=== PATIENT | female | born 1940 | race Caucasian/White ===

== ENCOUNTER 2019-04-23 10:52 | Outpatient (CLI) | payer MEDICARE, SELFPAY ==
--- NOTE | ~2019-04-23 | MM_ITS ---
EXAMINATION: MM screening hossein LT w yoshi HISTORY: Screening mammogram TECHNIQUE: Craniocaudal and mediolateral oblique 3-D tomosynthesis images were obtained and synthetic 2-D images were generated. CAD analysis was submitted and interpreted. COMPARISON: Comparison to multiple prior studies sequentially, with oldest reviewed study dated 11/28. BREAST PARENCHYMAL COMPOSITION: Breast composed of scattered areas of fibroglandular density FINDINGS: There is no evidence of suspicious mass, calcification, or architectural distortion to sugg est malignancy in the left breast. There has been no suspicious interval change. IMPRESSION: 1. No mammographic evidence of malignancy. 2. Recommend routine screening mammography in one year. BI-RADS Category 1: Negative Reviewed, dictated and finalized at location A. OMER COMPLAINT CLERK
== END 2019-04-23 10:53 | disposition home or self-care (01) ==
LOC: ANHIMG 10:56
PROVIDERS: PCP Nurse Practitioner Adult Health; Visit Provider Nurse Practitioner Adult Health
DX: Z12.31 Encounter for screening mammogram for malignant neoplasm of breast (principal)
CPT/HCPCS: 77063; 77067

== ENCOUNTER 2019-11-20 12:41 | Outpatient (CLI) | payer MEDICARE, SELFPAY ==
--- NOTE | ~2019-11-20 | MR_ITS ---
. EXAMINATION: MR shoulder RT wo con DATE: 11/20/2019 14:11 INDICATION: Right shoulder osteoarthritis. Right shoulder pain. TECHNIQUE: Magnetic resonance imaging (MRI) of the right shoulder was performed without intravenous c ontrast. Sequences included axial PD-weighted FS FSE, coronal oblique PD-weighted FS FSE and T2-weigh alicia FS FSE, and sagittal oblique T2-weighted FS FSE and T1-weighted FSE. COMPARISON: None. FINDINGS: Coracoacromial arch: The acromion undersurface is curved in morphology (type II). There is severe acromioclavicular joint osteoarthritis including inferior directed osteophytes. There is moderate subacromial/subdeltoid burs itis. Rotator cuff: There is a full-thickness tear of supraspinatus and infraspinatus tendons measuring 17 mm anterior to posterior. The tear measures 9 mm proximal to distal at the bursal surface and 2.4 cm proximal to di stal at the articular surface. Teres minor tendon is normal. There is mild subscapularis tendinopathy . There is mild fatty atrophy of infraspinatus muscle belly. Biceps tendon and glenoid labrum: Biceps tendon is in bicipital groove. There is mild intra-articular biceps tendinopathy. There is deg eneration of the superior glenoid labrum without well-defined tear. Fluid: There is a small glenohumeral joint effusion. Bones/cartilage: There is extensive partial thickness cartilage loss of the glenoid, deep at the central articular loco face. There is shallow partial-thickness cartilage loss of humeral head. IMPRESSION: 1. Moderate glenohumeral joint chondrosis. 2. Full-thickness rotator cuff tear. 3. Severe acromioclavicular joint osteoarthritis. 4. Mild intra-articular biceps tendinopathy. 5. Small glenohumeral joint effusion and moderate subacromial/subdeltoid bursitis. Reviewed, dictated and finalized at location A. IMPRESSION: 1. Moderate glenohumeral joint chondrosis. 2. Full-thickness rotator cuff tear. 3. Severe acromioclavicular joint osteoarthritis. 4. Mild intra-articular biceps tendinopathy. 5. Small glenohumeral joint effusion and moderate subacromial/subdeltoid bursit is.
== END 2019-11-20 12:42 | disposition home or self-care (01) ==
PROVIDERS: PCP Nurse Practitioner Adult Health; Visit Provider Nurse Practitioner Adult Health
DX: M19.011 Primary osteoarthritis, right shoulder (principal); M75.101 Unspecified rotator cuff tear or rupture of right shoulder, not specified as traumatic
CPT/HCPCS: 73221

== ENCOUNTER 2019-12-05 02:27 | Outpatient (CLI) | payer MEDICARE, SELFPAY ==
[2019-12-05 23:12] LABS: SARS-CoV-2 RNA PCR Negative
== END 2019-12-05 02:28 | disposition home or self-care (01) ==
LOC: ANHCOVIDDT 02:27
PROVIDERS: PCP Nurse Practitioner Adult Health; Visit Provider Internal Medicine Gastroenterology
DX: Z01.812 Encounter for preprocedural laboratory examination (principal); Z20.828 Contact with and (suspected) exposure to other viral communicable diseases
CPT/HCPCS: 87635; C9803; U0003

== ENCOUNTER 2019-12-08 00:51 | Day surgery (SDC) | payer MEDICARE, SELFPAY ==
[2019-12-02 12:49] VITALS: BMI 20.8
[2019-12-08 06:59] VITALS: BP 163/107; PULSE 75; RESP 14; TEMP 36.8; O2SAT 99; BMI 20.4
[2019-12-08] MEDS: LACTATED RINGERS 1,000 ML 150 ML IV CONT (07:23)
--- NOTE | 2019-12-08 07:23 | PM.HPGS ---
History of Present Illness History of Present Illness Consent: Risks, benefits, and alternatives have been discussed and questions answered. Patient agrees to proceed with procedure. Chief complaint: Neoplasm Screening Narrative: Abril Ramírez is a 79 year old W female referred for colonoscopy secondary to change in bowel pattern with increasing constipation abdominal pain and positive colo guard test. Patient's last colonoscopy was over 11 years ago P no family history of colon cancer. [facility] Past Medical History Medical History (Updated 12/08/19 @ 07:26 by Mayank Sarah MD) Dyslipidemia GERD (gastroesophageal reflux disease) Irritable bowel syndrome Migraines Surgical History Surgical History (Updated 12/08/19 @ 07:25 by Mayank Sarah MD) H/O hysterectomy for benign disease Status post right mastectomy Social History Social History Smoking status: Never smoker Alcohol intake: current Drinks per week: 7 Alcohol use details: 2 0Z PER EVENING Substance use: never Substance use type: does not use Living arrangements: alone Spiritual care concerns: No Meds Home Medications and Allergies Home Medications Medication Instructions Recorded Confirmed Type aspirin [Aspirin Low Dose] 81 mg PO DAILY 12/02/19 12/02/19 History esomeprazole magnesium 40 mg PO DAILY 12/02/19 12/02/19 History propranolol 20 mg PO DAILY 12/02/19 12/02/19 History rosuvastatin 10 mg PO DAILY 12/02/19 12/02/19 History sertraline 50 mg PO DAILY 12/02/19 12/02/19 History temazepam 15 mg PO HS 12/02/19 12/02/19 History Allergies Allergy/AdvReac Type Severity Reaction Status Date / Time nitroglycerin AdvReac Severe VOMITING,DI Verified 12/08/19 06:58 ZZY,LIGHTHE ADED,CRAMPI NG aspirin AdvReac Intermediate GI UPSET Verified 12/08/19 06:58 Vital Signs Vital Signs - 24 hr 12/08/19 06:59 Temperature 36.8 C Pulse Rate 75 Respiratory Rate 14 Blood Pressure 163/107 H Pulse Oximetry 99 Exam Const: Orientation/consciousness: patient oriented x3 Resp: Auscultation: clear to auscultation bilaterally Cardio: Rate: regular rate Rhythm: regular rhythm Heart sounds: no murmurs GI: GI Palp: Yes Soft to palpation, No Tenderness to palpation present (GI), Yes No hepatosplenomegaly present and No Palpable mass present Auscultation: normal bowel sounds Neuro: General: patient oriented x3 and no focal motor deficits Extrem: General: no pedal edema Assessment and Plan Additional Plan colonoscopy for evaluation of change in bowel pattern positive colo guard test
--- NOTE | 2019-12-08 07:33 | WPDANESEPPF ---
Anes - Initial Pre Proc Eval Procedure: Operation Date: 12/08/19 08:00 Proposed Procedures p Screening Colonoscopy - Mayank Sarah MD Date/Time: 12/08/19 07:33 Surgeon: Mayank Sarah MD Pre Op Diagnosis: Neoplasm Screening Patient Data Age: 79 Gender: F Height: 5 ft 1 in Weight: 49 kg Last Vital Signs Temp 36.8 C 12/08/19 06:59 Pulse 75 12/08/19 06:59 Resp 14 12/08/19 06:59 BP 163/107 H 12/08/19 06:59 Pulse Ox 99 12/08/19 06:59 Allergies Allergy/AdvReac Type Severity Reaction Status Date / Time nitroglycerin AdvReac Severe VOMITING,DI Verified 12/08/19 06:58 ZZY,LIGHTHE ADED,CRAMPI NG aspirin AdvReac Intermediate GI UPSET Verified 12/08/19 06:58 Home Medications Medication Instructions Recorded Confirmed Type aspirin [Aspirin Low Dose] 81 mg PO DAILY 12/02/19 12/02/19 History esomeprazole magnesium 40 mg PO DAILY 12/02/19 12/02/19 History propranolol 20 mg PO DAILY 12/02/19 12/02/19 History rosuvastatin 10 mg PO DAILY 12/02/19 12/02/19 History sertraline 50 mg PO DAILY 12/02/19 12/02/19 History temazepam 15 mg PO HS 12/02/19 12/02/19 History Patient hx anesthesia problems: none Family hx anesthesia problems: none PMFSH Past Medical History Medical History Dyslipidemia GERD (gastroesophageal reflux disease) Irritable bowel syndrome Migraines Surgical History Surgical History H/O hysterectomy for benign disease Status post right mastectomy Social History Social History Smoking status: Never smoker Alcohol intake: current Drinks per week: 7 Alcohol use details: 2 0Z PER EVENING Substance use: never Substance use type: does not use Living arrangements: alone Spiritual care concerns: No Anes - Eval Final PreProcedure Day of Procedure 12/08/19 07:33 Patient weight: normal Heart: regular rate and rhythm Lungs: clear to auscultation Airway: Mallampati scale class II Neurological: alert and oriented Last oral intake: >/= 8 hours ASA classification: II Emergent: no Anesthetic plan: proceed Anesthesia type and monitoring: general GIVS and standard monitoring Informed Consent: The patient's anesthetic plan and its attendant risks and benefits were discussed with the patient/family/POA. Questions were solicited and answers provided to the satisfaction of the patient/family/POA.
[2019-12-08 08:47] VITALS: BP 132/69; PULSE 63; RESP 19; O2SAT 99
[2019-12-08 08:57] VITALS: BP 128/72; PULSE 60; RESP 17; O2SAT 98
[2019-12-08 09:07] VITALS: BP 135/78; PULSE 58; RESP 15; O2SAT 100
== END 2019-12-08 09:25 | disposition home or self-care (01) ==
PROVIDERS: PCP Nurse Practitioner Adult Health; Visit Provider Internal Medicine Gastroenterology
PROC: 0DJD8ZZ Inspection of Lower Intestinal Tract, Via Natural or Artificial Opening Endoscopic (ICD-10-PCS; CPT 45378; principal; 2019-12-08 08:00)
DX: Z12.11 Encounter for screening for malignant neoplasm of colon (principal); D12.0 Benign neoplasm of cecum; D12.8 Benign neoplasm of rectum; K57.30 Diverticulosis of large intestine without perforation or abscess without bleeding; R19.5 Other fecal abnormalities; K59.00 Constipation, unspecified; K21.9 Gastro-esophageal reflux disease without esophagitis; K58.9 Irritable bowel syndrome, unspecified; E78.5 Hyperlipidemia, unspecified; Z79.82 Long term (current) use of aspirin
CPT/HCPCS: 45380; 88305; J2704; J7120

== ENCOUNTER 2020-08-17 15:27 | Outpatient (CLI) | payer MEDICARE, SELFPAY ==
--- NOTE | ~2020-08-17 | MM_ITS ---
EXAMINATION: MM screening hossein LT w yoshi HISTORY: Screening mammogram. Status post right mastectomy in 2006. TECHNIQUE: Craniocaudal and mediolateral oblique 3-D tomosynthesis images were obtained and synthetic 2-D images were generated. CAD analysis was submitted and interpreted. COMPARISON: 04/23/2019 left digital screening mammogram examinations 01/11/2018 left digital screening mammogram examination 06/13/2016 diagnostic left digital mammogram 06/06/2016 left digital screening mammogram BREAST PARENCHYMAL COMPOSITION: There are scattered areas of fibroglandular density. FINDINGS: There is no evidence of suspicious mass, calcification, or architectural distortion to sugg est malignancy in either breast. There has been no suspicious interval change. IMPRESSION: 1. No mammographic evidence of malignancy. 2. Recommend routine screening mammography in one year. BI-RADS Category 1: Negative Reviewed, dictated and finalized at location A.
== END 2020-08-17 15:28 | disposition home or self-care (01) ==
PROVIDERS: PCP Nurse Practitioner Adult Health; Visit Provider Nurse Practitioner Adult Health
DX: Z12.31 Encounter for screening mammogram for malignant neoplasm of breast (principal)
CPT/HCPCS: 77063; 77067

== ENCOUNTER 2020-08-28 12:10 | Outpatient (CLI) | payer MEDICARE, SELFPAY ==
--- NOTE | ~2020-08-28 | MR_ITS ---
EXAMINATION: MR cervical spine wo con EXAM DATE: 08/28/2020 13:02 INDICATION: Cervicalgia. TECHNIQUE: Multi-sequential, multiplanar MR images of the cervical spine were obtained without contra st. Axial T2, axial T2 MERGE sequence. Sagittal T1, T2, T2 fat saturation images also obtained. Th ere is no prior study for comparison. FINDINGS: Left thyroid fluid signal intensity nodule, probably cystic measuring about 1.6 cm. There is 2 mm anterolisthesis C4 on C5. Moderate disc disease C5-6 and 6-7, mild to moderate at C4-5. The s hadley cord signal intensity and intrinsic morphology is normal. Cervicomedullary junction is normal i n appearance. There are no suspicious marrow signal abnormalities. Paraspinal soft tissue is unremark able. Level by level evaluation: C2-C3: Disc does not extend beyond the endplate margin. Uncovertebral joint arthropathy: Mild bilateral. Facet joint arthropathy: Mild to moderate bilateral. Neural foraminal stenosis: No stenosis. Central canal stenosis: No stenosis. C3-C4: Disc does not extend beyond the endplate margin. Uncovertebral joint arthropathy: Mild to moderate right, mild left. Facet joint arthropathy: Moderate to severe right, mild to moderate left. Neural foraminal stenosis: Mild right. Central canal stenosis: No stenosis. C4-C5: There is a mild diffuse disc bulge. Uncovertebral joint arthropathy: Moderate left, mild to moderate right. Facet joint arthropathy: Moderate left, mild right. Neural foraminal stenosis: No stenosis. Central canal stenosis: No stenosis. C5-C6: There is a mild diffuse disc bulge. Uncovertebral joint arthropathy: Severe right, moderate left. Facet joint arthropathy: Mild to moderate bilateral. Neural foraminal stenosis: Moderate to severe left, moderate right. Central canal stenosis: Mild. C6-C7: There is a mild diffuse disc bulge. Uncovertebral joint arthropathy: Severe right, moderate left. Facet joint arthropathy: Mild to moderate bilateral. Neural foraminal stenosis: Mild bilateral. Central canal stenosis: No stenosis. C7-T1: Disc does not extend beyond the endplate margin. Uncovertebral joint arthropathy: None. Facet joint arthropathy: Moderate bilateral. Neural foraminal stenosis: No stenosis. Central canal stenosis: No stenosis. IMPRESSION: 1. Moderate to severe cervical spondylosis. 2. Left thyroid lobe cystic nodule. Reviewed, dictated and finalized at location A.
== END 2020-08-28 12:11 | disposition home or self-care (01) ==
PROVIDERS: PCP Nurse Practitioner Adult Health; Visit Provider Nurse Practitioner Family
DX: M54.2 Cervicalgia (principal); M47.812 Spondylosis without myelopathy or radiculopathy, cervical region; E04.1 Nontoxic single thyroid nodule
CPT/HCPCS: 72141

== ENCOUNTER 2021-03-21 11:27 | Emergency (ER) | payer MEDICARE, SELFPAY ==
--- NOTE | ~2021-03-21 | XR_ITS ---
EXAMINATION: XR chest 2V EXAM DATE: 03/21/2021 12:01 INDICATION: Chest pain. TECHNIQUE: Frontal and lateral projections of the chest obtained and reviewed. Comparison is made to prior examination from 12/23/2013. FINDINGS: The lungs are hyperinflated which can be seen with chronic obstructive pulmonary disease ( a clinical diagnosis of functional impairment), but is not diagnostic of it. There is mild cardiomega ly. No confluent consolidation, pneumothorax or pleural effusion suspected. There is a mild to modera te chronic appearing mid thoracic compression fracture and mild compression fracture at the level jus t below. IMPRESSION: Hyperinflation. Cardiomegaly. Reviewed, dictated and finalized at location A. ULUS TEACHER
--- NOTE | 2021-03-21 11:29 | ECG_ITS ---
Measurements Intervals [place] Rate: 68 P: 78 AL: 166 QRS: -52 QRSD: 90 T: 8 QT: 397 QTc: 423 Interpretive Statements SINUS RHYTHM FREQUENT ATRIAL PREMATURE COMPLEXES INCOMPLETE RIGHT BUNDLE BRANCH BLOCK POOR R WAVE PROGRESSION, ANTERIOR LEADS BORDERLINE T WAVE ABNORMALITY- INFERIOR LEADS ABNORMAL ECG Electronically Signed On 03-21-2021 12:44:59 SECOND CRUSHER by Juan Diego Mccormack D.O.
[2021-03-21 11:31] VITALS: BP 135/78; PULSE 69; RESP 16; TEMP 36.2; O2SAT 100
[2021-03-21 12:06] LABS: Basophils Percent Auto 0.4 % (0.2-1.2); Eosinophils Absolute Auto 0.1 K/mm3 (0-0.3); Eosinophils Percent Auto 2.1 % (0-4.4); Hematocrit 42.2 % (37.0-47.0); Hemoglobin 13.9 g/dL (12.0-15.0); Immature Granulocyte Absolute 0.01 K/mm3 (0.00-0.031); Immature Granulocyte Percent A 0.2 % (0-0.5); Lymphocytes Absolute Auto 1.43 K/mm3 (0.9-3.2); Lymphocytes Percent Auto 29.4 % (18.3-44.2); Mean Corpuscular HGB Conc 32.9 g/dl (32-36); Mean Platelet Volume 11.8 fl (7.4-10.4); Monocytes Absolute Auto 0.4 K/mm3 (0.1-0.6); Monocytes Percent Auto 9.1 % (2.6-8.5); Neutrophils Absolute Auto 2.9 K/mm3 (1.3-6.7); Neutrophils Percent Auto 58.8 % (45.5-73.1); Platelet Count Result 202 k/mm3 (150-375); Red Blood Count 4.49 M/mm3 (4.2-5.4); Red Cell Distribution Width 13.1 % (11.5-14.5); White Blood Count 4.9 K/mm3 (4.5-10.0)
[2021-03-21 12:09] LABS: Alanine Aminotransferase 21 U/L (4-35); Albumin Level 4.1 g/dL (3.5-5.1); Alkaline Phosphatase 65 U/L (38-126); Anion Gap 7 mmol/L (8-16); Aspartate Amino Transferase 31 U/L (14-36); Bilirubin,Total 0.6 mg/dL (0.2-1.3); Blood Urea Nitrogen 17 mg/dL (7-17); Calcium 9.5 mg/dL (8.4-10.2); Carbon Dioxide 28 mmol/L (22-30); Chloride 102 mmol/L (98-107); Estimated CRCL calculation 29 ml/min; Estimated Glomerular Filt Rate 53; Glucose 175 mg/dL (65-110); Lipase 44 U/L (23-300); Potassium 4.5 mmol/L (3.4-5.0); Sodium 137 mmol/L (137-145)
[2021-03-21 12:14] LABS: INR 1.1; Prothrombin Time 13.7 Seconds (11.1-14.7)
[2021-03-21 12:15] LABS: Partial Thromboplastin Time 27.2 SECONDS (22.3-36.8)
[2021-03-21 12:17] LABS: Troponin I 0.014 ng/mL (0.000-0.034)
[2021-03-21 13:28] VITALS: BP 137/72; PULSE 66; O2SAT 98
--- NOTE | 2021-03-21 14:58 | ED.CHESTPAIN ---
HPI - Chest Pain General Chief Complaint: Chest Pain Stated Complaint: chest pain Time Seen by Provider: 03/21/21 14:33 Source: patient, EMS and RN notes reviewed Mode of arrival: EMS Limitations: no limitations History of Present Illness HPI narrative: 81-year-old female with history of coronary artery disease presents to the emergency department for evaluation of heart racing, near syncope and chest pain. Patient states that this morning she had an episode of rapid heart rate with associated chest pain and near syncope. Patient states while this episode was ongoing she did called 911 and was able to make it to the door to unlock the door. Upon arrival to the scene by EMS they report that she was in A. fib with RVR and had a very low blood pressure. Upon arrival to the emerge department patient was in normal sinus rhythm and blood pressure had normalized. Patient did still complain of some epigastric pain. Patient does report her years ago that she did have a cardiac cath that showed some narrowing but has no stents. Patient had previously been taking statins and aspirin but states that she stopped taking these medications on her own without her doctor's guidance. Related Data Home Medications Medication Instructions Recorded Confirmed aspirin [Aspirin Low Dose] 81 mg PO DAILY 12/02/19 12/02/19 esomeprazole magnesium 40 mg PO DAILY 12/02/19 12/02/19 propranolol 20 mg PO DAILY 12/02/19 12/02/19 rosuvastatin 10 mg PO DAILY 12/02/19 12/02/19 sertraline 50 mg PO DAILY 12/02/19 12/02/19 temazepam 15 mg PO HS 12/02/19 12/02/19 Allergies Allergy/AdvReac Type Severity Reaction Status Date / Time nitroglycerin AdvReac Severe VOMITING,DI Verified 12/08/19 06:58 JASON STEVENS CRAMPI NG aspirin AdvReac Intermediate GI UPSET Verified 12/08/19 06:58 Review of Systems Review of Systems: CONSTITUTIONAL: Denies fever, chills, or sweats. EYES: Denies visual changes, redness, or discharge. ENT: Denies rhinorrhea, congestion, sore throat, or otalgia. CARDIOVASCULAR: Episode of heart palpitations near syncope and chest pain with possible A. fib with RVR at home RESPIRATORY: Denies cough or dyspnea. GASTROINTESTINAL: Denies abdominal pain, nausea, vomiting, or diarrhea. GENITOURINARY: Denies dysuria or hematuria. SKIN: Denies rash or itching. MUSCULOSKELETAL: Denies back pain, joint pain, or myalgia. NEUROLOGIC: Denies headache, numbness, or weakness. PSYCHIATRIC: Denies anxiety or depression. PMFSH Past Medical History Medical History Dyslipidemia GERD (gastroesophageal reflux disease) Irritable bowel syndrome Migraines Surgical History Surgical History H/O hysterectomy for benign disease Status post right mastectomy Social History Social History Smoking status: Never smoker Alcohol intake: current Drinks per week: 7 Alcohol use details: 2 0Z PER EVENING Substance use: never Substance use type: does not use Spiritual care concerns: No Exam Narrative: APPEARANCE: Well appearing, no pain, no distress, well-nourished. HEAD: normocephalic, atraumatic. EYES: PERRLA/EOMI, conjunctivae clear. NOSE: Normal no drainage RESPIRATORY: Airway patent, respirations nonlabored. Clear to auscultation bilaterally, no rales, rhonchi, wheezing. CARDIOVASCULAR: Regular rate and rhythm without murmurs rubs or gallops. ABDOMINAL: Soft, nontender, nondistended, normal bowel sounds MUSCULOSKELETAL: Moves all extremities. Strength/ROM intact, No edema, No calf tenderness. NEURO: Alert. Cranial nerves II through XII intact. SKIN: Warm, dry. Normal Color PSYCHIATRIC: Normal affect/mood. Course Course Emergency Course: I discussed the case with the hospitalist and patient was accepted for further cardiac work-up. Prior to admission I re discussed the admiss
[2021-03-21 15:03] LABS: Troponin I 0.018 ng/mL (0.000-0.034)
[2021-03-21 16:13] LABS: SARS-CoV-2 RNA PCR Negative
[2021-03-21 17:50] VITALS: BP 122/64; PULSE 80; RESP 16; O2SAT 98
== END 2021-03-21 17:50 | disposition left against medical advice (07) ==
PROVIDERS: Emergency Medicine; Emergency Provider Emergency Medicine; PCP Nurse Practitioner Adult Health
DX: R00.2 Palpitations (principal); R55 Syncope and collapse; R07.9 Chest pain, unspecified; Z20.822 Contact with and (suspected) exposure to COVID-19; I25.10 Atherosclerotic heart disease of native coronary artery without angina pectoris; E78.5 Hyperlipidemia, unspecified; K21.9 Gastro-esophageal reflux disease without esophagitis; K58.9 Irritable bowel syndrome, unspecified; Z90.11 Acquired absence of right breast and nipple; I49.1 Atrial premature depolarization; I45.10 Unspecified right bundle-branch block; R94.31 Abnormal electrocardiogram [ECG] [EKG]; I51.7 Cardiomegaly
CPT/HCPCS: 36415; 71046; 80053; 83690; 84484; 85025; 85610; 85730; 93005; 99284; C9803; U0003; U0005

== ENCOUNTER 2023-04-13 16:43 | Observation (INO) | payer MEDICARE, SELFPAY ==
[2023-04-13] VITALS (19 sets, daily range): BP systolic 133–164; BP diastolic 76–102; PULSE 52–73; RESP 12–22; TEMP 36.7; O2SAT 97–100
--- NOTE | ~2023-04-13 | XR_ITS ---
EXAM: XR shoulder RT min 2V DATE: 04/13/2023 21:09 HISTORY: Fall . COMPARISON: MRI right shoulder 11/20/2019. FINDINGS: Decreased mineralization. Right axillary clips. No fracture or dislocation. No lytic or bl astic lesion. Moderate AC joint and mild glenohumeral joint degenerative change. No erosion or perios teal change. Soft tissues within normal limits. IMPRESSION: No acute osseous finding in the right shoulder. Reviewed, dictated and finalized at location K. ER HOLE REAMER
--- NOTE | ~2023-04-13 | CT_ITS ---
EXAMINATION: CT cervical spine wo con DATE: 04/13/2023 21:07 INDICATION: fall, pain TECHNIQUE: Computed tomography (CT) of the cervical spine was performed without intravenous contrast. Automated exposure control and iterative reconstruction technique were employed. The dose-length pro duct was 93.80 mGy-cm. COMPARISON: MR C-spine 08/28/2020. FINDINGS: Vertebral Body Alignment: Intact. Multilevel degenerative listheses, unchanged Craniocervical and atlantoaxial alignment: Moderate degenerative change. Alignment intact. Osseous structures/fracture: No evidence of a lytic or blastic process in the visualized spine. No e vidence of acute fracture. Cervical soft tissues: The paraspinal soft tissues planes are maintained. 2.1 cm left thyroid nodule. Degenerative changes: Degenerative changes are present, without severe neural foraminal or central ca nal narrowing. IMPRESSION: No acute fracture or traumatic malalignment in the cervical spine. Reviewed, dictated and finalized at location K. LLITE DISH REPAIRER
--- NOTE | ~2023-04-13 | CT_ITS ---
EXAMINATION: CT brain wo con DATE: 04/13/2023 21:07 INDICATION: fall . TECHNIQUE: Computed tomography (CT) of the head was performed without intravenous contrast. The mA wa s adjusted according to patient size. Iterative reconstruction technique was employed. The dose-lengt h product was 605.33 mGy-cm. COMPARISON: None. FINDINGS: No acute intracranial hemorrhage or extra-axial fluid collection. No hydrocephalus, mass, or herniation. No acute ischemic infarct. Unremarkable dural venous sinus attenuation. No acute osseous abnormality. Right maxillary retention cyst/polyp. Mucosal thickening, with possible retention cyst or polyp in th e sphenoid sinus. The remaining aerated spaces are clear. Mild atrophy and chronic white matter change. Atherosclerotic intracranial calcification. Bilateral l ens replacements. Left basal ganglia calcification. IMPRESSION: No acute intracranial process. Reviewed, dictated and finalized at location K. AL WORK THERAPIST
--- NOTE | ~2023-04-13 | XR_ITS ---
EXAMINATION: XR chest 2V Exam Date/Time: 04/13/2023 17:33 LEASING DIRECTOR HISTORY: chest pain Comparison: 03/21/2021. RESULT: Lines, tubes, and devices: Right axillary and anterior chest surgical clips. Lungs and pleura: Severe emphysematous/senescent change. Cardiomediastinal silhouette: Stable. Other: No acute osseous or upper abdominal finding. Stable mild wedge compression deformity of multi ple mid thoracic vertebral bodies. IMPRESSION: No acute cardiopulmonary process. Reviewed, dictated and finalized at location K. ING DIRECTOR
--- NOTE | ~2023-04-13 | XR_ITS ---
EXAM: XR hip RT 2V w AP pelvis DATE: 04/13/2023 21:09 HISTORY: fall, pain . COMPARISON: None available. FINDINGS: Decreased mineralization. No fracture or dislocation. No lytic or blastic lesion. Lumbar d egenerative disc disease. 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 No erosion or periost eal change. Soft tissues within normal limits. IMPRESSION: No acute osseous finding in the pelvis or right hip. Reviewed, dictated and finalized at location K. HMALLOW MACHINE OPERATOR
--- NOTE | 2023-04-13 16:44 | ECG_ITS ---
Measurements Intervals [place] Rate: 62 P: 74 WV: 177 QRS: -51 QRSD: 96 T: -1 QT: 399 QTc: 407 Interpretive Statements SINUS RHYTHM WITH FREQUENT ECTOPIC PREMATURE COMPLEXES IN A BIGEMINAL PATTERN INCOMPLETE RIGHT BUNDLE BRANCH BLOCK [90+ ms QRS DURATION, TERMINAL R IN V1/V2, 40+ ms S IN I/aVL/V4/V5/V6] LEFT ANTERIOR FASCICULAR BLOCK [QRS AXIS <= -45, QR IN I, RS IN II] ABNORMAL ECG COMPARED TO ECG 03/21/2021 11:39:51 PVCS ARE NOW SEEN Electronically Signed On 04-14-2023 8:14:49 ENTERPRISE ACCOUNT EXECUTIVE by Sascha Lechuga M.D.
[2023-04-13 17:11] LABS: Basophils Percent Auto 0.5 % (0.2-1.2); Eosinophils Absolute Auto 0.2 K/mm3 (0-0.3); Eosinophils Percent Auto 3.5 % (0-4.4); Hematocrit 39.8 % (37.0-47.0); Immature Granulocyte Absolute 0.02 K/mm3 (0.00-0.031); Immature Granulocyte Percent A 0.4 % (0-0.5); Lymphocytes Absolute Auto 1.35 K/mm3 (0.9-3.2); Lymphocytes Percent Auto 24.5 % (18.3-44.2); Mean Corpuscular HGB Conc 32.7 g/dl (32-36); Mean Corpuscular Hemoglobin 30.5 pg (26-34); Mean Corpuscular Volume 93.4 fl (80-100); Mean Platelet Volume 11.1 fl (7.4-10.4); Monocytes Absolute Auto 0.5 K/mm3 (0.1-0.6); Monocytes Percent Auto 8.7 % (2.6-8.5); Neutrophils Absolute Auto 3.4 K/mm3 (1.3-6.7); Neutrophils Percent Auto 62.4 % (45.5-73.1); Platelet Count Result 193 k/mm3 (150-375); Red Blood Count 4.26 M/mm3 (4.2-5.4); Red Cell Distribution Width 13.2 % (11.5-14.5); White Blood Count 5.5 K/mm3 (4.5-10.0)
[2023-04-13 17:21] LABS: INR 0.9
[2023-04-13 17:22] LABS: Partial Thromboplastin Time 30.9 SECONDS (22.3-36.8)
[2023-04-13 17:24] LABS: Alanine Aminotransferase 15 U/L (6-35); Albumin Level 4.2 g/dL (3.5-5.1); Alkaline Phosphatase 69 U/L (38-126); Anion Gap 5 mmol/L (8-16); Aspartate Amino Transferase 24 U/L (14-36); Bilirubin,Total 0.5 mg/dL (0.2-1.3); Blood Urea Nitrogen 18 mg/dL (7-17); Calcium 9.3 mg/dL (8.4-10.2); Carbon Dioxide 30 mmol/L (22-30); Chloride 102 mmol/L (98-107); Estimated CRCL calculation 27 ml/min; Estimated Glomerular Filt Rate 53; Glucose 108 mg/dL (65-110); Lipase 65 U/L (23-300); Potassium 4.1 mmol/L (3.4-5.0); Sodium 137 mmol/L (137-145)
[2023-04-13 17:35] LABS: Troponin I < 0.012 ng/mL (0.000-0.034)
--- NOTE | 2023-04-13 20:14 | ED.CHESTPAIN ---
HPI - Chest Pain General Chief Complaint: Chest Pain <Sola Liz PA-C - Last Filed: 04/13/23 23:33> Stated Complaint: strong chest pain/SOB/GERD <Sola Liz PA-C - Last Filed: 04/13/23 23:33> Time Seen by Provider: 04/13/23 22:27 <Sola Liz PA-C - Last Filed: 04/13/23 23:33> Focused HPI: 83 y/o F with known CAD, A fib, GERD, esophageal ulcers reports for evaluation for chest pain today. States CP started this afternoon, she cannot remember what she was doing at onset of chest pain. Stats burping makes her chest pain better. Reports associated tingling to bilateral arms with chest pain. She reports dyspnea on exertion and fatigue x1-2 months and lightheadedness x1 week. teradata solution architect is Dr. Mcmullen in [place] with [facility] vascular [facility]. Cardiac cathed a few years back which showed partial blockage . She is not anticoagulated. States she took her BP today and her monitor said HR was irregular. Reports an episode of syncope 1 month ago when got out of shower, hit head and laceration to neck and R shoulder. Reports residual neck pain. Pt lives at home alone. Denies BLE, abdominal pain, n/v, diaphoresis, cough, fever, hemoptysis. She has an appointment with her teradata solution architect in 3 days. GENERAL: Well-appearing, well-nourished, and in no acute distress. HEAD: Normocephalic, atraumatic. CHEST: Clear to auscultation. ?No respiratory distress. HEART: Regular rate and rhythm.? NEURO: ?Alert and oriented x3. Patient screened in triage and initial orders placed.? ?Additional care and disposition to be based upon?diagnostic testing and treatment. <Sola Liz PA-C - Last Filed: 04/13/23 23:33> History of Present Illness HPI narrative: 83 y/o F with known CAD, A fib, GERD, esophageal ulcers reports for evaluation for chest pain today. States CP started this afternoon, she cannot remember what she was doing at onset of chest pain. Stats burping makes her chest pain better. Reports associated tingling to bilateral arms with chest pain. She reports dyspnea on exertion and fatigue x1-2 months and lightheadedness x1 week. teradata solution architect is Dr. Mcmullen in [place] with [facility] heart [facility] vascular [facility]. Cardiac cathed a few years back which showed partial blockage . She is not anticoagulated. States she took her BP today and her monitor said HR was irregular. Reports an episode of syncope 1 month ago when got out of shower, hit head and laceration to neck and R shoulder. Reports residual neck pain. Pt lives at home alone. Denies BLE, abdominal pain, n/v, diaphoresis, cough, fever, hemoptysis. She has an appointment with her teradata solution architect in 3 days. <Sola Liz PA-C - Last Filed: 04/13/23 23:33> Related Data Home Medications: Home Medications Medication Instructions Recorded Confirmed aspirin 81 mg tablet,delayed 81 mg PO DAILY 12/02/19 12/02/19 release (Brit Low Dose Aspirin) esomeprazole magnesium 40 mg 40 mg PO DAILY 12/02/19 12/02/19 capsule,delayed release propranolol 20 mg tablet 20 mg PO DAILY 12/02/19 12/02/19 rosuvastatin 10 mg tablet 10 mg PO DAILY 12/02/19 12/02/19 sertraline 50 mg tablet 50 mg PO DAILY 12/02/19 12/02/19 temazepam 15 mg capsule 15 mg PO HS 12/02/19 12/02/19 <Sola Liz PA-C - Last Filed: 04/13/23 23:33> Allergies/Adverse Reactions: Allergies Allergy/AdvReac Type Severity Reaction Status Date / Time nitroglycerin AdvReac Severe VOMITING,DI Verified 04/13/23 21:39 ZZY,LIGHTHE ADED,CRAMPI NG aspirin AdvReac Intermediate GI UPSET Verified 04/13/23 21:39 <Sola Liz PA-C - Last Filed: 04/13/23 23:33> Review of Systems Review of Systems: CONSTITUTIONAL: Denies fever, chills, or sweats. EYES: Denies visual changes, redness, or discharge. ENT: Denies rhinorrhea, congestion, sore throat, or otalgia. CARDIOVASCULAR: See HPI RESPIRATORY: See HPI GASTROINTESTINAL: Denies abdominal pain, nausea, vomiting, or diarrhe
[2023-04-13 21:09] LABS: NT Pro B Type Natriuretic Pept 665 pg/mL (19.9-100)
--- NOTE | 2023-04-13 21:24 | ECG_ITS ---
Measurements Intervals [place] Rate: 62 P: 71 ME: 160 QRS: -34 QRSD: 101 T: 32 QT: 427 QTc: 436 Interpretive Statements SINUS RHYTHM WITH FREQUENT ECTOPIC PREMATURE COMPLEXES LEFT ANTERIOR SUPERIOR HEMIBLOCK INCOMPLETE RIGHT BUNDLE BRANCH BLOCK [90+ ms QRS DURATION, TERMINAL R IN V1/V2, 40+ ms S IN I/aVL/V4/V5/V6] ABNORMAL ECG COMPARED TO ECG 04/13/2023 16:49:49 NO DIFFERENCE Electronically Signed On 04-14-2023 8:23:43 CARD GRINDER HELPER by Sascha Lechuga M.D.
[2023-04-13 22:03] LABS: Troponin I < 0.012 ng/mL (0.000-0.034)
[2023-04-13] MEDS: BELLADONNA ALK/PHENOB ELIX 10 ML, MAG HYDROX/ALUMINUM HYD/SIMETH 30 ML, LIDOCAINE HCL 2... PO (22:57)
[2023-04-13] MEDS: FAMOTIDINE 20 MG/2 ML VIAL IV PUSH (22:58)
[2023-04-13 22:59] LABS: Appearance Urine Clear (Clear); Bacteria Urine None Seen /hpf; Bilirubin Urine Negative (Negative); Blood Urine Trace (Negative); Color Urine Yellow (Yellow); Glucose Urine UA Negative (Negative); Ketones Urine Negative (Negative); Leukocyte Esterase Ur Trace LEU/UL (Negative); Nitrate Urine Negative (Negative); Non Pathogenic Casts 0-2; Protein Urine Negative (Negative); Specific Grav Ur 1.006 (1.001-1.035); Squamous Epithelial Cell Urine None seen /hpf (Few); Urobilinogen Urine 0.2 mg/dL (<2.0); WBC Urine 0-5 /hpf
[2023-04-13 23:06] LABS: Add Urine Microscopic? YES
--- NOTE | 2023-04-13 23:31 | PM.IMHP ---
H&P: HPI History of Present Illness Date/Time: 04/13/23 23:31 Chief Complaint: Chest Pain Narrative: 83-year-old female with history of CAD, atrial fibrillation, esophageal and gastric also presents to the ED for evaluation of chest pain that started yesterday afternoon, described pain as sharp, relieved by bowel pain, associated lightheadedness and dizziness and radiation to upper extremities are Percocet dyspnea on exertion and fatigue of about 1-2 months after she had COVID. She had cardiac catheterization few years ago which showed partial blockage at [place], denied nausea, vomiting, diaphoresis. She was evaluated in the ER, her EKG is not suggestive of a acute cardiac ischemia, troponin x2 negative. She continues to complain of weakness especially if she stands. Based on her risk factors which places her at high risk of ACS, I was called to admit this patient for observation for chest pain rule out Review of Systems Review of Systems: All systems reviewed & are unremarkable except as noted in HPI and below PMFSH Past Medical History Medical History Dyslipidemia GERD (gastroesophageal reflux disease) Irritable bowel syndrome Migraines Surgical History Surgical History H/O hysterectomy for benign disease Status post right mastectomy Family History Family History (Updated 04/14/23 @ 01:22 by Richard Lawrence RN) Father Cerebrovascular accident Skin cancer Mother Cerebrovascular accident Sibling Malignant neoplasm of prostate Social History Social History Smoking status: Never smoker Alcohol intake: current Drinks per week: 7 Alcohol use details: 2 0Z PER EVENING Substance use: never Substance use type: does not use Do You Feel Safe in your Home?: Yes Lack of Transportation: No Lack of Food: Never True Current Housing: I Have Housing Concerned About Future Housing: No Difficulty Paying Gas/Electric Bills: No Difficulty Paying for Meds: No Currently Unemployed: No Education: Bachelor's Degree Difficulty w/ Childcare or Family Care: No Living arrangements: alone Spiritual care concerns: No Meds Home Medications and Allergies Home Medications Medication Instructions Recorded Confirmed Type propranolol 20 mg tablet 20 mg PO DAILY 12/02/19 04/14/23 History rosuvastatin 10 mg tablet 10 mg PO DAILY 12/02/19 04/14/23 History sertraline 50 mg tablet 50 mg PO DAILY 12/02/19 04/14/23 History temazepam 15 mg capsule 15 mg PO HS 12/02/19 04/14/23 History amlodipine 5 mg tablet 5 mg PO DAILY 04/14/23 04/14/23 History aspirin 81 mg capsule ([place]) 81 mg PO DAILY 04/14/23 04/14/23 History famotidine 40 mg tablet 40 mg PO DAILY 04/14/23 04/14/23 History Allergies Allergy/AdvReac Type Severity Reaction Status Date / Time nitroglycerin AdvReac Severe VOMITING,DI Verified 04/13/23 21:39 ZZY,LIGHTHE ADED,CRAMPI NG aspirin AdvReac Intermediate GI UPSET Verified 04/13/23 21:39 Vital Signs Vital Signs - 24 hr 04/13/23 17:00 04/13/23 21:37 04/13/23 21:47 Temperature 98.1 F Pulse Rate 58 L 52 L Respiratory Rate 16 12 Blood Pressure 133/102 H 134/87 Pulse Oximetry 100 100 100 Oxygen Delivery Room Air Room Air Room Air 04/13/23 21:37 04/13/23 21:45 04/13/23 21:46 Temperature Pulse Rate 54 L 53 L 58 L Respiratory Rate Blood Pressure 134/87 159/83 H Pulse Oximetry 100 99 99 Oxygen Delivery 04/13/23 22:15 04/13/23 22:30 04/13/23 22:31 Temperature Pulse Rate 53 L 66 70 Respiratory Rate 12 14 Blood Pressure 141/84 H Pulse Oximetry 98 98 99 Oxygen Delivery 04/13/23 22:35 04/13/23 22:38 04/13/23 22:40 Temperature Pulse Rate 57 L 59 L Respiratory Rate 15 14 Blood Pressure 144/101 H 143/85 H 155/76 H Pulse Oximetry 100 100 Oxy
[2023-04-14] VITALS (17 sets, daily range): BP systolic 109–156; BP diastolic 66–71; PULSE 50–65; RESP 14–19; TEMP 36.2–36.7; O2SAT 97–99; BMI 19.7
--- NOTE | 2023-04-14 | ADMGEN ---
This patient, Abril Ramírez, was admitted to IMU Room 206-01. Patient/family oriented to hospital policies and general routines including ID bracelet, bed and alarms, visiting hours, pain management, procedures, bathroom and other care routines, personal items, smoking policy, room service/diet, and visiting hours. Information on how to activate the Rapid Response Team has been discussed. Patient/Family are encouraged to report perceived risks to care and to ask questions if they do not understand what they are told or what they should do.
--- NOTE | 2023-04-14 00:53 | ADMGEN ---
This patient, Abril Ramírez, was admitted to IMU Room 206-01at 0047. Patient/family oriented to hospital policies and general routines including ID bracelet, bed and alarms, visiting hours, pain management, procedures, bathroom and other care routines, personal items, smoking policy, room service/diet, and visiting hours. Information on how to activate the Rapid Response Team has been discussed. Patient/Family are encouraged to report perceived risks to care and to ask questions if they do not understand what they are told or what they should do.
[2023-04-14 05:00] LABS: Basophils Percent Auto 0.9 % (0.2-1.2); Eosinophils Absolute Auto 0.2 K/mm3 (0-0.3); Eosinophils Percent Auto 3.2 % (0-4.4); Hematocrit 37.4 % (37.0-47.0); Hemoglobin 12.4 g/dL (12.0-15.0); Immature Granulocyte Absolute 0.01 K/mm3 (0.00-0.031); Immature Granulocyte Percent A 0.2 % (0-0.5); Lymphocytes Absolute Auto 1.91 K/mm3 (0.9-3.2); Lymphocytes Percent Auto 41.2 % (18.3-44.2); Mean Corpuscular HGB Conc 33.2 g/dl (32-36); Mean Corpuscular Hemoglobin 30.8 pg (26-34); Mean Platelet Volume 11.3 fl (7.4-10.4); Monocytes Absolute Auto 0.5 K/mm3 (0.1-0.6); Monocytes Percent Auto 11.2 % (2.6-8.5); Neutrophils Percent Auto 43.3 % (45.5-73.1); Platelet Count Result 172 k/mm3 (150-375); Red Blood Count 4.02 M/mm3 (4.2-5.4); Red Cell Distribution Width 13.2 % (11.5-14.5); White Blood Count 4.6 K/mm3 (4.5-10.0)
[2023-04-14 05:13] LABS: Anion Gap 4 mmol/L (8-16); Blood Urea Nitrogen 14 mg/dL (7-17); Calcium 9.1 mg/dL (8.4-10.2); Carbon Dioxide 30 mmol/L (22-30); Chloride 104 mmol/L (98-107); Estimated CRCL calculation 30 ml/min; Estimated Glomerular Filt Rate 60; Glucose 91 mg/dL (65-110); Potassium 3.9 mmol/L (3.4-5.0); Sodium 138 mmol/L (137-145)
[2023-04-14 05:24] LABS: Troponin I < 0.012 ng/mL (0.000-0.034)
[2023-04-14] MEDS: PANTOPRAZOLE 40 MG TABLET PO (09:20)
[2023-04-14] MEDS: ROSUVASTATIN 10 MG TABLET PO (10:33)
[2023-04-14] MEDS: PROPRANOLOL HCL 20 MG TABLET PO (10:33)
[2023-04-14] MEDS: SERTRALINE HCL 50 MG TABLET PO (10:34)
--- NOTE | 2023-04-14 15:06 | PM.DS ---
DS: Admitting Diagnosis Discharge Date 04/14/23 Admitting Diagnosis Chest pain DS: Discharge Diagnosis Discharge Diagnosis (1) Chest pain: Qualifiers: Chest pain type: unspecified Qualified Code(s): R07.9 - Chest pain, unspecified Code(s): R07.9 - Chest pain, unspecified Status: Acute (2) CAD (coronary artery disease): Code(s): I25.10 - Atherosclerotic heart disease of [place] coronary artery without angina pectoris Status: Acute (3) Atrial fibrillation: Code(s): I48.91 - Unspecified atrial fibrillation Status: Acute (4) GERD (gastroesophageal reflux disease): Code(s): K21.9 - Gastro-esophageal reflux disease without esophagitis Status: Acute (5) Dyslipidemia: Code(s): E78.5 - Hyperlipidemia, unspecified Status: Acute DS: Summary Hospital Course Reason for hospitalization: 83yo female with CAD, pFib and GERD here for chest pain. Please see H&P for details. Hospital Course: Patient presents with lower substernal chest pain associated with tingling in the arms. She was lightheaded. Has AFib but not on anticoagulation; has had outpatient cardiac monitoring that has been normal. Has long hx of GERD and can only take ASA 3 days/week for this reason. Pain better with belching. Cardiac cath a few years ago showing partial blockage but no recent stress test. In the ED, vital signs were stable. BP 133/102 but improved. CBC, PT, PTT, Lipase and CMP normal except BUN 18. BNP 665. Troponin negative x3. UA showing 3-5RBC and trace LE. CXR is clear. She had COVID in December and a fall in January. She has persistent chronic symptoms since then prompting ED doctor to perform imaging studies: She had cervical CT showing no acute findings. Head CT showed no acute intracranial process. Right shoulder x-ray acute osseous abnormalities. Right hip and pelvic x-ray showed acute osseous abnormalities. EKG showed normal sinus rhythm with frequent ectopic premature complexes bigeminal pattern, incomplete right bundle-branch block and left anterior fascicular block. No change from EKG from 2021 except that the PVCs are now seen. Repeat EKG showed no change. Patient was treated with Pepcid and GI cocktail. She stated the GI cocktail helped her pain considerably. She was continued on her home medications. Chest pain resolved. Long discussion with patient and later with daughter at bedside. Explained that this is more likely related to GI symptoms although cannot exclude underlying ischemia given her history and risk factors. Offered for the patient to stay until Sunday for ischemic evaluation. She declines to stay in the hospital. 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 Encouraged her to call EMS if she has recurrent chest pain and come back to the emergency room. She voiced understanding of this. Family is trying to get someone to stay with her. Also recommended that she follow-up with her primary care doctor discussed possibly long COVID to explain some of her other symptoms that she has had since December. I mention that some of her presenting symptoms may have been related to anxiety with the hyperventilation and the tingling in her extremities. Patient overall did well and was able be discharged home 04/14/2023. Status at Discharge Cognitive/behavioral status at discharge: stable Time Spent with Patient Time attestation: Total time spent providing and/or coordinating discharge services: 35 minutes Time spent: Greater than 30 minutes Exam Narrative: AF 97.6 112/66 55 19 99% ra Gen - NARD Chest - CTA bilaterally, nml RR CV - regular with frequent extra beat. Tele showing frequent PVCs (no AFib) Abd - Soft, NT/ND, Positive BS Ext - No pedal edema Neuro - Alert and appropriate Psych - Nml mood and affect Skin - Warm and dry DS: Data Data Completed and Pending Labs on day of discharge: Labs from last 24 hours 03/29
== END 2023-04-14 16:15 | disposition home or self-care (01) ==
LOC: ANHED 23:24 → ANHIMU 04-14 00:54
PROVIDERS: Emergency Medicine; Admitting Provider Student in an Organized Health Care Education/Training Program; Emergency Provider Physician Assistant; PCP Family Medicine; Visit Provider Internal Medicine
DX: R07.9 Chest pain, unspecified (principal); I25.10 Atherosclerotic heart disease of native coronary artery without angina pectoris; I48.91 Unspecified atrial fibrillation; G43.909 Migraine, unspecified, not intractable, without status migrainosus; E78.5 Hyperlipidemia, unspecified; R94.31 Abnormal electrocardiogram [ECG] [EKG]; K58.9 Irritable bowel syndrome, unspecified; K21.9 Gastro-esophageal reflux disease without esophagitis; K22.10 Ulcer of esophagus without bleeding; M54.2 Cervicalgia; F10.90 Alcohol use, unspecified, uncomplicated; Z79.82 Long term (current) use of aspirin
CPT/HCPCS: 36415; 70450; 71046; 72125; 73030; 73502; 80048; 80053; 81001; 83690; 83880; 84484; 85025; 85610; 85730; 93005; 96374; 99285; A9270; G0378

== ENCOUNTER 2023-06-14 10:01 | Outpatient (CLI) | payer MEDICARE, SELFPAY ==
--- NOTE | ~2023-06-14 | MM_ITS ---
EXAMINATION: MM screening hossein LT w yoshi HISTORY: Screening TECHNIQUE: Craniocaudal and mediolateral oblique 3-D tomosynthesis images were obtained and synthetic 2-D images were generated. CAD analysis was submitted and interpreted. COMPARISON: Comparison to multiple prior studies sequentially, with oldest reviewed study dated 04/23. BREAST PARENCHYMAL COMPOSITION: Not dense: There are scattered areas of fibroglandular density. FINDINGS: There is no evidence of suspicious mass, calcification, or architectural distortion to sugg est malignancy in either breast. There has been no suspicious interval change. IMPRESSION: 1. No mammographic evidence of malignancy. 2. Recommend routine screening mammography in one year. BI-RADS Category 1: Negative Reviewed, dictated and finalized at location B.
== END 2023-06-14 10:02 | disposition home or self-care (01) ==
PROVIDERS: PCP Nurse Practitioner Family; Visit Provider Family Medicine
DX: Z12.31 Encounter for screening mammogram for malignant neoplasm of breast (principal)
CPT/HCPCS: 77063; 77067

== ENCOUNTER 2024-01-07 11:05 | Outpatient (CLI) | payer MEDICARE, SELFPAY ==
--- NOTE | ~2024-01-07 | US_ITS ---
EXAMINATION: US thyroid DATE: 01/07/2024 12:31 INDICATION: Thyroid mass. TECHNIQUE: Multiple ultrasound images of the thyroid were obtained. COMPARISON: None. FINDINGS: The right thyroid lobe measures 4.2 x 2.0 x 1.9 cm. The left thyroid lobe measures 5.1 x 2.1 x 2.5 c m. In the right thyroid lobe, there is a 7 mm solid, hypoechoic, wider than tall nodule with irregul ar margin and punctate echogenic foci (TI-RADS TR5). In the right thyroid lobe, there is a 5 mm solid , hypoechoic, wider than tall nodule with irregular margin without echogenic foci (TR4). In the left thyroid lobe, there is a 2.5 cm solid, hypoechoic, wider than tall nodule with smooth margin without echogenic foci (TR4). IMPRESSION: 1. Thyroid nodules. Consider ultrasound-guided fine needle aspiration of the 2.5 cm left thyroid nodu le. Reviewed, dictated and finalized at location A. OR IMPRESSION: 1. Thyroid nodules. Consider ultrasound-guided fine needle aspiration of the 2. 5 cm left thyroid nodule.
== END 2024-01-07 11:06 | disposition home or self-care (01) ==
LOC: ANHIMG 11:06
PROVIDERS: PCP Nurse Practitioner Family; Visit Provider Otolaryngology
DX: E07.89 Other specified disorders of thyroid (principal); E07.9 Disorder of thyroid, unspecified; E04.2 Nontoxic multinodular goiter
CPT/HCPCS: 76536

== ENCOUNTER 2024-01-10 12:49 | Outpatient (CLI) | payer MEDICARE, SELFPAY ==
--- NOTE | ~2024-01-10 | US_ITS ---
EXAMINATION: US FNA w image guidance DATE: 01/10/2024 13:33 INDICATION: Left thyroid nodule. TECHNIQUE: The procedure and its benefits and risks were discussed with the patient. Risks specifically discusse d included bleeding. The patient verbalized understanding of the risks and agreed to proceed. The nec k was prepped and draped in the usual sterile manner. 1% lidocaine was used for local anesthesia. 4 passes were made with a 25G needle into the lesion under ultrasound guidance. There were no immedia te complications. FINDINGS: Grayscale ultrasound images demonstrate needles advanced into a 2.5 cm left thyroid nodule for biopsy . IMPRESSION: 1. Ultrasound-guided fine needle aspiration of a left thyroid nodule. Reviewed, dictated and finalized at location A. K RENTAL SERVICE ATTENDANT
== END 2024-01-10 12:50 | disposition home or self-care (01) ==
PROVIDERS: PCP Nurse Practitioner Family; Visit Provider Otolaryngology
DX: E04.1 Nontoxic single thyroid nodule (principal)
CPT/HCPCS: 10005; 88172; 88173; 88305

== ENCOUNTER 2024-04-01 14:52 | Outpatient (CLI) | payer MEDICARE, SELFPAY ==
--- NOTE | ~2024-04-01 | MR_ITS ---
EXAMINATION: MR hip RT wo con DATE: 04/01/2024 16:21 INDICATION: Right hip pain TECHNIQUE: Magnetic resonance imaging (MRI) of the right hip was performed without intravenous contr ast. Sequences included full-field axial PD-weighted FS FSE and T1-weighted FSE, coronal of the pelvi s with PD-weighted FS FSE, T2-weighted FSE and T1-weighted FSE, small field of view of the right hip with axial PD-weighted FS FSE, sagittal PD-weighted FS FSE, coronal PD-weighted FS FSE and coronal T2 weighted FSE. Additional radial T1-weighted FGR oriented orthogonal to the acetabular rim were obt ained for evaluation of the labrum. COMPARISON: Right hip radiographs dated 04/13/2023 FINDINGS: Bones/labrum/cartilage: Alignment is normal. No fracture, avascular necrosis or pathologic marrow replacing process. Mild os teoarthritis at the right hip with and partial-thickness cartilage loss resulting in mild nonuniform joint space narrowing. There are phalanges. Glenoid labrum. There is additional tear at the chondral labral junction at the superolateral labrum. Moderate lumbar spondylosis. Fluid: Symmetric physiologic amount of fluid within both hip joints. There is mild right gluteus medius medi us bursitis. Soft tissues: Normal and symmetric muscle bulk and signal in the pelvis and visualized proximal thighs. Moderate te ndinopathy the gluteus medius tendon with partial-thickness tear extending 8 mm AP along the greater trochanteric lateral facet insertion. The bilateral iliopsoas, remaining gluteal and proximal hamstri ng tendons are normal. There is prominent sigmoid diverticulosis without adjacent inflammatory strand ing to suggest diverticulitis. Remainder the visualized bowels including the appendix are normal. The uterus is not identified and has likely been surgically resected. Limited evaluation of visceral org ans of the pelvis is otherwise unremarkable. No pathologically enlarged pelvic/inguinal lymphadenopa thy. IMPRESSION: 1. Mild right hip osteoarthritis with tear of the anterosuperior to superolateral right acetabular la amilcar. 2. Mild right gluteus medius medius bursitis with mild tendinopathy and small partial-thickness tear at the greater trochanteric insertion of the right gluteus medius tendon. 3. Moderate lumbar spondylosis. 4. Sigmoid diverticulosis. Reviewed, dictated and finalized at location A. AID IMPRESSION: 1. Mild right hip osteoarthritis with tear of the anterosuperior to superolater al right acetabular labrum. 2. Mild right gluteus medius medius bursitis with mild tendinopathy and small p artial-thickness tear at the greater trochanteric insertion of the right gluteu s medius tendon. 3. Moderate lumbar spondylosis. 4. Sigmoid diverticulosis.
--- OUTSIDE RECORDS SUMMARY | 2024-04-01 14:55 | XMS_ITS | CONTINUITY OF CARE DOCUMENT ---
Author Name jose manuel richard Address Unknown Organization [facility] Address [address] [address] [place] [address] Phone [phone] Care Team Providers Care Catalogue Illustrator Name Role Phone Benedict MORRISON, Sharon Unavailable RIVERA MANAGER STATISTICS, EDDIE M Unavailable [phone] RIVERA MANAGER STATISTICS, EDDIE M Unavailable [phone] PROBLEMS Condition Status Date Provider Notes Family History of CVA or Stroke: active ? Richie Mcmullen MD Family History of CVA or Stroke: completed - T demetrice Mcmullen MD GERD active Sharon Mcmullen MD Chest pain completed - Sharon Mcmullen MD Hypercholesterolemia active Sharon Mcmullen MD Anxiety active Sharon Mcmullen MD CAD, cath 05/2022 ectatic di sease LAD, circ, RCA slow flow, no stenosis. 05/2023 active Sharon Mcmullen MD Atrial fib active Arie Medina MD Dyspnea on exertion active Sharon Mcmullen MD Dizziness active Sharon Mcmullen MD Frequent premature ventricul ar beats--improved active Sharon Mcmullen MD Thyroid nodule active Sharon Mcmullen MD Fatigue active Cody Carrington ENCOUNTERS Date Type Provider Location Encounter Diag nosis - In-person encounter Office Visit Sharon Mcmullen MD [facility] Fatigue - In-person encounter Office Visit Sharon Mcmullen MD [facility] CAD, cath 05/2022 ectatic disease LAD, circ, RCA slow flow, no stenosis. 05/2023Frequent premature ventricular beats--improvedThyroid nodule - In-person encounter Office Visit Ean Haskins MD [facility] Frequent premature ventricular beats--improved - In-person encounter Office Visit Sharon Mcmullen MD [facility] Dyspnea on exertionDizziness - In-person encounter Office Visit Sharon Mcmullen MD [facility] - In-person encounter Office Visit Sharon Mcmullen MD [facility] - In-person encounter Office Visit Sharon Mcmullen MD [facility] - In-person encounter Office Visit Sharon Mcmullen MD [facility] GERD - In-person encounter Office Visit Sharon Mcmullen MD [facility] - In-person encounter Office Visit Sharon Mcmullen MD [facility] - In-person encounter Office Visit Arie Medina MD [facility] Chest painAtrial fib - In-person encounter Office Visit Sharon Mcmullen MD [facility] - In-person encounter Office Visit Sharon Mcmullen MD [facility] Family History of CVA or Stroke: - In-person encounter Office Visit Sharon Mcmullen MD [facility] Family History of CVA or Stroke:GERDHypercholeste rolemiaAnxiety VITAL SIGNS Date Observation Value Provider Body Mass Index (Ratio) 20.93 kg/m2 Norman Mcmullen MD blood pressure, diastolic 63 mm[Hg] Julien Quintero blood pressure, systolic 104 mm[Hg] Felecia Quintero pulse rate 54 /min Neal Quintero oxygen saturation, oximetry 97 % Neal Quintero weight E&M 110.8 [lb_av] Neal Quintero Body Mass Index (Ratio) 20.40 kg/m2 Norman Mcmullen MD blood pressure, cuff size regular Ja rret blood pressure, diastolic 64 mm[Hg] Ja rret blood pressure, systolic 119 mm[Hg] Jar ret pulse rate 54 /min Herrera respiratory rate E&M 14 /min Herrera oxygen saturation, oximetry 97 % Herrera weight E&M 108 [lb_av] Herrera height E&M 61 [in_i] Herrera blood pressure, diastolic 81 mm[Hg] Li [facility] blood pressure, systolic 139 mm[Hg] Stephanie [facility] Body Mass Index (Ratio) 20.40 kg/m2 Cody Carrington blood pressure, cuff size regular [facility] blood pressure, diastolic 81 mm[Hg] Ja rret blood pressure, systolic 139 mm[Hg] Jar ret pulse rate 53 /min Herrera oxygen saturation, oximetry 98 % respiratory rate E&M 14 /min Herrera weight E&M 108 [lb_av] Herrera height E&M 61 [in_i] Herrera y Body Mass Index (Ratio) 20.22 kg/m2 Norman Mcmullen MD blood pressure, cuff size small Alli Barahona blood pressure, diastolic 82 mm[Hg] Alli Barahona blood pressure, systolic 116 mm[Hg] Shay zuniga [place] respiratory rate E&M 16 /min Raissa Dacosta iller pulse rate 44 /min [facility] oxygen saturation, oximetry 98 % [facility] weight E&M 107 [lb_av] [facility] height E&M 61 [in_i] [facility] Body Mass Index (Ratio) 19.84 kg/m2 Norman Mcmullen MD blood pressure, diastolic 68 mm[Hg] Li [facility]ic blood pressure, systolic 124 mm[Hg] Stephanie [facility]Logic blood pressure, cuff size regular Ja rret blood pressure, diastolic 68 mm[Hg] Ja rret blood pressure, systolic 124 mm[Hg] Jar ret pulse rate 55 /min Herrera er y weight E&M 105 [lb_av] Herrera y oxygen saturation, oximetry 97 % Herrera respiratory rate E&M 12 /min Herrera height E&M 61 [in_i] Herrera er y Body Mass Index (Ratio) 19.65 kg/m2 Norman Mcmullen MD blood pressure, cuff size regular Ke rri Gruenenfelder blood pressure, diastolic 60 mm[Hg] Ke rri Gruenenfelder blood pressure, systolic 130 mm[Hg] Jose De Jesus Coronel oxygen saturation, oximetry 98 % Kelli Solaresnfjames respiratory rate E&M 12 /min Kelli verma pulse rate 55 /min Kelli Mcdowell lder weight E&M 104 [lb_av] Kelli Mcdowell lder height E&M 61 [in_i] Kelli Mcdowell joe Body Mass Index (Ratio) 19.95 kg/m2 Norman Mcmullen MD blood pressure, diastolic 71 mm[Hg] St acy Vic blood pressure, systolic 110 mm[Hg] Sta cy Vic pulse rate 58 /min Nayla Vic oxygen saturation, oximetry 98 % Nayla Vic respiratory rate E&M 16 /min Nayla D bud weight E&M 105.6 [lb_av] Nayla Vic height E&M 61 [in_i] Nayla Vic Body Mass Index (Ratio) 19.76 kg/m2 Norman Mcmullen MD blood pressure, diastolic 76 mm[Hg] St acy Vic blood pressure, systolic 119 mm[Hg] Sta cy Vic oxygen saturation, oximetry 97 % Nayla Vic pulse rate 70 /min Nayla Vic weight E&M 104.6 [lb_av] Nayla Vic respiratory rate E&M 16 /min Nayla D bud height E&M 61 [in_i] Naylachad Ho Body Mass Index (Ratio) 20.03 kg/m2 Norman Mcmullen MD blood pressure, diastolic 63 mm[Hg] Brittany Keith blood pressure, systolic 131 mm[Hg] Felicia Keith oxygen saturation, oximetry 96 % Jaye Keith respiratory rate E&M 16 /min Johnny Keith pulse rate 61 /min Jaye chapa weight E&M 106 [lb_av] Jaye chapa blood pressure, cuff size regular Brittany Keith height E&M 61 [in_i] Jaye chapa Body Mass Index (Ratio) 20.03 kg/m2 Norman Mcmullen MD blood pressure, diastolic 85 mm[Hg] Sa ra Rubalcava blood pressure, systolic 161 mm[Hg] Marcelina a Rubalcava oxygen saturation, oximetry 98 % Mimi Rubalcava respiratory rate E&M 16 /min Mimi Si ms pulse rate 60 /min Mimi Rubalcava blood pressure, cuff size regular Sa ra Rubalcava weight E&M 106 [lb_av] Mimi Rubalcava height E&M 61 [in_i] Mimi Rubalcava Body Mass Index (Ratio) 20.59 kg/m2 Christina Medina MD blood pressure, diastolic 94 mm[Hg] Sa ra Rubalcava blood pressure, systolic 178 mm[Hg] Marcelina a Rubalcava oxygen saturation, oximetry 98 % Mimi Rubalcava respiratory rate E&M 15 /min Mimi Si ms pulse rate 60 /min Mimi Rubalcava blood pressure, cuff size small Sa ra Rubalcava weight E&M 109 [lb_av] Mimi Rubalcava height E&M 61 [in_i] Mimi Rubalcava Body Mass Index (Ratio) 20.78 kg/m2 Norman Mcmullen MD blood pressure, cuff size regular Cy nthifadumo Warren blood pressure, diastolic 70 mm[Hg] Cy nthia Kelvin blood pressure, systolic 130 mm[Hg] Gerda kermit Warren oxygen saturation, oximetry 97 % Rebecca Warren respiratory rate E&M 16 /min Rebecca Kelvin pulse rate 60 /min Rebecca Campbel l weight E&M 110 [lb_av] Rebecca Campbel l height E&M 61 [in_i] Rebecca Campbel l Body Mass Index (Ratio) 21.73 kg/m2 Norman Mcmullen MD blood pressure, diastolic 70 mm[Hg] Corey bryant Zazueta blood pressure, systolic 120 mm[Hg] Yulisa zhang oxygen saturation, oximetry 98 % respiratory rate E&M 16 /min pulse rate 55 /min weight E&M 115 [lb_av] height E&M 61 [in_i] [place] Zazueta Body Mass Index (Ratio) 22.29 kg/m2 Norman Mcmullen MD blood pressure, diastolic 92 mm[Hg] Da joby Radha blood pressure, systolic 162 mm[Hg] Dac ia Radha oxygen saturation, oximetry 95 % Sophia Radha respiratory rate E&M 16 /min Sophia V oss pulse rate 53 /min Sophia Radha weight E&M 118 [lb_av] Sophia Radha height E&M 61 [in_i] Sophia Radha ALLERGIES Allergy Name Onset Date Reaction Criticality Status ERYTHROMYCIN High Criticality active RESULTS Date Observation Value Provider Reference Range Interpretation Location prothrombin time (patient) 10.3 s [facility] 9.1-12.0 7 international normalized ratio (INR) 1.0 [facility] 0.9-1.2 7 lipoprotein, beta, serum, point, quantitative, calculated 77 mg/dL [facility] 0-99 7 HDL cholesterol, serum 80 mg/dL [facility] >39 7 triglyceride, serum, random 60 mg/dL [facility] 0-149 7 cholesterol, serum 169 mg/dL [facility] 229-667 1400/03/2 7 calcium, serum 9.2 mg/dL [facility] 8.7-10.3 7 carbon dioxide, venous blood 27 mmol/L [facility] 20-29 7 chloride, serum 100 mmol/L [facility] 96-106 7 potassium, serum 4.0 mmol/L [facility] 3.5-5.2 7 sodium, serum 139 mmol/L [facility] 637-993 5538/03/2 7 urea nitrogen/creatinin e ratio, serum 17 [facility] 12-28 7 creatinine, serum 0.93 mg/dL [facility] 0.57-1.00 7 urea nitrogen, blood 16 mg/dL [facility] 8-27 7 blood glucose, random 91 mg/dL [facility] 70-99 6 basophil count, absolute 0.0 x10E3/uL [facility] 0.0-0.2 6 Eosinophil Absolute Count 0.2 X10E3/UL [facility] 0.0-0.4 6 monocyte count, blood, automated 0.4 X10E3/UL [facility] 0.1-0.9 6 lymphocyte count, blood, automated 1.6 X10E3/UL [facility] 0.7-3.1 6 Absolute Neutrophils 2.1 X10E3/UL [facility] 1.4-7.0 6 basophils as percent of blood leukocytes 1 % [facility] Not Estab. 6 eosinophils as percent of blood leukocytes 4 % [facility] Not Estab. 6 monocytes as percent of blood leukocytes 10 % [facility] Not Estab. 6 lymphocytes as percent of blood leukocytes 36 % [facility] Not Estab. 6 neutrophils as percent of blood leukocytes 49 % [facility] Not Estab. 6 platelet count 202 X10E3/UL [facility] 765-136 2231/03/2 6 red blood cell distribution width 12.2 % [facility] 11.7-15.4 6 mean corpuscular hemoglobin concentration, RBC 31.7 G/DL [facility] 31.5-35.7 6 mean corpuscular hemoglobin, RBC 29.9 pg [facility] 26.6-33.0 6 mean corpuscular volume, RBC 94 fL [facility] 79-97 6 hematocrit, blood 37.8 % [facility] 34.0-46.6 6 hemoglobin, blood 12.0 g/dL [facility] 11.1-15.9 6 erythrocyte (RBC) count 4.01 X10E6/UL [facility] 3.77-5.28 6 leukocyte count, blood 4.4 X10E3/UL [facility] 3.4-10.8 HISTORY OF MEDICATION USE Medication Status Instructions Dates Provider Indications Com ments flecainide 50 mg tablet active TAKE 1 TABLET BY MOUTH TWICE DAILY Sharon Mcmullen MD rosuvastatin 20 mg tablet active TAKE 1 TABLET BY MOUTH 4 times a week Cody Carrington magnesium oxide 400 mg magnesium tablet active Take 1 tablet by mouth once a day Coral Lyle NP propranolol 20 mg tablet active Take 1 tablet by mouth once a day Coral Lyle NP Vazalore 81 mg capsule active 3 days per week Coral Lyle NP flecainide 50 mg tablet completed TAKE 1 TABLET BY MOUTH TWICE A DAY - Sharon Mcmullen MD nitroglycerin 0.4 mg tablet, sublingual active PLACE 1 TABLET UNDER THE TONGUE NEEDED. MAY REPEAT TWICE IN 10 MINUTES. IF NO RELIEF AFTER 3 DOSES, CALL 911 OR GO TO EMERGENCY ROOM. Cody Carrington propranolol 20 mg tablet completed - Cody Carrington famotidine 40 mg tablet completed TAKE 1 TABLET BY MOUTH EVERY DAY - Cody Carrington amlodipine 2.5 mg tablet completed TAKE 1 TABLET BY MOUTH EVERY DAY - Cody Carrington famotidine 40 mg tablet completed Take 1 tablet by mouth once a day - Debora Bonner amlodipine 5 mg tablet completed Take 1 tablet by mouth once a day - Kelli Coronel pantoprazole 40 mg tablet,delayed release (DR/EC) active TAKE 1 TABLET BY MOUTH DAILY Coral Lyle NP esomeprazole magnesium 40 mg capsule,delayed release(DR/EC) completed Take 1 capsule by mouth twice a day - Cody Rizzodaniel Crestor 10 mg tablet completed Take 1 tablet once a day 4 days a week - Cody Rizzojajasydneyaimee sertraline 50 mg tablet active Take 1 once a day Sharon Mcmullen MD propranolol 20 mg tablet completed Take 1 once a day - Cody Arnavdhruv esomeprazole magnesium 40 mg capsule,delayed release(DR/EC) completed Take 1 once a day - Sharon Mcmullen MD temazepam 15 mg capsule active Take 1 once a day Sharon Mcmullen MD BACTRIM DS 800-160 MG ORAL TABLET completed take one every 8 hours with meals - Sharon Mcmullen MD TYLENOL WITH CODEINE #3 300-30 MG ORAL TABLET completed Take 1 as directed - Cody Carrington SOCIAL HISTORY Date Observation Value Provider alcohol use no Cody valarieaimee smoking status Never smoker Cody Mirandaaimee alcohol use no Codylor Jeanaimee smoking status Never smoker Cody Jean alcohol use no Coral fisher NP smoking status Never smoker Coral elliott NP Exercise counseling No - Patient Refused Coral Lyle NP alcohol use no Cody Jeanaimee smoking status Never smoker Cody Jeanaimee social history reviewed E&M revi ewed - no changes required Cody Ahjajadhruv social history E&M S moking History: Francisco ramos has never smoked. Cody Carrington Exercise counseling yes Kelli rangel smoking status Never smoker Kelli lima social history reviewed E&M revi ewed - no changes required Sharon Mcmullen MD social history E&M S moking History: Francisco ramos has never smoked. Cody Carrington Exercise counseling yes Nayla Da vis smoking status Never smoker Nayla Vic social history reviewed E&M revi ewed - no changes required Cody daniel social history E&M S moking History: Francisco ramos has never smoked. Codylor Carrington smoking status Never smoker Nayla Vic Exercise counseling yes Nayla Da vis social history reviewed E&M revi ewed - no changes required Cody Carrington social history reviewed E&M revi ewed - no changes required Juanita Moran Exercise counseling yes Juliana Keith social history reviewed E&M revi ewed - no changes required Cody Carrington social history E&M Smoking Histo ry: Francisco ramos has never smoked. Arie Medina MD social history reviewed E&M revi ewed - no changes required Arie Medina MD social history E&M S moking History: Francisco ramos has never smoked. Sharon Mcmullen MD social history reviewed E&M revi ewed - no changes required Sharon Mcmullen MD smoking status Never smoker Rebecca alejo number of grandchildren Sharon Zazueta smoking status Never smoker Dnany dacosta social history E&M S moking History: Francisco ramos has never smoked. Sharon Mcmullen MD alcohol use no Sharon Mcmullen MD social history reviewed E&M revi ewed - no changes required Sharon Mcmullen MD social history reviewed E&M revi ewed - no changes required Sharon Mcmullen MD alcohol use no Sophia Radah smoking status Never smoker Sophia Garcia FUNCTIONAL STATUS Date Observation Value Provider HRA, CV Assess/Plan, Angina (inactive) Management Plan continue current therapy Cody Ahmedzai HRA, CV Assess/Plan, Angina (inactive) Management Plan continue current therapy Cody Ahmedzai HRA, CV Assess/Plan, Angina (inactive) Management Plan continue current therapy Coral Lyle NP HRA, CV Assess/Plan, Angina (inactive) Management Plan continue current therapy Cody Ahmedzai HRA, CV Assess/Plan, Angina (inactive) Management Plan continue current therapy Cody Ahmedzai HRA, CV Assess/Plan, Angina (inactive) Management Plan continue current therapy Cody Ahmedzai HRA, CV Assess/Plan, Angina (inactive) Management Plan continue current therapy Cody Ahmedzai HRA, CV Assess/Plan, Angina (inactive) Management Plan continue current therapy Cody Ahmedzai HRA, CV Assess/Plan, Angina (inactive) Management Plan continue current therapy Juanita Moran HRA, CV Assess/Plan, Angina (inactive) Management Plan continue current therapy Cody Ahmedzai HRA, CV Assess/Plan, Angina (inactive) Management Plan continue current therapy, schedule PCI Arie Medina MD HRA, CV Assess/Plan, Angina (inactive) Management Plan continue current therapy Sharon Mcmullen MD HRA, CV Assess/Plan, Angina (inactive) Management Plan continue current therapy Sharon Mcmullen MD FAMILY HISTORY Family Member Condition Father Family History of CV A or Stroke: Mother Family History of CV A or Stroke: INSURANCE PROVIDERS Payer name Policy type / Coverage type [facility] ID [employer] MEDICARE ESA PPO Medicare [id number] ADVANCE DIRECTIVES Name Date DISCUSSED - NO DECISION MADE TREATMENT PLAN Date Name Performer [id number],S, Cody Ahmedza i [id number],S, Cody Ahmedza i [id number],S, Cody Ahmedza i [id number],S, Cody Ahmedza i [id number],S, Cody Ahmedza i [id number],S, Cody Ahmedza i [id number],S, Cody Ahmedza i [id number],S, Cody Ahmedza i [id number],S, Cody Ahmedza i [id number],S, Cody Ahmedza i [id number],S, Cody Ahmedza i [id number],S, Cody Ahmedza i [id number],S, Cody Ahmedza i [id number],S, Cody Ahmedza i [id number],S, Cody Ahmedza i [id number],S, Cody Ahmedza i [id number],S, Cody Ahmedza i [id number],S, Cody Ahmedza i [id number],S, Cody Ahmedza i [id number],S, Cody Ahmedza i [id number],S, Cody Ahmedza i [id number],S, Juanita Alicia obsmeyer [id number],S, Juanita Alicia obsmeyer [id number],S, Juanita Alicia obsmeyer [id number],S, Juanita Alicia obsmeyer [id number],S, Cody Jean i [id number],S, Cody Rizzomedza i [id number],B, Cody Jean i [id number],S, Cody Jean i [id number],S, Cody Joséza i [id number],S,I ncreased Esomeprazole Magnesium 40 Mg from once a day to twice a day. Arie Medina MD [id number],W,S he is having chest discomfort sounds more GI. The pt is convinced that is something to do with her heart but it is very atypical but she has sx of left arm pressure and I asked her to go the ER to make sure her Troponin is normal. Arei Medina MD [id number],N,S eems to be new onset. Her updated medication list for this problem includes: Aspirin 81 Mg Tablet,delayed Release (dr/ec) (Aspirin) ..... 1 tablet by mouth once a day Propranolol 20 Mg Tablet (Propranolol) ..... Take 1 once a day Arie Medina MD [id number],W,S he is having chest discomfort sounds more GI. I am concerned about it asked her to go to the ER. Ordered Stress test. Arie Medina MD [id number],S, H er updated medication list for this problem includes: Crestor 10 Mg Oral Tablet (Rosuvastatin calcium) ..... Take one tablet daily Arie Medina MD Telehealth [facility] Telehealth [facility] Tele[facility]: H er updated medication list for this problem includes: Rosuvastatin 20 Mg Tablet (Rosuvastatin) ..... Take 1 tablet by mouth 4 times a week [facility] Telehealth: H er updated medication list for this problem includes: Propranolol 20 Mg Tablet (Propranolol) ..... Take 1 tablet by mouth once a day Vazalore 81 Mg Capsule (Aspirin) ..... 3 days per week Flecainide 50 Mg Tablet (Flecainide) ..... Take 1 tablet by mouth twice a day [facility] Tele[facility]:3.1 cm no dule of left lobe. FNA recommended [facility] Cardiology:This visi t has been a part of the consistent, comprehensive, and ongoing management of the chronic medical condition(s) listed above for the patient. Orders: C BC (INCLUDES DIFF/PLT) (6399) F ERRITIN (457) I SHAWN AND TOTAL IRON BINDING CAPACITY (7573) T SH, free T4, total T3 (7444) C OMPREHENSIVE METABOLIC PANEL, W/EGFR (15189) M AGNESIUM (622) L IPID PANEL (7600) Her updated medication list for this problem includes: Propranolol 20 Mg Tablet (Propranolol) ..... Take 1 tablet by mouth once a day Vazalore 81 Mg Capsule (Aspirin) ..... 3 days per week Flecainide 50 Mg Tablet (Flecainide) ..... Take 1 tablet by mouth twice a day Sharon Mcmullen MD Cardiology: O rders: C BC (INCLUDES DIFF/PLT) (6399) F ERRITIN (457) I SHAWN AND TOTAL IRON BINDING CAPACITY (7573) T SH, free T4, total T3 (7444) C OMPREHENSIVE METABOLIC PANEL, W/EGFR (00178) M AGNESIUM (622) T hyroid Ultrasound ([id number]) L IPID PANEL (7600) [facility] Cardiology: O rders: C BC (INCLUDES DIFF/PLT) (6399) F ERRITIN (457) I SHAWN AND TOTAL IRON BINDING CAPACITY (7573) T SH, free T4, total T3 (7444) C OMPREHENSIVE METABOLIC PANEL, W/EGFR (43351) M AGNESIUM (622) L IPID PANEL (7600) [facility] Cardiology: O rders: C BC (INCLUDES DIFF/PLT) (6399) F ERRITIN (457) I SHAWN AND TOTAL IRON BINDING CAPACITY (7573) T SH, free T4, total T3 (7444) C OMPREHENSIVE METABOLIC PANEL, W/EGFR (70035) M AGNESIUM (622) L IPID PANEL (7600) [facility] Cardiology: H er updated medication list for this problem includes: Rosuvastatin 20 Mg Tablet (Rosuvastatin) ..... Take 1 tablet by mouth 4 times a week Orders: C BC (INCLUDES DIFF/PLT) (6399) F ERRITIN (457) I SHAWN AND TOTAL IRON BINDING CAPACITY (7573) T SH, free T4, total T3 (7444) C OMPREHENSIVE METABOLIC PANEL, W/EGFR (04519) M AGNESIUM (622) L IPID PANEL (7600) [facility] Cardiology: H er updated medication list for this problem includes: Propranolol 20 Mg Tablet (Propranolol) ..... Take 1 tablet by mouth once a day Vazalore 81 Mg Capsule (Aspirin) ..... 3 days per week Flecainide 50 Mg Tablet (Flecainide) ..... Take 1 tablet by mouth twice a day Nitroglycerin 0.4 Mg Tablet, Sublingual (Nitroglycerin) ..... Place 1 tablet under the tongue as needed. may repeat twice in 10 minutes. if no relief after 3 doses, call 911 or go to emergency room. Orders: C BC (INCLUDES DIFF/PLT) (6399) F ERRITIN (457) I SHAWN AND TOTAL IRON BINDING CAPACITY (7573) T SH, free T4, total T3 (7444) C OMPREHENSIVE METABOLIC PANEL, W/EGFR (62750) M AGNESIUM (622) L IPID PANEL (7600) [facility] Cardiology: O rders: C BC (INCLUDES DIFF/PLT) (6399) F ERRITIN (457) I SHAWN AND TOTAL IRON BINDING CAPACITY (7573) T SH, free T4, total T3 (7444) C OMPREHENSIVE METABOLIC PANEL, W/EGFR (79136) M AGNESIUM (622) L IPID PANEL (7600) Her updated medication list for this problem includes: Propranolol 20 Mg Tablet (Propranolol) ..... Take 1 tablet by mouth once a day Vazalore 81 Mg Capsule (Aspirin) ..... 3 days per week Flecainide 50 Mg Tablet (Flecainide) ..... Take 1 tablet by mouth twice a day [facility] Cardiology: O rders: C BC (INCLUDES DIFF/PLT) (6399) F ERRITIN (457) I SHAWN AND TOTAL IRON BINDING CAPACITY (7573) T SH, free T4, total T3 (7444) C OMPREHENSIVE METABOLIC PANEL, W/EGFR (24107) M AGNESIUM (622) L IPID PANEL (7600) Her updated medication list for this problem includes: Propranolol 20 Mg Tablet (Propranolol) ..... Take 1 tablet by mouth once a day Vazalore 81 Mg Capsule (Aspirin) ..... 3 days per week Nitroglycerin 0.4 Mg Tablet, Sublingual (Nitroglycerin) ..... Place 1 tablet under the tongue as needed. may repeat twice in 10 minutes. if no relief after 3 doses, call 911 or go to emergency room. [facility] Cardiology: O rders: C BC (INCLUDES DIFF/PLT) (6399) F ERRITIN (457) I SHAWN AND TOTAL IRON BINDING CAPACITY (7573) T SH, free T4, total T3 (7444) C OMPREHENSIVE METABOLIC PANEL, W/EGFR (86247) M AGNESIUM (622) L IPID PANEL (7600) [facility]: H er updated medication list for this problem includes: Propranolol 20 Mg Tablet (Propranolol) ..... Take 1 tablet by mouth once a day Vazalore 81 Mg Capsule (Aspirin) ..... 3 days per week Flecainide 50 Mg Tablet (Flecainide) ..... Take 1 tablet by mouth twice a day Nitroglycerin 0.4 Mg Tablet, Sublingual (Nitroglycerin) ..... Place 1 tablet under the tongue as needed. may repeat twice in 10 minutes. if no relief after 3 doses, call 911 or go to emergency room. [facility]: H er updated medication list for this problem includes: Propranolol 20 Mg Tablet (Propranolol) ..... Take 1 tablet by mouth once a day Vazalore 81 Mg Capsule (Aspirin) ..... 3 days per week Nitroglycerin 0.4 Mg Tablet, Sublingual (Nitroglycerin) ..... Place 1 tablet under the tongue as needed. may repeat twice in 10 minutes. if no relief after 3 doses, call 911 or go to emergency room. [facility]iology: H er updated medication list for this problem includes: Propranolol 20 Mg Tablet (Propranolol) ..... Take 1 tablet by mouth once a day Vazalore 81 Mg Capsule (Aspirin) ..... 3 days per week Flecainide 50 Mg Tablet (Flecainide) ..... Take 1 tablet by mouth twice a day [facility] Cardiology: H er updated medication list for this problem includes: Rosuvastatin 20 Mg Tablet (Rosuvastatin) ..... Take 1 tablet by mouth 4 times a week [facility] Electrophysiology: p t had 2 week telesentry that demonstrated SB, paroxysmal AFIB, frequent VE (11.51%), reare SVT. average 59, max 93, min 47, 4% AF burdend. pt underwent stress test: was symptomatic during stress test with lightheadedness and dizziness, no ischemia, frequent PVCs, EF 51%. ECHO frequent PVCs, EF 55%, trace MR, trace TR. some improvement with initiation of flecainide 50mg BID. r ecomendation for cardiac cath in ensure no significant CAD present, so flecainide can continued. Coral Lyle NP Cardiology: O rders: M onitor - Telemetry (Mobile Cardiac) (CPT-[id number]) C arotid Duplex Bilateral (CPT-[id number]) [facility]: O rders: C omplete Echo ([id number]) S tress Regadenoson (CPT-[id number]) [facility] Card[facility]: H er updated medication list for this problem includes: Famotidine 40 Mg Tablet (Famotidine) ..... Take 1 tablet by mouth every day Pantoprazole 40 Mg Tablet,delayed Release (dr/ec) (Pantoprazole) [facility] Cardiology: H er updated medication list for this problem includes: Crestor 10 Mg Tablet (Rosuvastatin) ..... Take 1 tablet once a day [facility] Cardiology: O rders: M onitor - Telemetry (Mobile Cardiac) (CPT-[id number]) [facility] Cardiology: O rders: C omplete Echo ([id number]) S tress Regadenoson (CPT-[id number]) [facility] Cardiology: O rders: C omplete Echo ([id number]) S tress Regadenoson (CPT-[id number]) [facility]iology [facility] Cardiology:Increased Esomeprazole Magnesium 40 Mg from once a day to twice a day. Arie Medina MD Cardiology:She is chan ving chest discomfort sounds more GI. The pt is convinced that is something to do with her heart but it is very atypical but she has sx of left arm pressure and I asked her to go the ER to make sure her Troponin is normal. Arie Medina MD Cardiology:Seems to be new onset. Her updated medication list for this problem includes: Aspirin 81 Mg Tablet,delayed Release (dr/ec) (Aspirin) ..... 1 tablet by mouth once a day Propranolol 20 Mg Tablet (Propranolol) ..... Take 1 once a day Arie Medina MD Cardiology:She is chan ving chest discomfort sounds more GI. I am concerned about it asked her to go to the ER. Ordered Stress test. Arie Medina MD Cardiology: H er updated medication list for this problem includes: Crestor 10 Mg Oral Tablet (Rosuvastatin calcium) ..... Take one tablet daily Arie Medina MD Cardiology follow up Sharon caevedo MD Cardiology follow up Sharon acevedo MD Cardiology follow up Sharon acevedo MD Cardiology follow up Sharon acevedo MD Cardiology Sharon Mcmullen MD Cardiology Sharon Mcmullen MD Cardiology Sharon Mcmullen MD Cardiology Sharon Mcmullen MD Cardiology New Patient Toniya Joe fleming MD Cardiology New Patient Toniya Joe fleming MD Cardiology New Patient Toniya Si lonnie MORRISON Cardiology New Patient Toniya Si lonnie MORRISON Cardiology New Patient Toniya Si lonnie M[facility] Cardiology New Patient Toniya Si lonnie [facility] Cardiology New Patient Toniya Si lonnie [facility] Cardiology New Patient Toniya Joe fleming MD Date Name LIPID PANEL Thyroid Ultrasound MAGNESIUM COMPREHENSIVE METABO LIC PANEL, W/EGFR TSH, free T4, total T3 IRON AND TOTAL IRON BINDING CAPACITY FERRITIN CBC (INCLUDES DIFF/P LT) PROTHROMBIN TIME WIT H INR LIPID PANEL CBC (INCLUDES DIFF/P LT) BASIC METABOLIC PANE L W/EGFR Carotid Duplex Bilat eral Monitor - Telemetry (Mobile Cardiac) Stress Regadenoson Complete Echo Monitor - Telemetry (Mobile Cardiac) Monitor - Telemetry (Mobile Cardiac) Stress Regadenoson Complete Echo Stress Regadenoson HISTORY OF PROCEDURES Procedure Date Procedure Name Provider Procedure Notes S tatus Complex e/m visit ad d on Sharon Mcmullen MD completed EKG Ean Haskins MD comp leted EKG Sharon Mcmullen MD completed EKG Arie Medina MD completed EKG Sharon Mcmullen MD completed
--- OUTSIDE RECORDS SUMMARY | 2024-04-01 14:55 | XMS_ITS | Clinical Summary ---
Author Organization [facility] [address] Address [address] [place] [address] Care Team Providers Care Gas Station Manager Name Role Phone Leela Knowles NP Primary Care Provider [phone] Sharon Mcmullen MD Unavailable Ean Haskins MD Unavailable [phone] Jadiel Hernandez MD Unavailable [phone] Allergies Active Allergy Reactions Criticality Noted Date Comments Aspirin Stomach upset Low 10/31/2022 Erythromycin Stomach upset,Other (See comments) High 05/28/2018 Medications amLODIPine (NORVASC) 5 mg tablet Take 1 tablet (5 mg total) by mouth daily Active rosuvastatin (CRESTOR) 10 mg tablet Take 4 tablets (40 mg total) by mouth 4 (four) times a week Active aspirin (Vazalore) 81 mg capsule Take 81 mg by mouth 3 (three) times a week Active flecainide (TAMBOCOR) 50 mg tablet Take 1 tablet (50 mg total) by mouth 2 (two) times a day Active magnesium oxide (MAG-OX) 400 mg (241.3 mg elemental magnesium) tabletIndicatio ns:hypomagnesem ia Take 1 tablet (400 mg total) by mouth daily Active pantoprazole DR (PROTONIX) 40 mg EC tablet TAKE 1 TABLET(40 MG) BY MOUTH DAILY 90 tablet 1 4 Active sertraline (ZOLOFT) 50 mg tablet Take 1 tablet (50 mg total) by mouth daily 90 tablet 1 4 Active propranoloL (INDERAL) 10 mg tabletIndicatio ns:Per patient Take 1 tablet (10 mg total) by mouth daily 90 tablet 5 06/02/19 25 Active temazepam (RESTORIL) 15 mg capsule Take 1 capsule (15 mg total) by mouth nightly as needed for sleep 30 capsule 1 5 Active propranoloL (INDERAL) 10 mg tabletIndicatio ns:Per patient Take 1 tablet (10 mg total) by mouth daily 4 03/03/19 25 Discontinu ed(Reorder ) temazepam (RESTORIL) 15 mg capsule Take 1 capsule (15 mg total) by mouth nightly as needed for sleep 30 capsule 1 4 03/31/19 25 Discontinu ed(Reorder ) Active Problems Problem Noted Date Diagnosed Date Thyroid nodule 06/11/2023 Arthropathy of hand 05/31/2023 Contracture of joint of hand 05/31/2023 Osteoarthritis 05/31/2023 Cellulitis 05/31/2023 Closed wound 05/31/2023 Disorder of shoulder 05/31/2023 Fatigue 05/31/2023 Hypertensive disorder 05/31/2023 Assessment & Plan (12/03/2023 2:33 PM CDT): BP and pulse low in office today, pt symptomatic. Will decrease Propranolol to 10 mg daily, home BP and pulse log in 1 week. Lightheadedness 05/31/2023 Nutritional deficiency disorder 05/31/2023 Traumatic dislocation of thumb 05/31/2023 Hyperlipidemia 05/31/2023 Ventricular premature depolarization 05/11/2023 Dyspnea on exertion 04/16/2023 Dizziness 04/16/2023 Pharyngitis 02/05/2023 Sinusitis 2023 Arthralgia of right knee 09/20/2022 Mixed anxiety and depressive disorder 07/04/2022 Acid reflux 05/29/2022 Arthralgia of left knee 05/10/2022 Easy bruising 05/10/2022 Pain of left hip joint 05/10/2022 Persistent insomnia 05/10/2022 Assessment & Plan (06/01/2023 9:47 AM CDT): Has been on Temazepam for 20+ years. Denies any adverse side effects. Discussed my hesitancy with the medication with patient's age at 83. However, given the class of medication and the chronicity of it, we cannot just take patient off the medication. We did discuss eventually weaning down to the 7.5 mg dose but agreed we would hold off today and discuss in the near future. Education provided on risks of this medication. Gastritis 05/09/2021 Unspecified atrial fibrillation 03/25/2021 Rapid atrial fibrillation (CMS/HCC) 03/21/2021 Assessment & Plan (06/01/2023 9:45 AM CDT): Conditions stable overall, continues to work with Tube Lancer. Full thickness rotator cuff tear 11/24/2019 Arteriosclerosis of coronary artery 06/25/2018 Anxiety 05/28/2018 Assessment & Plan (12/03/2023 2:34 PM CDT): Continues Temazepam nightly prn. Atypical chest pain 05/28/2018 Hypercholesterolemia 05/28/2018 Muscle spasm 05/28/2018 Chest pain 05/28/2018 Gastroesophageal reflux disease 02/26/1960 Encounters Date Type Department Care Team Description 02/12/2024 1:00 PM CYBER POLICY AND STRATEGY PLANNER Office Visit [facility] Medical [facility] Orthopedic and Sports Medicine [address] [place] [address] [phone] Ambar Heath PA Greater trochanteric bursitis of right hip (Primary Dx); Arthritis of right sacroiliac joint (HCC) 01/14/2024 Orders Only [facility] Primary Care at [address] [phone] Rosalia Felipe MD 01/11/2024 Orders Only [facility] Primary Care at [address] [phone] Rosalia Felipe MD 01/08/2024 Orders Only [facility] Primary Care at [address] [phone] Rosalia Felipe MD from Last 3 Months Immunizations Name Administration Dates Next Due DTaP 12/18/2005 Influenza, Quad, Adjuvantate d, Intramuscular 12/24/2022,12/02/2020 Influenza, Quadrivalent, Hig h Dose, Preservative Free, Intrr 11/29/2021,11/24/2019 Influenza, Trivalent, High D ose, Split, Preservative Free, Intramuscular 12/10/2023,12/17/2018,12/15/2017 ZOSTER Recombinant 05/11/2021,12/20/2020 Surgical History Surgery Date Site/Laterality Comments HYSTERECTOMY 02/27/1992 - 02/25/1993 MASTECTOMY 02/26/2006 - 02/25/2007 CATARACT EXTRACTION 10/28/2022 Left CATARACT EXTRACTION 04/29/2013 Right Medical History Medical History Date Comments Abnormality of heart beat Hypertension Cancer (CMS/HCC) (HCC) History of stomach ulcers Gastric reflux Hiatal hernia Neuropathy (CMS/HCC) Rheumatoid arthritis (HCC) Depression Migraines Eye swelling Family History Medical History Relation Name Comments Heart disease Brother Kidney cancer Brother Prostate cancer Brother Stroke Father Stroke Mother Cancer Other Hypertension Other Stroke Other Relation Name Status Comments Brother Father Mother Other Social History Tobacco Use Types Packs/Day Years Used Date Smoking Tobacco: Never Smokeless Tobacco: Never Tobacco Cessation:Counseling Given: Not Answered AUDIT-C Answer Date Recorded Q1: How often do you have a drink containing alc ohol? Monthly or less 12/13/2023 Q2: How many drinks containi ng alcohol do you have on a typical day when you are drinking? 1 or 2 12/13/2023 Q3: How often do you have si x or more drinks on one occasion? Less than monthly 12/13/2023 PHQ-2 Answer Date Recorded PHQ-2 Total Score (If total score is 3 or more points, staff should administer the PHQ-9) 0 12/03/2023 Comments Unknown Sex and Gender Information Value Date Recorded Sex Assigned at Not on file Legal Sex Female 3:27 AM CYBER POLICY AND STRATEGY PLANNER Gender Identity Not on file Sexual Orientation Not on file Obstetrics History Last Filed Vital Signs Vital Sign Reading Time Taken Comments Blood Pressure 120/74 02/12/2024 1:01 PM CYBER POLICY AND STRATEGY PLANNER Pulse 51 02/12/2024 1:01 PM CYBER POLICY AND STRATEGY PLANNER Temperature 36.8 ??C (98.2 ??F) 12/03/2023 2:01 PM CD T Respiratory Rate 16 12/13/2023 10:11 AM CDT Oxygen Saturation 97% 12/03/2023 2:01 PM CDT Inhaled Oxygen Concentration - - Weight 47.6 kg (105 lb) 02/12/2024 1:01 PM CYBER POLICY AND STRATEGY PLANNER Height 154.9 cm (5' 1 ) 02/12/2024 1:01 PM CYBER POLICY AND STRATEGY PLANNER Body Mass Index 19.84 02/12/2024 1:01 PM CYBER POLICY AND STRATEGY PLANNER Plan of Treatment Health Maintenance Due Date Last Done Comments Hepatitis B Screening 1958 Pneumococcal vaccine 65+ (1 of 1 - PCV) 02/02/2004 Well Visit 65+ 02/02/2004 DTaP/Tdap/Td Vaccine (2 - Tdap) 12/19/2015 6 Osteoporosis Screening-Bone Density Scan 05/30/2022 05/30/2020 Covid-19 Vaccine (2023-2 5 season) 2023 12/27/2021, 01/07/2021, 05/08/2020, Additional history exists Depression Screening 12/02/2024 12/03/2023, 05/31/19 24 Fall Risk Assessment 12/02/2024 12/03/2023, 05/31/19 24 Zoster Vaccine Completed 05/11/2021, 12/20/2020 Influenza Vaccine Completed 12/10/2023, , 11/29/2021, Additional history exists Procedures Procedure Name Priority Date/Time Associated Diagnosis Comments US GUIDED THYROID FINE NEEDLE ASPIRATION 1ST LESION Schedule Routine, Read Routine (OP Routine) 01/10/2024 10:11 AM CYBER POLICY AND STRATEGY PLANNER US GUIDED THYROID FINE NEEDLE ASPIRATION 1ST LESION Schedule Routine, Read Routine (OP Routine) 01/10/2024 8:55 AM CYBER POLICY AND STRATEGY PLANNER US THYROID Schedule Routine, Read Routine (OP Routine) 01/07/2024 7:48 AM CYBER POLICY AND STRATEGY PLANNER from Last 3 Months Results * US Guided Thyroid Fine Needle Aspiration 1st Lesion (01/10/2024 10:11 AM CYBER POLICY AND STRATEGY PLANNER) Anatomical Region Laterality Modality Thyroid N/A Ultrasound us Historical Provider IMG US PROCEDURES Final R esult * US Guided Thyroid Fine Needle Aspiration 1st Lesion (01/10/2024 8:55 AM CYBER POLICY AND STRATEGY PLANNER) Anatomical Region Laterality Modality Thyroid N/A Ultrasound us Historical Provider IMG US PROCEDURES Final R esult * US Thyroid (01/07/2024 7:48 AM CYBER POLICY AND STRATEGY PLANNER) Anatomical Region Laterality Modality Head and Neck N/A Ultrasound us Historical Provider MD ERAZO US PROCEDURES Final R esult from Last 3 Months Insurance [facility] MEDICARE [facility] MEDICARE Care Teams Gas Station Manager Relationship Specialty Start Date End Date Leela Knowles NP [address] [facility] [address] [place], [place] [id number] PCP - General Family Medicine 05/31/23 [place] [address] [address] [address] Consulting Physician Cardiology 05/31/23 Ean Haskins MD [address] [place] [address] Consulting Physician Cardiology 05/31/23 [place] [address] [address] [address] Consulting Physician Gastroenterology 05/31/23 Dr Barraza, [facility] Retina Ophthalmology 05/31/23
--- OUTSIDE RECORDS SUMMARY | 2024-04-01 14:55 | XMS_ITS | Referral Summary ---
Author Organization [facility] [address] Address [address] [place] [address] Care Team Providers Care Technology Coordinator Name Role Phone Leela Knowles NP Primary Care Provider [phone] Sharon Mcmullen MD Unavailable Ean Haskins MD Unavailable [phone] Jadiel Hernandez MD Unavailable [phone] Encounters Date Type Department Care Team Description 02/12/2024 1:00 PM STRATEGIC PROCUREMENT MANAGER Office Visit [facility] Medical Group Orthopedic and Sports Medicine [address] [place] [phone] Ambar Heath PA Greater trochanteric bursitis of right hip (Primary Dx); Arthritis of right sacroiliac joint (HCC) 01/14/2024 Orders Only [facility] Medical [facility] Primary Care at [address] [phone] Rosalia Felipe MD 01/11/2024 Orders Only [facility] Medical Group Primary Care at [address] [phone] Rosalia Felipe MD 01/08/2024 Orders Only [facility] Medical [facility] Primary Care at [address] [phone] Rosalia Felipe MD from Last 3 Months Allergies Active Allergy Reactions Criticality Noted Date [...] Conditions stable overall, continues to work with Nursing Coordinator. Full thickness rotator cuff tear 11/24/2019 Arteriosclerosis of coronary artery 06/25/2018 Anxiety 05/28/2018 Assessment & Plan (12/03/2023 2:34 PM CDT): Continues Temazepam nightly prn. Atypical chest pain 05/28/2018 Hypercholesterolemia 05/28/2018 Muscle spasm 05/28/2018 Chest pain 05/28/2018 Gastroesophageal reflux disease 02/26/1960 Immunizations Name Administration Dates Next Due DTaP 12/18/2005 Influenza, Quad, Adjuvantate d, Intramuscular 12/24/2022,12/02/2020 Influenza, Quadrivalent, Hig h Dose, Preservative Free, Intrr 11/29/2021,11/24/2019 Influenza, Trivalent, High D ose, Split, Preservative Free, Intramuscular 12/10/2023,12/17/2018,12/15/2017 ZOSTER Recombinant 05/11/2021,12/20/2020 Social History Tobacco Use Types Packs/Day Years [...] on file Legal Sex Female 3:27 AM STRATEGIC PROCUREMENT MANAGER Gender Identity Not on file Sexual Orientation Not on file Last Filed Vital Signs Vital Sign Reading Time Taken Comments Blood Pressure 120/74 02/12/2024 1:01 PM STRATEGIC PROCUREMENT MANAGER Pulse 51 02/12/2024 1:01 PM STRATEGIC PROCUREMENT MANAGER Temperature 36.8 ??C (98.2 ??F) 12/03/2023 2:01 PM CD T Respiratory Rate 16 12/13/2023 10:11 AM CDT Oxygen Saturation 97% 12/03/2023 2:01 PM CDT Inhaled Oxygen Concentration - - Weight 47.6 kg (105 lb) 02/12/2024 1:01 PM STRATEGIC PROCUREMENT MANAGER Height 154.9 cm (5' 1 ) 02/12/2024 1:01 PM STRATEGIC PROCUREMENT MANAGER Body Mass Index 19.84 02/12/2024 1:01 PM STRATEGIC PROCUREMENT MANAGER Plan of Treatment Not on file Procedures Procedure Name Priority Date/Time Associated Diagnosis Comments US GUIDED THYROID FINE NEEDLE ASPIRATION 1ST LESION Schedule Routine, Read Routine (OP Routine) 01/10/2024 10:11 AM STRATEGIC PROCUREMENT MANAGER US GUIDED THYROID FINE NEEDLE ASPIRATION 1ST LESION Schedule Routine, Read Routine (OP Routine) 01/10/2024 8:55 AM STRATEGIC PROCUREMENT MANAGER US THYROID Schedule Routine, Read Routine (OP Routine) 01/07/2024 7:48 AM STRATEGIC PROCUREMENT MANAGER from Last 3 Months Results * US Guided Thyroid Fine Needle Aspiration 1st Lesion (01/10/2024 10:11 AM STRATEGIC PROCUREMENT MANAGER) Anatomical Region Laterality Modality Thyroid N/A Ultrasound us Historical Provider IMG US PROCEDURES Final R esult * US Guided Thyroid Fine Needle Aspiration 1st Lesion (01/10/2024 8:55 AM STRATEGIC PROCUREMENT MANAGER) Anatomical Region Laterality Modality Thyroid N/A Ultrasound us Historical Provider IMG US PROCEDURES Final R esult * US Thyroid (01/07/2024 7:48 AM STRATEGIC PROCUREMENT MANAGER) Anatomical Region Laterality Modality Head and Neck N/A Ultrasound us Historical Provider IMG US PROCEDURES Final R esult from Last 3 Months Insurance [facility] MEDICARE [facility] MEDICARE Care Teams Technology Coordinator Relationship Specialty Start Date End Date Leela Knowles NP [address] [facility] [address] [place] [address] PCP - General Family Medicine 05/31/23 [place] [address] [address] [facility] [address] [place] [address] Consulting Physician Cardiology 05/31/23 Ean Haskins MD [address] [place] [address] Consulting Physician Cardiology 05/31/23 [place] [address] [address] [facility] [address] [place] [address] Consulting Physician Gastroenterology 05/31/23 Dr Barraza, [facility] Retina Ophthalmology 05/31/23
--- OUTSIDE RECORDS SUMMARY | 2024-04-01 14:55 | XMS_ITS | Data Portability ---
Author Organization [facility], Main Office Address [address] [place] [address] Assessment No assessment recorded. Plan of Treatment Reminders Order Date Submit Date Provider Last Modified By Organization Details Last Modified Time Details Appointments None recorded. Lab CBC w/ auto diff 2022 023 [facility] (Lab), [address] [place], [address], 3 18:44:31 PT/PTT, plasma 2022 023 [facility] (Lab), [address] [place], [address], 3 19:30:47 rapid strep group A, throat 2022 023 [facility] [address] Giovani Mendez, [place], [address], 3 16:01:56 streptococc us group A, culture, throat [email or web address] (Lab), [address] [place], [address], 3 10:38:47 Referral None recorded. Procedures None recorded. Surgeries None recorded. Imaging XR, knee 2022 023 [facility] [place], [address], 3 03:48:24 XR, hip, unilateral, 2 or 3 view 2022 023 [facility], [address] , [place], [address], 3 04:01:20 MAMMO, screening, bilateral 2022 [email or web address] [place] [address] - Breast Ctr, [address], [address], [address], 3 08:40:55 XR, knee, 3 view 2022 023 [facility], [address] , [place], [address], 3 15:06:45 Medication Orders temazepam 15 mg capsule 2022 023 [place] [id number], [address] [place], [id number], 3 12:47:25 promethazin e-DM 6.25 mg-15 mg/5 mL oral syrup 2022 023 [place] [id number], [address], [place], [id number], 3 15:58:29 Patient TargetsNo targets recorded. Patient InstructionsNo instructions recorded. Reason for Referral None Reported. Results Created Date Observation Date Name Description Value Unit Range Abnormal Flag Note LastModifiedBy Organization Detail LastModifiedTime 05/11/1905/10/2022 CBC/C OMPLE TE BLD COUNT W/DIF F white blood cells 6.0 x10'3 /uL 4.2-10 .8 Not Available [facility] (Lab) [address] [place], [address], 05/10/2022 18:44:31 05/11/19 23 05/10/2022 CBC/C OMPLE TE BLD COUNT W/DIF F red blood cells 3.95 x10'6 /uL 3.80-5 .20 Not Available [facility] (Lab) [address] [place], [address], 05/10/2022 18:44:31 05/11/19 23 05/10/2022 CBC/C OMPLE TE BLD COUNT W/DIF F hemoglobin 12.1 g/dL 12.0-1 5.6 Not Available [facility] (Lab) [address] [place], [address], 05/10/2022 18:44:31 05/11/19 23 05/10/2022 CBC/C OMPLE TE BLD COUNT W/DIF F hematocrit 37.7 % 35.7-4 5.7 Not Available [facility] (Lab) [address] [place], [address], 05/10/2022 18:44:31 05/11/19 23 05/10/2022 CBC/C OMPLE TE BLD COUNT W/DIF F mean red cell volume 95.4 fL 82.0-9 9.0 Not Available [facility] (Lab) [address] [place], [address], 05/10/2022 18:44:31 05/11/19 23 05/10/2022 CBC/C OMPLE TE BLD COUNT W/DIF F mean red cell hemoglobin 30.6 pg 27.0-3 3.0 Not Available [facility] (Lab) [address] [place], [address], 05/10/2022 18:44:31 05/11/19 23 05/10/2022 CBC/C OMPLE TE BLD COUNT W/DIF F mean RBC HGB concentratio n 32.1 g/dL 31.0-3 6.0 Not Available [facility] (Lab) [address] [place], [address], 05/10/2022 18:44:31 05/11/19 23 05/10/2022 CBC/C OMPLE TE BLD COUNT W/DIF F red cell distribution width 13.1 % 11.8-1 5.5 Not Available [facility] (Lab) [address] [place], [address], 05/10/2022 18:44:31 05/11/19 23 05/10/2022 CBC/C OMPLE TE BLD COUNT W/DIF F platelets 234 x10'3 /uL 150-40 0 Not Available [facility] (Lab) [address] [place], [address], 05/10/2022 18:44:31 05/11/19 23 05/10/2022 CBC/C OMPLE TE BLD COUNT W/DIF F mean platelet volume 11.7 fL 9.0-12 .4 Not Available [facility] (Lab) [address] [place], [address], 05/10/2022 18:44:31 05/11/19 23 05/10/2022 CBC/C OMPLE TE BLD COUNT W/DIF F neutrophils 60.1 % 39.0-7 2.0 Not Available [facility] (Lab) [address] [place], [address], 05/10/2022 18:44:31 05/11/19 23 05/10/2022 CBC/C OMPLE TE BLD COUNT W/DIF F lymphocytes 22.9 % 16.0-4 7.0 Not Available [facility] (Lab) [address] [place], [address], 05/10/2022 18:44:31 05/11/19 23 05/10/2022 CBC/C OMPLE TE BLD COUNT W/DIF F monocytes 13.4 % 5.0-12 .0 high Not Available [facility] (Lab) [address] [place], [address], 05/10/2022 18:44:31 05/11/19 23 05/10/2022 CBC/C OMPLE TE BLD COUNT W/DIF F eosinophils 3.0 % 1.0-7. 0 Not Available [facility] (Lab) [address] [place], [address], 05/10/2022 18:44:31 05/11/19 23 05/10/2022 CBC/C OMPLE TE BLD COUNT W/DIF F basophils 0.3 % 0.0-2. 0 Not Available [facility] (Lab) [address] [place], [address], 05/10/2022 18:44:31 05/11/19 23 05/10/2022 CBC/C OMPLE TE BLD COUNT W/DIF F immature granulocytes 0.3 % 0.00-0 .50 Not Available [facility] (Lab) [address] [place], [address], 05/10/2022 18:44:31 05/11/19 23 05/10/2022 CBC/C OMPLE TE BLD COUNT W/DIF F neutrophils, absolute count 3.59 x10'3 /uL 1.5-8. 0 Not Available [facility] (Lab) [address] [place], [address], 05/10/2022 18:44:31 05/11/19 23 05/10/2022 CBC/C OMPLE TE BLD COUNT W/DIF F lymphocytes, absolute count 1.37 x10'3 /uL 1.07-3 .43 Not Available [facility] (Lab) [address] [place], [address], 05/10/2022 18:44:31 05/11/19 23 05/10/2022 CBC/C OMPLE TE BLD COUNT W/DIF F monocytes, absolute count 0.80 x10'3 /uL 0.29-0 .99 Not Available [facility] (Lab) [address] [place], [address], 05/10/2022 18:44:31 05/11/19 23 05/10/2022 CBC/C OMPLE TE BLD COUNT W/DIF F eosinophils, absolute count 0.18 x10'3 /uL 0.02-0 .53 Not Available [facility] (Lab) [address] [place], [address], 05/10/2022 18:44:31 05/11/19 23 05/10/2022 CBC/C OMPLE TE BLD COUNT W/DIF F basophils, absolute count 0.02 x10'3 /uL 0.01-0 .08 Not Available [facility] (Lab) [address] [place], [address], 05/10/2022 18:44:31 05/11/19 23 05/10/2022 CBC/C OMPLE TE BLD COUNT W/DIF F immature granulocytes ,absolute 0.02 x10'3 /uL 0.00-0 .05 Not Available [facility] (Lab) [address] [place], [address], 05/10/2022 18:44:31 05/11/19 23 05/10/2022 CBC/C OMPLE TE BLD COUNT W/DIF F nucleated red blood cells 0.0 % -0 Not Available [facility] (Lab) [address] [place], [address], 05/10/2022 18:44:31 05/11/19 23 05/10/2022 CBC/C OMPLE TE BLD COUNT W/DIF F NRBC# 0.00 x10'3 /uL Not Available [facility] (Lab) [address] [place], [address], 05/10/2022 18:44:31 05/11/19 23 05/10/2022 PROTI ME W/INR protime 10.2 secon ds 9.5-11 .5 Not Available [facility] (Lab) [address] [place], [address], 05/10/2022 18:52:37 05/11/19 23 05/10/2022 PROTI ME W/INR INR 1.0 INR INDIC ATION S 2.0 - 3.0 PROPH YLAXI S: VENOU S THROM BOSIS (HIGH RISK SURGE RY) AND SYSTE YASMEEN EMBOL ISM (TISS UE HEART VALVE S, AMI VALVU LAR HEART DISEA SE AND ATRIA L FIBRI LLATI ON). TREAT MENT: VENOU S THROM BOSIS AND PULMO NARY EMBOL ISM BILEA FLET MECHA NICAL VALVE S IN AORTI C POSIT ION. 2.5 - 3.5 MECHA NICAL PROST HETIC HEART VALVE S (TILT ING DISK VALVE S AND BILEA FLET MECHA NICAL VALVE S IN ROGELIO L POSIT ION). PREVE NTION OF RECUR RENT MYOCA RDIAL INFAR CTION . ANTIP HOSPH OLIPI D SYNDR OME. Not Available [facility] ([facility]) [address] [place], [address], 05/10/2022 18:52:37 02/07/20 23 02/06/2023 rapid strep group A, throa t STREP A negati ve Not Available [facility] [address] Giovani Mendez, [place], [address], 02/06/2023 15:40:05 05/11/19 23 XR, knee, 3 view [facility] [address] [place] [address] [phone] Patien t Name: RYAN SAVANAH KENNEY Access ion #: [id number] Sex: F : 1939 3 Locati on: [place]2 Attend ing Physic jamal: LUISITO ELY Orderi ng Physic jamal: LUISITO ELY Exam Date: 023 12:01 PM Exam Name: XR KNEE LT 3V Admitt ing Diagno sis(es ): RADIOL OGY REPORT - FINAL EXAM: XR KNEE LT 3V HISTOR Y: pain 82-yea r-old female with left knee pain and swelli ng, no known injury . COMPAR BRITTANY: None availa ble. TECHNI QUE: 3 views of the left knee were perfor med. FINDIN GS: No acute fractu re is identi fied about the left knee. No signif icant joint space narrow ing. No eviden ce of signif icant joint effusi on. IMPRES APRIL: Unrema rkable radiog raphs of the left knee. Page 1 of 2 [facility] Patien t Name: SAVANAH BAILEY Access ion #: [id number] Sex: F : 1939 3 Exam Date: 023 12:01 PM Exam Name: XR KNEE LT 3V Admitt ing Diagno sis(es ): Create d and electr onical ly signed by: Dustin diaz MD Signed Date: 12:32 PM (CT) Dictat ed by: Dustin diaz MD DD: 12:32 PM (CT) DT: 12:32 PM (CT) Page [address] (Imaging) [address] [place], [address], 05/11/2022 10:57:15 05/11/19 23 XR, hip, unila teral [facility] [address] [place] [address] Patien t Name: SAVANAH BAILEY Access ion #: [id number] Sex: F : 1939 3 Locati on: [place] Attend ing Physic jamal: DENISHA ELYDA Orderi ng Physic jamal: MARCEL BELTRÁN, RUNDA Exam Date: 12:01 PM Exam Name: XR HIP/PE LVIS LT 2-3V Admitt ing Diagno sis(es ): RADIOL OGY REPORT - FINAL EXAM: XR HIP/PE LVIS LT 2-3V HISTOR Y: 82-yea r-old female with left hip pain, no known injury . COMPAR BRITTANY: None availa ble. TECHNI QUE: AP and frog-l eg latera l views of the left hip were perfor med. FINDIN GS: No fractu re, joint space narrow ing, or signif icant degene rative change s are identi fied about the left hip. IMPRES APRIL: No fractu re or signif icant degene rative change s of the left hip. Page 1 of 2 [facility] t Name: SAVANAH BAILEY Access ion #: [id number] Sex: F : 1939 3 Exam Date: 12:01 PM Exam Name: XR HIP/PE LVIS LT 2-3V Admitt ing Diagno sis(es ): Create d and electr onical ly signed by: Dustin diaz MD Signed Date: 12:33 PM (CT) Dictat ed by: Dustin diaz MD DD: 12:33 PM (CT) DT: 12:33 PM (CT) Page 2 of 2 [email or web address] (Imaging) [address] [place], [address], 05/11/2022 10:57:15 05/17/19 23 05/10/2022 XR, knee No observ ation record ed. [address] [place], [address], 05/16/2022 06:46:29 05/17/19 23 05/10/2022 XR, knee No observ ation record ed. [address] [place], [address], 05/16/2022 06:46:29 05/17/19 23 05/10/2022 XR, hip, unila teral , 2 or 3 view No observ ation record ed. [address] [place], [address], 05/16/2022 06:46:30 05/17/19 23 05/10/2022 XR, hip, unila teral , 2 or 3 view No observ ation record ed. [email or web address] [facility] [address] [place], [address], 05/16/2022 06:46:30 09/21/19 23 XR, knee, 3 view [facility] [address] [facility] [place] [address] Patien t Name: SAVANAH BAILEY ion #: [id number] Sex: F : 1939 8 Dictat ed By: Willy Michele Attend ing Physic jamal: LUISITO ELY Orderi ng Physic jamal: MARCEL BELTRÁN RUNLATRICE Exam Date: 2022 13:29 PM Exam Name: XR KNEE RT 3V Admitt ing Diagno sis(es ): Knee examin ation rt Findin gs: There is narrow ing of the medial compar tment of the knee, as well as the patell ofemor al joint. Osteop hyte format ion is seen. No acute fractu re is identi fied. No focal lesion s are identi fied. IMPRES APRIL: Degene rative change s are noted at the knee. No fractu re, is seen. If there is high index of suspic ion, consid er MRI. Electr onical ly Signed by: Willy Michele at 2022 14:04: 30 PM Page [address] (Imaging) [address] [place], [address], 09/20/2022 15:32:53 09/21/19 23 09/20/2022 XR, knee No observ ation record ed. [email or web address] [facility] [address] [place], [address], 10/02/2022 14:35:06 05/07/19 24 05/07/2023 NM, myoca rdial perfu april scan No observ ation record ed. [email or web address] [facility] [address] , [place], [address], 05/08/2023 15:09:46 05/07/19 24 05/07/2023 myoca rdial perfu april study w/ wall motio n (PROC ) No observ ation record ed. [facility] [address] , [place], [address], 05/08/2023 15:10:44 05/09/19 24 05/09/2023 elect daja velardegr am, routi ne ECG with at least 12 leads ; yuriy ng only, witho ut inter preta tion and repor t (PROC ) No observ ation record ed. [address] [facility] [address] , [place], [address], 05/09/2023 16:07:42 05/09/19 24 05/09/2023 vascu lar exami natio n (PROC ) No observ ation record ed. [address] [facility] [address] , [place], [address], 05/09/2023 16:08:08 06/14/19 24 06/14/2023 MAMMO , scree sheryl, bilat eral No observ ation record ed. [address], [place], [address], 11/06/2023 17:05:29 10/02/19 24 09/27/2023 US, doppl er echoc ardio gram No observ ation record ed. [address] [facility] [address] , [place], [address], 10/02/2023 15:49:59 Result Notes None recorded. 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 Not Available [facility] 3 11:22:52 Celluliti s 288604197 Completed Not Available [facility] 3 02:46:01 Insomnia 945940733 Active Not Available [facility] 3 11:22:53 Full thickness rotator cuff tear 021934207 Active 2019 Not Available [facility] 3 11:22:53 Chest pain 65879467 Completed Not Available [facility] 3 02:46:01 Rapid atrial fibrillat ion 394042418 Active 2021 Not Available [facility] 3 11:22:53 Hypertens richardson disorder 83808966 Active Not Available [facility] 3 11:22:53 Lighthead edness 699220259 Active Not Available [facility] 3 11:22:53 Osteoarth ritis 351504222 Active Not Available [facility] 3 11:22:53 Closed wound 589666641 Completed Not Available [facility] 3 02:46:01 Arthropat hy of joint of hand 763998493 Active Not Available [facility] 3 11:22:53 Left against medical advice 724609744 Active 2021 Not Available [facility] 3 11:22:53 Gastritis 4061145 Active 2021 Not Available [facility] 3 11:22:53 Anxiety 79142711 Active Not Available [facility] 3 11:22:53 Hyperlipi demia 14481748 Active Not Available [facility] 3 11:22:53 Nutrition al deficienc y disorder 34040056 Active Not Available [facility] 3 11:22:53 Fatigue 51639829 Completed Not Available [facility] 3 02:46:02 Contractu re of joint of hand 25991450 Active Not Available [facility] 3 11:22:53 Pain of left hip joint 44960275953 9100 Active 2022 Not Available [facility] 3 11:22:53 Pain of left knee joint 79011471365 4107 Active 2022 Not Available [facility] 3 11:22:53 Easy bruising 450236994 Active 2022 Not Available [facility] 3 11:22:53 Persisten t insomnia 027893411 Active 2022 Not Available [facility] 3 11:22:53 Acid reflux 872501848 Active 2022 Not Available [facility] 3 11:22:53 Mixed anxiety and depressiv e disorder 811834583 Active 2022 Not Available [facility] 3 11:22:53 Pain of right knee joint 78286680718 4100 Active 2022 Not Available [facility] 3 11:22:53 Sinusitis 10882229 Active 2022 LASHAY Prabhakar [address], [place], [address] , [employer] 3 12:16:32 SARS-CoV- 2 Active 2022 LASHAY Prabhakar [address], [place], [address] , [employer] 3 15:39:20 Pharyngit is 563157637 Active 2022 LASHAY Prabhakar [address], [place], [address] , [employer] 3 15:39:52 Problem Notes None recorded. Procedures Surgical History Date Name Laterality Status Provider Name and Address Organization Details Recorded Time Hysterectomy completed Not Available [facility] 04/26/2022 02:40:14 other completed Not Available [facility] 02/2022 02:40:14 Eye Surgery completed Not Available [facility] 04/26/2022 02:40:14 Breast Surgery completed Not Available [facility] 04/26/2022 02:40:14 Colonoscopy completed Not Available [facility] 04/26/2022 02:40:14 Imaging Results Imaging Date Name Status LastModified by Organization Details LastModified Time 05/10/2022 XR, knee, 3 view [email or web address] (Imaging) [address] [place], [address], 05/11/2022 10:57:15 05/10/2022 XR, hip, unilateral completed [email or web address] (Imaging) [address] [place], [address], 05/11/2022 10:57:15 05/10/2022 XR, knee completed [address] [place], [address], 05/16/2022 06:46:29 05/10/2022 XR, knee completed [address] [place], [address], 05/16/2022 06:46:29 05/10/2022 XR, hip, unilateral, 2 or 3 view completed [address] [place], [address], 05/16/2022 06:46:30 05/10/2022 XR, hip, unilateral, 2 or 3 view completed [address] [place], [address], 05/16/2022 06:46:30 09/20/2022 XR, knee, 3 view [facility] [place] [address] (Imaging) [address] [place], [address], 09/20/2022 15:32:53 09/20/2022 XR, knee completed [address] [place], [address], 10/02/2022 14:35:06 05/07/2023 NM, myocardial perfusion scan completed [email or web address] [facility] [address], [place], [address], 05/08/2023 15:09:46 05/07/2023 myocardial perfusion study w/ wall motion (PROC) completed [facility] [address], [place], [address], 05/08/2023 15:10:44 05/09/2023 electrocardiogram, routine ECG with at least 12 leads; tracing only, without interpretation and report (PROC) completed [address] [facility] [address], [place], [address], 05/09/2023 16:07:42 05/09/2023 vascular examination (PROC) completed [address] [facility] [address] , [place], [address], 05/09/2023 16:08:08 06/14/2023 MAMMO, screening, bilateral completed [address], [place], [address], 11/06/2023 17:05:29 09/27/2023 US, doppler echocardiogram completed [address] [facility] [address] , [place], [address], 10/02/2023 15:49:59 Procedure Notes None recorded. Medical Equipment None Reported. Allergies Allergen ID Allergen Name Allergen Category Reaction Reaction Severity Criticality Documentation Date Start Date Code Code System Note Provider Name and Address Organization Details Recorded Time 4134 erythromy mitali medicatio n Not available Not available Not available 04/26/2022 4053 RxNorm upset stoma ch Not Available [facility] 02:53:32 Medications Name Sig Start Date Stop Date Status Note LastModified by Organization Details LastModified Time amoxicill in 500 mg capsule TK 1 C PO BID FOR 10 DAYS active Not Available Not Available No t Available clotrimaz ole 10 mg nakita TAKE 1 LOZENGE BY MOUTH FIVE TIMES DAILY. 05/09 completed Not Available Not Available Not Available promethaz ine-DM 6.25 mg-15 mg/5 mL oral syrup TAKE 5 ML BY MOUTH EVERY 4 HOURS FOR 10 DAYS NEEDED active Not Available Not Available No t Available clindamyc in HCl 300 mg capsule Take 1 capsule 4 times a day by oral route as directed . 12/19 completed Not Available Not Available Not Available famotidin e 40 mg tablet TAKE 1 TABLET BY MOUTH EVERY DAY active Not Available Not Available No t Available Medrol (Pietro) 4 mg tablets in a dose pack Use as directed active Not Available Not Available No t Available clindamyc in HCl 150 mg capsule 05/09 completed Not Available Not Available Not Available acetamino phen 300 mg-codein e 30 mg tablet active Not Available Not Available Not Available amlodipin e 5 mg tablet TAKE 1 TABLET BY MOUTH EVERY DAY active Not Available Not Available No t Available valacyclo vir 500 mg tablet 05/20 completed Not Available Not Available Not Available ciproflox acin 500 mg tablet Take 1 tablet every 12 hours by oral route for 10 days. active Not Available Not Available No t Available sulfameth oxazole 800 mg-trimet hoprim 160 mg tablet Take 1 tablet every 12 hours by oral route with meals for 10 days. active Not Available Not Available No t Available omeprazol e 40 mg capsule,d elayed release Take 1 capsule every day by oral route. active Not Available Not Available No t Available tramadol 50 mg tablet Take 1 tablet every day by oral route as needed for 30 days active Not Available Not Available No t Available prednisol one acetate 1 % eye drops,dustin pension SHAKE LIQUID AND INSTILL 1 DROP IN LEFT EYE EVERY DAY FOR 1 WEEK active Not Available Not Available No t Available temazepam 15 mg capsule TAKE 1 CAPSULE BY MOUTH AT BEDTIME active Not Available Not Available No t Available Kenalog 10 mg/mL suspensio n for injection In office injectio n administ ered by the provider 11/12 completed [facility]: 0003-049 4-20 Not Available Not Available Not Available cephalexi n 500 mg capsule 12/19 completed Not Available Not Available Not Available pantopraz ole 40 mg tablet,de layed release TAKE 1 TABLET BY MOUTH EVERY DAY 05/09 completed Not Available Not Available Not Available esomepraz ole magnesium 40 mg capsule,d elayed release TAKE 1 CAPSULE BY MOUTH DAILY 2022 active Not Available Not Available Not Avai lable polymyxin B sulfate 10,000 unit-trim ethoprim 1 mg/mL eye drops 12/19 completed Not Available Not Available Not Available nitroglyc delia 0.4 mg sublingua l tablet 04/25 completed Not Available Not Available Not Available sertralin e 25 mg tablet Take 1 tablet every day by oral route for 90 days. active Not Available Not Available No t Available amoxicill in 250 mg capsule 05/09 completed Not Available Not Available Not Available Baby Aspirin 81 mg chewable tablet Chew 1 tablet every day by oral route. 05/09 completed Takes it on occasion Not Available Not Available Not Available propranol ol 20 mg tablet TAKE 1 TABLET BY MOUTH TWICE DAILY active Not Available Not Available No t Available PreviDent 5000 Plus 1.1 % cream USE DIRECTED 05/09 completed Not Available Not Available Not Available cefdinir 300 mg capsule TK 1 C PO Q 12 H FOR 10 DAYS active Not Available Not Available No t Available sertralin e 50 mg tablet TAKE 1 TABLET BY MOUTH DAILY active Not Available Not Available No t Available dicyclomi ne 10 mg capsule active Not Available Not Available Not Available rosuvasta tin 10 mg tablet TAKE 1 TABLET BY MOUTH EVERY DAY active Not Available Not Available No t Available Nevanac 0.1 % eye drops,dustin pension 12/19 completed Not Available Not Available Not Available lidocaine (PF) 10 mg/mL (1 %) injection solution In office injectio n administ ered by the provider 11/12 completed [facility]: 0409-427 08-12 Not Available Not Available Not Available Suprep Bowel Prep Kit 17.5 gram-3.13 gram-1.6 gram oral solution 08/19 completed Not Available Not Available Not Available Fluzone High-Dose (PF) 180 mcg/0.5 mL intramusc ular syringe active Not Available Not Available Not Available Fluzone High-Dose Quad (PF) 240 mcg/0.7 mL IM syringe PHARMACY ADMINIST ERED 05/20 completed Not Available Not Available Not Available Paxlovid 300 mg (150 mg x 2)-100 mg tablets in a dose pack TK 2 NIRMATRE LVIR TS AND 1 RITONAVI R T TOGETHER PO BID FOR 5 DAYS active Not Available Not Available No t Available Vitals Date Recorded Body height Body mass index (BMI) Body weight Body temperature Heart rate Oxygen saturation Oxygen saturation in Arterial blood by Pulse oximetry Systolic blood pressure Diastolic blood pressure Provider Name and Address Organization Details Last Updated DateTime 3 154.94 cm 20 kg/m2 60125.7 9 g 97.6 [degF] 61 /min 95 % 95 % 110 mm[Hg] 60 mm[Hg] HUGO Tovar [employer] [facility] 3 12:32:27 Date Recorded Body height Body mass index (BMI) Body weight Body temperature Heart rate Oxygen saturation Oxygen saturation in Arterial blood by Pulse oximetry Systolic blood pressure Diastolic blood pressure Provider Name and Address Organization Details Last Updated DateTime 3 154.94 cm 19.8 kg/m2 70900.2 g 97.7 [degF] 61 /min 94 % 94 % 120 mm[Hg] 68 mm[Hg] HUGO Tovar [employer] 3 14:06:31 Date Recorded Body mass index (BMI) Body mass index (BMI) Body height Body height Oxygen saturation Oxygen saturation in Arterial blood by Pulse oximetry Oxygen saturation Oxygen saturation in Arterial blood by Pulse oximetry Heart rate Heart rate Body temperature Body temperature Body weight Body weight Systolic blood pressure Diastolic blood pressure Systolic blood pressure Diastolic blood pressure Provider Name and Address Organization Details Last Updated DateTime 3 19.7 kg/m2 19.5 kg/m2 154.94 cm 154.94 cm 98 % 98 % 96 % 96 % 60 /min 49 /min 97.3 [degF] 97.3 [degF] 28919.6 1 g 27447.0 1 g 124 mm[Hg] 70 mm[Hg] 122 mm[Hg] 80 mm[Hg] Not Available [employer] 3 02:44:01 Date Recorded Body height Body mass index (BMI) Body weight Body temperature Heart rate Oxygen saturation Oxygen saturation in Arterial blood by Pulse oximetry Systolic blood pressure Diastolic blood pressure Provider Name and Address Organization Details Last Updated DateTime 3 154.94 cm 19.8 kg/m2 84047.2 g 97.3 [degF] 120 /min 95 % 95 % 108 mm[Hg] 62 mm[Hg] Zaria Rowland [place] [employer] 15:26:19 Social History Question Answer Notes LastModified by Organizat ion Details LastModified Time Tobacco Smoking Status Never Smoker Kayla Riosluis a gonzáles [facility] [employer] [facility] 09/20/2022 14:01:38 What Is Your Level Of Alcohol Consumption? Occasional [id number] Information not available 04/26/2022 What Is Your Level Of Caffeine Consumption? Occasional [id number] Information not available 04/26/2022 Do You Use Any Illicit Or Recreational Drugs? No [email or web address] Information not available 09/20/2022 Sex: Unknown Functional Status None recorded. Mental Status None recorded. Family History Relationship Description Onset Age of this Age Resolved Age Notes LastModified by Organization Details LastModified Time Father Cerebrovascu lar accident [email or web address] Not available 14:01:35 Father Hypertensive disorder [id number] Not available 04/26/2022 02:40:18 Mother Cerebrovascu lar accident Not available 14:01:35 Mother Hypertensive disorder [id number] Not available 04/26/2022 02:40:18 Notes: IS DYING OF [place] NCER Medical History Condition Response BLINDNESS N RHEUMATIC FEVER N KIDNEY STONES N BLADDER PROBLEMS N MRSA N OTHER # 1 N POLIO N LUNG DISEASE/DISORDER N RADIATION / CHEMOTHERAPY N COPD N Other # 2 N BLOOD DISEASES N SURGERY N EAR OR HEARING PROBLEMS Y MUMPS N FEMALE PROBLEMS / INFECTIONS N DEPRESSION (INCLUDING POST ) Y BOWEL PROBLEMS N STROKE/TIA N THYROID DISEASE N ULCERS N BENIGN PROSTATIC HYPERPLASIA N MEASLES N CERVICALGIA N TB SKIN TEST N MYOCARDIAL INFARCTION N PARAPELGIA N OBESITY N GERD/NAUSEA N ANEURYSM N URINARY/BLADDER/KIDNEY PROBLEMS Y CORONARY ARTERY DISEASE (CAD) N MENIERE'S DISEASE N ADDICTION CONCERNS N ENDOMETRIOSIS N USE OF BLOOD THINNERS N SKIN PROBLEMS N EMPHYSEMA N GASTROINTESTINAL DISORDER N MUSCLE,JOINT OR BONE PROBLEMS N GASTROINTESTINAL BLEEDING N BLOOD CLOTS N ASTHMA N CATARACTS N ERECTILE DYSFUNCTION N GI PROBLEMS N CHF N Low Testosterone N NEUROPATHY N INFERTILITY N AIDS/HIV N FRACTURES N CHEMOTHERAPY / RADIATION N VISION/EYE PROBLEMS N LIVER DISEASE N MALE HYPOGONADISM N HYPERTENSION Y ANXIETY DISORDER Y BLOOD TRANSFUSION N ANEMIA/BLOOD DISORDER Y CHRONIC EAR INFECTIONS N BRONCHITIS Y TUBERCULOSIS N GLAUCOMA N FOOT PROBLEM N DIVERTICULITIS N SLEEP APNEA N CHICKENPOX N ALLERGIES/HAYFEVER N INFECTIOUS DISEASE N PROSTATE N HEART ARRHYTHMIA N INSOMNIA N HIGH CHOLESTEROL / HYPERLIPIDEMIA Y HYPERTHYROIDISM N EYE PROBLEMS Y EATING DISORDER N NEUROLOGICAL PROBLEMS N EDEMA N CHRONIC PAIN SYNDROME N HYPOTHYROIDISM N CONSTIPATION N CAROTID BLOCKAGE N BACK / NECK PROBLEMS N HAVE YOU BEEN HOSPITALIZED OR SEEN IN [facility] IN THE PAST YEAR ? N ATHEROSCLEROSIS N BREAST PROBLEMS N DIALYSIS N ECZEMA N FIBROMYALGIA N OSTEOPOROSIS N ARTHRITIS Y NO SIGNIFICANT PAST MEDICAL HISTORY N APPENDICITIS N DIABETES, TYPE N BAD TEETH N HEARTBURN / REFLUX Y ADD/ADHD N AUTISM SPECTRUM DISORDER (ASD) N HEPATITIS / LIVER DISEASE N PULMONARY DISEASE N GOUT N SLEEP DISORDER Y ALZHEIMER'S DISEASE N PAIN N HERPES N DEMENTIA N SEIZURES/EPILEPSY N HEADACHES/MIGRAINES Y VASCULAR DISEASE N PACEMAKER N DIZZINESS Y KIDNEY DISEASE N HEART DISEASE/HEART PROBLEMS N SCARLET FEVER N MULTIPLE SCLEROSIS N MENTAL DISORDER/ILLNESS N DEVELOPMENTAL OR BEHAVIORAL DISORDERS N CARDIAC ARRHYTHMIA N CANCER: SPECIFY Y PNEUMONIA N Gall Stones N ATRIAL FIBRILLATION N PULMONARY EMBOLISM N AUTOIMMUNE DISEASE N Gynecological HistoryNo gynecological history recorded. Obstetrics History GPAL:G 0 P 0 0 0 0 Immunizations Vaccine Type Date Status Note Provider Nam e and Address Organization Details Recorded Time COVID-19, mRNA, LNP-S, PF, 100 mcg/0.5mL dose or 50 mcg/0.25mL dose 05/08/2020 completed Not Available [facility] 3 02:53:22 COVID-19, mRNA, LNP-S, PF, 100 mcg/0.5mL dose or 50 mcg/0.25mL dose 04/10/2020 completed Not Available [facility] 3 02:53:22 COVID-19, mRNA, LNP-S, PF, 100 mcg/0.5mL dose or 50 mcg/0.25mL dose 01/07/2021 completed Not Available [facility] 3 02:53:22 DTaP 12/18/2005 completed Not Available [facility] 04/26/2022 02:53:22 Influenza, high-dose, trivalent, PF 12/17/2018 completed Not Available [facility] 2022 02:53:22 Past Encounters Encounter ID Performer Location Encounter Start Date Encounter Closed Date Diagnosis/Indication Diagnosis SNOMED-CT Code Diagnosis ICD10 Code Diagnosis Note [id number] [facility] [address] [facility] [place] [address] 05/20/2020 00:00:00 05/20/2020 15:30:33 [id number] [facility] [place] [address] [facility] [place] [address] 11/16/2020 00:00:00 11/16/2020 14:48:41 [id number] [facility] [address] [facility] [place] [address] 03/22/2021 00:00:00 03/22/2021 14:48:18 [id number] [facility] [address] [facility] [place] [address] 05/09/2021 00:00:00 05/09/2021 16:44:41 [id number] [facility] [place] [address] [place] [address] [place] [address] 11/28/2021 00:00:00 11/28/2021 16:02:32 [id number] [facility] [place] [facility] [place] [address] 01/12/2022 00:00:00 01/12/2022 15:19:04 [id number] [facility] [place] [address] [place] [address] [place] [address] 01/30/2022 00:00:00 01/31/2022 06:36:44 [id number] Luisito Miller MD [facility] [place] [address] [facility] [place] [address] 05/10/2022 12:21:43 05/10/2022 13:03:27 Pain of left hip joint 6302207521 24978 M25.552 Pain of le ft knee joint 4021258386 30834 M25.562 RICE and NSAIDs as needed. Easy bruising 766371401 R58 Persistent insomnia 1919 56515 G47.09 [id number] Luisito Miller MD [facility] [address] [facility] [place] [address] 09/20/2022 13:59:57 09/20/2022 14:29:46 Pain of right knee joint [id number] 70167 M25.561 Voltaren gel sample given Screening for malignant neoplasm of breast 941064744 Z12.39 Pre-surger y evaluation 253876347 Z01.818 Cleared for cataract surgery [id number] LASHAY Prabhakar [facility] [address] [place] [address] 02/06/2023 15:16:50 02/06/2023 15:58:00 Pharyngitis 851161769 J02.9 Health Concerns Section Related Observation LastModified by Organization Detai ls LastModified Time None Recorded Concern Status LastModified by Organization Details LastModified Time None Recorded Advance Directives Directive None Recorded Payers Encounter Date Sequence Insurance Name Policy Number Policy Menendez Covered Member ID Menendez Member ID Guarantor Name 05/10/2022 1 [employer] (MEDICARE REPLACEMENT PPO) [id number] 1 Savanah Zuñigaucci [id number] Savanah Zuñigaucci 09/20/2022 1 [employer] (MEDICARE REPLACEMENT PPO) [id number] 1 Savanah Downingolucci [id number] Savanah Zuñigaucci 02/06/2023 1 [employer] (MEDICARE REPLACEMENT PPO) [id number] 1 Savanah Zuñigaucci [id number] Savanah Ramírez Notes Date Note Type Note Provider Name and Address Organization Details Recorded Time 05/10/2022 text/html Here today c/o arthritis. Has pain in left hip and it was bad pain. Saw chiropractor and massage. Left knee started getting swollen and bruising occurred. Has pressure of knees Legs are tingling and getting a burning sensation. No xrays of hip or knees. No hx of neuropathy. Luisito Miller MD [address] [facility] [address], [place], [address], [facility] [employer] 05/10/2022 19:14:06 09/20/2022 text/html Here today for medical clearance for cataract surgery scheduled for next week.Has right knee pain. Once gets up and moves around it gets getter. Has a knot on right medial knee.No reaction to anesthesia Luisito Miller MD [address] [facility] [facility] [address], [place], [address], [employer] 09/21/2022 06:20:57 02/06/2023 text/html ssore throat , n o fever , no exposure LASHAY Prabhakar [address] [facility] [facility] [address], [place], [address], [employer] 02/19/2023 15:31:41 OBGyn Episode No OBEpisode recorded.
--- OUTSIDE RECORDS SUMMARY | 2024-04-01 14:55 | XMS_ITS | Continuity of Care Document ---
Author Organization [facility] [employer] [place] [address] [place] [address] Dr Matute [address] [place] [phone] Phone Care Team Providers Care Analytical Data Scientist Name Role Phone Noelle MORRISON FACS, Wilber Unavailable Unavailab le Allergies, Adverse Reactions, Alerts Substance Reaction Status Criticality aspirin Active No Information Medications Medication Instructions Dosage Effective Dates (start - stop) Status Comments Artificial Tears eye drops - Active temazepam 15 mg capsule take 1 capsule (15MG) by oral route every day at bedtime as needed 15 MG - Active sertraline 50 mg tablet take 1 tablet (50MG) by oral route every day 50 MG - Active propranolol 20 mg tablet take 1 tablet (20MG) by oral route 3 times every day 20 MG - Active Crestor 10 mg tablet take 1 tablet (10MG) by oral route every day 10 MG - Active Nevanac 0.1 % eye drops,suspension Instill one drop in both eyes TID - No Longer Active Procedures Procedure Date Eye Exam & Treatment No Charge Refraction No Charge Optomap Fundus Photos 015 After Cataract Laser Surgery SCODI, Retina Post-op Follow-up Visit No Charge Refraction Post-op Follow-up Visit Post-op Follow-up Visit Remove Cataract, Insert Lens Eye Exam, New Patient No Charge Refraction IOLMaster IOLMaster Fundus Photography W/ Report Advance Directives Directive Yes / No Effective Date File Name No Information Encounters Encounter Description Practice Location Reason(s) For Visit Diagnoses Date Provider Providers Copied on Encounter [facility], [facility] [employer] [address], [place], [place], [id number], [place] tel:[phone] [place] Profession[place] Yag Cap Eval OD (chief complaint) After cataract limiting vision [address] [place]. [address] [employer], [address], [place], [place], [address], [place]. tel:[phone] Referring Provider: Meliton Manning OD, [address] [facility], [place], [address]. tel:[phone] [facility], [facility] [address], [place], [place], [address], [place] tel:[phone] [place] Profession[place] No Information 5 Jessica Puente. [address] [facility], [address], [place], [place], [address], [place]. tel:[phone] [facility], [address] [employer] [address], [place], [place], [address], [place] tel:[phone] SEC [place] [address] blurry vision (chief complaint) FOLLOW-UP SURGERY NOS 4 Noelle Merino. [address] [employer], [address], [place], [place], [address], [place]. tel:[phone] Referring Provider: [place] Mitchell, [facility] [employer] [address], [place], [address]. tel:[phone] [facility], [facility] [employer] [address], [place], [place], [address], [place] tel:[phone] SEC [place] [address] 12 Day S/P Phaco c IOL OD 04/29/2013 (chief complaint) FOLLOW-UP SURGERY NOS - 4 Noelle Merino. [address] [employer], [address], [place], [place], [address], [place]. tel:[phone] Referring Provider: Wilber Mitchell, [address] [employer] [address], [place], [address]. tel:[phone] [employer] [facility], [address] [employer] [address], [place], [place], [address], [place] tel:[phone] [place] Profession[place] a comprehensiv e exam (chief complaint) FOLLOW-UP SURGERY NOS 4 Jessica Puente. [address] [facility], [address], [place], [place], [address], [place]. tel:[phone] Referring Provider: [place]ber Mitchell, [facility] [employer] [address], [place], [address]. tel:[phone] [employer] [facility], [address] [employer] [address], [place], [place], [address], [place] tel:[phone] [facility] No Information 4 Noelle Merino. [address] [employer], [address], [place], [place], [address], [place]. tel:[phone] Referring Provider: Wilber Mitchell, [facility] [employer] [address], [place], [address]. tel:[phone] [employer] Lindsay[employer] [facility], [address] [employer] [address], [place], [place], [address], [place] tel:[phone] [place] Professiona l decreased vision (chief complaint) SENILE NUCLEAR CATARACTMACU LAR PUCKERING 4 Noelle Merino. [address] [employer], [address], [place], [place], [address], [place]. tel:[phone] Referring Provider: Wil[place] Mitchell, [address], [place], [address]. tel:[phone] [facility], [address], [place], [place], [address], tel:[phone] [facility] No Information 4 Jessica Puente. [address] [facility], [address], [place], [place], [address], [place]. tel:[phone] Family History Family Member Type Diagnosis Age At Onset Father Problem (finding) glaucoma Payers Payer name Insurance type Covered alliance party ID Authoranthonya karyn(s) [facility] Mdcr Adv CI [id number] Social History Type Description Quantity Date Captured Comments Sex Female Smoking Status No Information Chief Complaint And Reason For Visit From encounter dated '11/03/2014 13:15'. Yag Cap Eval OD (chief complaint). Description: The 74 year old female presents for Yag Cap Eval OD. 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 Patient had Cataract Surgery OD 04/29/2013 and was followed by ERM w/CME. Patient was sent to Dr. Alfred. Patientwas last seen by Dr. Alfred on 08/10/14 and there was discussion of Cataract surgery OS or Vitrectomy w/membrane peeling OD to try and improve her vision. Patient was seen recently by Meliton Manning,OD and was told she has PC haze OD that needs to be taken off. Patient reports in August she began having Diplopia at a distance. Patient saw her division service manager and was given glasses with prism which did not help. Patient could not wear the glasses. Patient reports she does still notice vertical diplopia at times. Patient hasn't been wearing her glasses much because they do not help. Patient is having trouble seeing to drive and trouble seeing to read, even with a magnifying glass. Reason For Referral Reason For Referral No Information History Of Present Illness Encounter Date Complaint History Of Prese nt Illness Yag Cap Eval OD The 74 year old female presents for Yag Cap Eval OD. 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 Patient had Cataract Surgery OD 04/29/2013 and was followed by ERM w/CME. Patient was sent to Dr. Alfred. Patient was last seen by Dr. Alfred on 08/10/14 and there was discussion of Cataract surgery OS or Vitrectomy w/membrane peeling OD to try and improve her vision. Patient was seen recently by Meliton Manning, OD and was told she has PC haze OD that needs to be taken off. Patient reports in August she began having Diplopia at a distance. Patient saw her division service manager and was given glasses with prism which did not help. Patient could not wear the glasses. Patient reports she does still notice vertical diplopia at times. Patient hasn't been wearing her glasses much because they do not help. Patient is having trouble seeing to drive and trouble seeing to read, even with a magnifying glass. Functional Status Date Functional Assessmen t No Information Instructions Date Instruction Additional Infor jose d return to referring Related to A fter cataract limiting vision Follow up - return to referring Related to After cataract limiting vision Impression/Plan - Di scussed diagnosis with patient and YAG PC understood for treatment, will proceed with laser treatment today. Return to referring in 2-4 weeks. Letter generated and sent to Dr. Manning Related to After cataract limiting vision - 4-[address] Alfred Relat ed to FOLLOW-UP SURGERY NOS FOLLOW-UP SURGERY NO S OD- CME OD vision affected, large cysts present - Discussed post op course with pt. Discussed returning to Dr. Alfred. Continue Nevanac TID discussed Diclofenac use and explained this medication does not treat as well as Nevanac, would rec staying on Nevanac. Ok to DC Pred and continue without Poly. Hold on specs at this time. Pt. to see us or Dr. Alfred in 4-6 weeks with OCT of mac Letter dictated to Dr. Alfred will see pt back here after seen by Dr. Ponce instructions written ou TID, pt will only use in the right eye TID ERX to [facility] Related to FOLLOW-UP SURGERY NOS - 2 weeks po with repeat OCT of mac Related to FOLLOW-UP SURGERY NOS FOLLOW-UP SURGERY NO S OD Vision: vision affected. CME OD - Discussed post op Continue Pred and Nevanac TID, sample given and erx to nhan dobbins to stop Polytrim. Anticipate vision to improve over the next few weeks, but can take longer. Pt to see Dr. Alfred after seen by us next visit Educational materials provided:about today's exam. Related to FOLLOW-UP SURGERY NOS - keep appt-unsure whether wants os done Related to FOLLOW-UP SURGERY NOS 1day s/p cat with pc iol od-mild corneal edema - start drops Educational materials provided to patient. Educational materials provided to patient. Related to FOLLOW-UP SURGERY NOS - sched ce od 1st Related to MAC ULAR PUCKERING SENILE NUCLEAR CATAR ACT OU Vision: vision affected. MACULAR PUCKERING OU- monitored yearly by Dr. Alfred - Cataracts account for the patient's complaints. Discussed all risks, benefits, procedures and recovery. Patient understands changing glasses will not improve vision. Patient desires to have surgery, recommend phacoemulsification with intraocular lens.Standard monofocal IOL recommendedDiscussed dental work with pt and explained if infection is present she will need to put off CE until infection has resolved. If she is put on antibiotics she will need to wait until she is finished with antibiotics. Educational materials provided:about today's exam. Pt may need the VAN-Pt will be seeing her dentist tomorrow. Related to MACULAR PUCKERING Assessments Type Assessment Date assessment After cataract limiting vision S impression After cataract limit ing vision: 366.53. OD. Vision: vision affected Patient Care Teams Name Effective Dates (start - stop) Status Members No Information
== END 2024-04-01 14:53 | disposition home or self-care (01) ==
PROVIDERS: PCP Nurse Practitioner Family; Visit Provider Nurse Practitioner Family
DX: M16.11 Unilateral primary osteoarthritis, right hip (principal); S73.191A Other sprain of right hip, initial encounter; M70.71 Other bursitis of hip, right hip; S76.011A Strain of muscle, fascia and tendon of right hip, initial encounter; M43.06 Spondylolysis, lumbar region; K57.30 Diverticulosis of large intestine without perforation or abscess without bleeding
CPT/HCPCS: 73721

== ENCOUNTER 2024-06-30 14:04 | Outpatient (CLI) | payer MEDICARE, SELFPAY ==
--- NOTE | ~2024-06-30 | DEXA_ITS ---
Bone Density Report Name: SAVANAH JONES Age: 84 Sex: Female Ethnicity: White Date of : 1940 Indication: osteopenia; height loss; cancer; hysterectomy; Referring Provider: MIGUEL, EDDIE Chaudhary Study: Bone densitometry was performed. Exam Date: June 30, 2024 Accession number: [id number] Bone Density: Region BMD T-score Z-score Classification AP Spine(L1-L4) 0.838 -1.9 1.0 Osteopenia Femoral Neck (Left) 0.559 -2.6 -0.1 Osteoporosis Total Hip (Left) 0.683 -2.1 0.2 Osteopenia Femoral Neck (Right) 0.511 -3.0 -0.5 Osteoporosis Total Hip (Right) 0.646 -2.4 -0.1 Osteopenia Total Hip Mean 0.664 -2.3 0.1 Osteopenia World Health Organization criteria for BMD impression classify patients as: Normal (T-score at or above -1.0), Osteopenia (T-score between -1.0 and -2.5), or Osteoporosis (T-score at or below -2.5). 10-year Fracture Risk: FRAX not reported because: Some T-score for Spine Total or Hip Total or Femoral Neck at or below -2.5 Previous Exams: Region Exam Age BMD T-score BMD Change BMD Change Date g/cm2 vs Baseline vs Previous AP Spine (L1-L4) 06/30/2024 84 0.838 -1.9 -0.093 (-10.0% -0.093 (-10.0% 06/13/2016 76 0.930 -1.1 Total Hip(Left) 06/30/2024 84 0.683 -2.1 -0.058 (-7.9%) -0.058 (-7.9%) 06/13/2016 76 0.741 -1.6 Total Hip(Right) 06/30/2024 84 0.646 -2.4 -0.066 (-9.3%) -0.066 (-9.3%) 06/13/2016 76 0.713 -1.9 *Denotes significance at 95% confidence level, LSC for AP Spine = 0.022 g/cm2, LSC for Total Hip = 0.027 g/cm2 Clinical Information Provided by Patient: Has used the following medications: Calcium Has the following medical conditions: Cancer, Hysterectomy Patient maximum height was 62.0 Menopause Age: 53 No regular weight bearing exercise Drinks caffeinated beverages Onset of menses at age 12 Number of children 2 Impression: The patient has osteoporosis, based on the Right Femoral Neck T-score. The BMD for the AP Spine (L1-L4) decreased, changing by -10.0% since the last DXA exam. The BMD for the Total Hip(Left) decreased, changing by -7.9% since the last DXA exam. The BMD for the Total Hip(Right) decreased, changing by -9.3% since the last DXA exam. Discussion: INCREASED RISK OF FRACTURE. BONE DENSITY IS UNDESIRABLY LOW AT ONE OR MORE SKELETAL SITES, CONSISTENT WITH POSTMENOPAUSAL OSTEOPOROSIS. This patient's lowest T-score meets the World Health Organization's (WHO) criteria for osteoporosis at one or more sites (T-score -2.5 or below). In untreated patients, the risk of osteoporotic fracture increases approximately two-fold for each 1.0 SD decrease in T-score. Low bone density is not the only risk factor for fracture; also consider factors such as patient's age, frailty or poor health, risk of falling, risk of injury, previous osteoporotic fracture, family history of osteoporosis, cigarette smoking, low body weight, etc. Not everyone with low bone mineral density has osteoporosis; osteomalacia and other metabolic bone disorders should also be considered. Patients who have osteoporosis should be evaluated for specific diseases and conditions (secondary causes) that may cause or contribute to bone loss. The [place] Association of Clinical Endocrinologists (AACE) and National Osteoporosis Foundation (NOF) recommend pharmacologic intervention for all postmenopausal women whose T-score is in this range. The patient should follow a healthful lifestyle (good nutrition with adequate calcium and vitamin D, and appropriate weight-bearing exercise). Follow-Up: Consider a repeat BMD and Vertebral Fracture Assessment (VFA) exam in 2 years or sooner if medically necessary, to reassess this patient's status. Reported by: LISSA on 06/30/2024 2:49:00 PM. Reviewed, dictated and finalized at location A.
--- OUTSIDE RECORDS SUMMARY | 2024-06-30 14:42 | XMS_ITS | Clinical Summary ---
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 Name Role Phone Leela Knowles NP Primary Care Provider [phone] Sharon Mcmullen MD Unavailable Ean Haskins MD Unavailable [phone] Jadiel Hernandez MD Unavailable [phone] Allergies Active Allergy Reactions Criticality Noted Date Comments Aspirin Stomach upset Low 10/31/2022 Erythromycin Stomach upset,Other (See comments) High 05/28/2018 Medications aspirin (Vazalore) 81 mg capsule Take 81 mg by mouth 3 (three) times a week Active flecainide (TAMBOCOR) 50 mg tablet Take 1 tablet (50 mg total) by mouth 2 (two) times a day Active magnesium oxide (MAG-OX) 400 mg (241.3 mg elemental magnesium) tabletIndicat ions:hypomagn esemia Take 1 tablet (400 mg total) by mouth daily Active rosuvastatin (CRESTOR) 20 mg tablet Take 1 tablet (20 mg total) by mouth daily 90 tablet 1 04/29/19 25 Active temazepam (RESTORIL) 15 mg capsule Take 1 capsule (15 mg total) by mouth nightly as needed for sleep 30 capsule 1 05/30/19 25 Active propranoloL (INDERAL) 10 mg tablet TAKE 1 TABLET(10 MG) BY MOUTH DAILY 90 tablet 1 06/03/19 25 Active traMADoL (ULTRAM) 50 mg tablet Take 1 tablet (50 mg total) by mouth daily as needed for pain 7 tablet 06/03/19 25 Active naloxone (NARCAN) 4 mg/actuation spray,non-aer osol Administer 1 spray into affected nostril(s) as needed for opioid reversal or respiratory depression Call 911. Administer a single spray in one nostril. Repeat every 3 minutes as needed if no or minimal response. 1 each 06/03/19 25 Active amLODIPine (NORVASC) 2.5 mg tablet Take 1 tablet (2.5 mg total) by mouth daily 90 tablet 1 06/24/[address] (PROTONIX) 40 mg EC tablet TAKE 1 TABLET(40 MG) BY MOUTH DAILY 100 tablet 1 06/25/19 25 Active sertraline (ZOLOFT) 50 mg tablet TAKE 1 TABLET(50 MG) BY MOUTH DAILY 90 tablet 1 06/26/19 25 Active amLODIPine (NORVASC) 5 mg tablet Take 1 tablet (5 mg total) by mouth daily 025 Discontinued(Re order) pantoprazole DR (PROTONIX) 40 mg EC tablet TAKE 1 TABLET(40 MG) BY MOUTH DAILY 90 tablet 1 12/24/19 24 025 Discontinued sertraline (ZOLOFT) 50 mg tablet Take 1 tablet (50 mg total) by mouth daily 90 tablet 1 12/31/19 24 025 Discontinued propranoloL (INDERAL) 10 mg tabletIndicat ions:Per patient Take 1 tablet (10 mg total) by mouth daily 90 tablet 03/03/19 25 025 Discontinued Active Problems Problem Noted Date Diagnosed Date Medicare annual wellness visit, subsequent 06/02 Assessment & Plan (06/02/2024 2:12 PM CDT): A yearly Medicare Annual Wellness Visit has been performed today. Abril Ramírez is not up to date on screening tests. She is in need of DEXA- these have been ordered. She is not up to date on needed preventative vaccinations; She is in need of Tdap/Td, Pneumonia (Prevnar-13 or Pneumovax-23), and Covid-19 (booster). These have been ordered/arranged unless otherwise indicated. Thyroid nodule 06/11/2023 Arthropathy of hand 05/31/2023 Contracture of joint of hand 05/31/2023 Osteoarthritis 05/31/2023 Assessment & Plan (06/02/2024 2:46 PM CDT): Pt was rx'd Tramadol prn in the past for arthralgias, eye injection, dental work etc by previous PCP. Last refill 2020 for 7 pills (pt has bottle). Will refill for 7 pills, pt aware to not take with Temazepam. Cellulitis 05/31/2023 Disorder of shoulder 05/31/2023 Hypertensive disorder 05/31/2023 Assessment & Plan (06/02/2024 2:35 PM CDT): BP a little soft in office today, previous BP though x 1 month ago 145/69. Pt has been out of Amlodipine x 1 month. Will have pt send in home BP log in 1 week to see if Amlodipine needed back on. Assessment & Plan (12/03/2023 2:33 PM CDT): BP and pulse low in office today, pt symptomatic. Will decrease Propranolol to 10 mg daily, home BP and pulse log in 1 week. Lightheadedness 05/31/2023 Nutritional deficiency disorder 05/31/2023 Traumatic dislocation of thumb 05/31/2023 Hyperlipidemia 05/31/2023 Assessment & Plan (06/02/2024 2:18 PM CDT): Continues Rosuvastatin, no side effects reported. Updated labs ordered Ventricular premature depolarization 05/11/2023 Dyspnea on exertion 04/16/2023 Dizziness 04/16/2023 Arthralgia of right knee 09/20/2022 Mixed anxiety and depressive disorder 07/04/2022 Acid reflux 05/29/2022 Arthralgia of left knee 05/10/2022 Easy bruising 05/10/2022 Pain of left hip joint 05/10/2022 Persistent insomnia 05/10/2022 Assessment & Plan (06/02/2024 2:40 PM CDT): Has been on Temazepam for 20+ years. Denies any adverse side effects. Assessment & Plan (06/01/2023 9:47 AM CDT): [...] Unspecified atrial fibrillation 03/25/2021 Rapid atrial fibrillation 03/21/2021 Assessment & Plan (06/02/2024 2:40 PM CDT): Condition stable overall, continues to work with Lighting Adviser. Overdue for appt though, needs to make follow up Assessment & Plan (06/01/2023 9:45 AM CDT): Conditions stable overall, continues to work with Lighting Adviser. Full thickness rotator cuff tear 11/24/2019 Arteriosclerosis of coronary artery 06/25/2018 Anxiety 05/28/2018 Assessment & Plan (12/03/2023 2:34 PM CDT): Continues Temazepam nightly prn. Atypical chest pain 05/28/2018 Muscle spasm 05/28/2018 Chest pain 05/28/2018 Gastroesophageal reflux disease 02/26/1960 Resolved Problems Problem Noted Date Diagnosed Date Resolved Date Closed wound 05/31/2023 06/02/2024 Fatigue 05/31/2023 06/02/2024 Pharyngitis 02/05/2023 06/02/2024 Sinusitis 2023 06/02/2024 Hypercholesterolemia 05/28/2018 025 Encounters Date Type Department Care Team Description 06/23/2024 Orders Only [facility] Primary Care at [address] [phone] Leela Knowles NP 06/10/2024 Telephone [facility] Primary Care at [address] [phone] Leela Knowles NP 06/03/2024 Results Follow-Up [facility] Primary Care at [address] [phone] Leela Knowles NP 06/02/2024 2:45 PM CDT Lab [facility] Outpatient Lab at [address] [phone] Medicare annual wellness visit, subsequent (Primary Dx) 06/02/2024 2:41 PM CDT - 06/02/2024 11:59 PM CDT Hospital Encounter [address] [address] Iron deficiency; Rapid atrial fibrillation (HCC); Vitamin D deficiency; Primary hypertension Discharge Disposition: Discharge to home or self care 06/02/2024 2:00 PM CDT Office Visit [facility] Primary Care at [address] [phone] Leela Knowles NP Medicare annual wellness visit, subsequent (Primary Dx); Primary hypertension; Mixed hyperlipidemia; Rapid atrial fibrillation (HCC); Persistent insomnia; Vitamin D deficiency; Iron deficiency; Myalgia, multiple sites; Primary osteoarthritis involving multiple joints 05/29/2024 Orders Only [facility] Primary Care at [address] [address] Leela Knowles NP 05/15/2024 1:15 PM CDT Office Visit [facility] [address] [place] [phone] Ambar Heath PA Greater trochanteric bursitis of right hip (Primary Dx); Tear of right gluteus medius tendon, initial encounter 05/05/2024 Telephone [facility] Orthopedics and Sports Medicine [address] [place] [address] [address] [place] [phone] Ambar Heath PA 04/28/2024 Orders Only [facility] Primary Care at [address] [phone] Leela Knowles NP 04/07/2024 Telephone [facility] Orthopedics and Sports Medicine [address] [place] [address] [address] [place] [phone] Ambar Heath PA 04/02/2024 Orders Only [facility] Primary Care at [address] [phone] Rupal Robertson NP from Last 3 Months Immunizations Immunization Administration Dates Next Due DTaP 12/18/2005 Influenza, [...] Comments Abnormality of heart beat Hypertension Cancer (HCC) History of stomach ulcers Gastric reflux Hiatal hernia Neuropathy Rheumatoid arthritis (HCC) Depression Migraines Eye swelling [...] points, staff should administer the PHQ-9) 0 06/02/2024 Comments Unknown Sex and Gender Information Value Date Recorded Sex Assigned at Not on file Legal 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 Gender Identity Not on file Sexual Orientation Not on file Obstetrics History Last Filed Vital Signs Vital Sign Reading Time Taken Comments Blood Pressure 102/56 06/02/2024 2:00 PM CDT Pulse 52 06/02/2024 2:00 PM CDT Temperature 36.9 C (98.4 F) 06/02/2024 2:00 PM CDT Respiratory Rate 16 12/13/2023 10:11 AM CDT Oxygen Saturation 97% 06/02/2024 2:00 PM CDT Inhaled Oxygen Concentration - - Weight 46.7 kg (103 lb) 06/02/2024 2:00 PM CDT Height 154.9 cm (5' 1 ) 06/02/2024 2:00 PM CDT Body Mass Index 19.46 06/02/2024 2:00 PM CDT Plan of Treatment Health Maintenance Due Date Last Done Comments Hepatitis B Screening 1958 Pneumococcal vaccine 65+ (1 of 1 - PCV) 1989 DTaP/Tdap/Td Vaccine (2 - Tdap) 12/19/2015 12/18/2005 Covid-19 Vaccine ( season) 2023 12/27/2021, 01/07/2021, 05/08/2020, Additional history exists Osteoporosis Screening-Bone Density Scan 09/01/2024 05/30/2020 Postponed from 05/30/2022 (Patient declined, but will receive in the future) Depression Screening 06/02/2025 06/02/2024, 12/03/2023, 05/31/2023 Fall Risk Assessment 06/02/2025 06/02/2024, 12/03/2023, 05/31/2023 Well Visit 65+ 06/02/2025 06/02/2024 Zoster Vaccine Completed 05/11/2021, 12/20/2020 Influenza Vaccine Completed 12/10/2023, , 11/29/2021, Additional history exists Procedures Procedure Name Priority Date/Time Associated Diagnosis Comments EGFR Routine 06/02/2024 2:41 PM CDT Primary hypertension DIFFERENTIAL AUTO Routine 06/02/2024 2:4 1 PM CDT Primary hypertension CBC WITH AUTO DIFFERENTIAL Routine 06/02/2024 2:41 PM CDT Primary hypertension COMPREHENSIVE METABOLIC PANEL Routine 06/02/2024 2:41 PM CDT Primary hypertension LIPID PANEL Routine 06/02/2024 2:41 PM CDT Primary hypertension THYROID FUNCTION CASCADE Routine 06/02/2024 2:41 PM CDT Primary hypertension VITAMIN D 25 HYDROXY Routine 06/02/2024 2:41 PM CDT Vitamin D deficiency MAGNESIUM Routine 06/02/2024 2:41 PM CDT Rapid atrial fibrillation (HCC) IRON Routine 06/02/2024 2:41 PM CDT Iron deficiency FERRITIN Routine 06/02/2024 2:41 PM CDT Iron deficiency MA ARTHROCENTESIS ASPIR&/INJ MAJOR JT/BURSA W/O US Routine 05/15/2024 1:15 PM CDT Greater trochanteric bursitis of right hip from Last 3 Months Results * (ABNORMAL) eGFR (06/02/2024 2:41 PM CDT) eGFR 51(L) >=60 mL/min/1. 73 m2 Comment: Interpretive Data Reference Interval Normal >/= 90 mL/min/1.73m2 Mildly decreased* 60 - 89 mL/min/1.73m2 Mildly to moderately decreased 45 - 59 mL/min/1.73m2 Moderately to severely decreased 30 - 44 mL/min/1.73m2 Severely decreased 15 - 29 mL/min/1.73m2 Kidney Failure < 15 mL/min/1.73m2 *Relative to young adult level Estimated glomerular filtration rate is determined by the 2020 CKD-EPI equation recommended by the National Kidney Foundation (A Unifying Approach to GFR Estimation: Recommendations of the NKF-ASK Task Force on Reassessing the Inclusion of Race in Diagnosing Kidney Disease, JASN 2020). The CKD-EPI equation should not be used for patients with unstable renal function and has not been validated in children and those over 70. Current interpretive data was last reviewed 2020. Blood 06/02/2024 2:41 PM CDT 06/02/2024 11:22 PM CDT us Leela Knowles NP LAB BLOOD ORDERABLES Final Resul t [facility] [id number] [place] [address] * (ABNORMAL) Differential, auto (06/02/2024 2:41 PM CDT) Neutrophil abs 4.93 1.50 - 6.50 K/cumm Imm gran abs 0.02 0.00 - 0.10 K/cumm [facility] Lymphocyte abs 1.20 0.80 - 3.30 K/cumm [facility] Monocyte abs 0.84(H) 0.20 - 0.80 K/cumm [facility] Eosinophil abs 0.11 0.00 - 0.50 K/cumm [facility] Basophil abs 0.04 0.00 - 0.10 K/cumm [facility] Neutrophil pct 69.0 % [facility] Comment: Interpretive Data Percent cell count reference ranges are not reported, since discordance with absolute values may lead to misinterpretation of CBC data. Current Interpretive Data was last revised on 2017. Imm gran pct 0.3 % [facility] Comment: Interpretive Data Percent cell count reference ranges are not reported, since discordance with absolute values may lead to misinterpretation of CBC data. Current Interpretive Data was last revised on 2017. Lymphocyte pct 16.8 % [facility] Comment: Interpretive Data Percent cell count reference ranges are not reported, since discordance with absolute values may lead to misinterpretation of CBC data. Current Interpretive Data was last revised on 2017. Monocyte pct 11.8 % [facility] Comment: Interpretive Data Percent cell count reference ranges are not reported, since discordance with absolute values may lead to misinterpretation of CBC data. Current Interpretive Data was last revised on 2017. Eosinophil pct 1.5 % [facility] Comment: Interpretive Data Percent cell count reference ranges are not reported, since discordance with absolute values may lead to misinterpretation of CBC data. Current Interpretive Data was last revised on 2017. Basophil pct 0.6 % [facility] Comment: Interpretive Data Percent cell count reference ranges are not reported, since discordance with absolute values may lead to misinterpretation of CBC data. Current Interpretive Data was last revised on 2017. Blood 06/02/2024 2:41 PM CDT 06/02/2024 11:12 PM CDT Leela Knowles DIALS SUPERVISOR LAB BLOOD ORDERABLES Final Resul t Performing Organization Address City/[facility]/ZIP Co de Phone Number SEGUNDO KARIMI [id number] [place] [address] * Thyroid Function Person (06/02/2024 2:41 PM CDT) Pathologist [facility] TSH 1.68 0.30 - 4.20 mcIUnit/mL Blood 06/02/2024 2:41 PM CDT 06/02/2024 11:12 PM CDT Leela Knowles DIALS SUPERVISOR LAB BLOOD ORDERABLES Final Resul t Performing Organization Address City/[facility] Co de Phone Number SEGUNDO KARIMI [address] [place] [address] * (ABNORMAL) CBC with auto differential (06/02/2024 2:41 PM CDT) WBC 7.14 3.80 - 9.90 K/cumm Hgb 12.9 11.9 - 15.5 g/dL [facility] Hct 40.5 35.6 - 45.5 % [facility] Plt 229 150 - 400 K/cumm [facility] MPV 11.2 9.1 - 12.3 fL [facility] RBC 4.11 3.90 - 5.20 M/cumm [facility] MCV 98.5(H) 81.3 - 96.4 fL [facility] MCH 31.4 27.1 - 33.3 pg [facility] MCHC 31.9(L) 32.3 - 35.7 g/dL [facility] RDW CV 13.2 11.1 - 14.9 % [facility] RDW SD 48.3(H) 35.7 - 48.1 fL [facility] NRBC abs 0.00 0.00 - 0.01 K/cumm [facility] Blood 06/02/2024 2:41 PM CDT 06/02/2024 11:12 PM CDT us Leela Knowles DIALS SUPERVISOR LAB BLOOD ORDERABLES Final Resul t Performing Organization Address City/State/[facility] Co de Phone Number JORGEFARHANA KARIMI [phone] [facility] [place] [address] * Vitamin D 25 hydroxy (06/02/2024 2:41 PM CDT) Vitamin D 25-OH 37 30 - 80 ng/mL Blood 06/02/2024 2:41 PM CDT 06/02/2024 11:12 PM CDT us Leela Knowles DIALS SUPERVISOR LAB BLOOD ORDERABLES Final Resul t Performing Organization Address [facility] Co de Phone Number JORGEFARHANA [address] [address] [facility] [place] [address] * Magnesium (06/02/2024 2:41 PM CDT) Magnesium 2.5 1.4 - 2.5 mg/dL Blood 06/02/2024 2:41 PM CDT 06/02/2024 11:12 PM CDT us Leela Knowles DIALS SUPERVISOR LAB BLOOD ORDERABLES Final Resul t Performing Organization Address [facility] Co de Phone Number JORGEFARHANA [phone] [address] [facility] [address] [place], [place] [id number] * Iron level (06/02/2024 2:41 PM CDT) Iron 86 35 - 145 mcg/dl Blood 06/02/2024 2:41 PM CDT 06/02/2024 11:12 PM CDT us Leela Knowles DIALS SUPERVISOR LAB BLOOD ORDERABLES Final Resul t Performing Organization Address City/[facility]/ZIP Co de Phone Number SEGUNDO [address] [address] [facility] [place] [address] * Ferritin (06/02/2024 2:41 PM CDT) Ferritin 39 15 - 150 ng/mL Blood 06/02/2024 2:41 PM CDT 06/02/2024 11:12 PM CDT Leela Knowles DIALS SUPERVISOR LAB BLOOD ORDERABLES Final Resul t Performing Organization Address [facility] Co de Phone Number SEGUNDO [address] [address] [facility] [address] * (ABNORMAL) Lipid panel (06/02/2024 2:41 PM CDT) Cholesterol 199 30 - 199 mg/dL Comment: Interpretive Data Ages < or = 19 years Acceptable: <170 mg/dL Borderline high: 170-199 mg/dL High: >or= 200 mg/dL Ages > or = 20 years Desirable: <200 mg/dL Borderline high: 200-239 mg/dL High: >or= 240 mg/dL Literature References: 1. Expert Panel on Integrated Guidelines for Cardiovascular Health and Risk Reduction in Children and Adolescents. Pediatrics 2011;128:S213 2. NCEP Expert Panel. Circulation 2004;110:227 Current Interpretive Data was last revised on 2017. Triglycerides 163(H) <=149 mg/dL SEGUNDO KARIMI Comment: Interpretive Data Ages < or = 9 years Acceptable: <75 mg/dL Borderline high: 75-99 mg/dL High: >or= 100 mg/dL Ages 10 to 20 years Acceptable: <90 mg/dL Borderline high: 90-129 mg/dL High: >or= 130 mg/dL Ages > or = 20 years Desirable: <150 mg/dL Borderline high: 150-199 mg/dL High: 200-499 mg/dL Very high: >or= 499 mg/dL Literature References: 1. Expert Panel on Integrated Guidelines for Cardiovascular Health and Risk Reduction in Children and Adolescents. Pediatrics 2011;128:S213 2. NCEP Expert Panel. Circulation 2004;110:227 Current Interpretive Data was last revised on 2017. HDL 84 >=40 mg/dL SEGUNDO KARIMI Comment: Interpretive Data Ages < or = 19 years Acceptable: >45 mg/dL Borderline low: 40-45 mg/dL Low: <40 mg/dL Ages > or = 20 years Desirable: >or= 60 mg/dL Low: <40 mg/dL Literature References: 1. Expert Panel on Integrated Guidelines for Cardiovascular Health and Risk Reduction in Children and Adolescents. Pediatrics 2011;128:S213 2. NCEP Expert Panel. Circulation 2004;110:227 Current Interpretive Data was last revised on 2017. LDL, calculated 88 <=129 mg/dL SEGUNDO KARIMI Comment: Interpretive Data Ages < or = 19 years Acceptable: <110 mg/dL Borderline high: 110-129 mg/dL High: >or= 130 mg/dL Ages > or = 20 years Optimal: <100 mg/dL Near optimal: 100-129 mg/dL Borderline high: 130-159 mg/dL High: >160 mg/dL Calculated using the Randolph LDL-C estimating equation. This equation was implemented on 2023. Prior to this date LDL-C was estimated using the Friedewald equation. Literature References: 1. Expert Panel on Integrated Guidelines for Cardiovascular Health and Risk Reduction in Children and Adolescents. Pediatrics 2011;128:S213 2. NCEP Expert Panel. Circulation 2004;110:227 3. Randolph Rahman et al. THERESA Cardiol. 2019June 26;5(5):540-548. doi: 10.1001/jamacardio.2020.0013 Current Interpretive Data was last revised on 2023. Non-HDL Cholesterol 115 mg/dL SEGUNDO KARIMI Comment: Interpretive Data Ages < or = 19 years Acceptable: <120 mg/dL Borderline high: 120-144 mg/dL High: >145 mg/dL Ages > or = 20 years When triglycerides are >200 mg/dL, Non-HDL cholesterol is a secondary target of therapy with treatment goals that are 30 mg/dL greater than the LDL cholesterol target. Literature References: 1. Expert Panel on Integrated Guidelines for Cardiovascular Health and Risk Reduction in Children and Adolescents. Pediatrics 2011;128:S213 2. NCEP Expert Panel. Circulation 2004;110:227 Current Interpretive Data was last revised on 2017. Chol/HDL ratio 2 [facility] Blood 06/02/2024 2:41 PM CDT 06/02/2024 11:12 PM CDT Leela Knowles NP LAB [place]LO[place] [address] [address] [place] [address] * Comprehensive metabolic panel (06/02/2024 2:41 PM CDT) Sodium 138 135 - 145 mmol/L Potassium, pl 4.2 3.3 - 4.9 mmol/L [facility] Chloride 100 97 - 110 mmol/L [facility] CO2 31 22 - 32 mmol/L [facility] Anion gap 7 2 - 15 mmol/L [facility] BUN 20 6 - 25 mg/dL [facility] Creatinine 1.07 0.60 - 1.10 mg/dL [facility] Glucose 92 70 - 199 mg/dL [facility] Comment: Interpretive Data Fasting glucose >/= 126 mg/dl is diagnostic for diabetes. Fasting is defined as no caloric intake for at least 8 hours. Fasting glucose between 100 mg/dl to 125 mg/dl is diagnostic of prediabetes. In a patient with classic symptoms of hyperglycemia or hyperglycemic crisis, a random glucose >/= 200 mg/dl is diagnostic for diabetes. In the absence of unequivocal hyperglycemia, results should be confirmed by repeat testing. The classification and Diagnosis of Diabetes Diabetes Care 2021; 46: S19-S40. Current interpretive data was last revised 2022. Calcium 9.6 8.5 - 10.3 mg/dL [facility] Bilirubin, total 0.3 0.1 - 1.2 mg/dL [facility] Protein, pl 7.2 6.5 - 8.5 g/dL [facility] Albumin 4.4 3.5 - 5.0 g/dL [facility] Alk phos 76 40 - 130 Units/L [facility] ALT 20 7 - 45 Units/L [facility] AST 26 10 - 45 Units/L [facility] Blood 06/02/2024 2:41 PM CDT 06/02/2024 11:12 PM CDT Leela Knowles NP LAB BLOOD ORDERABLES Final Resul t SEGUNDO KARIMI [id number] [address] Department [place] [address] * MA ARTHROCENTESIS ASPIR&/INJ MAJOR JT/BURSA W/O US (05/15/2024 1:15 PM CDT) Narrative Ambar Heath PA - 05/15/2024 1:15 PM CDT Ambar Heath PA 05/15/2024 2:08 PM Greater trochanteric bursa injection Performed by: Ambar Heath PA Authorized by: Ambar Heath PA Greater Trochanteric Bursa Injection: Consent Given by: Patient Timeout: prior to procedure the correct patient, procedure, and site was verified Verbal consent obtained?: Yes Prior to the start of the procedure, verbal verification by the procedure participant(s) confirmed (as applicable): corect patient idenity; correct site/side marked and visible; agreement on the procedure to be done; correct patient positioning; an accurate procedure consent form, relevant images and results correctly labeled and displayed; any safety precautions based on clinical history and/or medication use have been addressed.: Supporting Documentation: Indications: Diagnostic, pain and therapeutic benefit Procedure Details: Site: Right Greater Trochanteric Bursa Patient position: Sidelying Needle Size: 22 G Approach: Lateral Medications: 3 mL lidocaine 20 mg/mL (2 %); 80 mg methylPREDNISolone acetate 80 mg/mL The patient reported: Good Patient tolerance: Patient tolerated the procedure well with no immediate complications Ambar METZ IN CLINIC/BEDSIDE ORDER UDAY Final Result from Last 3 Months Insurance AETNA MEDICARE AET MEDICARE Care Teams 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
--- OUTSIDE RECORDS SUMMARY | 2024-06-30 14:42 | XMS_ITS | Referral Summary ---
Author Organization [facility] [place] [address] Address [address] [place] [address] Care Team Providers Care Microsystems Engineer Name Role Phone Leela Knowles NP Primary Care Provider [phone] Sharon Mcmullen MD Unavailable Ean Haskins MD Unavailable [phone] Jadiel Hernandez MD Unavailable [phone] Encounters Date Type Department Care Team Description 06/23/2024 Orders Only [facility] Primary Care at [address] [phone] Leela Knowles NP 06/10/2024 Telephone [facility] Primary Care at [address] [phone] Leela Knowles NP 06/03/2024 Results Follow-Up [facility] Primary Care at [address] [phone] Leela Knowles NP 06/02/2024 2:41 PM CDT - 06/02/2024 11:59 PM CDT Hospital Encounter [address] [address] Iron deficiency; Rapid atrial fibrillation (HCC); Vitamin D deficiency; Primary hypertension Discharge Disposition: Discharge to home or self care 06/02/2024 2:45 PM CDT Lab [facility] Outpatient Lab at [address] [phone] Medicare annual wellness visit, subsequent (Primary Dx) 06/02/2024 2:00 PM CDT Office Visit [facility] Primary Care at [address] [phone] Leela Knowles NP Medicare annual wellness visit, subsequent (Primary Dx); Primary hypertension; Mixed hyperlipidemia; Rapid atrial fibrillation (HCC); Persistent insomnia; Vitamin D deficiency; Iron deficiency; Myalgia, multiple sites; Primary osteoarthritis involving multiple joints 05/29/2024 Orders Only [facility] Primary Care at [address] [phone] Leela Knowles NP 05/15/2024 1:15 PM CDT Office Visit [facility] [address] [place] [phone] Ambar Heath PA Greater trochanteric bursitis of right hip (Primary Dx); Tear of right gluteus medius tendon, initial encounter 05/05/2024 Telephone [facility] [address] [place] [address] [address] [place] [address] Ambar Heath PA 04/28/2024 Orders Only [facility] Primary Care at [address] [phone] Leela Knowles NP 04/07/2024 Telephone [facility] [address] [place] [address] [address] [place] [phone] Ambar Heath PA 04/02/2024 Orders Only [facility] Primary Care at [address] [phone] Rupal Robertson NP from Last 3 Months Allergies Active Allergy [...] Condition stable overall, continues to work with [facility]. Overdue for appt though, needs to make follow up Assessment & Plan (06/01/2023 9:45 AM CDT): Conditions stable overall, continues to work with [facility]. Full thickness rotator cuff tear 11/24/2019 Arteriosclerosis of coronary artery 06/25/2018 Anxiety 05/28/2018 Assessment & Plan (12/03/2023 2:34 PM CDT): Continues Temazepam nightly prn. 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 Gender Identity Not on file [...] 06/02/2024 2:00 PM CDT Plan of Treatment Not on file Procedures [...] Routine 06/02/2024 2:41 PM CDT Iron deficiency [place] ARTHROCENTESIS ASPIR&/INJ MAJOR JT/BURSA W/O US Routine [...] NP LAB BLOOD ORDERABLES Final Resul t [facility] [address] Department [place] [address] * (ABNORMAL) Differential, auto (06/02/2024 2:41 PM CDT) Neutrophil abs 4.93 1.50 - 6.50 K/cumm Imm gran abs 0.02 0.00 - 0.10 K/cumm [facility] Lymphocyte abs 1.20 0.80 - 3.30 K/cumm [facility] Monocyte abs 0.84(H) 0.20 - 0.80 K/cumm [facility] Eosinophil abs 0.11 0.00 - 0.50 K/cumm [facility] Basophil abs 0.04 0.00 - 0.10 K/cumm [facility] Neutrophil pct 69.0 % [facility] Comment: Interpretive Data Percent cell count reference ranges are not reported, since discordance with absolute values may lead to misinterpretation of CBC data. Current Interpretive Data was last revised on 2017. Imm gran pct 0.3 % [facility] Comment: Interpretive Data Percent cell count reference ranges are not reported, since discordance with absolute values may lead to misinterpretation of CBC data. Current Interpretive Data was last revised on 2017. Lymphocyte pct 16.8 % [facility] Comment: Interpretive Data Percent cell count reference ranges are not reported, since discordance with absolute values may lead to misinterpretation of CBC data. Current Interpretive Data was last revised on 2017. Monocyte pct 11.8 % [facility] Comment: Interpretive Data Percent cell count reference ranges are not reported, since discordance with absolute values may lead to misinterpretation of CBC data. Current Interpretive Data was last revised on 2017. Eosinophil pct 1.5 % [facility] Comment: Interpretive Data Percent cell count reference ranges are not reported, since discordance with absolute values may lead to misinterpretation of CBC data. Current Interpretive Data was last revised on 2017. Basophil pct 0.6 % [facility] Comment: Interpretive Data Percent cell count reference ranges are not reported, since discordance with absolute values may lead to misinterpretation of CBC data. Current Interpretive Data was last revised on 2017. Blood 06/02/2024 2:41 PM CDT 06/02/2024 11:12 PM CDT Leela Knowles LIQUOR GRINDING MILL OPERATOR LAB BLOOD ORDERABLES Final Resul t Performing Organization Address [facility] Co de Phone Number JORGEFARHANA KARIMI [address] [place] [address] * Thyroid Function [place] (06/02/2024 2:41 PM CDT) TSH 1.68 0.30 - 4.20 mcIUnit/mL Blood 06/02/2024 2:41 PM CDT 06/02/2024 11:12 PM CDT Leela Knowles LIQUOR GRINDING MILL OPERATOR LAB BLOOD ORDERABLES Final Resul t Performing Organization Address [facility] Co de Phone Number JORGEFARHANA KARIMI [address] Department [employer] [place], [place] [phone] * (ABNORMAL) CBC with auto differential (06/02/2024 2:41 PM CDT) WBC 7.14 3.80 - 9.90 K/cumm Hgb 12.9 11.9 - 15.5 g/dL [facility] Hct 40.5 35.6 - 45.5 % [facility] Plt 229 150 - 400 K/cumm [facility] MPV 11.2 9.1 - 12.3 fL [facility] RBC 4.11 3.90 - 5.20 M/cumm [facility] MCV 98.5(H) 81.3 - 96.4 fL [facility] MCH 31.4 27.1 - 33.3 pg [facility] MCHC 31.9(L) 32.3 - 35.7 g/dL [facility] CH RDW CV 13.2 11.1 - 14.9 % [facility] CH RDW SD 48.3(H) 35.7 - 48.1 fL [facility] NRBC abs 0.00 0.00 - 0.01 K/cumm [facility] Blood 06/02/2024 2:41 PM CDT 06/02/2024 11:12 PM CDT Leela Knowles LIQUOR GRINDING MILL OPERATOR LAB BLOOD ORDERABLES Final Resul t Performing Organization Address [facility] Co de Phone Number SEGUNDO KARIMI [address] Department [employer] [place], [place] [phone] * Vitamin D 25 hydroxy (06/02/2024 2:41 PM CDT) Pathologist [facility] Vitamin D 25-OH 37 30 - 80 ng/mL Blood 06/02/2024 2:41 PM CDT 06/02/2024 11:12 PM CDT Leela Knowles LIQUOR GRINDING MILL OPERATOR LAB BLOOD ORDERABLES Final Resul t Performing Organization Address [facility] Co de Phone Number SE[facility] [phone] Department of [employer] [place], [place] [phone] * Magnesium (06/02/2024 2:41 PM CDT) Pathologist [facility] Magnesium 2.5 1.4 - 2.5 mg/dL Blood 06/02/2024 2:41 PM CDT 06/02/2024 11:12 PM CDT us Leela Knowles LIQUOR GRINDING MILL OPERATOR LAB BLOOD ORDERABLES Final Resul t Performing Organization Address [facility] Co de Phone Number SEGUNDO KARIMI [phone] [address] [facility] [place] [address] * Iron level (06/02/2024 2:41 PM CDT) Iron 86 35 - 145 mcg/dl Blood 06/02/2024 2:41 PM CDT 06/02/2024 11:12 PM CDT Leela Knowles LIQUOR GRINDING MILL OPERATOR LAB BLOOD ORDERABLES Final Resul t Performing Organization Address [facility] Co de Phone Number SEGUNDO KARIMI [phone] [address] [facility] [place] [address] * Ferritin (06/02/2024 2:41 PM CDT) Ferritin 39 15 - 150 ng/mL Blood 06/02/2024 2:41 PM CDT 06/02/2024 11:12 PM CDT Leela Knowles LIQUOR GRINDING MILL OPERATOR LAB BLOOD ORDERABLES Final Resul t Performing Organization Address [facility] de Phone Number SEGUNDO KARIMI [phone] [address] [facility] [place] [address] * (ABNORMAL) Lipid panel (06/02/2024 2:41 PM [...] on 2017. HDL 84 >=40 mg/dL [facility] Comment: Interpretive Data Ages < or = [...] 2017. LDL, calculated 88 <=129 mg/dL [facility] Comment: Interpretive Data Ages < or = [...] NCEP Expert Panel. Circulation 2004;110:227 3. Randolph Puga al. THERESA Cardiol. 2019June 26;5(5):540-548. doi: 10.1001/jamacardio.2020.0013 Current Interpretive Data was last revised on 2023. Non-HDL Cholesterol 115 mg/dL [facility] Comment: Interpretive Data Ages < or = [...] last revised on 2017. Chol/HDL ratio 2 [facility] Blood 06/02/2024 2:41 PM CDT 06/02/2024 11:12 PM CDT Leela Knowles NP LAB BLOOD ORDERABLES Final Resul t [facility] [address] Department [place] [address] * Comprehensive metabolic panel (06/02/2024 2:41 PM CDT) Sodium 138 135 - 145 mmol/L Potassium, pl 4.2 3.3 - 4.9 mmol/L [facility] Chloride 100 97 - 110 mmol/L [facility] CO2 31 22 - 32 mmol/L [facility] Anion gap 7 2 - 15 mmol/L [facility] BUN 20 6 - 25 mg/dL [facility] Creatinine 1.07 0.60 - 1.10 mg/dL [facility] Glucose 92 70 - 199 mg/dL [facility] Comment: Interpretive Data Fasting glucose >/= 126 [...] 06/02/2024 11:12 PM CDT us Leela Knowles NP LAB BLOOD ORDERABLES Final Resul t [facility] [phone] Department of Laboratories [place] [phone] * [place] ARTHROCENTESIS ASPIR&/INJ MAJOR JT/BURSA W/O US (05/15/2024 [...] Final Result from Last 3 Months Insurance T MEDICARE T MEDICARE Care Teams Microsystems Engineer Relationship Specialty Start Date End Date Leela Knowles NP [address] [facility] [address] [place], [place] [phone] PCP - General Family Medicine 05/31/23 [place] [address] [facility] [address] [place] [address] Consulting Physician Cardiology 05/31/23 Ean Haskins MD [address] [place] [address] Consulting Physician Cardiology 05/31/23 [place] [address] [address] Consulting Physician Gastroenterology 05/31/23 Dr Barraza, [facility] Retina Ophthalmology 05/31/23
--- OUTSIDE RECORDS SUMMARY | 2024-06-30 14:42 | XMS_ITS | Data Portability ---
Author Organization [facility] [employer], Main Office Address [address] [place] [address] Assessment No assessment recorded. Plan of Treatment Reminders Order Date Submit Date Provider Last Modified By Organization Details Last Modified Time Details Appointments None recorded. Lab rapid strep group A, throat 2022 023 [facility] [address]endez, [place], [address], 3 16:01:56 streptococc us group A, culture, throat [email or web address] [place] [address] (Lab), [address] [place], [address], 3 10:38:47 CBC w/ auto diff 2022 023 [facility] (Lab), [address] [place], [address], 3 18:44:31 PT/PTT, plasma 2022 023 [facility] (Lab), [address] [place], [address], 3 19:30:47 Referral None recorded. Procedures None recorded. Surgeries None recorded. Imaging MAMMO, screening, bilateral 2022 [email or web address] [place] [address] - Breast Ctr, [address], [place], [address], 3 08:40:55 XR, knee, 3 view 2022 023 [facility], [address] [place] [address] [place], [address], 3 15:06:45 XR, knee 2022 023 [facility], [address] [place] [address] [place], [address], 3 03:48:24 XR, hip, unilateral, 2 or 3 view 2022 023 [facility], [address] [place] [address] [place], [address], 3 04:01:20 Medication Orders promethazin e-DM 6.25 mg-15 mg/5 mL oral syrup 2022 023 [id number], [address] [place], [place], [id number], 3 15:58:29 temazepam 15 mg capsule 2022 023 [id number], [address] [place], [place], [id number], 3 12:47:25 Patient TargetsNo targets recorded. Patient InstructionsNo instructions recorded. Reason for Referral None Reported. Results Created Date Observation Date Name Description Value Unit Range Abnormal Flag Note LastModifiedBy Organization Detail LastModifiedTime 05/11/1905/10/2022 CBC/C OMPLE TE BLD COUNT W/DIF F white blood cells 6.0 x10'3 /uL 4.2-10 .8 Not Available [facility] (Lab) [address] [place], [address], 05/10/2022 18:44:31 05/11/19 23 05/10/2022 CBC/C OMPLE TE BLD COUNT W/DIF F red blood cells 3.95 x10'6 /uL 3.80-5 .20 Not Available [facility] (Lab) [address] [place], [address], 05/10/2022 18:44:31 05/11/19 23 05/10/2022 CBC/C OMPLE TE BLD COUNT W/DIF F hemoglobin 12.1 g/dL 12.0-1 5.6 Not Available [facility] (Lab) [address] [place], [address], 05/10/2022 18:44:31 05/11/19 23 05/10/2022 CBC/C OMPLE TE BLD COUNT W/DIF F hematocrit 37.7 % 35.7-4 5.7 Not Available [facility] (Lab) [address] [place], [address], 05/10/2022 18:44:31 05/11/19 23 05/10/2022 CBC/C OMPLE TE BLD COUNT W/DIF F mean red cell volume 95.4 fL 82.0-9 9.0 Not Available [facility] (Lab) [address] [place], [address], 05/10/2022 18:44:31 05/11/19 23 05/10/2022 CBC/C OMPLE TE BLD COUNT W/DIF F mean red cell hemoglobin 30.6 pg 27.0-3 3.0 Not Available [facility] (Lab) [address] [place], [address], 05/10/2022 18:44:31 05/11/19 23 05/10/2022 CBC/C OMPLE TE BLD COUNT W/DIF F mean RBC HGB concentratio n 32.1 g/dL 31.0-3 6.0 Not Available [facility] (Lab) [address] [place], [address], 05/10/2022 18:44:31 05/11/19 23 05/10/2022 CBC/C OMPLE TE BLD COUNT W/DIF F red cell distribution width 13.1 % 11.8-1 5.5 Not Available [facility] (Lab) [address] [place], [address], 05/10/2022 18:44:31 05/11/19 23 05/10/2022 CBC/C OMPLE TE BLD COUNT W/DIF F platelets 234 x10'3 /uL 150-40 0 Not Available [facility] (Lab) [address] [place], [address], 05/10/2022 18:44:31 05/11/19 23 05/10/2022 CBC/C OMPLE TE BLD COUNT W/DIF F mean platelet volume 11.7 fL 9.0-12 .4 Not Available [facility] (Lab) [address] [place], [address], 05/10/2022 18:44:31 05/11/19 23 05/10/2022 CBC/C OMPLE TE BLD COUNT W/DIF F neutrophils 60.1 % 39.0-7 2.0 Not Available [facility] (Lab) [address] [place], [address], 05/10/2022 18:44:31 05/11/19 23 05/10/2022 CBC/C OMPLE TE BLD COUNT W/DIF F lymphocytes 22.9 % 16.0-4 7.0 Not Available [facility] (Lab) [address] [place], [address], 05/10/2022 18:44:31 05/11/19 23 05/10/2022 CBC/C OMPLE TE BLD COUNT W/DIF F monocytes 13.4 % 5.0-12 .0 high Not Available [facility] (Lab) [address] [place], [address], 05/10/2022 18:44:31 05/11/19 23 05/10/2022 CBC/C OMPLE TE BLD COUNT W/DIF F eosinophils 3.0 % 1.0-7. 0 Not Available [facility] (Lab) [address] [place], [address], 05/10/2022 18:44:31 05/11/19 23 05/10/2022 CBC/C OMPLE TE BLD COUNT W/DIF F basophils 0.3 % 0.0-2. 0 Not Available [facility] (Lab) [address] [place], [address], 05/10/2022 18:44:31 05/11/19 23 05/10/2022 CBC/C OMPLE TE BLD COUNT W/DIF F immature granulocytes 0.3 % 0.00-0 .50 Not Available [facility] (Lab) [address] [place], [address], 05/10/2022 18:44:31 05/11/19 23 05/10/2022 CBC/C OMPLE TE BLD COUNT W/DIF F neutrophils, absolute count 3.59 x10'3 /uL 1.5-8. 0 Not Available [facility] (Lab) [address] [place], [address], 05/10/2022 18:44:31 05/11/19 23 05/10/2022 CBC/C OMPLE TE BLD COUNT W/DIF F lymphocytes, absolute count 1.37 x10'3 /uL 1.07-3 .43 Not Available [facility] (Lab) [address] [place], [address], 05/10/2022 18:44:31 05/11/19 23 05/10/2022 CBC/C OMPLE TE BLD COUNT W/DIF F monocytes, absolute count 0.80 x10'3 /uL 0.29-0 .99 Not Available [facility] (Lab) [address] [place], [address], 05/10/2022 18:44:31 05/11/19 23 05/10/2022 CBC/C OMPLE TE BLD COUNT W/DIF F eosinophils, absolute count 0.18 x10'3 /uL 0.02-0 .53 Not Available [facility] (Lab) [address] [place], [address], 05/10/2022 18:44:31 05/11/19 23 05/10/2022 CBC/C OMPLE TE BLD COUNT W/DIF F basophils, absolute count 0.02 x10'3 /uL 0.01-0 .08 Not Available [facility] (Lab) [address] [place], [address], 05/10/2022 18:44:31 05/11/19 23 05/10/2022 CBC/C OMPLE TE BLD COUNT W/DIF F immature granulocytes ,absolute 0.02 x10'3 /uL 0.00-0 .05 Not Available [facility] (Lab) [address] [place], [address], 05/10/2022 18:44:31 05/11/19 23 05/10/2022 CBC/C OMPLE TE BLD COUNT W/DIF F nucleated red blood cells 0.0 % -0 Not Available [facility] (Lab) [address] [place], [address], 05/10/2022 18:44:31 05/11/19 23 05/10/2022 CBC/C OMPLE TE BLD COUNT W/DIF F NRBC# 0.00 x10'3 /uL Not Available [facility] (Lab) [address] [place], [address], 05/10/2022 18:44:31 05/11/19 23 05/10/2022 PROTI ME W/INR protime 10.2 secon ds 9.5-11 .5 Not Available [facility] (Lab) [address] [place], [address], 05/10/2022 18:52:37 05/11/19 23 05/10/2022 PROTI ME [...] HOSPH OLIPI D SYNDR OME. Not Available [facility] ([facility]) [address] [place], [address], 05/10/2022 18:52:37 02/07/20 23 02/06/2023 rapid strep group A, throa t STREP A negati ve Not Available [facility] [address] Mendez, [place], [address], 02/06/2023 15:40:05 05/11/19 23 XR, knee, [address] [facility] [address] [place] [address] Patien t Name: RYAN SAVANAH KENNEY Access ion #: [id number] Sex: F : 1939 3 Locati [...] the left knee. Page 1 of 2 [facility] Patien t Name: SAVANAH BAILEY Access ion #: [id number] Sex: F : 1939 3 Exam Date: 023 12:01 PM Exam Name: XR KNEE LT 3V Admitt ing Diagno sis(es ): Create d and electr onical ly signed by: Dustin diaz MD Signed Date: 12:32 PM (CT) Dictat ed by: Dustin diaz MD DD: 12:32 PM (CT) DT: 12:32 PM (CT) Page [address] of [address] (Imaging) [address] [place], [address], 05/11/2022 10:57:15 05/11/19 23 XR, hip, unila teral [facility] [address] [place] [address] Patien t Name: SAVANAH BAILEY Access ion #: [id number] Sex: F : 1939 3 Locati [...] the left hip. Page 1 of 2 [facility] t Name: SAVANAH BAILEY Access ion #: [id number] Sex: F : 1939 3 Exam Date: 12:01 PM Exam Name: XR HIP/PE LVIS LT 2-3V Admitt ing Diagno sis(es ): Create d and electr onical ly signed by: Dustin diaz MD Signed Date: 12:33 PM (CT) Dictat ed by: Dustin diaz MD DD: 12:33 PM (CT) DT: 12:33 PM (CT) Page 2 of 2 [email or web address] [facility] (Imaging) [address] [place], [address], 05/11/2022 10:57:15 05/17/19 23 05/10/2022 XR, knee No observ ation record ed. [address] [place], [address], 05/16/2022 06:46:29 05/17/19 23 05/10/2022 XR, knee No observ ation record ed. [address] [place], [address], 05/16/2022 06:46:29 05/17/19 23 05/10/2022 XR, hip, unila teral , 2 or 3 view No observ ation record ed. [address] [place], [address], 05/16/2022 06:46:30 05/17/19 23 05/10/2022 XR, hip, unila teral , 2 or 3 view No observ ation record ed. [email or web address] [facility] [address] [place], [address], 05/16/2022 06:46:30 09/21/19 23 XR, knee, 3 view [facility] [address] [facility] [place] [address] [phone] Patien t Name: SAVANAH BAILEY ion #: [id number] Sex: F : 1939 8 Dictat [...] at 2022 14:04: 30 PM Page [address] (Imaging) [address] [place], [address], 09/20/2022 15:32:53 09/21/19 23 09/20/2022 XR, knee No observ ation record ed. [email or web address] [facility] [address] [place], [address], 10/02/2022 14:35:06 05/07/19 24 05/07/2023 NM, myoca rdial perfu april scan No observ ation record ed. [email or web address] [facility] [address] , [place], [address], 05/08/2023 15:09:46 05/07/19 24 05/07/2023 myoca rdial perfu april study w/ wall motio n (PROC ) No observ ation record ed. [facility] [address] , [place], [address], 05/08/2023 15:10:44 05/09/19 24 05/09/2023 elect adja velardegr am, routi ne ECG with at least 12 leads ; yuriy ng only, witho ut inter preta tion and repor t (PROC ) No observ ation record ed. [address] [facility] [address] , [place], [address], 05/09/2023 16:07:42 05/09/19 24 05/09/2023 vascu lar exami natio n (PROC ) No observ ation record ed. [address] [facility] [address] , [place], [address], 05/09/2023 16:08:08 06/14/19 24 06/14/2023 MAMMO , scree sheryl, bilat eral No observ ation record ed. [address], [place], [address], 11/06/2023 17:05:29 10/02/19 24 09/27/2023 US, doppl er echoc ardio gram No observ ation record ed. [address] [facility] [address] , [place], [address], 10/02/2023 15:49:59 Result Notes None recorded. 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 Not Available [facility] 3 11:22:52 Celluliti s 145530732 Completed Not Available [facility] 3 02:46:01 Insomnia 719420575 Active Not Available [facility] 3 11:22:53 Full thickness rotator cuff tear 674593368 Active 2019 Not Available [facility] 3 11:22:53 Chest pain 93570701 Completed Not Available [facility] 3 02:46:01 Rapid atrial fibrillat ion 514852394 Active 2021 Not Available [facility] 3 11:22:53 Hypertens richardson disorder 68250733 Active Not Available [facility] 3 11:22:53 Lighthead edness 375903590 Active Not Available [facility] 3 11:22:53 Osteoarth ritis 783764939 Active Not Available [facility] 3 11:22:53 Closed wound 377369499 Completed Not Available [facility] 3 02:46:01 Arthropat hy of joint of hand 291265486 Active Not Available [facility] 3 11:22:53 Left against medical advice 684688826 Active 2021 Not Available [facility] 3 11:22:53 Gastritis 5952477 Active 2021 Not Available [facility] 3 11:22:53 Anxiety 12921076 Active Not Available [facility] 3 11:22:53 Hyperlipi demia 41678219 Active Not Available [facility] 3 11:22:53 Nutrition al deficienc y disorder 47230608 Active Not Available [facility] 3 11:22:53 Fatigue 10766743 Completed Not Available [facility] 3 02:46:02 Contractu re of joint of hand 06670824 Active Not Available [facility] 3 11:22:53 Pain of left hip joint 90941285066 9100 Active 2022 Not Available [facility] 3 11:22:53 Pain of left knee joint 12801276207 4107 Active 2022 Not Available [facility] 3 11:22:53 Easy bruising 365923701 Active 2022 Not Available [facility] 3 11:22:53 Persisten t insomnia 585198742 Active 2022 Not Available [facility] 3 11:22:53 Acid reflux 786898658 Active 2022 Not Available [facility] 3 11:22:53 Mixed anxiety and depressiv e disorder 051523806 Active 2022 Not Available [facility] 3 11:22:53 Pain of right knee joint 53966983129 4100 Active 2022 Not Available [facility] 3 11:22:53 Sinusitis 12709078 Active 2022 LASHAY Prabhakar [address], [address], [place], [address] , [employer] 3 12:16:32 SARS-CoV- 2 Active 2022 LASHAY Prabhakar [address], [address], [place], [address] , [employer] 3 15:39:20 Pharyngit is 513781111 Active 2022 LASHAY Prabhakar [address], [address], [place], [address] , [employer] 3 15:39:52 Problem Notes None recorded. Procedures Surgical History Date Name Laterality Status Provider Name and Address Organization Details Recorded Time Hysterectomy completed Not Available [facility] 04/26/2022 02:40:14 other completed Not Available [facility] 02/2022 02:40:14 Eye Surgery completed Not Available [facility] 04/26/2022 02:40:14 Breast Surgery completed Not Available [facility] 04/26/2022 02:40:14 Colonoscopy completed Not Available [facility] 04/26/2022 02:40:14 Imaging Results Imaging Date Name Status LastModified by Organization Details LastModified Time 05/10/2022 XR, knee, [email or web address] (Imaging) [address] [place], [address], 05/11/2022 10:57:15 05/10/2022 XR, hip, unilateral [email or web address] (Imaging) [address] [place], [address], 05/11/2022 10:57:15 05/10/2022 XR, knee completed [address] [place], [address], 05/16/2022 06:46:29 05/10/2022 XR, knee completed [address] [place], [address], 05/16/2022 06:46:29 05/10/2022 XR, hip, unilateral, 2 or 3 view completed [address] [place], [address], 05/16/2022 06:46:30 05/10/2022 XR, hip, unilateral, 2 or 3 view completed [address] [place], [address], 05/16/2022 06:46:30 09/20/2022 XR, knee, 3 view [email or web address] [place] [address] (Imaging) [address] [place], [address], 09/20/2022 15:32:53 09/20/2022 XR, knee completed [address] [place], [address], 10/02/2022 14:35:06 05/07/2023 NM, myocardial perfusion scan completed [email or web address] [facility] [address], [place], [address], 05/08/2023 15:09:46 05/07/2023 myocardial perfusion study w/ wall motion (PROC) completed [email or web address] [facility] [address], [place], [address], 05/08/2023 15:10:44 05/09/2023 electrocardiogram, routine ECG with at least 12 leads; tracing only, without interpretation and report (PROC) completed [address] [facility] [address], [place], [address], 05/09/2023 16:07:42 05/09/2023 vascular examination (PROC) completed [address] [facility] [address] , [place], [address], 05/09/2023 16:08:08 06/14/2023 MAMMO, screening, bilateral completed [address], [place], [address], 11/06/2023 17:05:29 09/27/2023 US, doppler echocardiogram completed [address] [facility] [address] , [place], [address], 10/02/2023 15:49:59 Procedure Notes None recorded. Medical [...] administ ered by the provider 11/12 completed [facility]: [id number] 4-20 Not Available Not Available Not [...] Not Available Not Available Not Available nitroglyc delai 0.4 mg sublingua l tablet 04/25 completed [...] administ ered by the provider 11/12 completed [facility]: 0409-427 08-12 Not Available Not Available Not [...] Updated DateTime 3 154.94 cm 20 kg/m2 90042.7 9 g 97.6 [degF] 61 /min 95 % 95 % 110 mm[Hg] 60 mm[Hg] Madelin Renae Paula [facility] [employer] [facility] 3 12:32:27 Date Recorded Body height Body mass index (BMI) Body weight Body temperature Heart rate Oxygen saturation Oxygen saturation in Arterial blood by Pulse oximetry Systolic blood pressure Diastolic blood pressure Provider Name and Address Organization Details Last Updated DateTime 3 154.94 cm 19.8 kg/m2 40774.2 g 97.7 [degF] 61 /min 94 % 94 % 120 mm[Hg] 68 mm[Hg] HUGO Tovar [facility] [employer] [facility] 3 14:06:31 Date Recorded Body mass index (BMI) Body height Oxygen saturation Oxygen saturation in Arterial blood by Pulse oximetry Heart rate Body temperature Body weight Systolic blood pressure Diastolic blood pressure Provider Name and Address Organization Details Last Updated DateTime 2 19.7 kg/m2 154.94 cm 98 % 98 % 60 /min 97.3 [degF] 18280.6 1 g 124 mm[Hg] 70 mm[Hg] Not Available [facility] 3 02:44:01 Date Recorded Body mass index (BMI) Body height Oxygen saturation Oxygen saturation in Arterial blood by Pulse oximetry Heart rate Body temperature Body weight Systolic blood pressure Diastolic blood pressure Provider Name and Address Organization Details Last Updated DateTime 2 19.5 kg/m2 154.94 cm 96 % 96 % 49 /min 97.3 [degF] 77514.0 1 g 122 mm[Hg] 80 mm[Hg] Not Available [facility] 3 02:44:01 Date Recorded Body height Body mass index (BMI) Body weight Body temperature Heart rate Oxygen saturation Oxygen saturation in Arterial blood by Pulse oximetry Systolic blood pressure Diastolic blood pressure Provider Name and Address Organization Details Last Updated DateTime 3 154.94 cm 19.8 kg/m2 42669.2 g 97.3 [degF] 120 /min 95 % 95 % 108 mm[Hg] 62 mm[Hg] Zaria Rowland MA [facility] 15:26:19 Social History Question Answer Notes LastModified by Organizat ion Details LastModified Time Tobacco Smoking Status Never Smoker Kayla Amaya nivia, [facility] 09/20/2022 14:01:38 What Is Your Level Of Alcohol Consumption? Occasional [id number] Information not available 04/26/2022 What Is Your Level Of Caffeine Consumption? Occasional [id number] Information not available 04/26/2022 Do You Use Any Illicit Or Recreational Drugs? No [email or web address] Information not available 09/20/2022 Sex: Unknown Functional Status None recorded. Mental Status None recorded. Family History Relationship Description Onset Age of this Age Resolved Age Notes LastModified by Organization Details LastModified Time Father Cerebrovascu lar accident [email or web address] Not available 14:01:35 Father Hypertensive disorder [id number] Not available 04/26/2022 02:40:18 Mother Cerebrovascu lar accident Not available 14:01:35 Mother Hypertensive disorder [id number] Not available 04/26/2022 02:40:18 Notes: IS DYING [...] INSOMNIA N HIGH CHOLESTEROL / HYPERLIPIDEMIA Y EYE PROBLEMS Y HYPERTHYROIDISM N EATING DISORDER N NEUROLOGICAL PROBLEMS N EDEMA N CHRONIC PAIN SYNDROME N HYPOTHYROIDISM N CAROTID BLOCKAGE N CONSTIPATION N BACK / NECK PROBLEMS N HAVE YOU BEEN HOSPITALIZED OR SEEN IN [facility] IN THE PAST YEAR ? [...] DISORDER Y ALZHEIMER'S DISEASE N PAIN N DEMENTIA N HERPES N SEIZURES/EPILEPSY N HEADACHES/MIGRAINES Y VASCULAR DISEASE N PACEMAKER N DIZZINESS Y HEART DISEASE/HEART PROBLEMS N KIDNEY DISEASE N SCARLET FEVER N MULTIPLE SCLEROSIS N DEVELOPMENTAL OR BEHAVIORAL DISORDERS N MENTAL DISORDER/ILLNESS N CANCER: SPECIFY Y CARDIAC ARRHYTHMIA N PNEUMONIA N ATRIAL FIBRILLATION N Gall Stones N PULMONARY EMBOLISM N AUTOIMMUNE DISEASE N Gynecological HistoryNo gynecological history recorded. Obstetrics History GPAL:G 0 P 0 0 0 0 Immunizations Vaccine Type Date Status Note Provider Nam e and Address Organization Details Recorded Time COVID-19, mRNA, LNP-S, PF, 100 mcg/0.5mL dose or 50 mcg/0.25mL dose 05/08/2020 completed Not Available [facility] 3 02:53:22 COVID-19, mRNA, LNP-S, PF, 100 mcg/0.5mL dose or 50 mcg/0.25mL dose 04/10/2020 completed Not Available [facility] 3 02:53:22 COVID-19, mRNA, LNP-S, PF, 100 mcg/0.5mL dose or 50 mcg/0.25mL dose 01/07/2021 completed Not Available [facility] 3 02:53:22 DTaP 12/18/2005 completed Not Available [facility] 04/26/2022 02:53:22 Influenza, high-dose, trivalent, PF 12/17/2018 completed Not Available [facility] 2022 02:53:22 Past Encounters Encounter ID Performer Location Encounter Start Date Encounter Closed Date Diagnosis/Indication Diagnosis SNOMED-CT Code Diagnosis ICD10 Code Diagnosis Note [id number] [facility] [place] [address] , [place] [address] 05/20/2020 00:00:00 05/20/2020 15:30:33 [id number] Luisito Miller MD [facility] [place] [address] [place] [address] y , [place] [address] 11/16/2020 00:00:00 11/16/2020 14:48:41 [id number] Luisito Miller MD [facility] [place] [address] [place] [address] y , [place] [address] 03/22/2021 00:00:00 03/22/2021 14:48:18 [id number] [facility] [place] [facility] [place] [address] 05/09/2021 00:00:00 05/09/2021 16:44:41 [id number] [facility] [place] [facility] [address], [place] [address] 11/28/2021 00:00:00 11/28/2021 16:02:32 [id number] Luisito Miller MD [facility] [place] [facility] [place] [address] 01/12/2022 00:00:00 01/12/2022 15:19:04 [id number] Luisito Miller MD [facility] [place] [address] [place] [address] [place] [address] 01/30/2022 00:00:00 01/31/2022 06:36:44 [id number] Luisito Miller MD [facility] [place] [address] [place] [address] [place] [address] 05/10/2022 12:21:43 05/10/2022 13:03:27 Pain of left hip joint 8673938850 09326 M25.552 Pain of le ft knee joint 6494112675 05390 M25.562 RICE and NSAIDs as needed. Easy bruising 494190669 R58 Persistent insomnia 1919 06567 G47.09 [id number] Luisito Miller MD [facility] [address] [place] [address] 09/20/2022 13:59:57 09/20/2022 14:29:46 Pain of right knee joint 3665780047 44999 M25.561 Voltaren gel sample given Screening for malignant neoplasm of breast [id number] Z12.39 Pre-surger y evaluation [id number] Z01.818 Cleared for cataract surgery [id number] Luisito Miller MD [facility] Guillermo sejal [address] [facility] [place] [address] 02/06/2023 15:16:50 02/06/2023 15:58:00 Pharyngitis [id number] J02.9 Health Concerns Section Related Observation LastModified by Organization Detai ls LastModified Time None Recorded Concern Status LastModified by Organization Details LastModified Time None Recorded Advance Directives Directive None Recorded Payers Encounter Date Sequence Insurance Name Policy Number Policy Menendez Covered Member ID Menendez Member ID Guarantor Name 05/10/2022 1 [employer] (MEDICARE REPLACEMENT PPO) -[id number] 1 Savanah Ramírez [id number] Savanah Ramírez 09/20/2022 1 [employer] (MEDICARE REPLACEMENT PPO) [id number] Savanah Ramírez [id number] Savanah Ramírez 02/06/2023 1 [employer] (MEDICARE REPLACEMENT PPO) [id number] Savanah Ramírez [id number] Savanah Ramírez Notes Date Note Type Note [...] hx of neuropathy. Luisito Miller MD [address], [facility] [address], [place], [address], [employer] [facility] [employer] [facility] 05/10/2022 19:14:06 09/20/2022 text/html Here today for medical clearance for cataract surgery scheduled for next week.Has right knee pain. Once gets up and moves around it gets getter. Has a knot on right medial knee.No reaction to anesthesia Luisito Miller MD [address], [facility] [address], [place], [address], [employer] [facility] [employer] [facility] 09/21/2022 06:20:57 02/06/2023 text/html ssore throat , n o fever , no exposure LASHAY Prabhakar [address], [facility] [address], [place], [address], [employer] [facility] [employer] [facility] 02/19/2023 15:31:41 OBGyn Episode No OBEpisode recorded.
--- OUTSIDE RECORDS SUMMARY | 2024-06-30 14:42 | XMS_ITS | Continuity of Care Document ---
Author Organization [employer] [facility] Address [address] [place] [address] Dr Matute [address] [place] [phone] Phone Care Team Providers Care Warp Tier Name Role Phone Noelle MORRISON FACS, Wilber Unavailable Unavailab le Allergies, Adverse Reactions, Alerts Substance Reaction Status Criticality aspirin Active No Information Medications Medication Instructions Dosage Effective Dates (start - stop) Status Comments Artificial Tears eye drops - Active Crestor 10 mg tablet take 1 tablet (10MG) by oral route every day 10 MG - Active propranolol 20 mg tablet take 1 tablet (20MG) by oral route 3 times every day 20 MG - Active sertraline 50 mg tablet take 1 tablet (50MG) by oral route every day 50 MG - Active temazepam 15 mg capsule take 1 capsule (15MG) by oral route every day at bedtime as needed 15 MG - Active Nevanac 0.1 % eye [...] Diagnoses Date Provider Providers Copied on Encounter [facility], [address], [place], [place], [address], [place] tel:[phone] SEC [place] Professional Yag Cap Eval OD (chief complaint) After cataract limiting vision Sep 5 Noelle Merino. [address], [address], [place], [place], [address], [place]. tel:[phone] Referring Provider: Meliton Manning OD, [address] [place], [address]. tel:[phone] [facility], [address], [place], [place], [address], [place] tel:[phone] SEC [place] Professional No Information 5 Kendrickgareth Puente. [address] [facility], [address], [place], [place], [address], [place]. tel:[phone] [facility], [address], [place], [place], [address], [place] tel:[phone] SEC Yonas N Annie FOLLOW-UP SURGERY NOS Apr- 4 Noelle Merino. [address], [address], [place], [place], [address], [place]. tel:[phone] Referring Provider: Wilber Mitchell, [facility] [address], [place], [address]. tel:[phone] [facility], [address], [place], [place], [address], [place] tel:[phone] SEC Yonas N Annie FOLLOW-UP SURGERY NOS Apr- 4 Noelle Merino. [facility] [address], [address], [place], [place], [address], [place]. tel:[phone] Referring Provider: Wilber Mitchell, [address] [place] [address], [place], [address]. tel:[phone] [facility], [address], [place], [place], [address], [place] tel:[phone] RJ BARRERA Professional FOLLOW-UP SURGERY NOS Mar-0 5-201 4 Jessica Puente. [address] [facility], [address], [place], [place], [address], [place]. tel:[phone] Referring Provider: Wilber Mitchell, [address] [place] [address], [place], [address]. tel:[phone] [facility], [address] [place] [address] [address], [place], [place], [address], [place] tel:[phone] [facility] No Information Mar-0 -201 4 Noelle Merino. [address] [employer], [address], [place], [place], [address], [place]. tel:[phone] Referring Provider: Wilber Mitchell, [facility] [address], [place], [address]. tel:[phone] [facility], [address], [place], [place], [address], [place] tel:[phone] RJ BARRERA Professional SENILE NUCLEAR CATARACTMACUL AR PUCKERING 4 Noelle Merino. [facility] [address], [address], [place], [place], [address], [place]. tel:[phone] Referring Provider: Wilber Mitchell, [address] [place] [address], [place], [address]. tel:[phone] [facility], [address] [place] [address] [address], [place], [place], [address], [place] tel:[phone] SEC Raad BARRERA Professional No Information 4 Jessica Puente. [address] [facility], [address], [place], [place], [address], [place]. tel:[phone] Family History Family Member Type Diagnosis Age At Onset Father Problem (finding) glaucoma Payers Payer name Insurance type Covered constitution party ID Authoriza ticolumba(s) [facility] Mdcr Adv CI [id number] Social History Type Description Quantity Date Captured [...] Diplopia at a distance. Patient saw her multifocal button generator and was given glasses with prism which [...] Diplopia at a distance. Patient saw her multifocal button generator and was given glasses with prism which [...] in the right eye TID [facility] to [facility] Related to FOLLOW-UP SURGERY NOS - [...]
--- OUTSIDE RECORDS SUMMARY | 2024-06-30 14:42 | XMS_ITS | Encounter Summary ---
Author Organization [facility] Healthcare Address [address] [place] [address] Care Team Providers Care Reservoir Caretaker Name Role Phone Leela Knowles NP Primary Care Provider [phone] Sharon Mcmullen MD Unavailable Ean Haskins MD Unavailable [phone] Jadiel Hernandez MD Unavailable [phone] Encounter Details Date Type Department Care Team (Late st Contact Info) Description 06/03/2024 Results Follow-Up [facility] Medical Group Primary Care at [address] [address] Leela Knowles NP [address] [place] [address] [address] [place] [address] Social History Tobacco Use Types Packs/Day Years Used Date Smoking Tobacco: Never Smokeless Tobacco: Never AUDIT-C Answer Date Recorded Q1: How often [...] on file 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 Gender Identity Not on file Sexual Orientation Not on file documented as of this encounter Plan of Treatment Not on file documented as of this encounter Visit Diagnoses Not on filedocumented in this encounter Care Teams Reservoir Caretaker Relationship Specialty Start Date End Date Leela Knowles NP [address] [facility] [address] [place] [address] PCP - General Family Medicine 05/31/23 [place] [address] [facility] [address], [place] [address] Consulting Physician Cardiology 05/31/23 Ean Haskins MD [address] [place] [address] Consulting Physician Cardiology 05/31/23 [place] [address] [facility] [address], [place] [address] Consulting Physician Gastroenterology 05/31/23 Dr Barraza, [facility] 05/31/23 documented as of this encounter
--- OUTSIDE RECORDS SUMMARY | 2024-06-30 14:43 | XMS_ITS | CONTINUITY OF CARE DOCUMENT ---
Author Name jose manuel richard Address Unknown Organization [facility] Address [address] [facility] [address] [place] [address] Phone [phone] Care Team Providers Care Hazmat Cdl Driver Name Role Phone Benedict MORRISON, Sharon Unavailable RIVERA SEARCH LEAD, EDDIE M Unavailable [phone] RIVERA SEARCH LEAD, EDDIE M Unavailable [phone] PROBLEMS Condition Status Date Provider Notes Family [...] In-person encounter Office Visit Sharon Mcmullen MD [facility] Fatigue - In-person encounter Office Visit Sharon Mcmullen MD [facility] CAD, cath 05/2022 ectatic disease LAD, circ, RCA slow flow, no stenosis. 05/2023Frequent premature ventricular beats--improvedThyroid nodule - In-person encounter Office Visit Ean Haskins MD [facility] Frequent premature ventricular beats--improved - In-person encounter Office Visit Sharon Mcmullen MD [facility] Dyspnea on exertionDizziness - In-person encounter Office Visit Sharon Mcmullen MD [facility] - In-person encounter Office Visit Sharon Mcmullen MD [facility] - In-person encounter Office Visit Sharon Mcmullen MD [facility] - In-person encounter Office Visit Sharon Mcmullen MD [facility] GERD - In-person encounter Office Visit Sharon Mcmullen MD [facility] - In-person encounter Office Visit Sharon Mcmullen MD [facility] - In-person encounter Office Visit Arie Medina MD [facility] Chest painAtrial fib - In-person encounter Office Visit Sharon Mcmullen MD [facility] - In-person encounter Office Visit Sharon Mcmullen MD [facility] Family History of CVA or Stroke: - In-person encounter Office Visit Sharon Mcmullen MD [facility] Family History of CVA or Stroke:GERDHypercholeste [...] Cody Carrington blood pressure, cuff size regular [facility] blood pressure, diastolic 81 mm[Hg] Ja rret [...] blood pressure, systolic 116 mm[Hg] Shay zuniga [place] respiratory rate E&M 16 /min Raissa Dacosta iller pulse rate 44 /min [facility] oxygen saturation, oximetry 98 % [facility] weight E&M 107 [lb_av] [facility] height E&M 61 [in_i] [facility] Body Mass Index (Ratio) 19.84 kg/m2 Norman [...] E&M 115 [lb_av] height E&M 61 [in_i] Danny Zazueta Body Mass Index (Ratio) 22.29 kg/m2 [...] 0-149 7 cholesterol, serum 169 mg/dL [employer] [phone]/03/2 7 calcium, serum 9.2 mg/dL [employer] 8.7-10.3 7 carbon dioxide, venous blood 27 mmol/L [employer] 20-29 7 chloride, serum 100 mmol/L [employer] 96-106 7 potassium, serum 4.0 mmol/L [employer] 3.5-5.2 7 sodium, serum 139 mmol/L [employer] 547-333 9721/03/2 7 urea nitrogen/creatinin e ratio, serum 17 [...] Estab. 6 platelet count 202 X10E3/UL [employer] [phone]/03/2 6 red blood cell distribution width 12.2 [...] TAKE 1 TABLET BY MOUTH TWICE DAILY Emmy Maldonado rosuvastatin 20 mg tablet active TAKE 1 [...] 911 OR GO TO EMERGENCY ROOM. Cody Rizzomedzaaimee propranolol 20 mg tablet completed - Cody Ahmedzai famotidine 40 mg tablet completed TAKE 1 TABLET BY MOUTH EVERY DAY - Cody Rizzomedzai amlodipine 2.5 mg tablet completed TAKE 1 TABLET BY MOUTH EVERY DAY - Cody Ahmedzai famotidine 40 mg tablet completed Take 1 [...] grandchildren Sharon Zazueta smoking status Never smoker Danny dacosta social history E&M S moking History: Francisco ramos has never smoked. Sharon Mcmullen MD alcohol use no Sharon Mcmullen MD social history reviewed E&M revi ewed - no changes required Sharon Mcmullen MD social history reviewed E&M revi ewed - no changes required Sharon Mcmullen MD alcohol use no Sophia Radha smoking status Never smoker Sophia Garcia FUNCTIONAL [...] Payer name Policy type / Coverage type [facility] ID AETNA MEDICARE ESA PPO Medicare [id number] ADVANCE DIRECTIVES Name Date DISCUSSED - NO DECISION MADE TREATMENT PLAN Date Name Performer [id number],S, Cody Ahmedza i [id number],S, Cody Ahmedza i [id number],S, Cody Ahmedza i [id number],S, Cody Ahmedza i [id number],S, Cody Ahmedza i [id number],S, Cody Ahmedza i [id number],S, Cody Ahmedza i [id number],S, Cody Ahmedza i [id number],S, Cody Ahmedza i [id number],S, Cody Ahmedza i [id number],S, Cody Ahmedza i [id number],S, Cody Ahmedza i [id number],S, Cody Ahmedza i [id number],S, Cody Ahmedza i [id number],S, Cody Ahmedza i [id number],S, Cody Ahmedza i [id number],S, Cody Ahmedza i [id number],S, Cody Ahmedza i [id number],S, Cody Ahmedza i [id number],S, Cody Ahmedza i [id number],S, Cody Ahmedza i [id number],S, Juanita Alicia obsmeyer [id number],S, Juanita Alicia obsmeyer [id number],S, Juanita Alicia obsmeyer [id number],S, Juanita Alicia obsmeyer [id number],S, Cody Jean i [id number],S, Cody Rizzomedza i [id number],B, Cody Jean i [id number],S, Cody Jean i [id number],S, Cody Joséza i [id number],S,I ncreased Esomeprazole Magnesium 40 Mg from once a day to twice a day. Arie Medina MD [id number],W,S he is having chest discomfort sounds more GI. The pt is convinced that is something to do with her heart but it is very atypical but she has sx of left arm pressure and I asked her to go the ER to make sure her Troponin is normal. Arie Medina MD [id number],N,S eems to be new onset. Her updated medication list for this problem includes: Aspirin 81 Mg Tablet,delayed Release (dr/ec) (Aspirin) ..... 1 tablet by mouth once a day Propranolol 20 Mg Tablet (Propranolol) ..... Take 1 once a day Arie Medina MD [id number],W,S he is having chest discomfort sounds more GI. I am concerned about it asked her to go to the ER. Ordered Stress test. Arie Medina MD [id number],S, H er updated medication list for this problem includes: Crestor 10 Mg Oral Tablet (Rosuvastatin calcium) ..... Take one tablet daily Arie Medina MD Telehealth [facility]: H er updated medication list for this problem includes: Rosuvastatin 20 Mg Tablet (Rosuvastatin) ..... Take 1 tablet by mouth 4 times a week [facility]: H er updated medication list for this problem includes: Propranolol 20 Mg Tablet (Propranolol) ..... Take 1 tablet by mouth once a day Vazalore 81 Mg Capsule (Aspirin) ..... 3 days per week Flecainide 50 Mg Tablet (Flecainide) ..... Take 1 tablet by mouth twice a day [facility]:3.1 cm no dule of left lobe. FNA recommended [facility] Card[facility]:This visi t has been a part of the consistent, comprehensive, and ongoing management of the chronic medical condition(s) listed above for the patient. Orders: C BC (INCLUDES DIFF/PLT) (6399) F ERRITIN (457) I SHAWN AND TOTAL IRON BINDING CAPACITY (7573) T SH, free T4, total T3 (7444) C OMPREHENSIVE METABOLIC PANEL, W/EGFR (58373) M AGNESIUM (622) L IPID PANEL (7600) [...] T3 (7444) C OMPREHENSIVE METABOLIC PANEL, W/EGFR (02388) M AGNESIUM (622) T hyroid Ultrasound (CPT-68588) L IPID PANEL (7600) [facility]: O rders: C BC (INCLUDES DIFF/PLT) (6399) F ERRITIN (457) I SHAWN AND TOTAL IRON BINDING CAPACITY (7573) T SH, free T4, total T3 (7444) C OMPREHENSIVE METABOLIC PANEL, W/EGFR (78612) M AGNESIUM (622) L IPID PANEL (7600) [facility]: O rders: C BC (INCLUDES DIFF/PLT) (6399) F ERRITIN (457) I SHAWN AND TOTAL IRON BINDING CAPACITY (7573) T SH, free T4, total T3 (7444) C OMPREHENSIVE METABOLIC PANEL, W/EGFR (48050) M AGNESIUM (622) L IPID PANEL (7600) [facility]: H er updated medication list for this problem includes: Rosuvastatin 20 Mg Tablet (Rosuvastatin) ..... Take 1 tablet by mouth 4 times a week Orders: C BC (INCLUDES DIFF/PLT) (6399) F ERRITIN (457) I SHAWN AND TOTAL IRON BINDING CAPACITY (7573) T SH, free T4, total T3 (7444) C OMPREHENSIVE METABOLIC PANEL, W/EGFR (47369) M AGNESIUM (622) L IPID PANEL (7600) [facility]: H er updated medication list for [...] T3 (7444) C OMPREHENSIVE METABOLIC PANEL, W/EGFR (49804) M AGNESIUM (622) L IPID PANEL (7600) [facility]: O rders: C BC (INCLUDES DIFF/PLT) (6399) F ERRITIN (457) I SHAWN AND TOTAL IRON BINDING CAPACITY (7573) T SH, free T4, total T3 (7444) C OMPREHENSIVE METABOLIC PANEL, W/EGFR (86447) M AGNESIUM (622) L IPID PANEL (7600) Her updated medication list for this problem includes: Propranolol 20 Mg Tablet (Propranolol) ..... Take 1 tablet by mouth once a day Vazalore 81 Mg Capsule (Aspirin) ..... 3 days per week Flecainide 50 Mg Tablet (Flecainide) ..... Take 1 tablet by mouth twice a day [facility]: O rders: C BC (INCLUDES DIFF/PLT) (6399) F ERRITIN (457) I SHAWN AND TOTAL IRON BINDING CAPACITY (7573) T SH, free T4, total T3 (7444) C OMPREHENSIVE METABOLIC PANEL, W/EGFR (49484) M AGNESIUM (622) L IPID PANEL (7600) [...] call 911 or go to emergency room. [facility]: O rders: C BC (INCLUDES DIFF/PLT) (6399) F ERRITIN (457) I SHAWN AND TOTAL IRON BINDING CAPACITY (7573) T SH, free T4, total T3 (7444) C OMPREHENSIVE METABOLIC PANEL, W/EGFR (32743) M AGNESIUM (622) L IPID PANEL (7600) [facility]: H er updated medication list for [...] call 911 or go to emergency room. [facility]: H er updated medication list for [...] call 911 or go to emergency room. [facility]: H er updated medication list for this problem includes: Propranolol 20 Mg Tablet (Propranolol) ..... Take 1 tablet by mouth once a day Vazalore 81 Mg Capsule (Aspirin) ..... 3 days per week Flecainide 50 Mg Tablet (Flecainide) ..... Take 1 tablet by mouth twice a day [facility]: H er updated medication list for this problem includes: Rosuvastatin 20 Mg Tablet (Rosuvastatin) ..... Take 1 tablet by mouth 4 times a week [facility]: p t had 2 week telesentry [...] rders: M onitor - Telemetry (Mobile Cardiac) (CPT-13349) C arotid Duplex Bilateral (CPT-35392) [facility]: O rders: C omplete Echo (36748) S tress Regadenoson (CPT-26766) [facility]: H er updated medication list for this problem includes: Famotidine 40 Mg Tablet (Famotidine) ..... Take 1 tablet by mouth every day Pantoprazole 40 Mg Tablet,delayed Release (dr/ec) (Pantoprazole) [facility]: H er updated medication list for this problem includes: Crestor 10 Mg Tablet (Rosuvastatin) ..... Take 1 tablet once a day [facility]: O rders: M onitor - Telemetry (Mobile Cardiac) (CPT-06540) [facility]: O rders: C omplete Echo (54893) S tress Regadenoson (CPT-51071) [facility]: O rders: C omplete Echo (82043) S tress Regadenoson (CPT-48173) [facility] Cody [...] Arie Medina MD Cardiology follow up Sharon acevedo MD [...]
== END 2024-06-30 14:05 | disposition home or self-care (01) ==
LOC: ANHIMG 14:05
PROVIDERS: PCP Nurse Practitioner Family; Visit Provider Nurse Practitioner Family
DX: Z13.820 Encounter for screening for osteoporosis (principal); M81.0 Age-related osteoporosis without current pathological fracture; M85.89 Other specified disorders of bone density and structure, multiple sites; Z78.0 Asymptomatic menopausal state
CPT/HCPCS: 77080

== ENCOUNTER 2024-09-08 13:42 | Outpatient (CLI) | payer MEDICARE, SELFPAY ==
--- NOTE | ~2024-09-08 | CT_ITS ---
EXAMINATION: CT elbow LT wo con DATE: 09/08/2024 14:14 INDICATION: Left elbow pain TECHNIQUE: High resolution computed tomography (CT) of the left elbow was performed without intraveno us contrast. Additional sagittal and coronal reconstructions were performed. Automated exposure contr ol and iterative reconstruction technique were employed. The dose-length product was 136.12 mGy-cm. COMPARISON: None FINDINGS: Bone alignment is normal. No fracture. Mild osteoarthritis involving all 3 compartments of the left e lbow. Soft tissues are unremarkable. No elbow joint effusion, bursitis or other abnormal fluid collec tions. IMPRESSION: 1. Mild osteoarthritis at the left elbow with no joint effusion or acute osseous abnormality. Reviewed, dictated and finalized at location A. IMPRESSION: 1. Mild osteoarthritis at the left elbow with no joint effusion or acute osseou s abnormality.
== END 2024-09-08 13:43 | disposition home or self-care (01) ==
LOC: GOSHIMG 13:42
PROVIDERS: PCP Nurse Practitioner Family; Visit Provider Nurse Practitioner Family
DX: M19.022 Primary osteoarthritis, left elbow (principal)
CPT/HCPCS: 73200

== ENCOUNTER 2025-01-29 09:42 | Inpatient (IN) | payer MEDICARE, SELFPAY ==
[2025-01-29] VITALS (11 sets, daily range): BP systolic 130–162; BP diastolic 65–78; PULSE 75–100; RESP 13–18; TEMP 36.3–36.7; O2SAT 94–100; BMI 19.1
--- NOTE | ~2025-01-29 | XR_ITS ---
Examination: XR chest 2V Clinical History: weakness Comparison: 04/13/2023 Technique: PA and Lateral Findings: Unchanged cardiomegaly. Lungs clear. Hyperinflation. No acute bony abnormality. Osteopenia. IMPRESSION: 1. No acute cardiopulmonary findings. Reviewed, dictated and finalized at location R. OFFICER
--- NOTE | ~2025-01-29 | CT_ITS ---
EXAMINATION: CT abdomen pelvis w con DATE: 01/29/2025 12:02 INDICATION: Abdominal pain, diarrhea and weakness TECHNIQUE: Computed tomography (CT) of the abdomen and pelvis was performed with 100 mL Omnipaque-350 intravenous contrast. Automated exposure control and iterative reconstruction technique were employed. The dose-length product was 238.14 mGy-cm. COMPARISON: 07/28/2008 FINDINGS: Again seen are changes of prior right mastectomy with right breast implant. Discoid, dependent and basilar atelectasis in bilateral lower lobes additional mild discoid atelectasis at the lingula. Heart size is normal. No pericardial or pleural effusion. Mild intrahepatic biliary ductal dilation. Liver is otherwise unremarkable. Normal gallbladder and no dilation of the common bile duct. Spleen, pancreas, bilateral adrenal glands and left kidney are normal. Small region of cortical scarring at the mid right kidney. Moderate sigmoid diverticulosis without adjacent from trace stranding to suggest diverticulitis. Small bowel and appendix are normal. Bladder is normal. The uterus is not identified and has likely been surgically resected. No free intraperitoneal gas or fluid. No pathologically enlarged abdominal or pelvic lymphadenopathy. Moderate to severe lumbar and lower thoracic spondylosis with grade 1 anterolisthesis L4 on L5. IMPRESSION: 1. Mild intrahepatic ductal or ductal dilation normal gallbladder without evident cholelithiasis and without evident dilation of the common bile duct. Correlate with liver function tests. 2. Moderate sigmoid diverticulosis. Reviewed, dictated and finalized at location A. OMER SUPPORT ASSOCIATE IMPRESSION: 1. Mild intrahepatic ductal or ductal dilation normal gallbladder without evide nt cholelithiasis and without evident dilation of the common bile duct. Correla te with liver function tests. 2. Moderate sigmoid diverticulosis.
--- NOTE | ~2025-01-29 | CT_ITS ---
CT HEAD NON-CONTRAST Clinical History: weakness, fatigue, dec appetite Comparison: CT brain 04/13/2023 Technique: Unenhanced axial images skull base to vertex Coronal, sagittal reformats CT images acquired with automatic exposure control for dose reduction DLP: 605 mGy-cm Findings: Chronic white matter microvascular ischemic changes. Sulci, ventricles: Unremarkable. No intracerebral hemorrhage. No evidence acute territorial infarct. No mass effect, midline shift. Bony calvarium intact. Visualized paranasal sinuses: Small mucous retention cyst right maxillary. Mastoid air cells: Clear. IMPRESSION: 1. No acute intracranial findings. Reviewed, dictated and finalized at location R. NCIAL SECRETARY
--- NOTE | ~2025-01-29 | XR_ITS ---
EXAMINATION: XR chest 1V portable COMPARISON: No comparisons available. HISTORY: short of breath FINDINGS: Mild pulmonary venous congestion. Small left basilar infiltrate and effusion. No pneumothorax. Mild cardiomegaly. Mediastinal and hilar contours are within normal limits. Bony thorax no acute abnormality. Miscellaneous: None Impression: Mild CHF. Small left lower lobe pneumonia. The findings are new compared to the previous study. Reviewed, dictated and finalized at location P. GRAY CLOTH WASHER Impression: Mild CHF. Small left lower lobe pneumonia. The findings are new compared to the previous study.
--- NOTE | 2025-01-29 09:47 | ECG_ITS ---
Test Date: 2025-01-29 09:50:48 Measurements Intervals [place] Rate: 96 P: 82 NE: 154 QRS: -47 QRSD: 97 T: 49 QT: 352 QTc: 445 Interpretive Statements SINUS RHYTHM INCOMPLETE RIGHT BUNDLE BRANCH BLOCK LEFT ANTERIOR FASCICULAR BLOCK BASELINE ARTIFACT- I, II, III, AVL ABNORMAL ECG No previous ECG available for comparison Electronically Signed On 01-29-2025 10:00:13 PROJECT MANAGEMENT CONSULTANT by Juan Diego Mccormack D.O.
--- OUTSIDE RECORDS SUMMARY | 2025-01-29 10:31 | XMS_ITS | Encounter Summary ---
Author Organization [facility] Healthcare Address [address] [place] [address] Care Team Providers Care Route Salesman And Driver Name Role Phone Leela Knowles NP Primary Care Provider [phone] Sharon Mcmullen MD Unavailable Ean Haskins MD Unavailable [phone] Jadiel Hernandez MD Unavailable [phone] Encounter Details Date Type Department Care Team (Late st Contact Info) Description 01/09/2025 Results Follow-Up [facility] Medical Group Primary Care at [place] [address] [place] [address] Debra Dewitt NP 2 [facility] [address] [place] [address] Basic metabolic panel, eGFR Social History Tobacco Use Types Packs/Day Years [...] more points, staff should administer the PHQ-9) 1 01/08/2025 Comments Unknown Sex and Gender Information Value Date Recorded Sex Assigned at Not on file 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 Gender Identity Not on file Sexual Orientation Not on file documented as of this encounter Plan of Treatment Not on file documented as of this encounter Visit Diagnoses Not on filedocumented in this encounter Care Teams Route Salesman And Driver Relationship Specialty Start Date End Date Leela Knowles NP [address] [facility] [address] [place] [address] PCP - General Family Medicine 05/31/23 [place] [address] [facility] [address] [place] [address] Consulting Physician Cardiology 05/31/23 Ean Haskins MD [address] [place] [address] Consulting Physician Cardiology 05/31/23 [place] [address] [facility] [address] [place] [address] Consulting Physician Gastroenterology 05/31/23 Dr Barraza, [facility] 05/31/23 documented as of this encounter
--- OUTSIDE RECORDS SUMMARY | 2025-01-29 10:31 | XMS_ITS | Clinical Summary ---
Author Organization [facility] [place] [address] Address [address] [place] [address] Care Team Providers Care Chief Technical Officer Name Role Phone Leela Knowles NP Primary Care Provider [phone] Sharon Mcmullen MD Unavailable Ean Haskins MD Unavailable [phone] Jadiel Hernandez MD Unavailable [phone] Allergies Active Allergy Reactions Criticality Noted Date Comments Aspirin Stomach upset Low 10/31/2022 If liquid Erythromycin Stomach upset,Other (See comments) High 05/28/2018 Medications aspirin ([place]) 81 mg capsule Take 81 mg by mouth 3 (three) times a week Active magnesium oxide (MAG-OX) 400 mg (241.3 mg elemental magnesium) tabletIndicati ons:hypomagnes emia Take 1 tablet (400 mg total) by mouth daily Active traMADoL (ULTRAM) 50 mg tablet Take 1 tablet (50 mg total) by mouth daily as needed for pain 7 tablet 5 Active Additional Information Patient not taking.Reported on 01/08/2025 naloxone (NARCAN) 4 mg/actuation spray,non-aero joaquina Administer 1 spray into affected nostril(s) as needed for opioid reversal or respiratory depression Call 911. Administer a single spray in one nostril. Repeat every 3 minutes as needed if no or minimal response. 1 each 5 Active Additional Information Patient not taking.Reported on 01/08/2025 sertraline (ZOLOFT) 50 mg tablet TAKE 1 TABLET(50 MG) BY MOUTH DAILY 90 tablet 1 5 Active amLODIPine (NORVASC) 2.5 mg tablet Take 1 tablet (2.5 mg total) by mouth daily 90 tablet 1 5 Active calcium carbonate-eliud min D3 2,500 mg (1,000 mg elemental)-800 unit tablet Take by mouth Acti ve rosuvastatin (CRESTOR) 20 mg tabletIndicati ons:Arterioscl erosis of coronary artery Take 1 tablet by mouth 4 times per week as directed by net developer software engineer c, Dr. Mcmullen 56 tablet [address] (PROTONIX) 40 mg EC tablet Take 1 tablet (40 mg total) by mouth daily 100 tablet 3 5 Active propranoloL (INDERAL) 10 mg tablet Take 1 tablet (10 mg total) by mouth daily 90 tablet 3 5 Active temazepam (RESTORIL) 15 mg capsule Take 1 capsule (15 mg total) by mouth nightly as needed for sleep 30 capsule 5 5 Active flecainide (TAMBOCOR) 50 mg tablet Take 1 tablet (50 mg total) by mouth 2 (two) times a day 01/09/20 25 Discontin ued(Thera py completed ) pantoprazole DR (PROTONIX) 40 mg EC tablet TAKE 1 TABLET(40 MG) BY MOUTH DAILY 100 tablet 1 5 01/09/20 25 Discontin ued(Reord er) rosuvastatin (CRESTOR) 20 mg tabletIndicati ons:Arterioscl erosis of coronary artery Take 1 tablet by mouth 4 times per week as directed by net developer software engineer cDr. Mcmullen 56 tablet 1 5 01/09/20 25 Discontin ued(Reord er) propranoloL (INDERAL) 10 mg tablet TAKE 1 TABLET(10 MG) BY MOUTH DAILY 90 tablet 1 5 01/09/20 25 Discontin ued(Reord er) temazepam (RESTORIL) 15 mg capsule TAKE 1 CAPSULE(15 MG) BY MOUTH EVERY NIGHT NEEDED FOR SLEEP 30 capsule 5 01/09/20 25 Discontin ued(Reord er) temazepam (RESTORIL) 15 mg capsule Take 1 capsule (15 mg total) by mouth nightly as needed for sleep 30 capsule 5 5 01/27/20 25 Discontin ued(Reord er) Active Problems Problem Noted Date Diagnosed Date [...] Thyroid nodule 06/11/2023 Arthropathy of hand 05/31/2023 Osteoarthritis 05/31/2023 Assessment & Plan (01/08/2025 2:42 PM AIRPLANE NAVIGATOR): Assessment & Plan (06/02/2024 2:46 PM CDT): Pt was rx'd Tramadol prn in the past for arthralgias, eye injection, dental work etc by previous PCP. Last refill 2020 for 7 pills (pt has bottle). Will refill for 7 pills, pt aware to not take with Temazepam. Hypertension, essential 05/31/2023 Assessment & Plan (01/08/2025 2:42 PM AIRPLANE NAVIGATOR): Assessment & Plan (06/02/2024 2:35 PM CDT): [...] BP and pulse log in 1 week. Hyperlipidemia 05/31/2023 Assessment & Plan (01/08/2025 2:42 PM AIRPLANE NAVIGATOR): Assessment & Plan (06/02/2024 2:18 PM CDT): Continues Rosuvastatin, no side effects reported. Updated labs ordered Ventricular premature depolarization 05/11/2023 Arthralgia of right knee 09/20/2022 Mixed anxiety and depressive disorder 07/04/2022 Pain of left hip joint 05/10/2022 Persistent insomnia 05/10/2022 Assessment & Plan (01/08/2025 2:42 PM AIRPLANE NAVIGATOR): Assessment & Plan (06/02/2024 2:40 PM CDT): [...] Education provided on risks of this medication. Rapid atrial fibrillation 03/21/2021 Assessment & Plan (06/02/2024 2:40 PM CDT): Condition stable overall, continues to work with Career Development Manager. Overdue for appt though, needs to make follow up Assessment & Plan (06/01/2023 9:45 AM CDT): Conditions stable overall, continues to work with Career Development Manager. Full thickness rotator cuff tear 11/24/2019 Arteriosclerosis of coronary artery 06/25/2018 Assessment & Plan (01/08/2025 2:42 PM AIRPLANE NAVIGATOR): Orders: rosuvastatin (CRESTOR) 20 mg tablet; Take 1 tablet by mouth 4 times per week as directed by net developer software engineer c, Dr. Mcmullen Gastroesophageal reflux disease 02/26/1960 Assessment & Plan (01/08/2025 2:42 PM AIRPLANE NAVIGATOR): Resolved Problems Problem Noted Date Diagnosed Date Resolved Date Dyslipidemia 02/27/2024 01/08/2025 Contracture of joint of hand 05/31/2023 01/08/2025 Cellulitis 05/31/2023 01/08/2025 Closed wound 05/31/2023 06/02/2024 Disorder of shoulder 05/31/2023 025 Fatigue 05/31/2023 06/02/2024 Lightheadedness 05/31/2023 01/08/2025 Nutritional deficiency disorder 05/31/2023 01/08/2025 Traumatic dislocation of thumb 05/31/2023 01/08/2025 Dyspnea on exertion 04/16/2023 01/09/20 25 Dizziness 04/16/2023 01/08/2025 Pharyngitis 02/05/2023 06/02/2024 Sinusitis 2023 06/02/2024 Acid reflux 05/29/2022 01/08/2025 Arthralgia of left knee 05/10/202212/27 Easy bruising 05/10/2022 01/08/2025 Gastritis 05/09/2021 01/08/2025 Unspecified atrial fibrillation 03/25/2021 01/08/2025 Anxiety 05/28/2018 01/08/2025 Assessment & Plan (12/03/2023 2:34 PM CDT): Continues Temazepam nightly prn. Atypical chest pain 05/28/2018 01/09/20 25 Hypercholesterolemia 05/28/2018 025 Muscle spasm 05/28/2018 01/08/2025 Chest pain 05/28/2018 01/08/2025 Encounters Date Type Department Care Team Description 01/09/2025 Results Follow-Up [facility] Medical Group Primary Care at [address] [id number] Debra Dewitt NP Basic metabolic panel, eGFR 01/08/2025 2:55 PM AIRPLANE NAVIGATOR Lab [address] [address] Stage 3a chronic kidney disease (HCC) 01/08/2025 2:00 PM AIRPLANE NAVIGATOR Office Visit [facility] Primary Care at [address] [address] Debra Dewitt NP Mixed hyperlipidemia (Primary Dx); Arteriosclerosis of coronary artery; Hypertension, essential; Gastroesophageal reflux disease without esophagitis; Persistent insomnia; Stage 3a chronic kidney disease (HCC); Primary osteoarthritis involving multiple joints from Last 3 Months Immunizations Immunization Administration Dates Next Due DTaP 12/18/2005 Influenza, Quad, Adjuvantate d, Intramuscular 12/24/2022,12/02/2020 Influenza, Quadrivalent, Hig h Dose, Preservative Free, Intrr 11/29/2021,11/24/2019 Influenza, Trivalent, Adjuva nted, Intramuscular 12/05/2024 Influenza, Trivalent, High D ose, Split, Preservative Free, Intramuscular 12/10/2023,12/17/2018,12/15/2017 ZOSTER Recombinant 05/11/2021,12/20/2020 Surgical History Surgery Date Site/Laterality Comments HYSTERECTOMY 02/27/1992 - 02/25/1993 MASTECTOMY 02/26/2006 - 02/25/2007 CATARACT EXTRACTION 10/28/2022 Left CATARACT EXTRACTION 04/29/2013 Right BREAST SURGERY 2007 Medical History Medical History Date Comments Abnormality of heart beat Hypertension 1999 Cancer (HCC) 2007 History of stomach ulcers Gastric reflux Hiatal hernia Neuropathy Rheumatoid arthritis (HCC) Depression 1970 Migraines 1975 Eye swelling GERD (gastroesophageal reflux disease) 2019 Cataract 2012 Heart disease 2019 Peptic ulceration 2019 Menstrual problem 2092 Anxiety 1970 Family History Medical History Relation Name Comments Heart disease Brother Ho Null Kidney cancer Brother Ho Null Prostate cancer Brother Ho Null Stroke Father Ho. dad Hypertension Mother Kaycee Stroke Mother Kaycee Cancer Other Hypertension Other Stroke Other Relation Name Status Comments Brother Ho Null Father Ho. dad Mother Kaycee Other Social History Tobacco Use Types Packs/Day [...] on file Legal Sex Female 3:27 AM AIRPLANE NAVIGATOR Gender Identity Not on file Sexual Orientation Not on file Last Filed Vital Signs Vital Sign Reading Time Taken Comments Blood Pressure 106/66 01/08/2025 2:13 PM AIRPLANE NAVIGATOR Pulse 68 01/08/2025 2:13 PM AIRPLANE NAVIGATOR Temperature 36.4 C (97.6 F) 01/08/2025 2:13 PM AIRPLANE NAVIGATOR Respiratory Rate 18 01/08/2025 2:13 PM AIRPLANE NAVIGATOR Oxygen Saturation 97% 01/08/2025 2:13 PM AIRPLANE NAVIGATOR Inhaled Oxygen Concentration - - Weight 46.7 kg (102 lb 14.4 oz) 01/08/2025 2:13 PM AIRPLANE NAVIGATOR Height 152.4 cm (5') 01/08/2025 2:13 PM AIRPLANE NAVIGATOR Body Mass Index 20.1 01/08/2025 2:13 PM AIRPLANE NAVIGATOR Plan of Treatment Health Maintenance Due Date Last Done Comments Hepatitis B Screening 1958 Pneumococcal vaccine 65+ (1 of 1 - PCV) 1989 DTaP/Tdap/Td Vaccine (2 - Tdap) 12/19/2015 6 Fall Risk Assessment 06/02/2025 06/02/2024, 12/03/2023, 05/31/2023 Well Visit 65+ 06/02/2025 06/02/2024 Covid-19 Vaccine (2024-03 6 season) 2025 12/05/2024, 12/27/2021, 01/07/2021, Additional history exists Depression Screening 01/08/2026 01/08/2025, 06/02/2024, 12/03/2023, Additional history exists Osteoporosis Screening-Bone Density Scan 06/30/2026 06/30/2024, 05/30/2020 Zoster Vaccine Completed 05/11/2021, 12/20/2020 Influenza Vaccine Completed 12/05/2024, , 12/24/2022, Additional history exists Procedures Procedure Name Priority Date/Time Associated Diagnosis Comments EGFR Routine 01/08/2025 2:56 PM AIRPLANE NAVIGATOR Stage 3a chronic kidney disease (HCC) BASIC METABOLIC PANEL Routine 01/08/2025 2:56 PM AIRPLANE NAVIGATOR Stage 3a chronic kidney disease (HCC) DEXA AXIAL SKELETON BONE DENSITY 1 OR MORE SITES Schedule Routine, Read Routine (OP Routine) 06/30/2024 7:43 AM CDT Encounter for osteoporosis screening in asymptomatic postmenopausal patient from Last 3 Months or Most Recently Relevant to Health Maintenance Results * (ABNORMAL) eGFR (01/08/2025 2:56 PM AIRPLANE NAVIGATOR) eGFR 59(L) >=60 mL/min/1. 73 m2 Comment: Interpretive Data [...] interpretive data was last reviewed 2020. Blood 01/08/2025 2:56 PM AIRPLANE NAVIGATOR 01/08/2025 6:29 PM AIRPLANE NAVIGATOR us Debra Dewitt NP LAB BLOOD ORDERABLES Final Re sult [facility] [address] [facility] Department [place] [address] * Basic metabolic panel (01/08/2025 2:56 PM AIRPLANE NAVIGATOR) Pathologist [facility] Sodium 139 135 - 145 mmol/L Potassium, pl 4.6 3.3 - 4.9 mmol/L [facility] Chloride 102 97 - 110 mmol/L [facility] CO2 30 22 - 32 mmol/L [facility] Anion gap 7 2 - 15 mmol/L [facility] BUN 20 6 - 25 mg/dL [facility] Creatinine 0.95 0.60 - 1.10 mg/dL [facility] Glucose 95 70 - 199 mg/dL [facility] Comment: Interpretive Data Fasting glucose >/= [...] interpretive data was last revised 2022. Calcium 9.5 8.5 - 10.3 mg/dL [facility] Blood 01/08/2025 2:56 PM AIRPLANE NAVIGATOR 01/08/2025 6:29 PM AIRPLANE NAVIGATOR Debra Dewitt NP LAB BLOOD ORDERABLES Final Re sult [facility] [address] [facility] Department [place] [address] * Dexa Axial Skeleton Bone Density 1 Or 2 Site (06/30/2024 7:43 AM CDT) Anatomical Region Laterality Modality Body N/A Radiographic Marianne ging Leela Knowles MILITARY SCIENCE TEACHER IMG DXA PROCEDURES Final Result from Last 3 Months or Most Recently Relevant to Health Maintenance Insurance T MEDICARE T MEDICARE Care Teams Chief Technical Officer Relationship Specialty Start Date End Date Leela Knowles NP [address] [facility] [address] [place], [place] [id number] PCP - General Family Medicine 05/31/23 [place] [address] [address] [address] Consulting Physician Cardiology 05/31/23 Ean Haskins MD [address] [place] [address] Consulting Physician Cardiology 05/31/23 [place] [address] [facility] [address] [place] [address] Consulting Physician Gastroenterology 05/31/23 Dr Barraza, [facility] Op[facility]mology 05/31/23
[2025-01-29 10:39] LABS: Hematocrit 34.6 % (37.0-47.0); Hemoglobin 11.7 g/dL (12.0-15.0); Immature Granulocyte Percent A 0.4 % (0-0.5); Lymphocytes Absolute Auto 0.89 K/mm3 (0.9-3.2); Mean Corpuscular HGB Conc 33.8 g/dl (32-36); Mean Corpuscular Hemoglobin 30.5 pg (26-34); Mean Corpuscular Volume 90.3 fl (80-100); Nucleated Red Blood Cells Absolute Auto 0.000 K/mm3 (0.0-0.012); Nucleated Red Blood Cells Perc 0.0 % (0.0-0.2); Platelet Count Result 163 k/mm3 (150-375); Red Blood Count 3.83 M/mm3 (4.2-5.4); White Blood Count 7.6 K/mm3 (4.5-10.0)
[2025-01-29 10:49] LABS: Alanine Aminotransferase 31 U/L (6-35); Albumin Level 3.9 g/dL (3.5-5.1); Alkaline Phosphatase 77 U/L (38-126); Anion Gap 4 mmol/L (4-12); Aspartate Amino Transferase 39 U/L (14-36); Bilirubin,Total 0.8 mg/dL (0.2-1.3); Blood Urea Nitrogen 24 mg/dL (7-17); Calcium 9.5 mg/dL (8.4-10.2); Carbon Dioxide 26 mmol/L (22-30); Chloride 104 mmol/L (98-107); Creatine Kinase 136 U/L (30-135); Estimated CRCL calculation 30 ml/min; Estimated Glomerular Filt Rate > 60; Glucose 107 mg/dL (65-110); Magnesium 2.3 mg/dL (1.6-2.3); Potassium 3.5 mmol/L (3.4-5.0); Sodium 134 mmol/L (137-145); Total Protein 6.7 g/dL (6.3-8.2)
[2025-01-29 10:55] LABS: INR 1.1; Partial Thromboplastin Time 29.2 Seconds (22.3-36.8); Prothrombin Time 14.2 Seconds (11.1-14.7)
--- NOTE | 2025-01-29 10:57 | ED_ITS ---
HPI - Weakness General Chief complaint: Weakness <GIGI Cohen Last Filed: 01/29/25 15:43> Stated complaint: WEAKNESS,DECREASED APPETITE <GIGI Cohen Last Filed: 01/29/25 15:43> Time Seen by Provider: 01/29/25 10:18 <GIGI Cohen Last Filed: 01/29/25 15:43> Source: patient and family <GIGI Cohen Last Filed: 01/29/25 15:43> Mode of arrival: ambulatory <GIGI Cohen Last Filed: 01/29/25 15:43> Limitations: no limitations <GIGI Cohen Last Filed: 01/29/25 15:43> History of Present Illness HPI Narrative: Patient is an 84 y/o female who presents to the ED with c/o weakness. Patient reports she has been feeling weak and increasingly fatigued over the last 1 week. States she has been feeling very dehydrated. Has had nausea, persistent acid reflux which is an ongoing issue for her, does radiate up into her chest. Had multiple episodes of diarrhea yesterday. Denies rectal bleeding or melena. Has been feeling very shaky. Reports mild cough. Denies fevers, shortness of breath. <GIGI Cohen Last Filed: 01/29/25 15:43> Related Data Home medications: Home Medications ?Medication ?Instructions ?Recorded ?Confirmed ?Last Taken ?Type propranolol 20 mg tablet 20 mg PO DAILY 12/02/1903/2912/07/19 History rosuvastatin 10 mg tablet 10 mg PO USEASDIRECTD 04/14/23 12/07/19 History sertraline 50 mg tablet 50 mg PO DAILY 12/02/1903/2912/07/19 History temazepam 15 mg capsule 15 mg PO HS 12/02/1904/14/ 4 12/07/19 History amlodipine 5 mg tablet 5 mg PO DAILY 04/14/2304/14 Unknown History aspirin 81 mg capsule ([place]) 81 mg PO USEASDIRECTD 04/14/23 04/14/23 Unknown History <Soraida Mejias PA-C - Last Filed: 01/29/25 15:43> Allergies/Adverse reactions: Allergies Allergy/AdvReac Type Severity Reaction Status Date / Time nitroglycerin AdvReac Severe VOMITING,DI Verified 01/29/25 09:43 ZZY,LIGHTHE ADED,CRAMPI NG aspirin AdvReac Intermediate GI UPSET Verified 01/29/25 09:43 <Soraida Mejias PA-C - Last Filed: 01/29/25 15:43> Review of Systems 2 Review of Systems: All systems reviewed & are unremarkable except as noted in HPI. <Soraida Mejias PA-C - Last Filed: 01/29/25 15:43> All systems reviewed & are unremarkable except as noted in HPI and below < Soraida Mejias PA-C - Last Filed: 01/29/25 15:43> [facility] Past Medical History Medical History: Medical History Atrial fibrillation CAD (coronary artery disease) Migraines Irritable bowel syndrome GERD (gastroesophageal reflux disease) Dyslipidemia <Soraida Mejias PA-C - Last Filed: 01/29/25 15:43> Surgical History Surgical History: Surgical History H/O hysterectomy for benign disease Status post right mastectomy <Soraida Mejias PA-C - Last Filed: 01/29/25 15:43> Family History Family History: Family History Father Cerebrovascular accident Skin cancer Mother Cerebrovascular accident Sibling Malignant neoplasm of prostate <Soraida Mejias PA-C - Last Filed: 01/29/25 15:43> Social History Social History: Social History Smoking status: Never smoker Alcohol intake: current Drinks per week: 7 Alcohol use details: 2 0Z PER EVENING Substance use: never Substance use type: does not use Lack of Transportation: No Lack of Food: Never True Current Housing: I Have Housing Concerned About Future Housing: No Difficulty Paying Gas/Electric Bills: No Difficulty Paying for Meds: No Currently Unemployed: No Education: Bachelor's Degree Difficulty w/ Childcare or Family Care: No Living arrangements: alone Spiritual care concerns: No <Soraida Mejias PA-C - Last Filed: 01/29/25 15:43> Exam 2 Narrative: GENERAL: Elderly, frail/thin, non-toxic, in no acute distress. HEAD: Normocephalic, atraumatic. ENT: MMs dry RESPIRATORY: Airway patent, respirations nonlabored. Clear to auscultation bilaterally, no rales, rhonchi, wheezing. CARDIOVASCULAR: Regular rate and rhythm without murmurs, rubs, or gallops. ABDOMINAL: Soft, mild diffuse tenderness throughout lower abdomen, nondistended. Normoactive BS. MUSCULOSKELETAL: Moves all extremities. No gross deformities. SKIN: Warm, dry, normal color. NEURO: A&O X3. Speech clear. Cranial nerves II-XII grossly intact. Steady gait. No ataxic movements. No focal deficits, moves all extremities equally. PSYCHIATRIC: Appropriate mood and affect. Normal interaction. <Soraida Mejias PA-C - Last Filed: 01/29/25 15:43> Course UPPER TRIMMER/PA Physician Supervision This visit was performed by both a physician and an APC; I performed all aspects of the medical decision making component of this evaluation as documented. <Cori Wild MD - Last Filed: 01/29/25 15:48> Vital Signs Vital signs: Vital Signs Temperature 97.3 F L 01/29/25 09:52 Pulse Rate 96 01/29/25 09:52 Respiratory Rate 16 01/29/25 09:52 Blood Pressure 140/67 01/29/25 09:52 Pulse Oximetry 100 01/29/25 09:52 Temperature 97.3 F L 01/29/25 09:52 Pulse Rate 96 01/29/25 13:45 Respiratory Rate 18 01/29/25 13:45 Blood Pressure 135/78 01/29/25 13:45 Pulse Oximetry 100 01/29/25 13:45 <Soraida Mejias PA-C - Last Filed: 01/29/25 15:43> Vital Signs Temperature 97.3 F L 01/29/25 09:52 Pulse Rate 96 01/29/25 09:52 Respiratory Rate 16 01/29/25 09:52 Blood Pressure 140/67 01/29/25 09:52 Pulse Oximetry 100 01/29/25 09:52 Temperature 97.3 F L 01/29/25 09:52 Pulse Rate 96 01/29/25 13:45 Respiratory Rate 18 01/29/25 13:45 Blood Pressure 135/78 01/29/25 13:45 Pulse Oximetry 100 01/29/25 13:45 <Cori Wild MD - Last Filed: 01/29/25 15:48> MDM MDM Narrative Medical decision making narrative: Patient presented to ED with report of generalized weakness/fatigue for the past 1 week. Also reporting some nausea, diarrhea, lower abdominal tenderness on exam. Vital signs are stable upon arrival. Patient is in no acute lizandor distress. She does appear dry. No focal deficits. She is neurologically intact. Was bladder scanned upon arrival and only noted to have approximately 20 mL of urine in her bladder. Fluids were initiated. Laboratory studies are fairly unremarkable. No leukocytosis. Very minimal anemia. No records to compare to. CMP with sodium of 134. Kidney function is stable. Otherwise stable electrolytes. Normal Mag. CK 136. Viral swabs are negative. UA with 1+ ketones, no signs of infection. EKG with incomplete right bundle, no concerning ST changes. Troponin 0.034. She does report some discomfort up into her chest but feels this is related to her acid reflux. Will obtain 3 hour. Chest x-ray is clear. CT brain w/o acute findings. CT abdomen/pelvis: IMPRESSION: 1. Mild intrahepatic ductal or ductal dilation normal gallbladder without evident cholelithiasis and without evident dilation of the common bile duct. Correlate with liver function tests. Liver enzymes are within normal range here. Normal bilirubin. No focal right upper quadrant tenderness on exam. Low suspicion for choledocholithiasis. CT scan also showing diverticulosis, no evidence of diverticulitis. 3 hour troponin elevated to 0.036. Discussed lab and imaging findings with patient. Patient given fluids in the ED. She is feeling slightly improved, but still feeling very weak and shaky. Patient will be admitted for further evaluation. Will continue maintenance fluids. Discussed case with JEFFRE[facility] hospitalist, accepted patient for admission. <Soraida Mejias PA-C - Last Filed: 01/29/25 15:43> Differential Diagnosis Differential Diagnosis: Weakness, viral syndrome, gastroenteritis, dehydration, covid, acs, gerd < Soraida Mejias PA-C - Last Filed: 01/29/25 15:43> Medical Records I have reviewed the following patient records and this information was taken into consideration when formulating the assessment and plan.: previous labs, previous ER visits, previous hospitalizations and previous clinic visits <GIGI Cohen Last Filed: 01/29/25 15:43> Lab Data MDM Lab Attestation statement: I personally reviewed the patient's lab results. <Soraida Mejias PA-C - Last Filed: 01/29/25 15:43> Result diagrams: 01/29/25 10:34 01/29/25 10:34 <Soraida Mejias PA-C - Last Filed: 01/29/25 15:43> Labs: Lab Results 01/29/25 01/29/25 01/29/25 Range/Units 10:34 12:50 13:21 WBC 7.6 (4.5-10.0) K/mm3 RBC 3.83 L (4.2-5.4) M/mm3 Hgb 11.7 L (12.0-15.0) g/dL Hct 34.6 L (37.0-47.0) % MCV 90.3 (80-100) fl MCH 30.5 (26-34) pg MCHC 33.8 (32-36) g/dl RDW 12.6 (11.5-14.5) % Plt Count 163 (150-375) k/mm3 MPV 10.8 H (7.4-10.4) fl Immature Gran % (Auto) 0.4 (0-0.5) % Neut % (Auto) 70.8 (45.5-73.1) % Lymph % (Auto) 11.7 L (18.3-44.2) % [place] % (Auto) 16.1 H (2.6-8.5) % Eos % (Auto) 0.7 (0-4.4) % Baso % (Auto) 0.3 (0.2-1.2) % Lymph # (Auto) 0.89 L (0.9-3.2) K/mm3 [place] # (Auto) 1.2 H (0.1-0.6) K/mm3 Eos # (Auto) 0.1 (0-0.3) K/mm3 Baso # (Auto) 0.0 (0.0-0.1) K/mm3 Abs Immat Gran (auto) 0.03 (0.00-0.031) K/mm3 Absolute Neuts (auto) 5.4 (1.3-6.7) K/mm3 Absolute Nucleated RBC 0.000 (0.0-0.012) K/mm3 Nucleated RBC % 0.0 (0.0-0.2) % PT 14.2 (11.1-14.7) Seconds INR 1.1 APTT 29.2 (22.3-36.8) Seconds Sodium 134 L (137-145) mmol/L Potassium 3.5 (3.4-5.0) mmol/L Chloride 104 (98-107) mmol/L Carbon Dioxide 26 (22-30) mmol/L Anion Gap 4 (4-12) mmol/L BUN 24 H D (7-17) mg/dL Creatinine 0.84 (0.7-1.0) mg/dL Estim Creat Clear Calc 30 ml/min Estimated GFR > 60 (59 - ) Glucose 107 (65-110) mg/dL Calcium 9.5 (8.4-10.2) mg/dL Magnesium 2.3 (1.6-2.3) mg/dL Total Bilirubin 0.8 (0.2-1.3) mg/dL AST 39 H (14-36) U/L ALT 31 (6-35) U/L Alkaline Phosphatase 77 (38-126) U/L Total Creatine Kinase 136 H (30-135) U/L Troponin I 0.034 0.036 H* (0.000-0.034) ng/mL Total Protein 6.7 (6.3-8.2) g/dL Albumin 3.9 (3.5-5.1) g/dL Urine Color Yellow (Yellow) Urine Appearance Clear (Clear) Urine pH 7.0 (5.0-9.0) Ur Specific [place] 1.022 (1.001-1.035) Urine Protein Negative (Negative) mg/dL Urine Glucose (UA) Negative (Negative) mg/dL Urine Ketones 1+ H (Negative) mg/dL Ur Blood (Man) 1+ H (Negative) Urine Nitrate Negative (Negative) Urine Bilirubin Negative (Negative) Urine Urobilinogen 0.2 (<2.0) mg/dL Leukocyte Esterase Rfl Negative (Negative) TIFFANIE/UL Urine RBC 0-2 (0-2) /hpf Urine WBC 0-5 (0-3) /hpf Ur Squamous Epith Cells None seen (Few) /hpf Urine Bacteria None seen /hpf Urine Casts 0-2 Influenza A (RT-PCR) Negative (Negative) Influenza B (RT-PCR) Negative (Negative) RSV (RT-PCR) Negative (Negative) SARS-CoV-2 RNA (RT-PCR) Negative (Negative) <Soraida Mejias PA-C - Last Filed: 01/29/25 15:43> Lab Results 01/29/25 01/29/25 01/29/25 Range/Units 10:34 12:50 13:21 WBC 7.6 (4.5-10.0) K/mm3 RBC 3.83 L (4.2-5.4) M/mm3 Hgb 11.7 L (12.0-15.0) g/dL Hct 34.6 L (37.0-47.0) % MCV 90.3 (80-100) fl MCH 30.5 (26-34) pg MCHC 33.8 (32-36) g/dl RDW 12.6 (11.5-14.5) % Plt Count 163 (150-375) k/mm3 MPV 10.8 H (7.4-10.4) fl Immature Gran % (Auto) 0.4 (0-0.5) % Neut % (Auto) 70.8 (45.5-73.1) % Lymph % (Auto) 11.7 L (18.3-44.2) % [place] % (Auto) 16.1 H (2.6-8.5) % Eos % (Auto) 0.7 (0-4.4) % Baso % (Auto) 0.3 (0.2-1.2) % Lymph # (Auto) 0.89 L (0.9-3.2) K/mm3 [place] # (Auto) 1.2 H (0.1-0.6) K/mm3 Eos # (Auto) 0.1 (0-0.3) K/mm3 Baso # (Auto) 0.0 (0.0-0.1) K/mm3 Abs Immat Gran (auto) 0.03 (0.00-0.031) K/mm3 Absolute Neuts (auto) 5.4 (1.3-6.7) K/mm3 Absolute Nucleated RBC 0.000 (0.0-0.012) K/mm3 Nucleated RBC % 0.0 (0.0-0.2) % PT 14.2 (11.1-14.7) Seconds INR 1.1 APTT 29.2 (22.3-36.8) Seconds Sodium 134 L (137-145) mmol/L Potassium 3.5 (3.4-5.0) mmol/L Chloride 104 (98-107) mmol/L Carbon Dioxide 26 (22-30) mmol/L Anion Gap 4 (4-12) mmol/L BUN 24 H D (7-17) mg/dL Creatinine 0.84 (0.7-1.0) mg/dL Estim Creat Clear Calc 30 ml/min Estimated GFR > 60 (59 - ) Glucose 107 (65-110) mg/dL Calcium 9.5 (8.4-10.2) mg/dL Magnesium 2.3 (1.6-2.3) mg/dL Total Bilirubin 0.8 (0.2-1.3) mg/dL AST 39 H (14-36) U/L ALT 31 (6-35) U/L Alkaline Phosphatase 77 (38-126) U/L Total Creatine Kinase 136 H (30-135) U/L Troponin I 0.034 0.036 H* (0.000-0.034) ng/mL Total Protein 6.7 (6.3-8.2) g/dL Albumin 3.9 (3.5-5.1) g/dL Urine Color Yellow (Yellow) Urine Appearance Clear (Clear) Urine pH 7.0 (5.0-9.0) Ur Specific [place] 1.022 (1.001-1.035) Urine Protein Negative (Negative) mg/dL Urine Glucose (UA) Negative (Negative) mg/dL Urine Ketones 1+ H (Negative) mg/dL Ur Blood (Man) 1+ H (Negative) Urine Nitrate Negative (Negative) Urine Bilirubin Negative (Negative) Urine Urobilinogen 0.2 (<2.0) mg/dL Leukocyte Esterase Rfl Negative (Negative) TIFFANIE/UL Urine RBC 0-2 (0-2) /hpf Urine WBC 0-5 (0-3) /hpf Ur Squamous Epith Cells None seen (Few) /hpf Urine Bacteria None seen /hpf Urine Casts 0-2 Influenza A (RT-PCR) Negative (Negative) Influenza B (RT-PCR) Negative (Negative) RSV (RT-PCR) Negative (Negative) SARS-CoV-2 RNA (RT-PCR) Negative (Negative) <Cori Wild MD - Last Filed: 01/29/25 15:48> Imaging Data Attestation: I personally reviewed and interpreted this imaging study as follows: < Soraida Mejias PA-C - Last Filed: 01/29/25 15:43> Radiologist's impression: ITS Impressions Chest X-Ray 01/29/25 10:37 IMPRESSION: 1. No acute cardiopulmonary findings. Head CT 01/29/25 12:09 IMPRESSION: 1. No acute intracranial findings. Abdomen/Pelvis CT 01/29/25 12:23 IMPRESSION: 1. Mild intrahepatic ductal or ductal dilation normal gallbladder without evident cholelithiasis and without evident dilation of the common bile duct. Correlate with liver function tests. 2. Moderate sigmoid diverticulosis. ITS Impressions Chest X-Ray 01/29/25 10:37 IMPRESSION: 1. No acute cardiopulmonary findings. Head CT 01/29/25 12:09 IMPRESSION: 1. No acute intracranial findings. Abdomen/Pelvis CT 01/29/25 12:23 IMPRESSION: 1. Mild intrahepatic ductal or ductal dilation normal gallbladder without evident cholelithiasis and without evident dilation of the common bile duct. Correlate with liver function tests. 2. Moderate sigmoid diverticulosis. <Soraida Mejias PA-C - Last Filed: 01/29/25 15:43> ITS Impressions Chest X-Ray 01/29/25 10:37 IMPRESSION: 1. No acute cardiopulmonary findings. Head CT 01/29/25 12:09 IMPRESSION: 1. No acute intracranial findings. Abdomen/Pelvis CT 01/29/25 12:23 IMPRESSION: 1. Mild intrahepatic ductal or ductal dilation normal gallbladder without evident cholelithiasis and without evident dilation of the common bile duct. Correlate with liver function tests. 2. Moderate sigmoid diverticulosis. <Cori Wild MD - Last Filed: 01/29/25 15:48> ECG Data EKG #1: Attestation: I personally reviewed and interpreted this ECG as follows: <Soraida Mejias PA-C - Last Filed: 01/29/25 15:43> ECG completion date: 01/29/25 <GIGI Cohen Last Filed: 01/29/25 15:43> ECG completion time: 09:50 <GIGI Cohen Last Filed: 01/29/25 15:43> normal rate (96), sinus rhythm, non-specific ST changes and RBBB (incomplete) <Soraida Mejias PA-C - Last Filed: 01/29/25 15:43> Discharge Plan Discharge Clinical Impression: Generalized weakness, Elevated troponin, Intermittent chest pain <GIGI Cohen Last Filed: 01/29/25 15:43> Patient Disposition: Still a Patient <GIGI Cohen Last Filed: 01/29/25 15:43> Condition: Stable <GIGI Cohen Last Filed: 01/29/25 15:43> Patient Language: Telugu <GIGI Cohen Last Filed: 01/29/25 15:43> Prescriptions: No Action temazepam 15 mg capsule 15 mg PO HS propranolol 20 mg tablet 20 mg PO DAILY sertraline 50 mg tablet 50 mg PO DAILY rosuvastatin 10 mg tablet 10 mg PO USEASDIRECTD Rx Instructions: Takes Sunday, Sunday, Sunday, and amlodipine 5 mg tablet 5 mg PO DAILY [place] 81 mg Capsule 81 mg PO USEASDIRECTD Rx Instructions: Taken Mondays, Wednesdays, and Fridays pantoprazole 40 mg Tablet,Delayed Release (Dr/Ec) 40 mg PO QAM Qty: 30 1RF famotidine 40 mg tablet 40 mg PO HS Qty: 30 0RF <Soraida Mejias PA-C - Last Filed: 01/29/25 15:43> Follow-up/Referrals: Eleni,Leela Chaudhary [employer] OPERATOR [Primary Care Provider, Unknown] <Soraida Mejias PA-C - Last Filed: 01/29/25 15:43>
[2025-01-29 11:15] LABS: Influenza A QL RT-PCR Negative (Negative); Influenza B QL RT-PCR Negative (Negative); RSV RNA, RT-PCR Negative (Negative); SARS-CoV-2 RNA PCR Negative (Negative)
--- NOTE | 2025-01-29 11:24 | PC.NURSE ---
Per LASHAY Quigley, patient had approx 17-27ml of urine in the bladder when bladder scanned. Patient also declined strait cath. LASHAY Quigley, ordered IVF. Nursing staff to reattempt obtaining UA after IVF infused.
[2025-01-29] MEDS: SODIUM CHLORIDE 0.9% IV 1,000 ML 999 ML IV CONT (11:32)
[2025-01-29] MEDS: ONDANSETRON INJ 4 MG/2 ML VIAL IV PUSH (11:33)
[2025-01-29] MEDS: PANTOPRAZOLE SODIUM IV 40 MG VIAL IV PUSH (11:33)
--- NOTE | 2025-01-29 11:44 | PC.NURSE ---
patient declined tylenol- asked for ice pack for neck discomfort to try before taking tylenol
[2025-01-29 11:56] LABS: Troponin I 0.034 ng/mL (0.000-0.034)
[2025-01-29 12:59] LABS: Add Urine Microscopic? YES; Appearance Urine Clear (Clear); Glucose Urine UA Negative (Negative); Leukocyte Esterase Ur Negative LEU/UL (Negative); Nitrate Urine Negative (Negative); Non Pathogenic Casts 0-2; Specific Grav Ur 1.022 (1.001-1.035)
--- NOTE | 2025-01-29 13:42 | ECG_ITS ---
Test Date: 2025-01-29 13:50:33 Measurements Intervals [place] Rate: 87 P: 72 [place]: 175 QRS: -29 QRSD: 101 T: 56 QT: 396 QTc: 477 Interpretive Statements SINUS RHYTHM WITH SINUS ARRHYTHMIA INCOMPLETE RIGHT BUNDLE BRANCH BLOCK CANNOT R/O SEPTAL INFARCT, AGE INDETERMINATE BASELINE ARTIFACT- I, III, AVR, V1, V4 ABNORMAL ECG Compared to ECG 01/29/2025 09:50:48 LEFT ANTERIOR FASCICULAR BLOCK NO LONGER PRESENT Electronically Signed On 01-29-2025 14:14:28 BED SETTER by Juan Diego Mccormack D.O.
[2025-01-29 13:58] LABS: Troponin I 0.036 ng/mL (0.000-0.034)
--- NOTE | 2025-01-29 14:55 | PM.IMHP2 ---
H&P: HPI History of Present Illness Date/Time: 01/29/25 14:55 Chief Complaint: Weakness and decreased appetite Narrative: 84 y/o female with a PMH of GERD, afib, and CAD presents to the ED on 01/29/2025 with complaints of generalized weakness and poor p.o. intake. Patient states this began about 6 days ago when she felt like she was fighting something viral off, but denies having any fevers or chills. She describes feeling exhausted during the same timeframe to the point where she has to lay back down after doing light housework. Patient describes having chest pain intermittently over the past 6 days as well. She states this pain is in the epigastric and midsternal region rated 8/10 pain every time she eats or drinks, leading to decreased intake. Burping helps relieve the pain. Denies shortness of breath, radiating pain, diaphoresis, nausea, vomiting. 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 Patient further endorses 3 episodes of diarrhea yesterday. Patient has chronic constipation. PMH: GERD, AFib, CAD, hyperlipidemia, IBS, migraines, breast cancer status post right mastectomy Initial vital signs 140/67, HR 96, respirations 16, afebrile and 100% on room air. Lab workup with no leukocytosis. Sodium 134. BUN 24, AST 39, CK 136. UA 1+ ketones, 1+ blood with no signs of infection. Viral swab negative. Initial troponin 0.034 with 3 hour 0.036. With initial EKG with sinus rhythm and incomplete right bundle branch block. Chest x-ray reveals no acute cardiopulmonary findings. Head CT with no acute intracranial findings. Abdomen pelvis CT reveals mild intrahepatic ductal or ductal dilation normal gallbladder without evident cholelithiasis and without evident dilation of the common bile duct and moderate sigmoid diverticulosis. Review of Systems Review of Systems: All systems reviewed & are unremarkable except as noted in HPI and below [facility] Past Medical History Medical History (Updated 01/29/25 @ 21:41 by Julia Sanchez APRN) Atrial fibrillation CAD (coronary artery disease) Migraines Irritable bowel syndrome GERD (gastroesophageal reflux disease) Dyslipidemia Surgical History Surgical History H/O hysterectomy for benign disease Status post right mastectomy Family History Family History Father Cerebrovascular accident Skin cancer Mother Cerebrovascular accident Sibling Malignant neoplasm of prostate Social History Social History Smoking status: Never smoker Alcohol intake: current Drinks per week: 7 Alcohol use details: 2 0Z PER EVENING Substance use: never Substance use type: does not use Lack of Transportation: No Lack of Food: Never True Current Housing: I Have Housing Concerned About Future Housing: No Difficulty Paying Gas/Electric Bills: No Difficulty Paying for Meds: No Currently Unemployed: No Education: Bachelor's Degree Difficulty w/ Childcare or Family Care: No Living arrangements: alone Spiritual care concerns: No Meds Home Medications and Allergies Home Medications ?Medication ?Instructions ?Recorded ?Confirmed ?Type propranolol 20 mg tablet 20 mg PO DAILY 12/02/19 04/14/23 History rosuvastatin 10 mg tablet 10 mg PO USEASDIRECTD 12/02/19 04/14/23 History sertraline 50 mg tablet 50 mg PO DAILY 12/02/19 04/14/23 History temazepam 15 mg capsule 15 mg PO HS 12/02/19 04/14/23 History amlodipine 5 mg tablet 5 mg PO DAILY 04/14/23 04/14/23 History aspirin 81 mg capsule ([place]) 81 mg PO USEASDIRECTD 04/14/23 04/14/23 History famotidine 40 mg tablet 40 mg PO HS #30 tabs 04/14/23 04/14/23 Rx pantoprazole 40 mg tablet,delayed 40 mg PO QAM #30 tabs 04/14/23 Rx release Allergies Allergy/AdvReac Type Severity Reaction Status Date / Time nitroglycerin AdvReac Severe VOMITING,DI Verified 01/29/25 09:43 ZZY,LIGHTHE ADED,CRAMPI NG aspirin AdvReac Intermediate GI UPSET Verified 01/29/25 09:43 Vital Signs Vital Signs - 24 hr 01/29/25 09:52 01/29/25 11:39 01/29/25 13:45 Temperature 97.3 F L Pulse Rate 96 75 96 Respiratory Rate 16 18 18 Blood Pressure 140/67 143/75 H 135/78 Pulse Oximetry 100 100 100 Exam Narrative: GENERAL: non-toxic appearing, in no acute distress. HEAD: Normocephalic, atraumatic. EYES: PERRLA. Conjunctivae clear. NOSE: Normal no drainage. THROAT: Pharynx clear, no exudate. NECK: Trachea midline. No adenopathy, no masses. RESPIRATORY: Airway patent, respirations nonlabored. CTA. CARDIOVASCULAR: Regular rate and rhythm BREASTS: Defer GASTROINTESTINAL: Abdomen is soft and nontender. No organomegaly. Bowel sounds normal in all quadrants. GENITOURINARY: Defer MUSCULOSKELETAL: Moves all extremities. No gross deformities. SKIN: Warm, dry, normal color. NEURO: A&O X4. Speech clear PSYCHIATRIC: Normal interaction Results Labs Labs: Short CBC 01/29/25 Range/Units 10:34 WBC 7.6 (4.5-10.0) K/mm3 Hgb 11.7 L (12.0-15.0) g/dL Hct 34.6 L (37.0-47.0) % Plt Count 163 (150-375) k/mm3 BMP 01/29/25 10:34 Sodium 134 L Potassium 3.5 Chloride 104 Carbon Dioxide 26 BUN 24 H D Creatinine 0.84 Glucose 107 Calcium 9.5 Cardiac Enzymes 01/29/25 01/29/25 Range/Units 10:34 13:21 Total Creatine Kinase 136 H (30-135) U/L Troponin I 0.034 0.036 H* (0.000-0.034) ng/mL Liver Function 01/29/25 Range/Units 10:34 Total Bilirubin 0.8 (0.2-1.3) mg/dL AST 39 H (14-36) U/L ALT 31 (6-35) U/L Alkaline Phosphatase 77 (38-126) U/L Albumin 3.9 (3.5-5.1) g/dL Urine 01/29/25 Range/Units 12:50 Urine Color Yellow (Yellow) Urine Appearance Clear (Clear) Urine pH 7.0 (5.0-9.0) Ur Specific [place] 1.022 (1.001-1.035) Urine Protein Negative (Negative) mg/dL Urine Glucose (UA) Negative (Negative) mg/dL Quality VTE Prophylaxis VTE prophylaxis: pharmacologic ordered Assessment and Plan Assessment and plan (1) Intermittent chest pain: Code(s): R07.9 - Chest pain, unspecified Status: Acute Assessment and Plan: Patient presents with intermittent chest pain that occurs with any p.o. intake. She believes the symptoms are related to her GERD however, her troponins are slightly elevated. Troponins as follows: 0.034, 0.036, 0.062. Pain is intermittent and does not radiate. Chest x-ray with no acute cardiopulmonary process. Patient does have history of CAD but no stent placement. No previous PR. - EKG, initial: Sinus rhythm with incomplete right bundle-branch block - EKG, repeat (1): Sinus rhythm with sinus arrhythmia. Incomplete right bundle branch block - EKG, repeat (2): Sinus tach with occasional PVCs. Right bundle branch block - ASA every Sunday - cardiology consulted, awaiting recs - continue rosuvastatin Sunday - telemetry monitoring (2) GERD (gastroesophageal reflux disease): Qualifiers: Esophagitis presence: esophagitis presence not specified Qualified Code(s): K21.9 - Gastro-esophageal reflux disease without esophagitis Code(s): K21.9 - Gastro-esophageal reflux disease without esophagitis Status: Chronic Assessment and Plan: Patient with a history of GERD presents with ?chest pain? any time she takes p.o. for the past 6 days. Pain is located in the epigastric and midsternal region. Relieved with burping. Did follow with gastroenterology outpatient but has not followed up for the past 2 years. -GI cocktail given -GI consult; plan for EGD on 01/30 -NPO at midnight -patient taking pantoprazole at home (3) Dyslipidemia: Code(s): E78.5 - Hyperlipidemia, unspecified Status: Chronic Assessment and Plan: Continue rosuvastatin (4) Hypertension: Qualifiers: Hypertension type: primary hypertension Qualified Code(s): I10 - Essential (primary) hypertension Code(s): I10 - Essential (primary) hypertension Status: Chronic Assessment and Plan: Continue amlodipine, propranolol Plan Diet: Heart healthy-NPO at [place] DVT prophylaxis: Lovenox lines/drains: PIV Fluids: 1 L bolus-NS at 75 Code status: Full Prior Studies I have reviewed the following patient records and this information was taken into consideration when formulating the assessment and plan.: previous labs, previous ER visits, previous hospitalizations and previous clinic visits Consultations Consultations: I have discussed the care of this pt with the consulting providers. (Discussed case with Gastroenterology physician Dr. Raza) Time Spent with Patient Time with patient: 45 - 74 minutes Hospitalist MIPS Advance Care Plan I have confirmed that the patient's Advanced Care Plan is present, code status is documented, or surrogate decision maker is listed in patient medical record.: Yes Medication Reconciliation I have utilized all available resources to obtain, update and review the patients current medications (includes all prescriptions, OTC, herbals, cannabis, and nutritional supplements).: Yes
[2025-01-29] MEDS: SODIUM CHLORIDE 0.9% IV 1,000 ML 75 ML IV CONT (16:13)
--- NOTE | 2025-01-29 16:17 | PC.NURSE ---
chicken soup, jello and white soda ordered
[2025-01-29] MEDS: BELLADONNA ALK/PHENOB ELIX 10 ML, MAG HYDROX/ALUMINUM HYD/SIMETH 30 ML, LIDOCAINE 2% VI... PO (16:27)
--- NOTE | 2025-01-29 16:30 | PC.NURSE ---
patient daughter at bedside frustrated that patient hadn't gotten medication for pain, or fed. Patient had declined medication multiple times, wanted to try ice, repositioning. which helped the patient with discomfort and patient was able to nap off and on. Patient was prescribed GI cocktail, education provided that the patient wouldn't be able to eat or drink for 30-45 minutes after taking medication to allow it to coat and numb the esophagus and stomach lining appropriately, patient got frustrated and said to just give it so she could eat in 45 minutes pt wrote down the time medication was given and was able to order a tray for when she was able to eat. patient repeatedly took off telemetry leads, blood pressure cuff, and pulse oximeter. patient states that they hurt and are uncomfortable- I can't sleep patient educated and placed back on monitor when she would allow it, multiple staff members returned to the room to place the patient back on the monitor when necessary
--- NOTE | 2025-01-29 17:19 | ECG_ITS ---
Test Date: 2025-01-29 18:02:57 Measurements Intervals [place] Rate: 100 P: 67 NV: 155 QRS: -35 QRSD: 99 T: 37 QT: 371 QTc: 480 Interpretive Statements SINUS TACHYCARDIA WITH OCCASIONAL VENTRICULAR PREMATURE COMPLEXES LEFT AXIS DEVIATION INCOMPLETE RIGHT BUNDLE BRANCH BLOCK CANNOT R/O SEPTAL INFARCT, AGE INDETERMINATE BASELINE ARTIFACT- I, II, AVR, AVL, AVF, V1-V6 ABNORMAL ECG Compared to ECG 01/29/2025 13:50:33 HEART RATE HAS INCREASED Electronically Signed On 01-29-2025 19:46:03 HOTEL OR MOTEL RECEPTIONIST by Juan Diego Mccormack D.O.
[2025-01-29 17:37] LABS: Troponin I 0.062 ng/mL (0.000-0.034)
--- NOTE | 2025-01-29 18:54 | WPCEDHO ---
ED Hand Off Checklist All vitals saved: Yes IV Site documented:Yes All med administrations documented: Yes Triage Note Triage Note PT TO ED FOR EVAL OF WEAKNESS 01/29/25 09:44 WITH DECREASED APPETITE FOR THE PAST WEEK. Allergies nitroglycerin Adverse Reaction (Severe, Verified 01/29/25 09:43) VOMITING,DIZZY,LIGHTHEADED,CRAMPING aspirin Adverse Reaction (Intermediate, Verified 01/29/25 09:43) GI UPSET Family History (Last Reviewed 01/29/25 @ 15:38 by Soraida Mejias PA-C) Father Cerebrovascular accident Skin cancer Mother Cerebrovascular accident Sibling Malignant neoplasm of prostate Active Medications including assessments/comments Sodium Chloride (Normal Saline Iv) 1,000 mls @ 75 mls/hr IV CONT .[id number] [facility] Last Admin: 01/29/25 16:13 Dose: 75 mls/hr Documented By: ALMA Infusion/Titration Document 01/29/25 16:13 ALMA (Rec: 01/29/25 16:13 ALMA [id number]) Intake IV Site Peripheral Access Left Forearm Container Volume 1,000 Waste Amount 0 Dosing Infusion Rate 75 Cumulative Dose Not Applicable Increase/Decrease Started Elapsed Time Elapsed Time ( 0m minutes) Administered/Completed Medications Discontinued Medications Acetaminophen (Acetaminophen 500 Mg Tablet) 1,000 mg PO ONCE STA Stop: 01/29/25 11:14 Last Admin: 01/29/25 11:33 Dose: Not Given Documented By: BRANDON Non-Admin Reason: Nausea or Vomiting Belladonna Alkaloids/Phenobarbital 10 ml/ Al Hydrox /Mg Hydrox/Simethicone 30 ml/Lidocaine HCl 10 ml 0 ml PO ONCE STA Stop: 01/29/25 16:13 Last Admin: 01/29/25 16:27 Dose: 50 ml Documented By: BRANDON Sodium Chloride (Normal Saline Iv) 1,000 mls @ 999 mls/hr IV CONT .Q1H1M STA Stop: 01/29/25 12:13 Last Infusion: 01/29/25 13:00 Dose: Infused Documented By: Admin: 01/29/25 11:32 Dose: 999 mls/hr Documented By: BRANDON Ondansetron HCl (Ondansetron Inj 4 Mg/2 Ml Vial) 4 mg IV PUSH ONCE STA Stop: 01/29/25 11:14 Last Admin: 01/29/25 11:33 Dose: 4 mg Documented By: BRANDON Pantoprazole Sodium (Pantoprazole Sodium Iv 40 Mg Vial) 40 mg IV PUSH ONCE STA Stop: 01/29/25 11:14 Last Admin: 01/29/25 11:33 Dose: 40 mg Documented By: BRANDON Notes 01/29/25 16:17 Nurse Note by Maria C Zungia chicken soup, jello and white soda ordered Initialized on 01/29/25 16:17 - END OF NOTE 01/29/25 11:44 Nurse Note by Alda Sandy patient declined tylenol- asked for ice pack for neck discomfort to try before taking tylenol Initialized on 01/29/25 11:44 - END OF NOTE 01/29/25 11:24 Nurse Note by Angelina Hough Per LASHAY Quigley, patient had approx 17-27ml of urine in the bladder when bladder scanned. Patient also declined strait cath. LASHAY Quigley, ordered IVF. Nursing staff to reattempt obtaining UA after IVF infused. Initialized on 01/29/25 11:24 - END OF NOTE Interventions/Assessments IV / Saline Lock, Insert Start: 01/29/25 09:44 Freq: Status: Active Protocol: Document 01/29/25 11:32 AJW (Rec: 01/29/25 11:33 BRANDON [id number]) IV Assessment Peripheral Access Left Forearm IV Catheter Access Initiated IV Insertion Date 01/29/25 IV Insertion Time 11:33 Catheter Gauge 20 IV Site Assessment WNL IV Care and WNL Maintenance PA: Cardiovascular Assessment Start: 01/29/25 09:44 Freq: Status: Active Protocol: Document 01/29/25 11:43 AJW (Rec: 01/29/25 11:43 BRANDON [id number]) Cardiovascular Assessment Cardiovascular None Symptoms Skin Description Pallor PA: Neurological Assessment Start: 01/29/25 09:44 Freq: Status: Active Protocol: Document 01/29/25 11:43 AJW (Rec: 01/29/25 11:43 BRANDON [id number]) Neurological Assessment Level of Alert,Awake Consciousness Arousable to Verbal Orientation Oriented to Person,Oriented to Place,Oriented to Time Neurological Weakness, General Symptoms Behavior Appropriate,Cooperative Memory Description Intact Ability to Maintain Normal Balance Facial Symmetry Symmetrical Tongue Position Midline Kimberly Coma Scale Eyes Open Verbal Oriented and Alert Motor Follows Commands Tono Coma Total 15 Score Last Vital Signs Temperature 97.3 F L 01/29/25 09:52 Pulse Rate 97 01/29/25 18:53 Respiratory Rate 14 01/29/25 18:53 Pulse Oximetry 97 01/29/25 18:53 Blood Pressure 130/70 01/29/25 18:53 Blood Pressure Mean 90 01/29/25 18:53 Blood Pressure Position Sitting 01/29/25 09:52 Weight 44.5 kg 01/29/25 09:44 Last Result - Abnormals Only RBC 3.83 M/mm3 (4.2-5.4) L 01/29/25 10:34 Hgb 11.7 g/dL (12.0-15.0) L 01/29/25 10:34 Hct 34.6 % (37.0-47.0) L 01/29/25 10:34 MPV 10.8 fl (7.4-10.4) H 01/29/25 10:34 Lymph % (Auto) 11.7 % (18.3-44.2) L 01/29/25 10:34 [place] % (Auto) 16.1 % (2.6-8.5) H 01/29/25 10:34 Lymph # (Auto) 0.89 K/mm3 (0.9-3.2) L 01/29/25 10:34 [place] # (Auto) 1.2 K/mm3 (0.1-0.6) H 01/29/25 10:34 Sodium 134 mmol/L (137-145) L 01/29/25 10:34 BUN 24 mg/dL (7-17) H D 01/29/25 10:34 AST 39 U/L (14-36) H 01/29/25 10:34 Total Creatine Kinase 136 U/L (30-135) H 01/29/25 10:34 Troponin I 0.062 ng/mL (0.000-0.034) H* D 01/29/25 17:05 Urine Ketones 1+ mg/dL (Negative) H 01/29/25 12:50 Ur Blood (Man) 1+ (Negative) H 01/29/25 12:50 Most Recent Suicide Severity Rating Suicide Severity Rating NO RISK INDICATED 01/29/25 09:44
[2025-01-29] MEDS: ENOXAPARIN 40 MG/0.4 ML SYRINGE SUB-Q (20:58)
[2025-01-29] MEDS: ACETAMINOPHEN 325 MG TABLET 650 MG PO (21:01)
[2025-01-29 21:27] LABS: Alanine Aminotransferase 45 U/L (6-35); Albumin Level 3.4 g/dL (3.5-5.1); Alkaline Phosphatase 66 U/L (38-126); Aspartate Amino Transferase 55 U/L (14-36); Bilirubin,Total 0.5 mg/dL (0.2-1.3); Creatine Kinase 151 U/L (30-135); Total Protein 6.1 g/dL (6.3-8.2)
--- NOTE | 2025-01-29 22:04 | ADMGEN ---
This patient, Abril Ramírez, was admitted to IMU Room 205-01 @ 1944. Patient/family oriented to hospital policies and general routines including ID bracelet, bed and alarms, visiting hours, pain management, procedures, bathroom and other care routines, personal items, smoking policy, room service/diet, and visiting hours. Information on how to activate the Rapid Response Team has been discussed. Patient/Family are encouraged to report perceived risks to care and to ask questions if they do not understand what they are told or what they should do.
[2025-01-30] VITALS (16 sets, daily range): BP systolic 110–161; BP diastolic 43–88; PULSE 86–106; RESP 15–30; TEMP 36.2–37.8; O2SAT 93–97
--- NOTE | 2025-01-30 | ECHO_ITS ---
Patient Info Name: Abril Ramírez Age: 84 years : 1940 Gender: Female Ht: 61 in Wt: 100 lbs BSA: 1.39 m2 HR: 95 bpm BP: 144 / 88 mmHg Technical Quality: Good Exam Date: 01/30/2025 2:02 PM Patient Status: I Admit Date: 01/29/2025 Exam Type: CA echo doppler color flow Complete two-dimensional, color flow and Doppler transthoracic echocardiogram is performed. Staff Referring Physician: Soraida Mejias Jigsaw Operator: Zaria De Paz Attending Provider: Pilo Castillo MD Summary 1. Complete two-dimensional, color flow and Doppler transthoracic echocardiogram is performed. 2. There is normal biventricular size and systolic function. 3. There is normal biatrial size. 4. There are no significant valvular abnormalities. Left Ventricle The left ventricle is normal in size and systolic function. The left ventricular ejection fraction is visually estimated to be 60-65%. Right Ventricle The right ventricle is normal in size and systolic function. Left Atria The left atrium is normal size. Right Atria The right atrium is normal size. Atrial Septum The atrial septum is normal. Aortic Valve The aortic valve is trileaflet and opens well. There is no aortic regurgitation. Pulmonic Valve The pulmonic valve is not well visualized. There is trace pulmonic valve regurgitation. Mitral Valve The mitral valve is normal. There is trace mitral regurgitation. Tricuspid Valve The tricuspid valve is normal. There is trace tricuspid regurgitation. Pericardium/Pleural Pericardium is normal in appearance with no evidence for significant pericardial effusion. Inferior Vena Cava Dilated inferior vena cava with <50% collapse upon inspiration consistent with significantly elevated right atrial pressure, 15 mmHg. Aorta The aortic root at the level of the sinus of Valsalva measures 2.9 cm in diameter. Left Ventricular Outflow Tract Name Value Normal LVOT 2D LVOT Diameter 2.0 cm LVOT Doppler LVOT Peak Velocity 164 cm/s LVOT Peak Gradient 11 mmHg LVOT Mean Gradient 7 mmHg LVOT VTI 28 cm LVOT Stroke Volume 88 ml LVOT CO 14.0 l/min LVOT CI 10.0 l/min/m2 Pulmonic Valve Name Value Normal RVOT Doppler RVOT Peak Velocity 89 cm/s RVOT Peak Gradient 3 mmHg PV Doppler PV Peak Velocity 123 cm/s PV Peak Gradient 6 mmHg Mitral Valve Name Value Normal MV Diastolic Function MV E Peak Velocity 103 cm/s MV A Peak Velocity 70 cm/s MV E/A 1.5 MV Decel Time (PW) 156 ms MV Annular TDI MV E/e' (Septal) 12.9 MV E/e' (Lateral) 11.7 MV E/e' (Average) 12.3 Tricuspid Valve Name Value Normal TV Regurgitation Doppler TR Peak Velocity 326 cm/s TR Peak Gradient 42 mmHg Estimated PAP/RSVP RA Pressure 15 mmHg <=5 PA Systolic Pressure 58 mmHg <36 RV Systolic Pressure 58 mmHg <36 Aortic Valve Name Value Normal AV Doppler AV Peak Velocity 183 cm/s AV Peak Gradient 13 mmHg AV Area (Cont Eq Tello) 2.8 cm2 AV DI (Tello) 0.90 AV Regurgitation 2D LVOT Area 3.1 cm2 Ventricles Name Value Normal LV Dimensions 2D/MM IVS Diastolic Thickness (2D) 0.9 cm 0.6-1.0 LVID Diastole (2D) 3.7 cm 3.8-5.2 LVIW Diastolic Thickness (2D) 0.8 cm 0.6-0.9 LVID Systole (2D) 2.4 cm 2.2-3.5 LVOT Diameter 2.0 cm LV Mass (2D Cubed) 89.17 g 67.00-162.00 LV Mass Index (2D Cubed) 64 g/m2 43-95 Relative Wall Thickness (2D) 0.42 <=0.42 LV Fractional Shortening/Ejection Fraction 2D/MM LV Fractional Shortening (2D) 35 % 27-45 LV EF (2D Teichholz) 65 % LV Diastolic Volume (4C MOD) 54 ml LV EF (4C MOD) 65 % LV Diastolic Volume (2C MOD) 62 ml LV EF (2C MOD) 67 % LV Diastolic Volume (BP MOD) 58 ml 46-106 LV Diastolic Volume Index (BP MOD) 42 ml/m2 29-61 LV Systolic Volume (BP MOD) 20 ml 14-42 LV Systolic Volume Index (BP MOD) 14 ml/m2 8-24 LV EF (BP MOD) 66 % 54-74 LV Diastolic Length (4C) 7.1 cm LV Systolic Length (4C) 5.9 cm LV Stroke Volume (4C MOD) 35 ml Atria Name Value Normal LA Dimensions LA Volume (4C A-L) 34 ml LA Volume (BP A-L) 44 ml RA Dimensions RA Systolic Major [place] Length (4C) 5.2 cm 2.2-2.8 RA Area (4C) 16.6 cm2 <=18.0 Report Signatures
[2025-01-30] MEDS: SODIUM CHLORIDE 0.9% IV 1,000 ML 75 ML IV CONT ×2 (03:35→21:08)
[2025-01-30 05:15] LABS: Hematocrit 32.0 % (37.0-47.0); Hemoglobin 10.6 g/dL (12.0-15.0); Immature Granulocyte Percent A 0.2 % (0-0.5); Lymphocytes Absolute Auto 0.80 K/mm3 (0.9-3.2); Mean Corpuscular HGB Conc 33.1 g/dl (32-36); Mean Corpuscular Hemoglobin 30.4 pg (26-34); Mean Corpuscular Volume 91.7 fl (80-100); Nucleated Red Blood Cells Absolute Auto 0.000 K/mm3 (0.0-0.012); Nucleated Red Blood Cells Perc 0.0 % (0.0-0.2); Platelet Count Result 138 k/mm3 (150-375); Red Blood Count 3.49 M/mm3 (4.2-5.4); White Blood Count 5.5 K/mm3 (4.5-10.0)
[2025-01-30 05:36] LABS: Anion Gap 4 mmol/L (4-12); Blood Urea Nitrogen 17 mg/dL (7-17); Calcium 8.9 mg/dL (8.4-10.2); Carbon Dioxide 26 mmol/L (22-30); Chloride 108 mmol/L (98-107); Estimated CRCL calculation 35 ml/min; Estimated Glomerular Filt Rate > 60; Glucose 105 mg/dL (65-110); Potassium 3.4 mmol/L (3.4-5.0); Sodium 138 mmol/L (137-145)
[2025-01-30] MEDS: LIDOCAINE 5% PATCH 1 PATCH TRANSDERM (09:04)
[2025-01-30] MEDS: LACTATED RINGERS 1,000 ML 150 ML IV CONT (10:06)
--- NOTE | 2025-01-30 10:37 | WPDGICN ---
Assessment and Plan Assessment and plan (1) Dysphagia: Code(s): R13.10 - Dysphagia, unspecified Status: Acute Assessment and Plan: The patient new onset odynophagia warrants an EGD for investigation. Differential diagnosis includes pill induced esophagitis, erosive esophagitis, candidiasis among others. Will keep the patient NPO and perform EGD today. GI Consult Note Consult date/time: 01/30/25 10:37 Reason for consult: Dysphagia-odynophagia HPI: Abril Ramírez is a 84 year old female with a history of intermittent GERD, and occasional dysphagia which has become worse over the past 6 days, being unable to eat or drink due to pain in her retrosternal area. This has been limiting the amount of food and liquids he she has been able to take, rendering her extremely fatigued and weak. Review of Systems Review of Systems: All systems reviewed & are unremarkable except as noted in HPI and below PMFSH Past Medical History Medical History (Updated 01/30/25 @ 10:39 by Zeb Raza MD) Atrial fibrillation CAD (coronary artery disease) Migraines Irritable bowel syndrome GERD (gastroesophageal reflux disease) Dyslipidemia Surgical History Surgical History H/O hysterectomy for benign disease Status post right mastectomy Family History Family History Father Cerebrovascular accident Skin cancer Mother Cerebrovascular accident Sibling Malignant neoplasm of prostate Social History Social History Smoking status: Never smoker Alcohol intake: current Drinks per week: 1 Alcohol use details: 2 0Z PER EVENING Substance use: never Substance use type: does not use Lack of Transportation: No Lack of Food: Never True Current Housing: I Have Housing Concerned About Future Housing: No Difficulty Paying Gas/Electric Bills: No Difficulty Paying for Meds: No Currently Unemployed: No Education: Bachelor's Degree Difficulty w/ Childcare or Family Care: No Living arrangements: alone Spiritual care concerns: No Meds Home Medications and Allergies Home Medications ?Medication ?Instructions ?Recorded ?Confirmed ?Type propranolol 20 mg tablet 10 mg PO DAILY 12/02/19 01/29/25 History rosuvastatin 10 mg tablet 10 mg PO USEASDIRECTD 12/02/19 01/29/25 History sertraline 50 mg tablet 50 mg PO DAILY 12/02/19 01/29/25 History temazepam 15 mg capsule 15 mg PO HS 12/02/19 01/29/25 History amlodipine 5 mg tablet 2.5 mg PO DAILY 04/14/23 01/29/25 History aspirin 81 mg capsule ([place]) 81 mg PO USEASDIRECTD 04/14/23 01/29/25 History pantoprazole 40 mg tablet,delayed 40 mg PO QAM #30 tabs 04/14/23 01/29/25 Rx release calcium 600 mg (as 1 tablet PO DAILY 01/29/25 01/29/25 History carbonate)-vitamin D3 5 mcg (200 unit) tablet (Calcium 600 + D(3)) magnesium 200 mg tablet 400 mg PO DAILY 01/29/25 01/29/25 History Allergies Allergy/AdvReac Type Severity Reaction Status Date / Time nitroglycerin AdvReac Severe VOMITING,DI Verified 01/30/25 10:01 ZZY,LIGHTHE ADED,CRAMPI NG aspirin AdvReac Intermediate GI UPSET Verified 01/30/25 10:01 Vital Signs Vital Signs - 24 hr 01/29/25 11:39 01/29/25 13:45 01/29/25 16:45 Temperature Pulse Rate 75 96 Respiratory Rate 18 18 Blood Pressure 143/75 H 135/78 162/78 H Pulse Oximetry 100 100 95 Oxygen Delivery 01/29/25 17:31 01/29/25 18:51 01/29/25 18:52 Temperature Pulse Rate 100 98 Respiratory Rate 13 14 Blood Pressure 130/70 Pulse Oximetry 94 97 98 Oxygen Delivery 01/29/25 18:53 01/29/25 19:45 01/29/25 20:00 Temperature 98.1 F Pulse Rate 97 93 92 Respiratory Rate 14 16 Blood Pressure 130/70 139/65 Pulse Oximetry 97 97 Oxygen Delivery 01/29/25 22:00 01/29/25 23:15 01/30/25 00:00 Temperature Pulse Rate 95 86 Respiratory Rate Blood Pressure Pulse Oximetry Oxygen Delivery Room Air 01/30/25 00:00 01/30/25 02:28 01/30/25 03:52 Temperature 97.2 F L Pulse Rate 89 95 Respiratory Rate 16 Blood Pressure 144/66 H Pulse Oximetry 94 Oxygen Delivery Room Air 01/30/25 04:00 01/30/25 04:00 01/30/25 06:00 Temperature 97.7 F Pulse Rate 92 97 98 Respiratory Rate 17 Blood Pressure 152/73 H Pulse Oximetry 93 Oxygen Delivery 01/30/25 08:00 01/30/25 10:02 Temperature 100.1 F H 98.8 F Pulse Rate 101 H 101 H Respiratory Rate 16 20 Blood Pressure 144/88 H 161/68 H Pulse Oximetry 94 97 Oxygen Delivery Room Air Exam Const: General: cooperative and healthy appearing Resp: Effort & Inspection: normal respiratory effort and able to speak in complete sentences Auscultation: clear to auscultation bilaterally Cardio: Rate: regular rate Rhythm: regular rhythm GI: Inspection: normal to inspection GI Palp: No No hepatosplenomegaly present Auscultation: normal bowel sounds Rectal Exam: deferred Skin: General skin exam: normal color Psych: Appearance: grossly normal Mental Status: mental status grossly normal Results Labs 01/30/25 05:06 01/30/25 05:06 Labs: Short CBC 01/29/25 01/30/25 Range/Units 10:34 05:06 WBC 7.6 5.5 (4.5-10.0) K/mm3 Hgb 11.7 L 10.6 L (12.0-15.0) g/dL Hct 34.6 L 32.0 L (37.0-47.0) % Plt Count 163 138 L (150-375) k/mm3 BMP 01/29/25 01/30/25 10:34 05:06 Sodium 134 L 138 Potassium 3.5 3.4 Chloride 104 108 H Carbon Dioxide 26 26 BUN 24 H D 17 Creatinine 0.84 0.74 Glucose 107 105 Calcium 9.5 8.9 Cardiac Enzymes 01/29/25 01/29/25 01/29/25 Range/Units 10:34 13:21 17:05 Total Creatine Kinase 136 H (30-135) U/L Troponin I 0.034 0.036 H* 0.062 H* D (0.000-0.034) ng/mL 01/29/25 Range/Units 20:27 Total Creatine Kinase 151 H (30-135) U/L Troponin I (0.000-0.034) ng/mL Liver Function 01/29/25 01/29/25 Range/Units 10:34 20:27 Total Bilirubin 0.8 0.5 (0.2-1.3) mg/dL Direct Bilirubin 0.0 (0-0.3) mg/dL AST 39 H 55 H (14-36) U/L ALT 31 45 H (6-35) U/L Alkaline Phosphatase 77 66 (38-126) U/L Albumin 3.9 3.4 L (3.5-5.1) g/dL Urine 01/29/25 Range/Units 12:50 Urine Color Yellow (Yellow) Urine Appearance Clear (Clear) Urine pH 7.0 (5.0-9.0) Ur Specific [place] 1.022 (1.001-1.035) Urine Protein Negative (Negative) mg/dL Urine Glucose (UA) Negative (Negative) mg/dL
--- NOTE | 2025-01-30 11:40 | WPDANESEPPF ---
Anes - Initial Pre Proc Eval Procedure: Operation Date: 01/30/25 14:30 Proposed Procedures p Esophagogastroduodenoscopy - Zeb Raza MD Date/Time: 01/30/25 11:40 Surgeon: Pilo Castillo MD Pre Op Diagnosis: Weakness/Elev Troponin Patient Data Age: 84 Gender: F Height: 1.55 m Weight: 45.8 kg Last Vital Signs Temp 98.8 F 01/30/25 10:02 Pulse 101 H 01/30/25 10:02 Resp 20 01/30/25 10:02 BP 161/68 H 01/30/25 10:02 Pulse Ox 97 01/30/25 10:02 O2 Del Method Room Air 01/30/25 10:02 Allergies Allergy/AdvReac Type Severity Reaction Status Date / Time nitroglycerin AdvReac Severe VOMITING,DI Verified 01/30/25 10:01 ZZY,LIGHTHE ADED,CRAMPI NG aspirin AdvReac Intermediate GI UPSET Verified 01/30/25 10:01 Home Medications ?Medication ?Instructions ?Recorded ?Confirmed ?Type propranolol 20 mg tablet 10 mg PO DAILY 12/02/19 01/29/25 History rosuvastatin 10 mg tablet 10 mg PO USEASDIRECTD 12/02/19 01/29/25 History sertraline 50 mg tablet 50 mg PO DAILY 12/02/19 01/29/25 History temazepam 15 mg capsule 15 mg PO HS 12/02/19 01/29/25 History amlodipine 5 mg tablet 2.5 mg PO DAILY 04/14/23 01/29/25 History aspirin 81 mg capsule ([place]) 81 mg PO USEASDIRECTD 04/14/23 01/29/25 History pantoprazole 40 mg tablet,delayed 40 mg PO QAM #30 tabs 04/14/23 01/29/25 Rx release calcium 600 mg (as 1 tablet PO DAILY 01/29/25 01/29/25 History carbonate)-vitamin D3 5 mcg (200 unit) tablet (Calcium 600 + D(3)) magnesium 200 mg tablet 400 mg PO DAILY 01/29/25 01/29/25 History Laboratory Tests 01/29/25 01/29/25 01/29/25 10:34 12:50 13:21 WBC RBC Hgb Hct MCV MCH MCHC RDW Plt Count MPV Immature Gran % (Auto) Neut % (Auto) Lymph % (Auto) Chambers % (Auto) Eos % (Auto) Baso % (Auto) Lymph # (Auto) Chambers # (Auto) Eos # (Auto) Baso # (Auto) Abs Immat Gran (auto) Absolute Neuts (auto) Absolute Nucleated RBC Nucleated RBC % Sodium Potassium Chloride Carbon Dioxide Anion Gap BUN Creatinine Estim Creat Clear Calc Estimated GFR Glucose Calcium Total Bilirubin Direct Bilirubin AST ALT Alkaline Phosphatase Total Creatine Kinase Troponin I 0.034 ng/mL 0.036 H* ng/mL (0.000-0.034) (0.000-0.034) Total Protein Albumin Urine Color Yellow (Yellow) Urine Appearance Clear (Clear) Urine pH 7.0 (5.0-9.0) Ur Specific [place] 1.022 (1.001-1.035) Urine Protein Negative mg/dL (Negative) Urine Glucose (UA) Negative mg/dL (Negative) Urine Ketones 1+ H mg/dL (Negative) Ur Blood (Man) 1+ H (Negative) Urine Nitrate Negative (Negative) Urine Bilirubin Negative (Negative) Urine Urobilinogen 0.2 mg/dL (<2.0) Leukocyte Esterase Rfl Negative TIFFANIE/UL (Negative) Urine RBC 0-2 /hpf (0-2) Urine WBC 0-5 /hpf (0-3) Ur Squamous Epith Cells None seen /hpf (Few) Urine Bacteria None seen /hpf Urine Casts 0-2 01/29/25 01/29/25 01/30/25 17:05 20:27 05:06 WBC 5.5 K/mm3 (4.5-10.0) RBC 3.49 L M/mm3 (4.2-5.4) Hgb 10.6 L g/dL (12.0-15.0) Hct 32.0 L % (37.0-47.0) MCV 91.7 fl (80-100) MCH 30.4 pg (26-34) MCHC 33.1 g/dl (32-36) RDW 12.7 % (11.5-14.5) Plt Count 138 L k/mm3 (150-375) MPV 10.1 fl (7.4-10.4) Immature Gran % (Auto) 0.2 % (0-0.5) Neut % (Auto) 66.8 % (45.5-73.1) Lymph % (Auto) 14.5 L % (18.3-44.2) Chambers % (Auto) 16.1 H % (2.6-8.5) Eos % (Auto) 2.2 % (0-4.4) Baso % (Auto) 0.2 % (0.2-1.2) Lymph # (Auto) 0.80 L K/mm3 (0.9-3.2) Chambers # (Auto) 0.9 H K/mm3 (0.1-0.6) Eos # (Auto) 0.1 K/mm3 (0-0.3) Baso # (Auto) 0.0 K/mm3 (0.0-0.1) Abs Immat Gran (auto) 0.01 K/mm3 (0.00-0.031) Absolute Neuts (auto) 3.7 K/mm3 (1.3-6.7) Absolute Nucleated RBC 0.000 K/mm3 (0.0-0.012) Nucleated RBC % 0.0 % (0.0-0.2) Sodium 138 mmol/L (137-145) Potassium 3.4 mmol/L (3.4-5.0) Chloride 108 H mmol/L (98-107) Carbon Dioxide 26 mmol/L (22-30) Anion Gap 4 mmol/L (4-12) BUN 17 mg/dL (7-17) Creatinine 0.74 mg/dL (0.7-1.0) Estim Creat Clear Calc 35 ml/min Estimated GFR > 60 (59 - ) Glucose 105 mg/dL (65-110) Calcium 8.9 mg/dL (8.4-10.2) Total Bilirubin 0.5 mg/dL (0.2-1.3) Direct Bilirubin 0.0 mg/dL (0-0.3) AST 55 H U/L (14-36) ALT 45 H U/L (6-35) Alkaline Phosphatase 66 U/L (38-126) Total Creatine Kinase 151 H U/L (30-135) Troponin I 0.062 H* D ng/mL (0.000-0.034) Total Protein 6.1 L g/dL (6.3-8.2) Albumin 3.4 L g/dL (3.5-5.1) Urine Color Urine Appearance Urine pH Ur Specific [place] Urine Protein Urine Glucose (UA) Urine Ketones Ur Blood (Man) Urine Nitrate Urine Bilirubin Urine Urobilinogen Leukocyte Esterase Rfl Urine RBC Urine WBC Ur Squamous Epith Cells Urine Bacteria Urine Casts Patient hx anesthesia problems: none Family hx anesthesia problems: none Results Review: All pre-operative results and documents have been reviewed as part of the pre-operative evaluation. [facility] Past Medical History Medical History Atrial fibrillation CAD (coronary artery disease) Migraines Irritable bowel syndrome GERD (gastroesophageal reflux disease) Dyslipidemia Surgical History Surgical History H/O hysterectomy for benign disease Status post right mastectomy Family History Family History Father Cerebrovascular accident Skin cancer Mother Cerebrovascular accident Sibling Malignant neoplasm of prostate Social History Social History Smoking status: Never smoker Alcohol intake: current Drinks per week: 1 Alcohol use details: 2 0Z PER EVENING Substance use: never Substance use type: does not use Lack of Transportation: No Lack of Food: Never True Current Housing: I Have Housing Concerned About Future Housing: No Difficulty Paying Gas/Electric Bills: No Difficulty Paying for Meds: No Currently Unemployed: No Education: Bachelor's Degree Difficulty w/ Childcare or Family Care: No Living arrangements: alone Spiritual care concerns: No Anes - Eval Final PreProcedure Day of Procedure 01/30/25 11:40 Patient weight: normal and thin Lungs: normal air movement Airway: Mallampati scale class II and special considerations (Upper perm plate/partial. ) Neurological: alert and oriented Last oral intake: >/= 8 hours ASA classification: III Emergent: no Anesthetic plan: proceed Anesthesia type and monitoring: general GIVS and standard monitoring Results Review: All pre-operative results and documents have been reviewed as part of the pre-operative evaluation. HTN, hyperlipidemia, hx of afib on flecainide, pt active before admission w walking short distances, no cp or sob. Now w dysphagia/GERD. Informed Consent: The patient's anesthetic plan and its attendant risks and benefits were discussed with the patient/family/POA. Questions were solicited and answers provided to the satisfaction of the patient/family/POA.
--- NOTE | 2025-01-30 11:55 | S_PTH ---
PATIENT: Abril Ramírez LOC: [id number] U#:[id number] AGE/SX: 85/F ROOM: 261 RE02/01/[address]: Hilton Rodgers MD : [id number] BED: 01 DIS: 02/06/2025 SPEC #: [id number] RECD: 01/30/25 13:53 STATUS: EDER JENKINS #: [id number] JAKI: 01/30/25 11:[address]: Zeb Raza DEPT: [facility] RECD BY: Flakita Nelson ENTERED: 01/30/25 13:53 SP TYPE: Surgical OTHR DR: MD Leela Larson, ALFONZO Reynoso MD Tissues: A - Esophageal Biopsy Procedures: Hematoxylin and Eosin Stain Gross and Microscopic Level 4
--- NOTE | 2025-01-30 13:25 | PM.CNCAR ---
Assessment and Plan Assessment and plan (1) Chest pain: Qualifiers: Chest pain type: unspecified Qualified Code(s): R07.9 - Chest pain, unspecified Code(s): R07.9 - Chest pain, unspecified Status: Acute (2) Elevated troponin: Code(s): R79.89 - Other specified abnormal findings of blood chemistry Status: Acute (3) Atrial fibrillation: Code(s): I48.91 - Unspecified atrial fibrillation Status: Acute Plan 84-year-old woman with coronary artery disease, paroxysmal atrial fibrillation, hyperlipidemia and GERD presents with generalized weakness and chest pain Chest pain -unlikely cardiac in etiology -troponin unlikely secondary to plaque rupture -can trend troponin to peak -obtain transthoracic echocardiogram Coronary artery disease -continue aspirin 81 mg p.o. daily and rosuvastatin 10 mg Paroxysmal atrial fibrillation -it is unknown why she is not on anticoagulation however she does follow with her floral department specialist Dr. Mcmullen who can continue to manage her longitudinal cardiac care History of Present Illness History of Present Illness Consult date/time: 01/30/25 13:25 Requesting physician: Julia Sanchez APRN Consult reason: chest pain Reason For Visit: Weakness/Elev Troponin Narrative: 84-year-old woman with coronary artery disease, paroxysmal atrial fibrillation, hyperlipidemia and GERD presents with generalized weakness and chest pain. States that for the last few weeks, she has been having substernal chest discomfort and sensation of something being stuck and acid reflux like symptoms that are particularly most severe when she is eating. She would also take a few bites and immediately have the sensation of feeling full. During his last few weeks, she was able to continue her exercise program without any exertional cardiopulmonary limitations. He has episodes of chest discomfort appear to be correlated fruit consumption. Throughout these last few weeks, she has intermittent episodes where she with feel very lethargic and because of her symptoms she has been having decreased oral intake. Symptom of profound fatigue has worsened over the last few days prompting her to come in for further evaluation. Review of Systems Cardiovascular: Cardiovascular: Reports as per HPI Respiratory: Respiratory: Reports as per HPI [facility] Past Medical History Medical History Atrial fibrillation CAD (coronary artery disease) Migraines Irritable bowel syndrome GERD (gastroesophageal reflux disease) Dyslipidemia Surgical History Surgical History H/O hysterectomy for benign disease Status post right mastectomy Family History Family History Father Cerebrovascular accident Skin cancer Mother Cerebrovascular accident Sibling Malignant neoplasm of prostate Social History Social History Smoking status: Never smoker Alcohol intake: current Drinks per week: 1 Alcohol use details: 2 0Z PER EVENING Substance use: never Substance use type: does not use Lack of Transportation: No Lack of Food: Never True Current Housing: I Have Housing Concerned About Future Housing: No Difficulty Paying Gas/Electric Bills: No Difficulty Paying for Meds: No Currently Unemployed: No Education: Bachelor's Degree Difficulty w/ Childcare or Family Care: No Living arrangements: alone Spiritual care concerns: No Meds Home Medications and Allergies Home Medications ?Medication ?Instructions ?Recorded ?Confirmed ?Type propranolol 20 mg tablet 10 mg PO DAILY 12/02/19 01/29/25 History rosuvastatin 10 mg tablet 10 mg PO USEASDIRECTD 12/02/19 01/29/25 History sertraline 50 mg tablet 50 mg PO DAILY 12/02/19 01/29/25 History temazepam 15 mg capsule 15 mg PO HS 12/02/19 01/29/25 History amlodipine 5 mg tablet 2.5 mg PO DAILY 04/14/23 01/29/25 History aspirin 81 mg capsule ([place]) 81 mg PO USEASDIRECTD 04/14/23 01/29/25 History pantoprazole 40 mg tablet,delayed 40 mg PO QAM #30 tabs 04/14/23 01/29/25 Rx release calcium 600 mg (as 1 tablet PO DAILY 01/29/25 01/29/25 History carbonate)-vitamin D3 5 mcg (200 unit) tablet (Calcium 600 + D(3)) magnesium 200 mg tablet 400 mg PO DAILY 01/29/25 01/29/25 History Allergies Allergy/AdvReac Type Severity Reaction Status Date / Time nitroglycerin AdvReac Severe VOMITING,DI Verified 01/30/25 10:01 ZZY,LIGHTHE ADED,CRAMPI NG aspirin AdvReac Intermediate GI UPSET Verified 01/30/25 10:01 Vital Signs Vital Signs - 24 hr 01/29/25 13:45 01/29/25 16:45 01/29/25 17:31 Temperature Pulse Rate 96 Respiratory Rate 18 Blood Pressure 135/78 162/78 H Pulse Oximetry 100 95 94 Oxygen Delivery 01/29/25 18:51 01/29/25 18:52 01/29/25 18:53 Temperature Pulse Rate 100 98 97 Respiratory Rate 13 14 14 Blood Pressure 130/70 130/70 Pulse Oximetry 97 98 97 Oxygen Delivery 01/29/25 19:45 01/29/25 20:00 01/29/25 22:00 Temperature 36.7 C Pulse Rate 93 92 95 Respiratory Rate 16 Blood Pressure 139/65 Pulse Oximetry 97 Oxygen Delivery 01/29/25 23:15 01/30/25 00:00 01/30/25 00:00 Temperature 36.2 C L Pulse Rate 86 89 Respiratory Rate 16 Blood Pressure 144/66 H Pulse Oximetry 94 Oxygen Delivery Room Air 01/30/25 02:28 01/30/25 03:52 01/30/25 04:00 Temperature Pulse Rate 95 92 Respiratory Rate Blood Pressure Pulse Oximetry Oxygen Delivery Room Air 01/30/25 04:00 01/30/25 06:00 01/30/25 08:00 Temperature 36.5 C 37.8 C H Pulse Rate 97 98 101 H Respiratory Rate 17 16 Blood Pressure 152/73 H 144/88 H Pulse Oximetry 93 94 Oxygen Delivery 01/30/25 08:00 01/30/25 10:02 01/30/25 12:00 Temperature 37.1 C Pulse Rate 106 H 101 H 89 Respiratory Rate 20 30 H Blood Pressure 161/68 H 110/43 L Pulse Oximetry 97 96 Oxygen Delivery Room Air Room Air 01/30/25 12:10 01/30/25 12:20 01/30/25 12:45 Temperature Pulse Rate 92 92 91 Respiratory Rate 18 18 Blood Pressure 117/56 L 149/72 H Pulse Oximetry 96 96 Oxygen Delivery Room Air Room Air Exam Const: General: comfortable HENMT: Mouth: Yes moist mucous membranes Eyes: EOM: EOMs intact bilaterally Neck: Neck: no JVD Resp: Effort & Inspection: normal respiratory effort Auscultation: clear to auscultation bilaterally Cardio: Rate: regular rate Rhythm: regular rhythm Extrem: General: no pedal edema Results Labs and Meds 01/30/25 05:06 01/30/25 05:06 Lab results: Cardiac Enzymes 01/29/25 01/29/25 01/29/25 Range/Units 13:21 17:05 20:27 AST 55 H (14-36) U/L Troponin I 0.036 H* 0.062 H* D (0.000-0.034) ng/mL CBC 01/30/25 Range/Units 05:06 WBC 5.5 (4.5-10.0) K/mm3 RBC 3.49 L (4.2-5.4) M/mm3 Hgb 10.6 L (12.0-15.0) g/dL Hct 32.0 L (37.0-47.0) % Plt Count 138 L (150-375) k/mm3 Lymph # (Auto) 0.80 L (0.9-3.2) K/mm3 [place] # (Auto) 0.9 H (0.1-0.6) K/mm3 Eos # (Auto) 0.1 (0-0.3) K/mm3 Baso # (Auto) 0.0 (0.0-0.1) K/mm3 Comprehensive Metabolic Panel 01/29/25 01/30/25 Range/Units 20:27 05:06 Sodium 138 (137-145) mmol/L Potassium 3.4 (3.4-5.0) mmol/L Chloride 108 H (98-107) mmol/L Carbon Dioxide 26 (22-30) mmol/L BUN 17 (7-17) mg/dL Creatinine 0.74 (0.7-1.0) mg/dL Glucose 105 (65-110) mg/dL Calcium 8.9 (8.4-10.2) mg/dL Direct Bilirubin 0.0 (0-0.3) mg/dL AST 55 H (14-36) U/L ALT 45 H (6-35) U/L Alkaline Phosphatase 66 (38-126) U/L Total Protein 6.1 L (6.3-8.2) g/dL Albumin 3.4 L (3.5-5.1) g/dL Intake and Output 01/29/25 01/30/25 01/30/25 23:59 07:59 15:59 Intake Total 1052.5 0 Output Total 200 Balance 852.5 0 Intake: IV 852.5 0 Lactated Ringers 1,000 ml @ 150 0 mls/hr IV CONT .[id number] [facility] Rx# :[id number] Sodium Chloride 0.9% IV 1,000 852.5 ml @ 75 mls/hr IV CONT .[id number] [facility] Rx#:[id number] Oral 200 Output: Urine 200 Other: # Unmeasured Voids 3 Patient Weight 01/30/25 23:59 Weight 45.8 kg
[2025-01-30 13:47] LABS: Troponin I 0.468 ng/mL (0.000-0.034)
[2025-01-30] MEDS: BELLADONNA ALK/PHENOB ELIX 10 ML, MAG HYDROX/ALUMINUM HYD/SIMETH 30 ML, LIDOCAINE 2% VI... PO (14:30)
--- NOTE | 2025-01-30 17:32 | PM.IMPN2 ---
Assessment and Plan Assessment and Plan (1) Intermittent chest pain: Code(s): R07.9 - Chest pain, unspecified Status: Acute Assessment and Plan: Patient presents with intermittent chest pain that occurs with any p.o. intake. She believes the symptoms are related to her GERD however, her troponins are slightly elevated. Troponins as follows: 0.034, 0.036, 0.062. Pain is intermittent and does not radiate. Chest x-ray with no acute cardiopulmonary process. Patient does have history of CAD but no stent placement. No previous TX. - EKG, initial: Sinus rhythm with incomplete right bundle-branch block - EKG, repeat (1): Sinus rhythm with sinus arrhythmia. Incomplete right bundle branch block - EKG, repeat (2): Sinus tach with occasional PVCs. Right bundle branch block - ASA every Sunday - cardiology consulted, awaiting recs - continue rosuvastatin Sunday - telemetry monitoring (2) GERD (gastroesophageal reflux disease): Qualifiers: Esophagitis presence: esophagitis presence not specified Qualified Code(s): K21.9 - Gastro-esophageal reflux disease without esophagitis Code(s): K21.9 - Gastro-esophageal reflux disease without esophagitis Status: Chronic Assessment and Plan: Patient with a history of GERD presents with ?chest pain? any time she takes p.o. for the past 6 days. Pain is located in the epigastric and midsternal region. Relieved with burping. Did follow with gastroenterology outpatient but has not followed up for the past 2 years. -GI cocktail given -GI consult; plan for EGD on 01/30 -NPO at midnight -patient taking pantoprazole at home (3) Dyslipidemia: Code(s): E78.5 - Hyperlipidemia, unspecified Status: Chronic Assessment and Plan: Continue rosuvastatin (4) Hypertension: Qualifiers: Hypertension type: primary hypertension Qualified Code(s): I10 - Essential (primary) hypertension Code(s): I10 - Essential (primary) hypertension Status: Chronic Assessment and Plan: Continue amlodipine, propranolol Plan 84 y/o female presented to ER with c/o CP and was found to have elevated tropes seen by the tipple engineer does not suspect acute CAD most likely demand ischemia, possibly GI issue, patient was seen by the GI and had which showed patient has esophagitis and hiatal hernia possibly GERD causing her pain, started patient on Protonix 40mg BID, will monitor. Diet: Heart healthy-NPO at [place] DVT prophylaxis: Lovenox lines/drains: PIV Fluids: 1 L bolus-NS at 75 Code status: Full Subjective Date/time seen: 01/30/25 17:32 Interval history: Weakness and decreased appetite H&P-Narrative: 84 y/o female with a PMH of GERD, afib, and CAD presents to the ED on 01/29/2025 with complaints of generalized weakness and poor p.o. intake. Patient states this began about 6 days ago when she felt like she was fighting something viral off, but denies having any fevers or chills. She describes feeling exhausted during the same timeframe to the point where she has to lay back down after doing light housework. Patient describes having chest pain intermittently over the past 6 days as well. She states this pain is in the epigastric and midsternal region rated 8/10 pain every time she eats or drinks, leading to decreased intake. Burping helps relieve the pain. Denies shortness of breath, radiating pain, diaphoresis, nausea, vomiting. Patient did have an outpatient certified rehabilitation counselor but has not followed up for about 2 years. Patient further endorses 3 episodes of diarrhea yesterday. Patient has chronic constipation. PMH: GERD, AFib, CAD, hyperlipidemia, IBS, migraines, breast cancer status post right mastectomy 84 y/o female presented to ER with c/o CP and was found to have elevated tropes seen by the tipple engineer does not suspect acute CAD most likely demand ischemia, possibly GI issue, patient was seen by the GI and had which showed patient has esophagitis and hiatal hernia possibly GERD causing her pain, started patient on Protonix 40mg BID, will monitor. Review of Systems Review of Systems: All systems reviewed & are unremarkable except as noted in HPI and below Exam Narrative: Patient is comfortable, NAD HEENT: eyes are clear and none icteric LUNGS:CTA HEART: RR S1S2 ABD: BS+, Soft and nontender Lower extremities: no edema SKIN: nonjaundiced Neuro: grossly intact. Objective Data Vital Signs Vital Signs: Vital Signs - 24 hr 01/29/25 18:51 01/29/25 18:52 01/29/25 18:53 Temperature Pulse Rate 100 98 97 Respiratory Rate 13 14 14 Blood Pressure 130/70 130/70 Pulse Oximetry 97 98 97 Oxygen Delivery 01/29/25 19:45 01/29/25 20:00 01/29/25 22:00 Temperature 36.7 C Pulse Rate 93 92 95 Respiratory Rate 16 Blood Pressure 139/65 Pulse Oximetry 97 Oxygen Delivery 01/29/25 23:15 01/30/25 00:00 01/30/25 00:00 Temperature 36.2 C L Pulse Rate 86 89 Respiratory Rate 16 Blood Pressure 144/66 H Pulse Oximetry 94 Oxygen Delivery Room Air 01/30/25 02:28 01/30/25 03:52 01/30/25 04:00 Temperature Pulse Rate 95 92 Respiratory Rate Blood Pressure Pulse Oximetry Oxygen Delivery Room Air 01/30/25 04:00 01/30/25 06:00 01/30/25 08:00 Temperature 36.5 C 37.8 C H Pulse Rate 97 98 101 H Respiratory Rate 17 16 Blood Pressure 152/73 H 144/88 H Pulse Oximetry 93 94 Oxygen Delivery 01/30/25 08:00 01/30/25 10:02 01/30/25 12:00 Temperature 37.1 C Pulse Rate 106 H 101 H 89 Respiratory Rate 20 30 H Blood Pressure 161/68 H 110/43 L Pulse Oximetry 97 96 Oxygen Delivery Room Air Room Air 01/30/25 12:10 01/30/25 12:20 01/30/25 12:45 Temperature Pulse Rate 92 92 91 Respiratory Rate 18 18 Blood Pressure 117/56 L 149/72 H Pulse Oximetry 96 96 Oxygen Delivery Room Air Room Air 01/30/25 14:00 01/30/25 15:16 Temperature 37.6 C Pulse Rate 87 96 Respiratory Rate 18 Blood Pressure 142/74 H Pulse Oximetry 96 Oxygen Delivery Intake/Output Intake/Output: Intake & Output 01/27/25 01/28/25 01/29/25 01/30/25 23:59 23:59 23:59 23:59 Intake Total 1000 1232.5 Output Total 200 Balance 1000 1032.5 Meds/Results Medications: Active Medications Generic Name Dose Route Start Last Admin Trade Name Freq PRN Reason Stop Dose Admin Acetaminophen 650 mg 01/29/25 14:55 01/29/25 21:01 Acetaminophen 325 Mg Tablet PO 650 mg Q4H PRN Administration Mild Pain (1-3) or Fever Dextrose 12.5 gm 01/29/25 14:55 Dextrose 50% 25 Gm/50 Ml Syringe IV PUSH PRN PRN Hypoglycemia Protocol Enoxaparin Sodium 40 mg 01/29/25 21:00 01/29/25 20:58 Enoxaparin 40 Mg/0.4 Ml Syringe SUB-Q 40 mg HS ROBI Administration Glucagon 1 mg 01/29/25 14:55 Glucagon For Inj 1 Mg Vial IM PRN PRN Hypoglycemia Protocol Glucose 15 gm 01/29/25 14:55 Glucose Oral Gel 15 Gm Of Glucse In 37.5 Gm Tube PO PRN PRN Hypoglycemia Protocol Sodium Chloride 1,000 mls @ 75 mls/hr 01/29/25 14:55 01/30/25 03:35 Normal Saline Iv IV CONT 75 mls/hr .[id number] ROBI Administration Dextrose 1,000 mls @ 100 mls/hr 01/29/25 14:55 Dextrose 5% 1,000 Ml IVPB PRN PRN Hypoglycemia Protocol Lactated Ringer's 1,000 mls @ 150 mls/hr 01/30/25 10:05 01/30/25 12:55 Lr - Lactated Ringers Iv IV CONT Not Given .[id number] ROBI Lidocaine 1 patch 01/30/25 09:00 01/30/25 09:04 Lidocaine 5% Patch TRANSDERM 1 patch DAILY ROBI Administration Ondansetron HCl 4 mg 01/29/25 14:55 Ondansetron Inj 4 Mg/2 Ml Vial IV PUSH Q4H PRN Nausea Pantoprazole Sodium 40 mg 01/30/25 21:00 Pantoprazole 40 Mg Tablet PO Q12HR [facility] Perflutren Lipid Microsphere 0 ml 01/30/25 09:43 Perflutren Lipid Microspheres 1.5 Ml Vial Diluted To 10 Ml Total Volume IV PUSH 02/02/25 09:43 ONCE PRN adequate visualization Protocol Polyethylene Glycol 17 gm 01/31/25 09:00 Polyethylene Glycol 3350 17 Gm Powd.Pack PO QAM [facility] Radiology Results: ITS Impressions Chest X-Ray 01/29/25 10:37 IMPRESSION: 1. No acute cardiopulmonary findings. Head CT 01/29/25 12:09 IMPRESSION: 1. No acute intracranial findings. Abdomen/Pelvis CT 01/29/25 12:23 IMPRESSION: 1. Mild intrahepatic ductal or ductal dilation normal gallbladder without evident cholelithiasis and without evident dilation of the common bile duct. Correlate with liver function tests. 2. Moderate sigmoid diverticulosis. Labs Labs: Laboratory Results - last 24 hr 01/29/25 01/29/25 01/30/25 17:05 20:27 05:06 WBC 5.5 RBC 3.49 L Hgb 10.6 L Hct 32.0 L MCV 91.7 MCH 30.4 MCHC 33.1 RDW 12.7 Plt Count 138 L MPV 10.1 Immature Gran % (Auto) 0.2 Neut % (Auto) 66.8 Lymph % (Auto) 14.5 L Wall[place] % (Auto) 16.1 H Eos % (Auto) 2.2 Baso % (Auto) 0.2 Lymph # (Auto) 0.80 L [place] # (Auto) 0.9 H Eos # (Auto) 0.1 Baso # (Auto) 0.0 Abs Immat Gran (auto) 0.01 Absolute Neuts (auto) 3.7 Absolute Nucleated RBC 0.000 Nucleated RBC % 0.0 Sodium 138 Potassium 3.4 Chloride 108 H Carbon Dioxide 26 Anion Gap 4 BUN 17 Creatinine 0.74 Estim Creat Clear Calc 35 Estimated GFR > 60 Glucose 105 Calcium 8.9 Total Bilirubin 0.5 Direct Bilirubin 0.0 AST 55 H ALT 45 H Alkaline Phosphatase 66 Total Creatine Kinase 151 H Troponin I 0.062 H* D Total Protein 6.1 L Albumin 3.4 L 01/30/25 12:56 WBC RBC Hgb Hct MCV MCH MCHC RDW Plt Count MPV Immature Gran % (Auto) Neut % (Auto) Lymph % (Auto) [place] % (Auto) Eos % (Auto) Baso % (Auto) Lymph # (Auto) [place] # (Auto) Eos # (Auto) Baso # (Auto) Abs Immat Gran (auto) Absolute Neuts (auto) Absolute Nucleated RBC Nucleated RBC % Sodium Potassium Chloride Carbon Dioxide Anion Gap BUN Creatinine Estim Creat Clear Calc Estimated GFR Glucose Calcium Total Bilirubin Direct Bilirubin AST ALT Alkaline Phosphatase Total Creatine Kinase Troponin I 0.468 H* Total Protein Albumin
[2025-01-30 20:32] LABS: Troponin I 0.227 ng/mL (0.000-0.034)
[2025-01-30] MEDS: TEMAZEPAM (*CRX) 15 MG CAPSULE PO (21:06)
[2025-01-30] MEDS: DOCUSATE SODIUM 100 MG CAPSULE PO (21:06)
[2025-01-30] MEDS: PANTOPRAZOLE 40 MG TABLET PO (21:06)
[2025-01-30] MEDS: ENOXAPARIN 40 MG/0.4 ML SYRINGE SUB-Q (21:09)
[2025-01-31] VITALS: BP 145/67; PULSE 90; PULSE 99; RESP 15; TEMP 37.1; O2SAT 90
[2025-01-31 04:00] VITALS: PULSE 109
[2025-01-31 08:00] VITALS: BP 139/58; PULSE 105; PULSE 98; RESP 18; TEMP 37.3; O2SAT 96
[2025-01-31] MEDS: PANTOPRAZOLE 40 MG TABLET PO ×2 (08:38→21:16)
[2025-01-31] MEDS: LIDOCAINE 5% PATCH 1 PATCH TRANSDERM (08:38)
[2025-01-31] MEDS: DOCUSATE SODIUM 100 MG CAPSULE PO (08:38)
--- NOTE | 2025-01-31 09:44 | WPDGIPROGNO ---
Progress Note: A&P Assessment and Plan (1) Odynophagia: Code(s): R13.10 - Dysphagia, unspecified Status: Acute Assessment and Plan: no major findings mild esophagitis, continue ppi daily no objections to discharge by gi standpoint she can follow-up in office (2) GERD (gastroesophageal reflux disease): Qualifiers: Esophagitis presence: esophagitis presence not specified Qualified Code(s): K21.9 - Gastro-esophageal reflux disease without esophagitis Code(s): K21.9 - Gastro-esophageal reflux disease without esophagitis Status: Chronic (3) Atrial fibrillation: Code(s): I48.91 - Unspecified atrial fibrillation Status: Acute (4) CAD (coronary artery disease): Code(s): I25.10 - Atherosclerotic heart disease of [place] coronary artery without angina pectoris Status: Acute (5) Intermittent chest pain: Code(s): R07.9 - Chest pain, unspecified Status: Acute Assessment and Plan: cardiology on board less pain today (6) Generalized weakness: Code(s): R53.1 - Weakness Status: Acute Subjective Date/time seen: 01/31/25 09:44 Interval history: egd yesterday only small size hiatal hernia and mild esophagitis, no major findings feeling better today just generalized weakness since Thanksgiving Review of Systems Review of Systems: All systems reviewed & are unremarkable except as noted in HPI and below Exam Const: General: comfortable and no acute distress HENMT: Face/Nose/Sinus: Normal nares present Eyes: General: appearance normal, both eyes and all related structures Neck: Neck: supple Resp: Auscultation: clear to auscultation bilaterally Cardio: Rate: regular rate Rhythm: regular rhythm GI: Inspection: non-distended GI Palp: Yes Soft to palpation and No Tenderness to palpation present (GI) Skin: General skin exam: normal color Neuro: Speech: normal speech Extrem: General: normal to inspection Psych: Mental Status: mental status grossly normal Objective Data Vital Signs Vital Signs: Vital Signs - 24 hr 01/30/25 10:02 01/30/25 12:00 01/30/25 12:10 Temperature 98.8 F Pulse Rate 101 H 89 92 Respiratory Rate 20 30 H 18 Blood Pressure 161/68 H 110/43 L 117/56 L Pulse Oximetry 97 96 96 Oxygen Delivery Room Air Room Air Room Air 01/30/25 12:20 01/30/25 12:45 01/30/25 14:00 Temperature Pulse Rate 92 91 87 Respiratory Rate 18 Blood Pressure 149/72 H Pulse Oximetry 96 Oxygen Delivery Room Air 01/30/25 15:16 01/30/25 16:00 01/30/25 18:00 Temperature 99.6 F Pulse Rate 96 100 102 H Respiratory Rate 18 Blood Pressure 142/74 H Pulse Oximetry 96 Oxygen Delivery 01/30/25 19:50 01/30/25 20:00 01/30/25 20:00 Temperature 99.1 F Pulse Rate 97 97 Respiratory Rate 15 Blood Pressure 148/75 H Pulse Oximetry 94 Oxygen Delivery Room Air 01/30/25 22:00 01/31/25 00:00 01/31/25 00:00 Temperature 98.8 F Pulse Rate 102 H 90 99 Respiratory Rate 15 Blood Pressure 145/67 H Pulse Oximetry 90 Oxygen Delivery 01/31/25 04:00 01/31/25 08:00 Temperature 99.1 F Pulse Rate 109 H 105 H Respiratory Rate 18 Blood Pressure 139/58 L Pulse Oximetry 96 Oxygen Delivery Intake/Output Intake/Output: Intake & Output 01/28/25 01/29/25 01/30/25 01/31/25 23:59 23:59 23:59 23:59 Intake Total 1000 2332.5 270 Output Total 200 Balance 1000 2132.5 270 Meds/Results Medications: Active Medications Generic Name Dose Route Start Last Admin Trade Name Freq PRN Reason Stop Dose Admin Acetaminophen 650 mg 01/29/25 14:55 01/29/25 21:01 Acetaminophen 325 Mg Tablet PO 650 mg Q4H PRN Administration Mild Pain (1-3) or Fever Dextrose 12.5 gm 01/29/25 14:55 Dextrose 50% 25 Gm/50 Ml Syringe IV PUSH PRN PRN Hypoglycemia Protocol Docusate Sodium 100 mg 01/30/25 21:00 01/31/25 08:38 Docusate Sodium 100 Mg Capsule PO 100 mg Q12HR ROBI Administration Enoxaparin Sodium 40 mg 01/29/25 21:00 01/30/25 21:09 Enoxaparin 40 Mg/0.4 Ml Syringe SUB-Q 40 mg HS ROBI Administration Glucagon 1 mg 01/29/25 14:55 Glucagon For Inj 1 Mg Vial IM PRN PRN Hypoglycemia Protocol Glucose 15 gm 01/29/25 14:55 Glucose Oral Gel 15 Gm Of Glucse In 37.5 Gm Tube PO PRN PRN Hypoglycemia Protocol Sodium Chloride 1,000 mls @ 75 mls/hr 01/29/25 14:55 01/30/25 21:08 Normal Saline Iv IV CONT 75 mls/hr .[id number] ROBI Administration Dextrose 1,000 mls @ 100 mls/hr 01/29/25 14:55 Dextrose 5% 1,000 Ml IVPB PRN PRN Hypoglycemia Protocol Lactated Ringer's 1,000 mls @ 150 mls/hr 01/30/25 10:05 01/30/25 12:55 Lr - Lactated Ringers Iv IV CONT Not Given .[id number] ROBI Lidocaine 1 patch 01/30/25 09:00 01/31/25 08:38 Lidocaine 5% Patch TRANSDERM 1 patch DAILY ROBI Administration Ondansetron HCl 4 mg 01/29/25 14:55 Ondansetron Inj 4 Mg/2 Ml Vial IV PUSH Q4H PRN Nausea Pantoprazole Sodium 40 mg 01/30/25 21:00 01/31/25 08:38 Pantoprazole 40 Mg Tablet PO 40 mg Q12HR ROBI Administration Perflutren Lipid Microsphere 0 ml 01/30/25 09:43 Perflutren Lipid Microspheres 1.5 Ml Vial Diluted To 10 Ml Total Volume IV PUSH 02/02/25 09:43 ONCE PRN adequate visualization Protocol Polyethylene Glycol 17 gm 01/31/25 09:00 01/31/25 08:37 Polyethylene Glycol 3350 17 Gm Powd.Pack PO 17 gm QAM ROBI Administration Temazepam 15 mg 01/30/25 17:57 01/30/25 21:06 Temazepam (*Crx) 15 Mg Capsule PO 15 mg HS PRN Administration Insomnia Radiology Results: ITS Impressions Chest X-Ray 01/29/25 10:37 IMPRESSION: 1. No acute cardiopulmonary findings. Head CT 01/29/25 12:09 IMPRESSION: 1. No acute intracranial findings. Abdomen/Pelvis CT 01/29/25 12:23 IMPRESSION: 1. Mild intrahepatic ductal or ductal dilation normal gallbladder without evident cholelithiasis and without evident dilation of the common bile duct. Correlate with liver function tests. 2. Moderate sigmoid diverticulosis. Labs Labs: Laboratory Results - last 24 hr 01/30/25 01/30/25 12:56 20:01 Troponin I 0.468 H* 0.227 H* D
--- NOTE | 2025-01-31 09:56 | PC.NURSE ---
On 01/31/25, the student, [Chen Allred ], provided care and completed [facility] documentation on this patient. I have reviewed the student's documentation and agree with the findings.
[2025-01-31] MEDS: SODIUM CHLORIDE 0.9% IV 1,000 ML 75 ML IV CONT (11:21)
--- NOTE | 2025-01-31 11:50 | PM.PNCARD ---
Progress Note: A&P Assessment and Plan (1) Elevated troponin: Code(s): R79.89 - Other specified abnormal findings of blood chemistry Status: Acute Plan Non cardiac chest pain precipitated by eating and drinking Elevated trop possible demand ischemia but obvious cause Paroxysmal atrial fibrillation currently in NSR Plan consider CAD work up with stress test vs cath since trop elevation cant be explained PPI ASA 81 mg daily Statin Amlodipine Subjective Date/time seen: 01/31/25 11:50 Interval history: f/u elevated troponin no acute events tele: NSR with PVCs Review of Systems Review of Systems: All systems reviewed & are unremarkable except as noted in HPI and below Exam Const: General: comfortable HENMT: Mouth: Yes moist mucous membranes Eyes: EOM: EOMs intact bilaterally Neck: Neck: no JVD Resp: Effort & Inspection: normal respiratory effort Auscultation: clear to auscultation bilaterally Cardio: Rate: regular rate Rhythm: regular rhythm Extrem: General: no pedal edema Objective Data Vital Signs Vital Signs: Vital Signs - 24 hr 01/30/25 12:00 01/30/25 12:10 01/30/25 12:20 Temperature Pulse Rate 89 92 92 Respiratory Rate 30 H 18 18 Blood Pressure 110/43 L 117/56 L 149/72 H Pulse Oximetry 96 96 96 Oxygen Delivery Room Air Room Air Room Air 01/30/25 12:45 01/30/25 14:00 01/30/25 15:16 Temperature 37.6 C Pulse Rate 91 87 96 Respiratory Rate 18 Blood Pressure 142/74 H Pulse Oximetry 96 Oxygen Delivery 01/30/25 16:00 01/30/25 18:00 01/30/25 19:50 Temperature Pulse Rate 100 102 H Respiratory Rate Blood Pressure Pulse Oximetry Oxygen Delivery Room Air 01/30/25 20:00 01/30/25 20:00 01/30/25 22:00 Temperature 37.3 C Pulse Rate 97 97 102 H Respiratory Rate 15 Blood Pressure 148/75 H Pulse Oximetry 94 Oxygen Delivery 01/31/25 00:00 01/31/25 00:00 01/31/25 04:00 Temperature 37.1 C Pulse Rate 90 99 109 H Respiratory Rate 15 Blood Pressure 145/67 H Pulse Oximetry 90 Oxygen Delivery 01/31/25 08:00 01/31/25 08:00 01/31/25 08:00 Temperature 37.3 C Pulse Rate 105 H 98 Respiratory Rate 18 Blood Pressure 139/58 L Pulse Oximetry 96 96 Oxygen Delivery Room Air Intake/Output Intake/Output: Intake & Output 01/28/25 01/29/25 01/30/25 01/31/25 23:59 23:59 23:59 23:59 Intake Total 1000 2332.5 1270 Output Total 200 Balance 1000 2132.5 1270 Meds/Results Medications: Active Medications Generic Name Dose Route Start Last Admin Trade Name Freq PRN Reason Stop Dose Admin Acetaminophen 650 mg 01/29/25 14:55 01/29/25 21:01 Acetaminophen 325 Mg Tablet PO 650 mg Q4H PRN Administration Mild Pain (1-3) or Fever Dextrose 12.5 gm 01/29/25 14:55 Dextrose 50% 25 Gm/50 Ml Syringe IV PUSH PRN PRN Hypoglycemia Protocol Docusate Sodium 100 mg 01/30/25 21:00 01/31/25 08:38 Docusate Sodium 100 Mg Capsule PO 100 mg Q12HR ROBI Administration Enoxaparin Sodium 40 mg 01/29/25 21:00 01/30/25 21:09 Enoxaparin 40 Mg/0.4 Ml Syringe SUB-Q 40 mg HS ROBI Administration Glucagon 1 mg 01/29/25 14:55 Glucagon For Inj 1 Mg Vial IM PRN PRN Hypoglycemia Protocol Glucose 15 gm 01/29/25 14:55 Glucose Oral Gel 15 Gm Of Glucse In 37.5 Gm Tube PO PRN PRN Hypoglycemia Protocol Sodium Chloride 1,000 mls @ 75 mls/hr 01/29/25 14:55 01/31/25 11:21 Normal Saline Iv IV CONT 75 mls/hr .[id number] ROBI Administration Dextrose 1,000 mls @ 100 mls/hr 01/29/25 14:55 Dextrose 5% 1,000 Ml IVPB PRN PRN Hypoglycemia Protocol Lactated Ringer's 1,000 mls @ 150 mls/hr 01/30/25 10:05 01/30/25 12:55 Lr - Lactated Ringers Iv IV CONT Not Given .Q6H40M ROBI Lidocaine 1 patch 01/30/25 09:00 01/31/25 08:38 Lidocaine 5% Patch TRANSDERM 1 patch DAILY ROBI Administration Ondansetron HCl 4 mg 01/29/25 14:55 Ondansetron Inj 4 Mg/2 Ml Vial IV PUSH Q4H PRN Nausea Pantoprazole Sodium 40 mg 01/30/25 21:00 01/31/25 08:38 Pantoprazole 40 Mg Tablet PO 40 mg Q12HR ROBI Administration Perflutren Lipid Microsphere 0 ml 01/30/25 09:43 Perflutren Lipid Microspheres 1.5 Ml Vial Diluted To 10 Ml Total Volume IV PUSH 02/02/25 09:43 ONCE PRN adequate visualization Protocol Polyethylene Glycol 17 gm 01/31/25 09:00 01/31/25 08:37 Polyethylene Glycol 3350 17 Gm Powd.Pack PO 17 gm QAM ROBI Administration Temazepam 15 mg 01/30/25 17:57 01/30/25 21:06 Temazepam (*Crx) 15 Mg Capsule PO 15 mg HS PRN Administration Insomnia Radiology Results: ITS Impressions Chest X-Ray 01/29/25 10:37 IMPRESSION: 1. No acute cardiopulmonary findings. Head CT 01/29/25 12:09 IMPRESSION: 1. No acute intracranial findings. Abdomen/Pelvis CT 01/29/25 12:23 IMPRESSION: 1. Mild intrahepatic ductal or ductal dilation normal gallbladder without evident cholelithiasis and without evident dilation of the common bile duct. Correlate with liver function tests. 2. Moderate sigmoid diverticulosis. Labs Labs: Laboratory Results - last 24 hr 01/30/25 01/30/25 12:56 20:01 Troponin I 0.468 H* 0.227 H* D
[2025-01-31 12:00] VITALS: PULSE 106
[2025-01-31 16:00] VITALS: BP 155/73; PULSE 90; PULSE 97; RESP 18; TEMP 36.8; O2SAT 96
--- NOTE | 2025-01-31 18:02 | PM.IMPN2 ---
Assessment and Plan Assessment and Plan (1) Intermittent chest pain: Code(s): R07.9 - Chest pain, unspecified Status: Acute Assessment and Plan: Patient presents with intermittent chest pain that occurs with any p.o. intake. She believes the symptoms are related to her GERD however, her troponins are slightly elevated. Troponins as follows: 0.034, 0.036, 0.062. Pain is intermittent and does not radiate. Chest x-ray with no acute cardiopulmonary process. Patient does have history of CAD but no stent placement. No previous MO. - EKG, initial: Sinus rhythm with incomplete right bundle-branch block - EKG, repeat (1): Sinus rhythm with sinus arrhythmia. Incomplete right bundle branch block - EKG, repeat (2): Sinus tach with occasional PVCs. Right bundle branch block - ASA every Sunday - cardiology consulted, awaiting recs - continue rosuvastatin Sunday - telemetry monitoring (2) GERD (gastroesophageal reflux disease): Qualifiers: Esophagitis presence: esophagitis presence not specified Qualified Code(s): K21.9 - Gastro-esophageal reflux disease without esophagitis Code(s): K21.9 - Gastro-esophageal reflux disease without esophagitis Status: Chronic Assessment and Plan: Patient with a history of GERD presents with ?chest pain? any time she takes p.o. for the past 6 days. Pain is located in the epigastric and midsternal region. Relieved with burping. Did follow with gastroenterology outpatient but has not followed up for the past 2 years. -GI cocktail given -GI consult; plan for EGD on 01/30 -NPO at midnight -patient taking pantoprazole at home (3) Dyslipidemia: Code(s): E78.5 - Hyperlipidemia, unspecified Status: Chronic Assessment and Plan: Continue rosuvastatin (4) Hypertension: Qualifiers: Hypertension type: primary hypertension Qualified Code(s): I10 - Essential (primary) hypertension Code(s): I10 - Essential (primary) hypertension Status: Chronic Assessment and Plan: Continue amlodipine, propranolol Plan 84 y/o female presented to ER with c/o CP and was found to have elevated tropes seen by the quantitative manager does not suspect acute CAD most likely demand ischemia, possibly GI issue, patient was seen by the GI and had which showed patient has esophagitis and hiatal hernia possibly GERD causing her pain, started patient on Protonix 40mg BID, will monitor. today patient stats feels tired, will have PT/OT evaluate the patient and further recommendation to follow, patient may benefit going to rehab. Diet: Heart healthy-NPO at [place] DVT prophylaxis: Lovenox lines/drains: PIV Fluids: 1 L bolus-NS at 75 Code status: Full Subjective Date/time seen: 01/31/25 18:02 Interval history: Weakness and decreased appetite H&P-Narrative: 84 y/o female with a PMH of GERD, afib, and CAD presents to the ED on 01/29/2025 with complaints of generalized weakness and poor p.o. intake. Patient states this began about 6 days ago when she felt like she was fighting something viral off, but denies having any fevers or chills. She describes feeling exhausted during the same timeframe to the point where she has to lay back down after doing light housework. Patient describes having chest pain intermittently over the past 6 days as well. She states this pain is in the epigastric and midsternal region rated 8/10 pain every time she eats or drinks, leading to decreased intake. Burping helps relieve the pain. Denies shortness of breath, radiating pain, diaphoresis, nausea, vomiting. Patient did have an outpatient contracting officer but has not followed up for about 2 years. Patient further endorses 3 episodes of diarrhea yesterday. Patient has chronic constipation. PMH: GERD, AFib, CAD, hyperlipidemia, IBS, migraines, breast cancer status post right mastectomy 84 y/o female presented to ER with c/o CP and was found to have elevated tropes seen by the quantitative manager does not suspect acute CAD most likely demand ischemia, possibly GI issue, patient was seen by the GI and had which showed patient has esophagitis and hiatal hernia possibly GERD causing her pain, started patient on Protonix 40mg BID, will monitor. today patient stats feels tired, will have PT/OT evaluate the patient and further recommendation to follow, patient may benefit going to rehab. Review of Systems Review of Systems: All systems reviewed & are unremarkable except as noted in HPI and below Exam Narrative: Patient is comfortable, NAD HEENT: eyes are clear and none icteric LUNGS:CTA HEART: RR S1S2 ABD: BS+, Soft and nontender Lower extremities: no edema SKIN: nonjaundiced Neuro: grossly intact. Objective Data Vital Signs Vital Signs: Vital Signs - 24 hr 01/30/25 19:50 01/30/25 20:00 01/30/25 20:00 Temperature 37.3 C Pulse Rate 97 97 Respiratory Rate 15 Blood Pressure 148/75 H Pulse Oximetry 94 Oxygen Delivery Room Air 01/30/25 22:00 01/31/25 00:00 01/31/25 00:00 Temperature 37.1 C Pulse Rate 102 H 90 99 Respiratory Rate 15 Blood Pressure 145/67 H Pulse Oximetry 90 Oxygen Delivery 01/31/25 04:00 01/31/25 08:00 01/31/25 08:00 Temperature 37.3 C Pulse Rate 109 H 105 H 98 Respiratory Rate 18 Blood Pressure 139/58 L Pulse Oximetry 96 Oxygen Delivery 01/31/25 08:00 01/31/25 12:00 01/31/25 16:00 Temperature 36.8 C Pulse Rate 106 H 90 Respiratory Rate 18 Blood Pressure 155/73 H Pulse Oximetry 96 96 Oxygen Delivery Room Air 01/31/25 16:00 Temperature Pulse Rate 97 Respiratory Rate Blood Pressure Pulse Oximetry Oxygen Delivery Intake/Output Intake/Output: Intake & Output 01/28/25 01/29/25 01/30/25 01/31/25 23:59 23:59 23:59 23:59 Intake Total 1000 2332.5 1495 Output Total 200 Balance 1000 2132.5 1495 Meds/Results Medications: Active Medications Generic Name Dose Route Start Last Admin Trade Name Freq PRN Reason Stop Dose Admin Acetaminophen 650 mg 01/29/25 14:55 01/29/25 21:01 Acetaminophen 325 Mg Tablet PO 650 mg Q4H PRN Administration Mild Pain (1-3) or Fever Dextrose 12.5 gm 01/29/25 14:55 Dextrose 50% 25 Gm/50 Ml Syringe IV PUSH PRN PRN Hypoglycemia Protocol Docusate Sodium 100 mg 01/30/25 21:00 01/31/25 08:38 Docusate Sodium 100 Mg Capsule PO 100 mg Q12HR ROBI Administration Enoxaparin Sodium 40 mg 01/29/25 21:00 01/30/25 21:09 Enoxaparin 40 Mg/0.4 Ml Syringe SUB-Q 40 mg HS ROBI Administration Glucagon 1 mg 01/29/25 14:55 Glucagon For Inj 1 Mg Vial IM PRN PRN Hypoglycemia Protocol Glucose 15 gm 01/29/25 14:55 Glucose Oral Gel 15 Gm Of Glucse In 37.5 Gm Tube PO PRN PRN Hypoglycemia Protocol Sodium Chloride 1,000 mls @ 75 mls/hr 01/29/25 14:55 01/31/25 11:21 Normal Saline Iv IV CONT 75 mls/hr .[id number] ROBI Administration Dextrose 1,000 mls @ 100 mls/hr 01/29/25 14:55 Dextrose 5% 1,000 Ml IVPB PRN PRN Hypoglycemia Protocol Lactated Ringer's 1,000 mls @ 150 mls/hr 01/30/25 10:05 01/30/25 12:55 Lr - Lactated Ringers Iv IV CONT Not Given .[id number] ROBI Lidocaine 1 patch 01/30/25 09:00 01/31/25 08:38 Lidocaine 5% Patch TRANSDERM 1 patch DAILY ROBI Administration Ondansetron HCl 4 mg 01/29/25 14:55 Ondansetron Inj 4 Mg/2 Ml Vial IV PUSH Q4H PRN Nausea Pantoprazole Sodium 40 mg 01/30/25 21:00 01/31/25 08:38 Pantoprazole 40 Mg Tablet PO 40 mg Q12HR ROBI Administration Perflutren Lipid Microsphere 0 ml 01/30/25 09:43 Perflutren Lipid Microspheres 1.5 Ml Vial Diluted To 10 Ml Total Volume IV PUSH 02/02/25 09:43 ONCE PRN adequate visualization Protocol Polyethylene Glycol 17 gm 01/31/25 09:00 01/31/25 08:37 Polyethylene Glycol 3350 17 Gm Powd.Pack PO 17 gm QAM ROBI Administration Temazepam 15 mg 01/30/25 17:57 01/30/25 21:06 Temazepam (*Crx) 15 Mg Capsule PO 15 mg HS PRN Administration Insomnia Radiology Results: ITS Impressions Chest X-Ray 01/29/25 10:37 IMPRESSION: 1. No acute cardiopulmonary findings. Head CT 01/29/25 12:09 IMPRESSION: 1. No acute intracranial findings. Abdomen/Pelvis CT 01/29/25 12:23 IMPRESSION: 1. Mild intrahepatic ductal or ductal dilation normal gallbladder without evident cholelithiasis and without evident dilation of the common bile duct. Correlate with liver function tests. 2. Moderate sigmoid diverticulosis. Labs Labs: Laboratory Results - last 24 hr 01/30/25 20:01 Troponin I 0.227 H* D
[2025-01-31 20:00] VITALS: BP 155/79; PULSE 86; PULSE 99; RESP 20; TEMP 36.4; O2SAT 98
[2025-01-31] MEDS: ENOXAPARIN 40 MG/0.4 ML SYRINGE SUB-Q (21:16)
[2025-01-31] MEDS: TEMAZEPAM (*CRX) 15 MG CAPSULE PO (21:16)
[2025-02-01] VITALS (7 sets, daily range): BP systolic 142–159; BP diastolic 74–80; PULSE 87–103; RESP 15–17; TEMP 36.6–37.7; O2SAT 95–97
[2025-02-01] MEDS: SODIUM CHLORIDE 0.9% IV 1,000 ML 75 ML IV CONT ×2 (04:27→21:47)
[2025-02-01] MEDS: LIDOCAINE 5% PATCH 1 PATCH TRANSDERM (08:40)
[2025-02-01] MEDS: PANTOPRAZOLE 40 MG TABLET PO ×2 (08:40→21:46)
[2025-02-01] MEDS: DOCUSATE SODIUM 100 MG CAPSULE PO ×2 (08:41→21:45)
--- NOTE | 2025-02-01 11:45 | PC.NURSE ---
This patient, Abril Ramírez, was transferred to [facility] on 02/01/25 at 1145. Personal belongings sent with patient. Report given to NUNO Fuller. Appropriate documentation sent with patient. Patient and her son at bedside with no complaints at this time. Yael Gerber RN.
[2025-02-01] MEDS: CALCIUM CARBONATE (TUMS) 500 MG (200 MG ELEMENTAL) PO (12:54)
--- NOTE | 2025-02-01 15:08 | P.PNIM_ITS ---
Assessment and Plan Assessment and Plan (1) Intermittent chest pain: Code(s): R07.9 - Chest pain, unspecified Status: Acute Assessment and Plan: Patient presents with intermittent chest pain that occurs with any p.o. intake. She believes the symptoms are related to her GERD however, her troponins are slightly elevated. Troponins as follows: 0.034, 0.036, 0.062. Pain is intermittent and does not radiate. Chest x-ray with no acute cardiopulmonary process. Patient does have history of CAD but no stent placement. No previous ME. - EKG, initial: Sinus rhythm with incomplete right bundle-branch block - EKG, repeat (1): Sinus rhythm with sinus arrhythmia. Incomplete right bundle branch block - EKG, repeat (2): Sinus tach with occasional PVCs. Right bundle branch block - ASA every Sunday - cardiology consulted, awaiting recs - continue rosuvastatin Sunday - telemetry monitoring (2) GERD (gastroesophageal reflux disease): Qualifiers: Esophagitis presence: esophagitis presence not specified Qualified Code(s): K21.9 - Gastro-esophageal reflux disease without esophagitis Code(s): K21.9 - Gastro-esophageal reflux disease without esophagitis Status: Chronic Assessment and Plan: Patient with a history of GERD presents with ?chest pain? any time she takes p.o. for the past 6 days. Pain is located in the epigastric and midsternal region. Relieved with burping. Did follow with gastroenterology outpatient but has not followed up for the past 2 years. -GI cocktail given -GI consult; plan for EGD on 01/30 -NPO at midnight -patient taking pantoprazole at home (3) Dyslipidemia: Code(s): E78.5 - Hyperlipidemia, unspecified Status: Chronic Assessment and Plan: Continue rosuvastatin (4) Hypertension: Qualifiers: Hypertension type: primary hypertension Qualified Code(s): I10 - Essential (primary) hypertension Code(s): I10 - Essential (primary) hypertension Status: Chronic Assessment and Plan: Continue amlodipine, propranolol Plan 84 y/o female presented to ER with c/o CP and was found to have elevated tropes seen by the commercial loan officer does not suspect acute CAD most likely demand ischemia, possibly GI issue, patient was seen by the GI and had which showed patient has esophagitis and hiatal hernia possibly GERD causing her pain, started patient on Protonix 40mg BID, will monitor. patient stats feels tired, will have PT/OT evaluate the patient and further recommendation to follow, patient may benefit going to rehab. after meal her GERD flares up, will give tums and continue PPI BID, will monitor. Diet: Heart healthy-NPO at [place] DVT prophylaxis: Lovenox lines/drains: PIV Fluids: 1 L bolus-NS at 75 Code status: Full Subjective Date/time seen: 02/01/25 15:08 Interval history: Weakness and decreased appetite H&P-Narrative: 84 y/o female with a PMH of GERD, afib, and CAD presents to the ED on 01/29/2025 with complaints of generalized weakness and poor p.o. intake. Patient states this began about 6 days ago when she felt like she was fighting something viral off, but denies having any fevers or chills. She describes feeling exhausted during the same timeframe to the point where she has to lay back down after doing light housework. Patient describes having chest pain intermittently over the past 6 days as well. She states this pain is in the epigastric and midsternal region rated 8/10 pain every time she eats or drinks, leading to decreased intake. Burping helps relieve the pain. Denies shortness of breath, radiating pain, diaphoresis, nausea, vomiting. Patient did have an outpatient yam curer but has not followed up for about 2 years. Patient further endorses 3 episodes of diarrhea yesterday. Patient has chronic constipation. PMH: GERD, AFib, CAD, hyperlipidemia, IBS, migraines, breast cancer status post right mastectomy 84 y/o female presented to ER with c/o CP and was found to have elevated tropes seen by the commercial loan officer does not suspect acute CAD most likely demand ischemia, possibly GI issue, patient was seen by the GI and had which showed patient has esophagitis and hiatal hernia possibly GERD causing her pain, started patient on Protonix 40mg BID, will monitor. patient stats feels tired, will have PT/OT evaluate the patient and further recommendation to follow, patient may benefit going to rehab. after meal her GERD flares up, will give tums and continue PPI BID, will monitor. Review of Systems Review of Systems: All systems reviewed & are unremarkable except as noted in HPI and below Exam Narrative: Patient is comfortable, NAD HEENT: eyes are clear and none icteric LUNGS:CTA HEART: RR S1S2 ABD: BS+, Soft and nontender Lower extremities: no edema SKIN: nonjaundiced Neuro: grossly intact. Objective Data Vital Signs Vital Signs: Vital Signs - 24 hr 01/31/25 16:00 01/31/25 16:00 01/31/25 20:00 Temperature 36.8 C 36.4 C L Pulse Rate 90 97 99 Respiratory Rate 18 20 Blood Pressure 155/73 H 155/79 H Pulse Oximetry 96 98 Oxygen Delivery 01/31/25 20:00 01/31/25 20:00 02/01/25 00:00 Temperature 37.2 C Pulse Rate 86 90 Respiratory Rate 16 Blood Pressure 159/80 H Pulse Oximetry 98 96 Oxygen Delivery Room Air 02/01/25 00:00 02/01/25 04:00 02/01/25 08:00 Temperature 37.7 C H Pulse Rate 87 89 95 Respiratory Rate 16 Blood Pressure 142/78 H Pulse Oximetry 95 Oxygen Delivery 02/01/25 08:00 02/01/25 08:00 02/01/25 09:59 Temperature Pulse Rate 88 Respiratory Rate Blood Pressure Pulse Oximetry 95 Oxygen Delivery Room Air Room Air 02/01/25 10:30 Temperature Pulse Rate Respiratory Rate Blood Pressure Pulse Oximetry Oxygen Delivery Room Air Intake/Output Intake/Output: Intake & Output 01/29/25 01/30/25 01/31/25 02/01/25 23:59 23:59 23:59 23:59 Intake Total 1000 2332.5 1620 1560 Output Total 200 Balance 1000 2132.5 1620 1560 Meds/Results Medications: Active Medications Generic Name Dose Route Start Last Admin Trade Name Freq PRN Reason Stop Dose Admin Acetaminophen 650 mg 01/29/25 14:55 01/29/25 21:01 Acetaminophen 325 Mg Tablet PO 650 mg Q4H PRN Administration Mild Pain (1-3) or Fever Aspirin 81 mg 02/02/25 08:00 Aspirin 81 Mg Chewable Tablet PO [email or web address] [facility] Calcium Carbonate 200 mg 02/01/25 12:45 02/01/25 12:54 Calcium Carbonate (Tums) 500 Mg (200 Mg Elemental) PO 200 mg Q6H PRN Administration Indigestion Calcium Carbonate 500 mg 02/02/25 09:00 Calcium/Vitamin D 500 Mg/5 Mcg (200 I.U.) Tablet PO QAM ROBI Dextrose 12.5 gm 01/29/25 14:55 Dextrose 50% 25 Gm/50 Ml Syringe IV PUSH PRN PRN Hypoglycemia Protocol Docusate Sodium 100 mg 01/30/25 21:00 02/01/25 08:41 Docusate Sodium 100 Mg Capsule PO 100 mg Q12HR ROBI Administration Enoxaparin Sodium 40 mg 01/29/25 21:00 01/31/25 21:16 Enoxaparin 40 Mg/0.4 Ml Syringe SUB-Q 40 mg HS ROBI Administration Glucagon 1 mg 01/29/25 14:55 Glucagon For Inj 1 Mg Vial IM PRN PRN Hypoglycemia Protocol Glucose 15 gm 01/29/25 14:55 Glucose Oral Gel 15 Gm Of Glucse In 37.5 Gm Tube PO PRN PRN Hypoglycemia Protocol Sodium Chloride 1,000 mls @ 75 mls/hr 01/29/25 14:55 02/01/25 04:27 Normal Saline Iv IV CONT 75 mls/hr .[id number] ROBI Administration Dextrose 1,000 mls @ 100 mls/hr 01/29/25 14:55 Dextrose 5% 1,000 Ml IVPB PRN PRN Hypoglycemia Protocol Lactated Ringer's 1,000 mls @ 150 mls/hr 01/30/25 10:05 02/01/25 13:51 Lr - Lactated Ringers Iv IV CONT Not Given .[id number] ROBI Lidocaine 1 patch 01/30/25 09:00 02/01/25 08:40 Lidocaine 5% Patch TRANSDERM 1 patch DAILY ROBI Administration Magnesium Oxide 400 mg 02/02/25 09:00 Magnesium Oxide 400 Mg Tablet PO DAILY ROBI Ondansetron HCl 4 mg 01/29/25 14:55 Ondansetron Inj 4 Mg/2 Ml Vial IV PUSH Q4H PRN Nausea Pantoprazole Sodium 40 mg 01/30/25 21:00 02/01/25 08:40 Pantoprazole 40 Mg Tablet PO 40 mg Q12HR ROBI Administration Perflutren Lipid Microsphere 0 ml 01/30/25 09:43 Perflutren Lipid Microspheres 1.5 Ml Vial Diluted To 10 Ml Total Volume IV PUSH 02/02/25 09:43 ONCE PRN adequate visualization Protocol Polyethylene Glycol 17 gm 01/31/25 09:00 02/01/25 08:41 Polyethylene Glycol 3350 17 Gm Powd.Pack PO Not Given QAM [facility] Propranolol HCl 10 mg 02/02/25 09:00 Propranolol Hcl 10 Mg Tablet PO DAILY ROBI Rosuvastatin Calcium 10 mg 02/03/25 09:00 Rosuvastatin 10 Mg Tablet PO [email or web address] ROBI Sertraline HCl 50 mg 02/02/25 09:00 Sertraline Hcl 50 Mg Tablet PO DAILY ROBI Temazepam 15 mg 01/30/25 17:57 01/31/25 21:16 Temazepam (*Crx) 15 Mg Capsule PO 15 mg HS PRN Administration Insomnia Radiology Results: ITS Impressions Chest X-Ray 01/29/25 10:37 IMPRESSION: 1. No acute cardiopulmonary findings. Head CT 01/29/25 12:09 IMPRESSION: 1. No acute intracranial findings. Abdomen/Pelvis CT 01/29/25 12:23 IMPRESSION: 1. Mild intrahepatic ductal or ductal dilation normal gallbladder without evident cholelithiasis and without evident dilation of the common bile duct. Correlate with liver function tests. 2. Moderate sigmoid diverticulosis. Quality VTE Prophylaxis VTE prophylaxis: pharmacologic ordered
[2025-02-01] MEDS: ENOXAPARIN 40 MG/0.4 ML SYRINGE SUB-Q (21:45)
[2025-02-01] MEDS: TEMAZEPAM (*CRX) 15 MG CAPSULE PO (21:45)
[2025-02-02] VITALS (9 sets, daily range): BP systolic 137–166; BP diastolic 54–74; PULSE 74–102; RESP 14–20; TEMP 36.3–36.9; O2SAT 93–97
[2025-02-02 05:14] LABS: Hematocrit 29.1 % (37.0-47.0); Hemoglobin 9.8 g/dL (12.0-15.0); Mean Corpuscular HGB Conc 33.7 g/dl (32-36); Mean Corpuscular Hemoglobin 30.2 pg (26-34); Mean Corpuscular Volume 89.8 fl (80-100); Platelet Count Result 141 k/mm3 (150-375); Red Blood Count 3.24 M/mm3 (4.2-5.4); White Blood Count 4.7 K/mm3 (4.5-10.0)
[2025-02-02 05:45] LABS: Anion Gap 3 mmol/L (4-12); Blood Urea Nitrogen 17 mg/dL (7-17); Calcium 8.9 mg/dL (8.4-10.2); Carbon Dioxide 25 mmol/L (22-30); Chloride 107 mmol/L (98-107); Estimated CRCL calculation 39 ml/min; Estimated Glomerular Filt Rate > 60; Glucose 102 mg/dL (65-110); Magnesium 1.9 mg/dL (1.6-2.3); Potassium 2.7 mmol/L (3.4-5.0); Sodium 135 mmol/L (137-145)
[2025-02-02] MEDS: POTASSIUM CHLORIDE INJ 40 MEQ in SODIUM CHLORIDE 0.9% IV 500 ML 130 MEQ IVPB (08:12)
[2025-02-02] MEDS: PROPRANOLOL HCL 10 MG TABLET PO (08:13)
[2025-02-02] MEDS: PANTOPRAZOLE 40 MG TABLET PO ×2 (08:14→20:05)
[2025-02-02] MEDS: SERTRALINE HCL 50 MG TABLET PO (08:14)
[2025-02-02] MEDS: SODIUM CHLORIDE 0.9% IV 1,000 ML 75 ML IV CONT ×2 (08:18→20:06)
[2025-02-02] MEDS: LIDOCAINE 5% PATCH 1 PATCH TRANSDERM (08:28)
[2025-02-02] MEDS: MAGNESIUM OXIDE 400 MG TABLET PO (13:32)
[2025-02-02] MEDS: ASPIRIN 81 MG CHEWABLE TABLET PO (13:33)
[2025-02-02] MEDS: DOCUSATE SODIUM 100 MG CAPSULE PO (13:33)
--- NOTE | 2025-02-02 14:36 | P.PNCA_ITS ---
Progress Note: A&P Assessment and Plan (1) Chest pain: Qualifiers: Chest pain type: unspecified Qualified Code(s): R07.9 - Chest pain, unspecified Code(s): R07.9 - Chest pain, unspecified Status: Acute (2) Elevated troponin: Code(s): R79.89 - Other specified abnormal findings of blood chemistry Status: Acute (3) Atrial fibrillation: Code(s): I48.91 - Unspecified atrial fibrillation Status: Acute Plan 84-year-old woman with coronary artery disease, paroxysmal atrial fibrillation, hyperlipidemia and GERD presents with generalized weakness and chest pain Chest pain -unlikely cardiac in etiology -troponin unlikely secondary to plaque rupture -transthoracic echocardiogram unremarkable Coronary artery disease -continue aspirin 81 mg p.o. daily and rosuvastatin 10 mg Paroxysmal atrial fibrillation -it is unknown why she is not on anticoagulation however she does follow with her printing roller handler Dr. Mcmullen who can continue to manage her longitudinal cardiac care -if she has further recurrence of atrial fibrillation telemetry, can resume flecainide 50 mg p.o. b.i.d. No further inpatient workup warranted at this time. Patient will follow-up with Dr. Mcmullen for her cardiac care. Please call with additional questions. Subjective Date/time seen: 02/02/25 14:36 Interval history: States that her chest pain is improving with Pepto-Bismol. Has some exertional dyspnea. Review of Systems Cardiovascular: Cardiovascular: Reports as per HPI Respiratory: Respiratory: Reports as per HPI Exam Const: General: comfortable Eyes: EOM: EOMs intact bilaterally Neck: Neck: no JVD Resp: Effort & Inspection: normal respiratory effort Auscultation: clear to auscultation bilaterally Cardio: Rate: regular rate Rhythm: regular rhythm Extrem: General: no pedal edema Objective Data Vital Signs Vital Signs: Vital Signs - 24 hr 02/01/25 15:08 02/01/25 16:00 02/01/25 20:00 Temperature 36.6 C Pulse Rate 102 H 93 Respiratory Rate 15 Blood Pressure 154/74 H Pulse Oximetry 97 Oxygen Delivery Room Air 02/01/25 20:00 02/01/25 20:57 02/02/25 00:00 Temperature 36.7 C Pulse Rate 102 H 103 H 89 Respiratory Rate 17 Blood Pressure 144/80 H Pulse Oximetry 96 Oxygen Delivery 02/02/25 05:00 02/02/25 08:00 02/02/25 08:00 Temperature 36.7 C 36.9 C Pulse Rate 97 74 102 H Respiratory Rate 17 14 Blood Pressure 137/68 146/54 H Pulse Oximetry 94 93 Oxygen Delivery 02/02/25 08:13 02/02/25 08:15 02/02/25 12:00 Temperature Pulse Rate 74 89 Respiratory Rate Blood Pressure Pulse Oximetry Oxygen Delivery Room Air Intake/Output Intake/Output: Intake & Output 01/30/25 01/31/25 02/01/25 02/02/25 23:59 23:59 23:59 23:59 Intake Total 2332.5 1620 2880 1368.8 Output Total 200 Balance 2132.5 1620 2880 1368.8 Meds/Results Medications: Active Medications Generic Name Dose Route Start Last Admin Trade Name Freq PRN Reason Stop Dose Admin Acetaminophen 650 mg 01/29/25 14:55 01/29/25 21:01 Acetaminophen 325 Mg Tablet PO 650 mg Q4H PRN Administration Mild Pain (1-3) or Fever Al Hydrox/Mg Hydrox/Simethicone 30 ml 02/01/25 17:10 Mag Hydrox/Al Hydrox/Simeth 30 Ml Udc PO Q6H PRN Indigestion Aspirin 81 mg 02/02/25 08:00 02/02/25 13:33 Aspirin 81 Mg Chewable Tablet PO 81 mg [email or web address] ROBI Administration Calcium Carbonate 200 mg 02/01/25 12:45 02/01/25 12:54 Calcium Carbonate (Tums) 500 Mg (200 Mg Elemental) PO 200 mg Q6H PRN Administration Indigestion Calcium Carbonate 500 mg 02/02/25 09:00 02/02/25 13:27 Calcium/Vitamin D 500 Mg/5 Mcg (200 I.U.) Tablet PO Not Given QAM ROBI Dextrose 12.5 gm 01/29/25 14:55 Dextrose 50% 25 Gm/50 Ml Syringe IV PUSH PRN PRN Hypoglycemia Protocol Docusate Sodium 100 mg 01/30/25 21:00 02/02/25 13:33 Docusate Sodium 100 Mg Capsule PO 100 mg Q12HR ROBI Administration Enoxaparin Sodium 40 mg 01/29/25 21:00 02/01/25 21:45 Enoxaparin 40 Mg/0.4 Ml Syringe SUB-Q 40 mg HS ROBI Administration Glucagon 1 mg 01/29/25 14:55 Glucagon For Inj 1 Mg Vial IM PRN PRN Hypoglycemia Protocol Glucose 15 gm 01/29/25 14:55 Glucose Oral Gel 15 Gm Of Glucse In 37.5 Gm Tube PO PRN PRN Hypoglycemia Protocol Sodium Chloride 1,000 mls @ 75 mls/hr 01/29/25 14:55 02/02/25 08:18 Normal Saline Iv IV CONT 75 mls/hr .[id number] ROBI Administration Dextrose 1,000 mls @ 100 mls/hr 01/29/25 14:55 Dextrose 5% 1,000 Ml IVPB PRN PRN Hypoglycemia Protocol Lidocaine 1 patch 01/30/25 09:00 02/02/25 08:28 Lidocaine 5% Patch TRANSDERM 1 patch DAILY ROBI Administration Magnesium Oxide 400 mg 02/02/25 09:00 02/02/25 13:32 Magnesium Oxide 400 Mg Tablet PO 400 mg DAILY ROBI Administration Ondansetron HCl 4 mg 01/29/25 14:55 Ondansetron Inj 4 Mg/2 Ml Vial IV PUSH Q4H PRN Nausea Pantoprazole Sodium 40 mg 01/30/25 21:00 02/02/25 08:14 Pantoprazole 40 Mg Tablet PO 40 mg Q12HR ROBI Administration Polyethylene Glycol 17 gm 01/31/25 09:00 02/02/25 13:34 Polyethylene Glycol 3350 17 Gm Powd.Pack PO Not Given QAM ROBI Propranolol HCl 10 mg 02/02/25 09:00 02/02/25 08:13 Propranolol Hcl 10 Mg Tablet PO 10 mg DAILY ROBI Administration Rosuvastatin Calcium 10 mg 02/03/25 09:00 Rosuvastatin 10 Mg Tablet PO [email or web address]@0900 ROBI Sertraline HCl 50 mg 02/02/25 09:00 02/02/25 08:14 Sertraline Hcl 50 Mg Tablet PO 50 mg DAILY ROBI Administration Sucralfate 1,000 mg 02/02/25 16:30 Sucralfate Susp 100 Mg/Ml 10 Ml Udc PO ACHS ROBI Temazepam 15 mg 01/30/25 17:57 02/01/25 21:45 Temazepam (*Crx) 15 Mg Capsule PO 15 mg HS PRN Administration Insomnia Radiology Results: ITS Impressions Chest X-Ray 01/29/25 10:37 IMPRESSION: 1. No acute cardiopulmonary findings. Head CT 01/29/25 12:09 IMPRESSION: 1. No acute intracranial findings. Abdomen/Pelvis CT 01/29/25 12:23 IMPRESSION: 1. Mild intrahepatic ductal or ductal dilation normal gallbladder without evident cholelithiasis and without evident dilation of the common bile duct. Correlate with liver function tests. 2. Moderate sigmoid diverticulosis. Labs Labs: Laboratory Results - last 24 hr 02/02/25 04:57 WBC 4.7 RBC 3.24 L Hgb 9.8 L Hct 29.1 L MCV 89.8 MCH 30.2 MCHC 33.7 RDW 12.5 Plt Count 141 L MPV 10.9 H Sodium 135 L Potassium 2.7 L* Chloride 107 Carbon Dioxide 25 Anion Gap 3 L BUN 17 Creatinine 0.67 L Estim Creat Clear Calc 39 Estimated GFR > 60 Glucose 102 Calcium 8.9 Magnesium 1.9
[2025-02-02 15:04] LABS: Anion Gap 4 mmol/L (4-12); Blood Urea Nitrogen 17 mg/dL (7-17); Calcium 8.9 mg/dL (8.4-10.2); Carbon Dioxide 24 mmol/L (22-30); Chloride 110 mmol/L (98-107); Estimated CRCL calculation 36 ml/min; Estimated Glomerular Filt Rate > 60; Glucose 120 mg/dL (65-110); Magnesium 1.9 mg/dL (1.6-2.3); Potassium 3.4 mmol/L (3.4-5.0); Sodium 138 mmol/L (137-145)
--- NOTE | 2025-02-02 15:28 | P.PNIM_ITS ---
Assessment and Plan Assessment and Plan (1) Intermittent chest pain: Code(s): R07.9 - Chest pain, unspecified Status: Acute Assessment and Plan: Patient presents with intermittent chest pain that occurs with any p.o. intake. She believes the symptoms are related to her GERD however, her troponins are slightly elevated. Troponins as follows: 0.034, 0.036, 0.062. Pain is intermittent and does not radiate. Chest x-ray with no acute cardiopulmonary process. Patient does have history of CAD but no stent placement. No previous MA. - EKG, initial: Sinus rhythm with incomplete right bundle-branch block - EKG, repeat (1): Sinus rhythm with sinus arrhythmia. Incomplete right bundle branch block - EKG, repeat (2): Sinus tach with occasional PVCs. Right bundle branch block - ASA every Sunday - cardiology consulted, awaiting recs - continue rosuvastatin Sunday - telemetry monitoring (2) GERD (gastroesophageal reflux disease): Qualifiers: Esophagitis presence: esophagitis presence not specified Qualified Code(s): K21.9 - Gastro-esophageal reflux disease without esophagitis Code(s): K21.9 - Gastro-esophageal reflux disease without esophagitis Status: Chronic Assessment and Plan: Patient with a history of GERD presents with ?chest pain? any time she takes p.o. for the past 6 days. Pain is located in the epigastric and midsternal region. Relieved with burping. Did follow with gastroenterology outpatient but has not followed up for the past 2 years. -GI cocktail given -GI consult; plan for EGD on 01/30 -NPO at midnight -patient taking pantoprazole at home (3) Dyslipidemia: Code(s): E78.5 - Hyperlipidemia, unspecified Status: Chronic Assessment and Plan: Continue rosuvastatin (4) Hypertension: Qualifiers: Hypertension type: primary hypertension Qualified Code(s): I10 - Essential (primary) hypertension Code(s): I10 - Essential (primary) hypertension Status: Chronic Assessment and Plan: Continue amlodipine, propranolol Plan 84 y/o female presented to ER with c/o CP and was found to have elevated tropes seen by the tax analyst does not suspect acute CAD most likely demand ischemia, possibly GI issue, patient was seen by the GI and had which showed patient has esophagitis and hiatal hernia possibly GERD causing her pain, started patient on Protonix 40mg BID, will monitor. patient stats feels tired, will have PT/OT evaluate the patient and further recommendation to follow, patient may benefit going to rehab. after meal her GERD flares up, will give tums and continue PPI BID, patient is using Pepto bismal, will add carafate which may help coat her stomach, also suggested to consult thoracic surgeon for consultation and any recommendations. her daughter is present. will monitor. Diet: Heart healthy-NPO at [place] DVT prophylaxis: Lovenox lines/drains: PIV Fluids: 1 L bolus-NS at 75 Code status: Full Subjective Date/time seen: 02/02/25 15:28 Interval history: Weakness and decreased appetite H&P-Narrative: 84 y/o female with a PMH of GERD, afib, and CAD presents to the ED on 01/29/2025 with complaints of generalized weakness and poor p.o. intake. Patient states this began about 6 days ago when she felt like she was fighting something viral off, but denies having any fevers or chills. She describes feeling exhausted during the same timeframe to the point where she has to lay back down after doing light housework. Patient describes having chest pain intermittently over the past 6 days as well. She states this pain is in the epigastric and midsternal region rated 8/10 pain every time she eats or drinks, leading to decreased intake. Burping helps relieve the pain. Denies shortness of breath, radiating pain, diaphoresis, nausea, vomiting. Patient did have an outpatient telephone switchboard operator but has not followed up for about 2 years. Patient further endorses 3 episodes of diarrhea yesterday. Patient has chronic constipation. PMH: GERD, AFib, CAD, hyperlipidemia, IBS, migraines, breast cancer status post right mastectomy 84 y/o female presented to ER with c/o CP and was found to have elevated tropes seen by the tax analyst does not suspect acute CAD most likely demand ischemia, possibly GI issue, patient was seen by the GI and had which showed patient has esophagitis and hiatal hernia possibly GERD causing her pain, started patient on Protonix 40mg BID, will monitor. patient stats feels tired, will have PT/OT evaluate the patient and further recommendation to follow, patient may benefit going to rehab. after meal her GERD flares up, will give tums and continue PPI BID, patient is using Pepto bismal, will add carafate which may help coat her stomach, also suggested to consult thoracic surgeon for consultation and any recommendations. her daughter is present. will monitor. Review of Systems Review of Systems: All systems reviewed & are unremarkable except as noted in HPI and below Exam Narrative: Patient is comfortable, NAD HEENT: eyes are clear and none icteric LUNGS:CTA HEART: RR S1S2 ABD: BS+, Soft and nontender Lower extremities: no edema SKIN: nonjaundiced Neuro: grossly intact. Objective Data Vital Signs Vital Signs: Vital Signs - 24 hr 02/01/25 16:00 02/01/25 20:00 02/01/25 20:00 Temperature Pulse Rate 93 102 H Respiratory Rate Blood Pressure Pulse Oximetry Oxygen Delivery Room Air 02/01/25 20:57 02/02/25 00:00 02/02/25 05:00 Temperature 36.7 C 36.7 C Pulse Rate 103 H 89 97 Respiratory Rate 17 17 Blood Pressure 144/80 H 137/68 Pulse Oximetry 96 94 Oxygen Delivery 02/02/25 08:00 02/02/25 08:00 02/02/25 08:13 Temperature 36.9 C Pulse Rate 74 102 H 74 Respiratory Rate 14 Blood Pressure 146/54 H Pulse Oximetry 93 Oxygen Delivery 02/02/25 08:15 02/02/25 12:00 02/02/25 15:21 Temperature 36.8 C Pulse Rate 89 75 Respiratory Rate 16 Blood Pressure 150/72 H Pulse Oximetry 95 Oxygen Delivery Room Air Intake/Output Intake/Output: Intake & Output 01/30/25 01/31/25 02/01/25 02/02/25 23:59 23:59 23:59 23:59 Intake Total 2332.5 1620 2880 1368.8 Output Total 200 Balance 2132.5 1620 2880 1368.8 Meds/Results Medications: Active Medications Generic Name Dose Route Start Last Admin Trade Name Freq PRN Reason Stop Dose Admin Acetaminophen 650 mg 01/29/25 14:55 01/29/25 21:01 Acetaminophen 325 Mg Tablet PO 650 mg Q4H PRN Administration Mild Pain (1-3) or Fever Al Hydrox/Mg Hydrox/Simethicone 30 ml 02/01/25 17:10 Mag Hydrox/Al Hydrox/Simeth 30 Ml Udc PO Q6H PRN Indigestion Aspirin 81 mg 02/02/25 08:00 02/02/25 13:33 Aspirin 81 Mg Chewable Tablet PO 81 mg [email or web address] ROBI Administration Calcium Carbonate 200 mg 02/01/25 12:45 02/01/25 12:54 Calcium Carbonate (Tums) 500 Mg (200 Mg Elemental) PO 200 mg Q6H PRN Administration Indigestion Calcium Carbonate 500 mg 02/02/25 09:00 02/02/25 13:27 Calcium/Vitamin D 500 Mg/5 Mcg (200 I.U.) Tablet PO Not Given QAM ROBI Dextrose 12.5 gm 01/29/25 14:55 Dextrose 50% 25 Gm/50 Ml Syringe IV PUSH PRN PRN Hypoglycemia Protocol Docusate Sodium 100 mg 01/30/25 21:00 02/02/25 13:33 Docusate Sodium 100 Mg Capsule PO 100 mg Q12HR ROBI Administration Enoxaparin Sodium 40 mg 01/29/25 21:00 02/01/25 21:45 Enoxaparin 40 Mg/0.4 Ml Syringe SUB-Q 40 mg HS ROBI Administration Glucagon 1 mg 01/29/25 14:55 Glucagon For Inj 1 Mg Vial IM PRN PRN Hypoglycemia Protocol Glucose 15 gm 01/29/25 14:55 Glucose Oral Gel 15 Gm Of Glucse In 37.5 Gm Tube PO PRN PRN Hypoglycemia Protocol Sodium Chloride 1,000 mls @ 75 mls/hr 01/29/25 14:55 02/02/25 08:18 Normal Saline Iv IV CONT 75 mls/hr .[id number] ROBI Administration Dextrose 1,000 mls @ 100 mls/hr 01/29/25 14:55 Dextrose 5% 1,000 Ml IVPB PRN PRN Hypoglycemia Protocol Lidocaine 1 patch 01/30/25 09:00 02/02/25 08:28 Lidocaine 5% Patch TRANSDERM 1 patch DAILY ROBI Administration Magnesium Oxide 400 mg 02/02/25 09:00 02/02/25 13:32 Magnesium Oxide 400 Mg Tablet PO 400 mg DAILY ROBI Administration Ondansetron HCl 4 mg 01/29/25 14:55 Ondansetron Inj 4 Mg/2 Ml Vial IV PUSH Q4H PRN Nausea Pantoprazole Sodium 40 mg 12/05/25 21:00 02/02/25 08:14 Pantoprazole 40 Mg Tablet PO 40 mg Q12HR ROBI Administration Polyethylene Glycol 17 gm 01/31/25 09:00 02/02/25 13:34 Polyethylene Glycol 3350 17 Gm Powd.Pack PO Not Given QAM ROBI Propranolol HCl 10 mg 02/02/25 09:00 02/02/25 08:13 Propranolol Hcl 10 Mg Tablet PO 10 mg DAILY ROBI Administration Rosuvastatin Calcium 10 mg 02/03/25 09:00 Rosuvastatin 10 Mg Tablet PO [email or web address] ROBI Sertraline HCl 50 mg 02/02/25 09:00 02/02/25 08:14 Sertraline Hcl 50 Mg Tablet PO 50 mg DAILY ROBI Administration Sucralfate 1,000 mg 02/02/25 16:30 Sucralfate Susp 100 Mg/Ml 10 Ml Udc PO ACHS ROBI Temazepam 15 mg 01/30/25 17:57 02/01/25 21:45 Temazepam (*Crx) 15 Mg Capsule PO 15 mg HS PRN Administration Insomnia Radiology Results: ITS Impressions Chest X-Ray 01/29/25 10:37 IMPRESSION: 1. No acute cardiopulmonary findings. Head CT 01/29/25 12:09 IMPRESSION: 1. No acute intracranial findings. Abdomen/Pelvis CT 01/29/25 12:23 IMPRESSION: 1. Mild intrahepatic ductal or ductal dilation normal gallbladder without evident cholelithiasis and without evident dilation of the common bile duct. Correlate with liver function tests. 2. Moderate sigmoid diverticulosis. Labs Labs: Laboratory Results - last 24 hr 02/02/25 02/02/25 04:57 14:32 WBC 4.7 RBC 3.24 L Hgb 9.8 L Hct 29.1 L MCV 89.8 MCH 30.2 MCHC 33.7 RDW 12.5 Plt Count 141 L MPV 10.9 H Sodium 135 L 138 Potassium 2.7 L* 3.4 Chloride 107 110 H Carbon Dioxide 25 24 Anion Gap 3 L 4 BUN 17 17 Creatinine 0.67 L 0.73 Estim Creat Clear Calc 39 36 Estimated GFR > 60 > 60 Glucose 102 120 H Calcium 8.9 8.9 Magnesium 1.9 1.9
[2025-02-02] MEDS: SUCRALFATE SUSP 100 MG/ML 10 ML UDC 1000 MG PO ×2 (17:06→20:16)
[2025-02-02] MEDS: TEMAZEPAM (*CRX) 15 MG CAPSULE PO (20:05)
[2025-02-03] VITALS (10 sets, daily range): BP systolic 135–174; BP diastolic 50–67; PULSE 67–100; RESP 14–20; TEMP 36.7–36.8; O2SAT 91–93
[2025-02-03 05:04] LABS: Hematocrit 31.1 % (37.0-47.0); Hemoglobin 10.3 g/dL (12.0-15.0); Mean Corpuscular HGB Conc 33.1 g/dl (32-36); Mean Corpuscular Hemoglobin 29.8 pg (26-34); Mean Corpuscular Volume 89.9 fl (80-100); Platelet Count Result 174 k/mm3 (150-375); Red Blood Count 3.46 M/mm3 (4.2-5.4); White Blood Count 5.8 K/mm3 (4.5-10.0)
[2025-02-03 05:45] LABS: Anion Gap 3 mmol/L (4-12); Blood Urea Nitrogen 17 mg/dL (7-17); Calcium 8.9 mg/dL (8.4-10.2); Carbon Dioxide 23 mmol/L (22-30); Chloride 110 mmol/L (98-107); Estimated CRCL calculation 39 ml/min; Estimated Glomerular Filt Rate > 60; Glucose 91 mg/dL (65-110); Magnesium 1.8 mg/dL (1.6-2.3); Potassium 3.2 mmol/L (3.4-5.0); Sodium 136 mmol/L (137-145)
[2025-02-03] MEDS: PROPRANOLOL HCL 10 MG TABLET PO (09:19)
[2025-02-03] MEDS: LIDOCAINE 5% PATCH 1 PATCH TRANSDERM (09:19)
[2025-02-03] MEDS: SERTRALINE HCL 50 MG TABLET PO (09:19)
[2025-02-03] MEDS: PANTOPRAZOLE 40 MG TABLET PO ×2 (09:19→21:25)
[2025-02-03] MEDS: SODIUM CHLORIDE 0.9% IV 1,000 ML 75 ML IV CONT ×2 (09:24→21:26)
[2025-02-03] MEDS: POTASSIUM CHLORIDE INJ 40 MEQ in SODIUM CHLORIDE 0.9% IV 500 ML 130 MEQ IVPB (11:43)
[2025-02-03] MEDS: CALCIUM CARBONATE (TUMS) 500 MG (200 MG ELEMENTAL) PO ×2 (11:56→21:25)
--- NOTE | 2025-02-03 13:49 | PCPTNOTE ---
Patient declined PT. Patient states she does not feel well today. Patient c/o hiatal hernia issues and SOB. PT will continue to follow.
--- NOTE | 2025-02-03 15:59 | P.PNIM_ITS ---
Assessment and Plan Assessment and Plan (1) Intermittent chest pain: Code(s): R07.9 - Chest pain, unspecified Status: Acute Assessment and Plan: Patient presents with intermittent chest pain that occurs with any p.o. intake. She believes the symptoms are related to her GERD however, her troponins are slightly elevated. Troponins as follows: 0.034, 0.036, 0.062. Pain is intermittent and does not radiate. Chest x-ray with no acute cardiopulmonary process. Patient does have history of CAD but no stent placement. No previous CA. - EKG, initial: Sinus rhythm with incomplete right bundle-branch block - EKG, repeat (1): Sinus rhythm with sinus arrhythmia. Incomplete right bundle branch block - EKG, repeat (2): Sinus tach with occasional PVCs. Right bundle branch block - ASA every Sunday - cardiology consulted, awaiting recs - continue rosuvastatin Sunday - telemetry monitoring (2) GERD (gastroesophageal reflux disease): Qualifiers: Esophagitis presence: esophagitis presence not specified Qualified Code(s): K21.9 - Gastro-esophageal reflux disease without esophagitis Code(s): K21.9 - Gastro-esophageal reflux disease without esophagitis Status: Chronic Assessment and Plan: Patient with a history of GERD presents with ?chest pain? any time she takes p.o. for the past 6 days. Pain is located in the epigastric and midsternal region. Relieved with burping. Did follow with gastroenterology outpatient but has not followed up for the past 2 years. -GI cocktail given -GI consult; plan for EGD on 01/30 -NPO at midnight -patient taking pantoprazole at home (3) Dyslipidemia: Code(s): E78.5 - Hyperlipidemia, unspecified Status: Chronic Assessment and Plan: Continue rosuvastatin (4) Hypertension: Qualifiers: Hypertension type: primary hypertension Qualified Code(s): I10 - Essential (primary) hypertension Code(s): I10 - Essential (primary) hypertension Status: Chronic Assessment and Plan: Continue amlodipine, propranolol Plan 84 y/o female presented to ER with c/o CP and was found to have elevated tropes seen by the research mechanic does not suspect acute CAD most likely demand ischemia, possibly GI issue, patient was seen by the GI and had which showed patient has esophagitis and hiatal hernia possibly GERD causing her pain, started patient on Protonix 40mg BID, will monitor. patient stats feels tired, will have PT/OT evaluate the patient and further recommendation to follow, patient may benefit going to rehab. after meal her GERD flares up, will give tums and continue PPI BID, patient is using Pepto bismal, will add carafate which may help coat her stomach, also suggested to consult thoracic surgeon for consultation and any recommendations. her daughter is present. will monitor. patient stats carafate did help with GERD however today patient c/o cough, congestion and shortness of breath, chest x-ray is concerning for pneumonia, will start patient on ceftriaxone and Zithromax. patient is encourage to participate in PT/OT. Diet: Heart healthy-NPO at [place] DVT prophylaxis: Lovenox lines/drains: PIV Fluids: 1 L bolus-NS at 75 Code status: Full Subjective Date/time seen: 02/03/25 15:59 Interval history: Weakness and decreased appetite H&P-Narrative: 84 y/o female with a PMH of GERD, afib, and CAD presents to the ED on 01/29/2025 with complaints of generalized weakness and poor p.o. intake. Patient states this began about 6 days ago when she felt like she was fighting something viral off, but denies having any fevers or chills. She describes feeling exhausted during the same timeframe to the point where she has to lay back down after doing light housework. Patient describes having chest pain intermittently over the past 6 days as well. She states this pain is in the epigastric and midsternal region rated 8/10 pain every time she eats or drinks, leading to decreased intake. Burping helps relieve the pain. Denies shortness of breath, radiating pain, diaphoresis, nausea, vomiting. Patient did have an outpatient operational intelligence analyst but has not followed up for about 2 years. Patient further endorses 3 episodes of diarrhea yesterday. Patient has chronic constipation. PMH: GERD, AFib, CAD, hyperlipidemia, IBS, migraines, breast cancer status post right mastectomy 84 y/o female presented to ER with c/o CP and was found to have elevated tropes seen by the research mechanic does not suspect acute CAD most likely demand ischemia, possibly GI issue, patient was seen by the GI and had which showed patient has esophagitis and hiatal hernia possibly GERD causing her pain, started patient on Protonix 40mg BID, will monitor. patient stats feels tired, will have PT/OT evaluate the patient and further recommendation to follow, patient may benefit going to rehab. after meal her GERD flares up, will give tums and continue PPI BID, patient is using Pepto bismal, will add carafate which may help coat her s tomach, also suggested to consult thoracic surgeon for consultation and any recommendations. her daughter is present. will monitor. patient stats carafate did help with GERD however today patient c/o cough, congestion and shortness of breath, chest x-ray is concerning for pneumonia, will start patient on ceftriaxone and Zithromax. patient is encourage to participate in PT/OT. Review of Systems Review of Systems: All systems reviewed & are unremarkable except as noted in HPI and below Exam Narrative: Patient is comfortable, NAD HEENT: eyes are clear and none icteric LUNGS:CTA HEART: RR S1S2 ABD: BS+, Soft and nontender Lower extremities: no edema SKIN: nonjaundiced Neuro: grossly intact. Objective Data Vital Signs Vital Signs: Vital Signs - 24 hr 02/02/25 16:00 02/02/25 20:00 02/02/25 20:00 Temperature Pulse Rate 74 79 Respiratory Rate Blood Pressure Pulse Oximetry Oxygen Delivery Room Air 02/02/25 22:26 02/03/25 00:00 02/03/25 04:00 Temperature 36.3 C L Pulse Rate 91 74 74 Respiratory Rate 20 Blood Pressure 166/74 H Pulse Oximetry 97 Oxygen Delivery 02/03/25 06:13 02/03/25 08:00 02/03/25 09:19 Temperature 36.7 C Pulse Rate 85 100 88 Respiratory Rate 18 Blood Pressure 160/51 H Pulse Oximetry 91 Oxygen Delivery 02/03/25 15:57 Temperature 36.8 C Pulse Rate 79 Respiratory Rate 14 Blood Pressure 135/50 L Pulse Oximetry 93 Oxygen Delivery Intake/Output Intake/Output: Intake & Output 01/31/25 02/01/25 02/02/25 02/03/25 23:59 23:59 23:59 23:59 Intake Total 1620 2880 3423.8 1859.5 Balance 1620 2880 3423.8 1859.5 Meds/Results Medications: Active Medications Generic Name Dose Route Start Last Admin Trade Name Freq PRN Reason Stop Dose Admin Acetaminophen 650 mg 01/29/25 14:55 01/29/25 21:01 Acetaminophen 325 Mg Tablet PO 650 mg Q4H PRN Administration Mild Pain (1-3) or Fever Al Hydrox/Mg Hydrox/Simethicone 30 ml 02/01/25 17:10 Mag Hydrox/Al Hydrox/Simeth 30 Ml Udc PO Q6H PRN Indigestion Aspirin 81 mg 02/02/25 08:00 02/02/25 13:33 Aspirin 81 Mg Chewable Tablet PO 81 mg [email or web address] ROBI Administration Calcium Carbonate 200 mg 02/01/25 12:45 02/03/25 11:56 Calcium Carbonate (Tums) 500 Mg (200 Mg Elemental) PO 200 mg Q6H PRN Administration Indigestion Calcium Carbonate 500 mg 02/02/25 09:00 02/03/25 11:43 Calcium/Vitamin D 500 Mg/5 Mcg (200 I.U.) Tablet PO Not Given QAM ROBI Dextrose 12.5 gm 01/29/25 14:55 Dextrose 50% 25 Gm/50 Ml Syringe IV PUSH PRN PRN Hypoglycemia Protocol Docusate Sodium 100 mg 01/30/25 21:00 02/02/25 20:06 Docusate Sodium 100 Mg Capsule PO Not Given Q12HR ROBI Enoxaparin Sodium 40 mg 01/29/25 21:00 02/02/25 20:08 Enoxaparin 40 Mg/0.4 Ml Syringe SUB-Q Not Given HS ROBI Glucagon 1 mg 01/29/25 14:55 Glucagon For Inj 1 Mg Vial IM PRN PRN Hypoglycemia Protocol Glucose 15 gm 01/29/25 14:55 Glucose Oral Gel 15 Gm Of Glucse In 37.5 Gm Tube PO PRN PRN Hypoglycemia Protocol Sodium Chloride 1,000 mls @ 75 mls/hr 01/29/25 14:55 02/03/25 09:24 Normal Saline Iv IV CONT 75 mls/hr .[id number] ROBI Administration Dextrose 1,000 mls @ 100 mls/hr 01/29/25 14:55 Dextrose 5% 1,000 Ml IVPB PRN PRN Hypoglycemia Protocol Ceftriaxone Sodium 1 gm/ 50 mls @ 100 mls/hr 02/03/25 13:05 Sodium Chloride IVPB QAM [facility] Metronidazole 500 mg in 100 mls @ 100 mls/hr 02/03/25 14:00 Flagyl 500 Mg/Iso Soln 100 Ml IVPB Q8H [facility] Lidocaine 1 patch 01/30/25 09:00 02/03/25 09:19 Lidocaine 5% Patch TRANSDERM 1 patch DAILY ROBI Administration Magnesium Oxide 400 mg 02/02/25 09:00 02/03/25 11:43 Magnesium Oxide 400 Mg Tablet PO Not Given DAILY ROBI Ondansetron HCl 4 mg 01/29/25 14:55 Ondansetron Inj 4 Mg/2 Ml Vial IV PUSH Q4H PRN Nausea Pantoprazole Sodium 40 mg 01/30/25 21:00 02/03/25 09:19 Pantoprazole 40 Mg Tablet PO 40 mg Q12HR ROBI Administration Polyethylene Glycol 17 gm 01/31/25 09:00 02/03/25 11:44 Polyethylene Glycol 3350 17 Gm Powd.Pack PO Not Given QAM [facility] Propranolol HCl 10 mg 02/02/25 09:00 02/03/25 09:19 Propranolol Hcl 10 Mg Tablet PO 10 mg DAILY ROBI Administration Rosuvastatin Calcium 10 mg 02/03/25 09:00 02/03/25 11:44 Rosuvastatin 10 Mg Tablet PO Not Given [email or web address] [facility] Sertraline HCl 50 mg 02/02/25 09:00 02/03/25 09:19 Sertraline Hcl 50 Mg Tablet PO 50 mg DAILY ROBI Administration Sucralfate 1,000 mg 02/02/25 16:30 02/03/25 05:48 Sucralfate Susp 100 Mg/Ml 10 Ml Udc PO Not Given ACHS [facility] Temazepam 15 mg 01/30/25 17:57 02/02/25 20:05 Temazepam (*Crx) 15 Mg Capsule PO 15 mg HS PRN Administration Insomnia Radiology Results: ITS Impressions Head CT 01/29/25 12:09 IMPRESSION: 1. No acute intracranial findings. Abdomen/Pelvis CT 01/29/25 12:23 IMPRESSION: 1. Mild intrahepatic ductal or ductal dilation normal gallbladder without evident cholelithiasis and without evident dilation of the common bile duct. Correlate with liver function tests. 2. Moderate sigmoid diverticulosis. Chest X-Ray 02/03/25 11:24 Impression: Mild CHF. Small left lower lobe pneumonia. The findings are new compared to the previous study. Labs Labs: Laboratory Results - last 24 hr 02/03/25 04:34 WBC 5.8 RBC 3.46 L Hgb 10.3 L Hct 31.1 L MCV 89.9 MCH 29.8 MCHC 33.1 RDW 12.5 Plt Count 174 MPV 11.0 H Sodium 136 L Potassium 3.2 L Chloride 110 H Carbon Dioxide 23 Anion Gap 3 L BUN 17 Creatinine 0.68 L Estim Creat Clear Calc 39 Estimated GFR > 60 Glucose 91 Calcium 8.9 Magnesium 1.8 Quality VTE Prophylaxis VTE prophylaxis: pharmacologic ordered
[2025-02-03] MEDS: cefTRIAXone 1 GM in SODIUM CHLORIDE 0.9% IV 50 ML 100 ML IVPB (16:07)
[2025-02-03] MEDS: metroNIDAZOLE 500 MG/ISO 100ML 500 MG/100 ML BAG 100 MG IVPB ×2 (16:48→21:27)
[2025-02-03] MEDS: TEMAZEPAM (*CRX) 15 MG CAPSULE PO (21:25)
[2025-02-04] VITALS (9 sets, daily range): BP systolic 120–170; BP diastolic 58–73; PULSE 67–102; RESP 16–17; TEMP 36.4–37.2; O2SAT 90–95
[2025-02-04] MEDS: metroNIDAZOLE 500 MG/ISO 100ML 500 MG/100 ML BAG 100 MG IVPB (06:00)
[2025-02-04 06:09] LABS: Hematocrit 29.7 % (37.0-47.0); Hemoglobin 10.0 g/dL (12.0-15.0); Mean Corpuscular HGB Conc 33.7 g/dl (32-36); Mean Corpuscular Hemoglobin 30.4 pg (26-34); Mean Corpuscular Volume 90.3 fl (80-100); Platelet Count Result 181 k/mm3 (150-375); Red Blood Count 3.29 M/mm3 (4.2-5.4); White Blood Count 5.7 K/mm3 (4.5-10.0)
[2025-02-04 06:38] LABS: Anion Gap 6 mmol/L (4-12); Blood Urea Nitrogen 12 mg/dL (7-17); Calcium 9.0 mg/dL (8.4-10.2); Carbon Dioxide 22 mmol/L (22-30); Chloride 106 mmol/L (98-107); Estimated CRCL calculation 41 ml/min; Estimated Glomerular Filt Rate > 60; Glucose 96 mg/dL (65-110); Magnesium 1.7 mg/dL (1.6-2.3); Potassium 3.2 mmol/L (3.4-5.0); Sodium 134 mmol/L (137-145)
[2025-02-04] MEDS: POTASSIUM CHLORIDE INJ 40 MEQ in SODIUM CHLORIDE 0.9% IV 500 ML 130 MEQ IVPB (09:51)
[2025-02-04] MEDS: SERTRALINE HCL 50 MG TABLET PO (09:52)
[2025-02-04] MEDS: PROPRANOLOL HCL 10 MG TABLET PO (09:52)
[2025-02-04] MEDS: PANTOPRAZOLE 40 MG TABLET PO ×2 (09:53→20:27)
[2025-02-04] MEDS: DOCUSATE SODIUM 100 MG CAPSULE PO (09:53)
[2025-02-04] MEDS: cefTRIAXone 1 GM in SODIUM CHLORIDE 0.9% IV 50 ML 100 ML IVPB (09:55)
[2025-02-04] MEDS: LIDOCAINE 5% PATCH 1 PATCH TRANSDERM (09:56)
[2025-02-04] MEDS: FUROSEMIDE INJ 40 MG/4 ML VIAL 20 MG IV PUSH (13:22)
--- NOTE | 2025-02-04 15:41 | PCPTNOTE ---
The patient treatment was not able to be completed due patient unavailable on x 2 attempts. Will plan to continue treatment per plan of care.
[2025-02-04] MEDS: AZITHROMYCIN IV 500 MG in SODIUM CHLORIDE 0.9% IV 250 ML IVPB (16:24)
[2025-02-04] MEDS: SUCRALFATE SUSP 100 MG/ML 10 ML UDC 1000 MG PO (16:25)
--- NOTE | 2025-02-04 16:33 | PM.IMPN2 ---
Assessment and Plan Assessment and Plan (1) Intermittent chest pain: Code(s): R07.9 - Chest pain, unspecified Status: Acute Assessment and Plan: Patient presents with intermittent chest pain that occurs with any p.o. intake. She believes the symptoms are related to her GERD however, her troponins are slightly elevated. Troponins as follows: 0.034, 0.036, 0.062. Pain is intermittent and does not radiate. Chest x-ray with no acute cardiopulmonary process. Patient does have history of CAD but no stent placement. No previous [place]. - EKG, initial: Sinus rhythm with incomplete right bundle-branch block - EKG, repeat (1): Sinus rhythm with sinus arrhythmia. Incomplete right bundle branch block - EKG, repeat (2): Sinus tach with occasional PVCs. Right bundle branch block - ASA every Sunday - cardiology consulted, awaiting recs - continue rosuvastatin Sunday - telemetry monitoring (2) GERD (gastroesophageal reflux disease): Qualifiers: Esophagitis presence: esophagitis presence not specified Qualified Code(s): K21.9 - Gastro-esophageal reflux disease without esophagitis Code(s): K21.9 - Gastro-esophageal reflux disease without esophagitis Status: Chronic Assessment and Plan: Patient with a history of GERD presents with ?chest pain? any time she takes p.o. for the past 6 days. Pain is located in the epigastric and midsternal region. Relieved with burping. Did follow with gastroenterology outpatient but has not followed up for the past 2 years. -GI cocktail given -GI consult; plan for EGD on 01/30 -NPO at midnight -patient taking pantoprazole at home (3) Dyslipidemia: Code(s): E78.5 - Hyperlipidemia, unspecified Status: Chronic Assessment and Plan: Continue rosuvastatin (4) Hypertension: Qualifiers: Hypertension type: primary hypertension Qualified Code(s): I10 - Essential (primary) hypertension Code(s): I10 - Essential (primary) hypertension Status: Chronic Assessment and Plan: Continue amlodipine, propranolol Plan 84 y/o female presented to ER with c/o CP and was found to have elevated tropes seen by the motor vehicle lecturer does not suspect acute CAD most likely demand ischemia, possibly GI issue, patient was seen by the GI and had which showed patient has esophagitis and hiatal hernia possibly GERD causing her pain, started patient on Protonix 40mg BID, will monitor. patient stats feels tired, will have PT/OT evaluate the patient and further recommendation to follow, patient may benefit going to rehab. after meal her GERD flares up, will give tums and continue PPI BID, patient is using Pepto bismal, will add carafate which may help coat her stomach, also suggested to consult thoracic surgeon for consultation and any recommendations. her daughter is present. will monitor. patient stats carafate did help with GERD however today patient c/o cough, congestion and shortness of breath, chest x-ray is concerning for pneumonia, will start patient on ceftriaxone and Zithromax. patient is encourage to participate in PT/OT. there is concern for mild pulmonary edema, will give IV Lasix 20mg x1. patient is waiting for placement Diet: Heart healthy-NPO at [place] DVT prophylaxis: Lovenox lines/drains: PIV Fluids: 1 L bolus-NS at 75 Code status: Full Subjective Date/time seen: 02/04/25 16:33 Interval history: Weakness and decreased appetite H&P-Narrative: 84 y/o female with a PMH of GERD, afib, and CAD presents to the ED on 01/29/2025 with complaints of generalized weakness and poor p.o. intake. Patient states this began about 6 days ago when she felt like she was fighting something viral off, but denies having any fevers or chills. She describes feeling exhausted during the same timeframe to the point where she has to lay back down after doing light housework. Patient describes having chest pain intermittently over the past 6 days as well. She states this pain is in the epigastric and midsternal region rated 8/10 pain every time she eats or drinks, leading to decreased intake. Burping helps relieve the pain. Denies shortness of breath, radiating pain, diaphoresis, nausea, vomiting. 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 Patient further endorses 3 episodes of diarrhea yesterday. Patient has chronic constipation. PMH: GERD, AFib, CAD, hyperlipidemia, IBS, migraines, breast cancer status post right mastectomy 84 y/o female presented to ER with c/o CP and was found to have elevated tropes seen by the motor vehicle lecturer does not suspect acute CAD most likely demand ischemia, possibly GI issue, patient was seen by the GI and had which showed patient has esophagitis and hiatal hernia possibly GERD causing her pain, started patient on Protonix 40mg BID, will monitor. patient stats feels tired, will have PT/OT evaluate the patient and further recommendation to follow, patient may benefit going to rehab. after meal her GERD flares up, will give tums and continue PPI BID, patient is using Pepto bismal, will add carafate which may help coat her stomach, also suggested to consult thoracic surgeon for consultation and any recommendations. her daughter is present. will monitor. patient stats carafate did help with GERD however today patient c/o cough, congestion and shortness of breath, chest x-ray is concerning for pneumonia, will start patient on ceftriaxone and Zithromax. patient is encourage to participate in PT/OT. there is concern for mild pulmonary edema, will give IV Lasix 20mg x1. patient is waiting for placement Review of Systems Review of Systems: All systems reviewed & are unremarkable except as noted in HPI and below Exam Narrative: Patient is comfortable, NAD HEENT: eyes are clear and none icteric LUNGS:CTA HEART: RR S1S2 ABD: BS+, Soft and nontender Lower extremities: no edema SKIN: nonjaundiced Neuro: grossly intact. Objective Data Vital Signs Vital Signs: Vital Signs - 24 hr 02/03/25 20:00 02/03/25 20:00 02/03/25 22:56 Temperature 36.7 C Pulse Rate 78 96 Respiratory Rate 20 Blood Pressure 174/67 H Pulse Oximetry 93 Oxygen Delivery Room Air 02/04/25 00:00 02/04/25 03:30 02/04/25 04:00 Temperature 37.2 C Pulse Rate 74 102 H 73 Respiratory Rate 16 Blood Pressure 146/67 H Pulse Oximetry 90 Oxygen Delivery 02/04/25 08:00 02/04/25 09:52 02/04/25 10:00 Temperature Pulse Rate 80 98 Respiratory Rate Blood Pressure Pulse Oximetry Oxygen Delivery Room Air 02/04/25 12:00 02/04/25 16:00 Temperature Pulse Rate 70 67 Respiratory Rate Blood Pressure Pulse Oximetry Oxygen Delivery Intake/Output Intake/Output: Intake & Output 02/01/25 02/02/25 02/03/2525 23:59 23:59 23:59 23:59 Intake Total 2880 3423.8 4402.0 630 Balance 2880 3423.8 4402.0 630 Meds/Results Medications: Active Medications Generic Name Dose Route Start Last Admin Trade Name Freq PRN Reason Stop Dose Admin Acetaminophen 650 mg 01/29/25 14:55 01/29/25 21:01 Acetaminophen 325 Mg Tablet PO 650 mg Q4H PRN Administration Mild Pain (1-3) or Fever Al Hydrox/Mg Hydrox/Simethicone 30 ml 02/01/25 17:10 Mag Hydrox/Al Hydrox/Simeth 30 Ml Udc PO Q6H PRN Indigestion Aspirin 81 mg 02/02/25 08:00 02/04/25 09:50 Aspirin 81 Mg Chewable Tablet PO Not Given [email or web address] ROBI Calcium Carbonate 200 mg 02/01/25 12:45 02/03/25 21:25 Calcium Carbonate (Tums) 500 Mg (200 Mg Elemental) PO 200 mg Q6H PRN Administration Indigestion Calcium Carbonate 500 mg 02/02/25 09:00 02/04/25 09:47 Calcium/Vitamin D 500 Mg/5 Mcg (200 I.U.) Tablet PO Not Given QAM ROBI Dextrose 12.5 gm 01/29/25 14:55 Dextrose 50% 25 Gm/50 Ml Syringe IV PUSH PRN PRN Hypoglycemia Protocol Docusate Sodium 100 mg 01/30/25 21:00 02/04/25 09:53 Docusate Sodium 100 Mg Capsule PO 100 mg Q12HR ROBI Administration Enoxaparin Sodium 40 mg 01/29/25 21:00 02/03/25 21:31 Enoxaparin 40 Mg/0.4 Ml Syringe SUB-Q Not Given HS ROBI Glucagon 1 mg 01/29/25 14:55 Glucagon For Inj 1 Mg Vial IM PRN PRN Hypoglycemia Protocol Glucose 15 gm 01/29/25 14:55 Glucose Oral Gel 15 Gm Of Glucse In 37.5 Gm Tube PO PRN PRN Hypoglycemia Protocol Dextrose 1,000 mls @ 100 mls/hr 01/29/25 14:55 Dextrose 5% 1,000 Ml IVPB PRN PRN Hypoglycemia Protocol Ceftriaxone Sodium 1 gm/ 50 mls @ 100 mls/hr 02/03/25 13:05 02/04/25 10:25 Sodium Chloride IVPB Infused QAM ROBI Infusion Azithromycin 500 mg/ Sodium 250 mls @ 250 mls/hr 02/04/25 16:00 02/04/25 16:24 Chloride IVPB 02/08/25 16:59 250 mls/hr Q24H ROBI Administration Lidocaine 1 patch 01/30/25 09:00 02/04/25 09:56 Lidocaine 5% Patch TRANSDERM 1 patch DAILY ROBI Administration Magnesium Oxide 400 mg 02/02/25 09:00 02/04/25 13:20 Magnesium Oxide 400 Mg Tablet PO Not Given DAILY ROBI Ondansetron HCl 4 mg 01/29/25 14:55 Ondansetron Inj 4 Mg/2 Ml Vial IV PUSH Q4H PRN Nausea Pantoprazole Sodium 40 mg 01/30/25 21:00 02/04/25 09:53 Pantoprazole 40 Mg Tablet PO 40 mg Q12HR ROBI Administration Polyethylene Glycol 17 gm 01/31/25 09:00 02/04/25 09:47 Polyethylene Glycol 3350 17 Gm Powd.Pack PO Not Given QAM ROBI Propranolol HCl 10 mg 02/02/25 09:00 02/04/25 09:52 Propranolol Hcl 10 Mg Tablet PO 10 mg DAILY ROBI Administration Rosuvastatin Calcium 10 mg 02/03/25 09:00 02/03/25 11:44 Rosuvastatin 10 Mg Tablet PO Not Given [email or web address] ROBI Sertraline HCl 50 mg 02/02/25 09:00 02/04/25 09:52 Sertraline Hcl 50 Mg Tablet PO 50 mg DAILY ROBI Administration Sucralfate 1,000 mg 02/02/25 16:30 02/04/25 16:25 Sucralfate Susp 100 Mg/Ml 10 Ml Udc PO 1,000 mg ACHS ROBI Administration Temazepam 15 mg 01/30/25 17:57 02/03/25 21:25 Temazepam (*Crx) 15 Mg Capsule PO 15 mg HS PRN Administration Insomnia Radiology Results: ITS Impressions Head CT 01/29/25 12:09 IMPRESSION: 1. No acute intracranial findings. Abdomen/Pelvis CT 01/29/25 12:23 IMPRESSION: 1. Mild intrahepatic ductal or ductal dilation normal gallbladder without evident cholelithiasis and without evident dilation of the common bile duct. Correlate with liver function tests. 2. Moderate sigmoid diverticulosis. Chest X-Ray 02/03/25 11:24 Impression: Mild CHF. Small left lower lobe pneumonia. The findings are new compared to the previous study. Labs Labs: Laboratory Results - last 24 hr 02/04/25 05:20 WBC 5.7 RBC 3.29 L Hgb 10.0 L Hct 29.7 L MCV 90.3 MCH 30.4 MCHC 33.7 RDW 12.4 Plt Count 181 MPV 11.0 H Sodium 134 L Potassium 3.2 L Chloride 106 Carbon Dioxide 22 Anion Gap 6 BUN 12 D Creatinine 0.63 L Estim Creat Clear Calc 41 Estimated GFR > 60 Glucose 96 Calcium 9.0 Magnesium 1.7 Quality VTE Prophylaxis VTE prophylaxis: pharmacologic ordered
[2025-02-04] MEDS: ONDANSETRON INJ 4 MG/2 ML VIAL IV PUSH (18:37)
[2025-02-04] MEDS: TEMAZEPAM (*CRX) 15 MG CAPSULE PO (20:27)
[2025-02-04] MEDS: ENOXAPARIN 40 MG/0.4 ML SYRINGE SUB-Q (20:28)
[2025-02-05] VITALS (10 sets, daily range): BP systolic 135–144; BP diastolic 56–67; PULSE 68–100; RESP 16–20; TEMP 36.5–37.1; O2SAT 91–94; BMI 21.7
[2025-02-05 05:31] LABS: Hematocrit 29.5 % (37.0-47.0); Hemoglobin 9.8 g/dL (12.0-15.0); Mean Corpuscular HGB Conc 33.2 g/dl (32-36); Mean Corpuscular Hemoglobin 30.2 pg (26-34); Mean Corpuscular Volume 90.8 fl (80-100); Platelet Count Result 211 k/mm3 (150-375); Red Blood Count 3.25 M/mm3 (4.2-5.4); White Blood Count 6.0 K/mm3 (4.5-10.0)
[2025-02-05 05:46] LABS: Anion Gap 5 mmol/L (4-12); Blood Urea Nitrogen 17 mg/dL (7-17); Calcium 9.0 mg/dL (8.4-10.2); Carbon Dioxide 23 mmol/L (22-30); Chloride 106 mmol/L (98-107); Estimated CRCL calculation 31 ml/min; Estimated Glomerular Filt Rate > 60; Glucose 90 mg/dL (65-110); Magnesium 1.6 mg/dL (1.6-2.3); Potassium 3.0 mmol/L (3.4-5.0); Sodium 134 mmol/L (137-145)
[2025-02-05] MEDS: SERTRALINE HCL 50 MG TABLET PO (10:01)
[2025-02-05] MEDS: PROPRANOLOL HCL 10 MG TABLET PO (10:01)
[2025-02-05] MEDS: PANTOPRAZOLE 40 MG TABLET PO ×2 (10:01→21:47)
[2025-02-05] MEDS: LIDOCAINE 5% PATCH 1 PATCH TRANSDERM (10:02)
[2025-02-05] MEDS: ROSUVASTATIN 10 MG TABLET PO (10:02)
[2025-02-05] MEDS: cefTRIAXone 1 GM in SODIUM CHLORIDE 0.9% IV 50 ML 100 ML IVPB (10:03)
[2025-02-05] MEDS: MAG HYDROX/AL HYDROX/SIMETH 30 ML UDC PO ×3 (10:03→22:13)
[2025-02-05] MEDS: MAGNESIUM SULF 1 GM/D5W 100 ML 1 GM/100 ML BAG IVPB (12:15)
[2025-02-05] MEDS: POTASSIUM CHLORIDE 20 MEQ PACKET (FOR LIQUID) 40 MEQ PO (12:15)
[2025-02-05] MEDS: CALCIUM CARBONATE (TUMS) 500 MG (200 MG ELEMENTAL) PO (12:25)
--- NOTE | 2025-02-05 14:10 | P.PNIM_ITS ---
Assessment and Plan Assessment and Plan (1) Intermittent chest pain: Code(s): R07.9 - Chest pain, unspecified Status: Acute Assessment and Plan: Patient presents with intermittent chest pain that occurs with any p.o. intake. She believes the symptoms are related to her GERD however, her troponins are slightly elevated. Troponins as follows: 0.034, 0.036, 0.062. Pain is intermittent and does not radiate. Chest x-ray with no acute cardiopulmonary process. Patient does have history of CAD but no stent placement. No previous [place]. - EKG, initial: Sinus rhythm with incomplete right bundle-branch block - EKG, repeat (1): Sinus rhythm with sinus arrhythmia. Incomplete right bundle branch block - EKG, repeat (2): Sinus tach with occasional PVCs. Right bundle branch block - ASA every Sunday - cardiology consulted, awaiting recs - continue rosuvastatin Sunday - telemetry monitoring (2) GERD (gastroesophageal reflux disease): Qualifiers: Esophagitis presence: esophagitis presence not specified Qualified Code(s): K21.9 - Gastro-esophageal reflux disease without esophagitis Code(s): K21.9 - Gastro-esophageal reflux disease without esophagitis Status: Chronic Assessment and Plan: Patient with a history of GERD presents with ?chest pain? any time she takes p.o. for the past 6 days. Pain is located in the epigastric and midsternal region. Relieved with burping. Did follow with gastroenterology outpatient but has not followed up for the past 2 years. -GI cocktail given -GI consult; plan for EGD on 01/30 -NPO at midnight -patient taking pantoprazole at home (3) Dyslipidemia: Code(s): E78.5 - Hyperlipidemia, unspecified Status: Chronic Assessment and Plan: Continue rosuvastatin (4) Hypertension: Qualifiers: Hypertension type: primary hypertension Qualified Code(s): I10 - Essential (primary) hypertension Code(s): I10 - Essential (primary) hypertension Status: Chronic Assessment and Plan: Continue amlodipine, propranolol Plan 84 y/o female presented to ER with c/o CP and was found to have elevated tropes seen by the mechanical repair worker does not suspect acute CAD most likely demand ischemia, possibly GI issue, patient was seen by the GI and had which showed patient has esophagitis and hiatal hernia possibly GERD causing her pain, started patient on Protonix 40mg BID, will monitor. patient stats feels tired, will have PT/OT evaluate the patient and further recommendation to follow, patient may benefit going to rehab. after meal her GERD flares up, will give tums and continue PPI BID, patient is using Pepto bismal, will add carafate which may help coat her stomach, also suggested to consult thoracic surgeon for consultation and any recommendations. her daughter is present. will monitor. patient stats carafate did help with GERD however today patient c/o cough, congestion and shortness of breath, chest x-ray is concerning for pneumonia, will start patient on ceftriaxone and Zithromax. patient is encourage to participate in PT/OT. there is concern for mild pulmonary edema, will give IV Lasix 20mg x1. patient is waiting for placement, today patient stats feel better not as short of breath and tired, patient daughter is present encourage to ambulate, and increase food intake, patient is waiting for placement to a rehab center. will monitor. Diet: Heart healthy-NPO at [place] DVT prophylaxis: Lovenox lines/drains: PIV Fluids: 1 L bolus-NS at 75 Code status: Full Subjective Date/time seen: 02/05/25 14:10 Interval history: Weakness and decreased appetite H&P-Narrative: 84 y/o female with a PMH of GERD, afib, and CAD presents to the ED on 01/29/2025 with complaints of generalized weakness and poor p.o. intake. Patient states th is began about 6 days ago when she felt like she was fighting something viral off, but denies having any fevers or chills. She describes feeling exhausted during the same timeframe to the point where she has to lay back down after doing light housework. Patient describes having chest pain intermittently over the past 6 days as well. She states this pain is in the epigastric and midsternal region rated 8/10 pain every time she eats or drinks, leading to decreased intake. Burping helps relieve the pain. Denies shortness of breath, radiating pain, diaphoresis, nausea, vomiting. 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 Patient further endorses 3 episodes of diarrhea yesterday. Patient has chronic constipation. PMH: GERD, AFib, CAD, hyperlipidemia, IBS, migraines, breast cancer status post right mastectomy 84 y/o female presented to ER with c/o CP and was found to have elevated tropes seen by the mechanical repair worker does not suspect acute CAD most likely demand ischemia, possibly GI issue, patient was seen by the GI and had which showed patient has esophagitis and hiatal hernia possibly GERD causing her pain, started patient on Protonix 40mg BID, will monitor. patient stats feels tired, will have PT/OT evaluate the patient and further recommendation to follow, patient may benefit going to rehab. after meal her GERD flares up, will give tums and continue PPI BID, patient is using Pepto bismal, will add carafate which may help coat her stomach, also suggested to consult thoracic surgeon for consultation and any recommendations. her daughter is present. will monitor. patient stats carafate did help with GERD however today patient c/o cough, congestion and shortness of breath, chest x-ray is concerning for pneumonia, will start patient on ceftriaxone and Zithromax. patient is encourage to participate in PT/OT. there is concern for mild pulmonary edema, will give IV Lasix 20mg x1. patient is waiting for placement, today patient stats feel better not as short of breath and tired, patient daughter is present encourage to ambulate, and increase food intake, patient is waiting for placement to a rehab center. will monitor. Review of Systems Review of Systems: All systems reviewed & are unremarkable except as noted in HPI and below Exam Narrative: Patient is comfortable, NAD HEENT: eyes are clear and none icteric LUNGS:CTA HEART: RR S1S2 ABD: BS+, Soft and nontender Lower extremities: no edema SKIN: nonjaundiced Neuro: grossly intact. Objective Data Vital Signs Vital Signs: Vital Signs - 24 hr 02/04/25 16:00 02/04/25 16:00 02/04/25 20:00 Temperature 36.4 C Pulse Rate 67 74 87 Respiratory Rate 16 Blood Pressure 170/73 H Pulse Oximetry 95 Oxygen Delivery 02/04/25 20:53 02/05/25 00:00 02/05/25 04:00 Temperature 36.7 C Pulse Rate 86 77 91 Respiratory Rate 17 Blood Pressure 120/58 L Pulse Oximetry 95 Oxygen Delivery 02/05/25 05:16 02/05/25 08:00 02/05/25 10:00 Temperature 36.9 C Pulse Rate 97 94 Respiratory Rate 17 Blood Pressure 135/67 Pulse Oximetry 91 Oxygen Delivery Room Air 02/05/25 10:01 02/05/25 12:00 Temperature Pulse Rate 100 68 Respiratory Rate Blood Pressure Pulse Oximetry Oxygen Delivery Intake/Output Intake/Output: Intake & Output 02/02/25 02/03/25 02/04/25 02/05/25 23:59 23:59 23:59 23:59 Intake Total 3423.8 4402.0 1230 440 Balance 3423.8 4402.0 1230 440 Meds/Results Medications: Active Medications Generic Name Dose Route Start Last Admin Trade Name Freq PRN Reason Stop Dose Admin Acetaminophen 650 mg 01/29/25 14:55 01/29/25 21:01 Acetaminophen 325 Mg Tablet PO 650 mg Q4H PRN Administration Mild Pain (1-3) or Fever Al Hydrox/Mg Hydrox/Simethicone 30 ml 02/01/25 17:10 02/05/25 10:03 Mag Hydrox/Al Hydrox/Simeth 30 Ml Udc PO 30 ml Q6H PRN Administration Indigestion Aspirin 81 mg 02/02/25 08:00 02/04/25 09:50 Aspirin 81 Mg Chewable Tablet PO Not Given [email or web address] ROBI Calcium Carbonate 200 mg 02/01/25 12:45 02/05/25 12:25 Calcium Carbonate (Tums) 500 Mg (200 Mg Elemental) PO 200 mg Q6H PRN Administration Indigestion Calcium Carbonate 500 mg 02/02/25 09:00 02/05/25 10:02 Calcium/Vitamin D 500 Mg/5 Mcg (200 I.U.) Tablet PO Not Given QAM ROBI Dextrose 12.5 gm 01/29/25 14:55 Dextrose 50% 25 Gm/50 Ml Syringe IV PUSH PRN PRN Hypoglycemia Protocol Docusate Sodium 100 mg 01/30/25 21:00 02/05/25 10:02 Docusate Sodium 100 Mg Capsule PO Not Given Q12HR ROBI Enoxaparin Sodium 40 mg 01/29/25 21:00 02/04/25 20:28 Enoxaparin 40 Mg/0.4 Ml Syringe SUB-Q 40 mg HS ROBI Administration Glucagon 1 mg 01/29/25 14:55 Glucagon For Inj 1 Mg Vial IM PRN PRN Hypoglycemia Protocol Glucose 15 gm 01/29/25 14:55 Glucose Oral Gel 15 Gm Of Glucse In 37.5 Gm Tube PO PRN PRN Hypoglycemia Protocol Dextrose 1,000 mls @ 100 mls/hr 01/29/25 14:55 Dextrose 5% 1,000 Ml IVPB PRN PRN Hypoglycemia Protocol Ceftriaxone Sodium 1 gm/ 50 mls @ 100 mls/hr 02/03/25 13:05 02/05/25 10:33 Sodium Chloride IVPB Infused QAM ROBI Infusion Azithromycin 500 mg/ Sodium 250 mls @ 250 mls/hr 02/04/25 16:00 02/04/25 17:24 Chloride IVPB 02/08/25 16:59 Infused Q24H ROBI Infusion Lidocaine 1 patch 01/30/25 09:00 02/05/25 10:02 Lidocaine 5% Patch TRANSDERM 1 patch DAILY ROBI Administration Magnesium Oxide 400 mg 02/02/25 09:00 02/05/25 10:02 Magnesium Oxide 400 Mg Tablet PO Not Given DAILY ROBI Ondansetron HCl 4 mg 01/29/25 14:55 02/04/25 18:37 Ondansetron Inj 4 Mg/2 Ml Vial IV PUSH 4 mg Q4H PRN Administration Nausea Pantoprazole Sodium 40 mg 01/30/25 21:00 02/05/25 10:01 Pantoprazole 40 Mg Tablet PO 40 mg Q12HR ROBI Administration Polyethylene Glycol 17 gm 01/31/25 09:00 02/05/25 10:02 Polyethylene Glycol 3350 17 Gm Powd.Pack PO Not Given QAM ROBI Propranolol HCl 10 mg 02/02/25 09:00 02/05/25 10:01 Propranolol Hcl 10 Mg Tablet PO 10 mg DAILY ROBI Administration Rosuvastatin Calcium 10 mg 02/03/25 09:00 02/05/25 10:02 Rosuvastatin 10 Mg Tablet PO 10 mg [email or web address] ROBI Administration Sertraline HCl 50 mg 02/02/25 09:00 02/05/25 10:01 Sertraline Hcl 50 Mg Tablet PO 50 mg DAILY ROBI Administration Sucralfate 1,000 mg 02/02/25 16:30 02/05/25 12:25 Sucralfate Susp 100 Mg/Ml 10 Ml Udc PO Not Given ACHS ROBI Temazepam 15 mg 01/30/25 17:57 02/04/25 20:27 Temazepam (*Crx) 15 Mg Capsule PO 15 mg HS PRN Administration Insomnia Radiology Results: ITS Impressions Head CT 01/29/25 12:09 IMPRESSION: 1. No acute intracranial findings. Abdomen/Pelvis CT 01/29/25 12:23 IMPRESSION: 1. Mild intrahepatic ductal or ductal dilation normal gallbladder without evident cholelithiasis and without evident dilation of the common bile duct. Correlate with liver function tests. 2. Moderate sigmoid diverticulosis. Chest X-Ray 02/03/25 11:24 Impression: Mild CHF. Small left lower lobe pneumonia. The findings are new compared to the previous study. Labs Labs: Laboratory Results - last 24 hr 02/05/25 04:35 WBC 6.0 RBC 3.25 L Hgb 9.8 L Hct 29.5 L MCV 90.8 MCH 30.2 MCHC 33.2 RDW 12.4 Plt Count 211 MPV 11.1 H Sodium 134 L Potassium 3.0 L Chloride 106 Carbon Dioxide 23 Anion Gap 5 BUN 17 Creatinine 0.85 Estim Creat Clear Calc 31 Estimated GFR > 60 Glucose 90 Calcium 9.0 Magnesium 1.6 Quality VTE Prophylaxis VTE prophylaxis: pharmacologic ordered
[2025-02-05] MEDS: AZITHROMYCIN IV 500 MG in SODIUM CHLORIDE 0.9% IV 250 ML 150 ML IVPB (16:43)
[2025-02-05] MEDS: DOCUSATE SODIUM 100 MG CAPSULE PO (21:47)
[2025-02-05] MEDS: TEMAZEPAM (*CRX) 15 MG CAPSULE PO (21:48)
[2025-02-05] MEDS: ENOXAPARIN 40 MG/0.4 ML SYRINGE SUB-Q (21:49)
[2025-02-05] MEDS: ONDANSETRON INJ 4 MG/2 ML VIAL IV PUSH (22:18)
[2025-02-06] VITALS: PULSE 76
[2025-02-06 04:00] VITALS: PULSE 87
[2025-02-06 05:19] LABS: Hematocrit 28.6 % (37.0-47.0); Hemoglobin 9.5 g/dL (12.0-15.0); Mean Corpuscular HGB Conc 33.2 g/dl (32-36); Mean Corpuscular Hemoglobin 30.2 pg (26-34); Mean Corpuscular Volume 90.8 fl (80-100); Platelet Count Result 216 k/mm3 (150-375); Red Blood Count 3.15 M/mm3 (4.2-5.4); White Blood Count 5.4 K/mm3 (4.5-10.0)
[2025-02-06 05:41] LABS: Anion Gap 2 mmol/L (4-12); Blood Urea Nitrogen 18 mg/dL (7-17); Calcium 8.9 mg/dL (8.4-10.2); Carbon Dioxide 25 mmol/L (22-30); Chloride 107 mmol/L (98-107); Estimated CRCL calculation 35 ml/min; Estimated Glomerular Filt Rate > 60; Glucose 90 mg/dL (65-110); Magnesium 2.2 mg/dL (1.6-2.3); Potassium 3.4 mmol/L (3.4-5.0); Sodium 134 mmol/L (137-145)
[2025-02-06 08:00] VITALS: BP 121/62; PULSE 100; PULSE 73; RESP 18; TEMP 36.6; O2SAT 94
[2025-02-06 09:56] VITALS: PULSE 105
[2025-02-06] MEDS: PROPRANOLOL HCL 10 MG TABLET PO (09:56)
[2025-02-06] MEDS: SERTRALINE HCL 50 MG TABLET PO (09:57)
[2025-02-06] MEDS: PANTOPRAZOLE 40 MG TABLET PO (09:57)
[2025-02-06] MEDS: LIDOCAINE 5% PATCH 1 PATCH TRANSDERM (09:59)
[2025-02-06] MEDS: cefTRIAXone 1 GM in SODIUM CHLORIDE 0.9% IV 50 ML 100 ML IVPB (09:59)
--- NOTE | 2025-02-06 10:20 | P.DS_ITS ---
DS: Admitting Diagnosis Discharge Date 02/06/2025 Admitting Diagnosis Chest pain DS: Discharge Diagnosis Discharge Diagnosis (1) Intermittent chest pain: Code(s): R07.9 - Chest pain, unspecified Status: Acute (2) GERD (gastroesophageal reflux disease): Qualifiers: Esophagitis presence: esophagitis presence not specified Qualified Code(s): K21.9 - Gastro-esophageal reflux disease without esophagitis Code(s): K21.9 - Gastro-esophageal reflux disease without esophagitis Status: Chronic (3) Dyslipidemia: Code(s): E78.5 - Hyperlipidemia, unspecified Status: Chronic (4) Hypertension: Qualifiers: Hypertension type: primary hypertension Qualified Code(s): I10 - Essential (primary) hypertension Code(s): I10 - Essential (primary) hypertension Status: Chronic DS: Summary Hospital Course Hospital Course: # Intermittent chest pain: Patient presents with intermittent chest pain that occurs with any p.o. intake. She believes the symptoms are related to her GERD however, her troponins are slightly elevated. Troponins as follows: 0.034, 0.036, 0.062. Pain is intermittent and does not radiate. Chest x-ray with no acute cardiopulmonary process. Patient does have history of CAD but no stent placement. No previous [place]. - EKG, initial: Sinus rhythm with incomplete right bundle-branch block - EKG, repeat (1): Sinus rhythm with sinus arrhythmia. Incomplete right bundle branch block - EKG, repeat (2): Sinus tach with occasional PVCs. Right bundle branch block - ASA every Sunday - cardiology consulted. Does not suspect ACS. Elevated troponin likely due to demand ischemia. - continue rosuvastatin Sunday - telemetry monitoring Echo unremarkable # GERD (gastroesophageal reflux disease): Patient with a history of GERD presents with ?chest pain? any time she takes p.o. for the past 6 days. Pain is located in the epigastric and midsternal region. Relieved with burping. Did follow with gastroenterology outpatient but has not followed up for the past 2 years. -GI cocktail given -GI consult; Status post EGD 01/30/2025 found findings of esophagitis and hiatal hernia. On Protonix 40 b.i.d.. -patient does take pantoprazole at home # Dyslipidemia: Continue rosuvastatin # pneumonia: Chest x-ray concerning for pneumonia. Started on ceftriaxone and azithromycin. Also received a dose of Lasix. Legs with bilateral pitting edema mild will continue on small dose of Lasix daily. Recheck labs in a week. Follow-up with PCP in a week # Hypertension: Continue amlodipine, propranolol # disposition: PT OT. Home health will be arranged. Rehab placement was denied by insurance. Family is also arranging for mother home services available to support her at discharge # DVT prophylaxis Lovenox # full code Time Spent with Patient Time attestation: Total time spent providing and/or coordinating discharge services: 45 minutes Exam Narrative: Patient is comfortable, NAD HEENT: eyes are clear and none icteric LUNGS:CTA HEART: RR S1S2 ABD: BS+, Soft and nontender Lower extremities: Trace edema bilateral lower extremities SKIN: nonjaundiced Neuro: grossly intact. DS: Data Data Completed and Pending Completed studies during hospitalization: Pending at discharge 01/30/25 11:55 Surgical [PTH] Routine Exam Type: CA echo doppler color flow Complete two-dimensional, color flow and Doppler transthoracic echocardiogram is performed. Staff Referring Physician: Soraida Mejias It Administrative Assistant: Zaria De Paz Attending Provider: Pilo Castillo MD Summary 1. Complete two-dimensional, color flow and Doppler transthoracic echocardiogram is performed. 2. There is normal biventricular size and systolic function. 3. There is normal biatrial size. 4. There are no significant valvular abnormalities. Left Ventricle The left ventricle is normal in size and systolic function. The left ventricular ejection fraction is visually estimated to be 60-65%. Right Ventricle The right ventricle is normal in size and systolic function. Left Atria The left atrium is normal size. Right Atria The right atrium is normal size. Atrial Septum The atrial septum is normal. Aortic Valve The aortic valve is trileaflet and opens well. There is no aortic regurgitation. Pulmonic Valve The pulmonic valve is not well visualized. There is trace pulmonic valve regurgitation. Mitral Valve The mitral valve is normal. There is trace mitral regurgitation. Tricuspid Valve The tricuspid valve is normal. There is trace tricuspid regurgitation. Pericardium/Pleural Pericardium is normal in appearance with no evidence for significant pericardial effusion. Inferior Vena Cava Dilated inferior vena cava with <50% collapse upon inspiration consistent with significantly elevated right atrial pressure, 15 mmHg. Aorta The aortic root at the level of the sinus of Valsalva measures 2.9 cm in diameter. Labs on day of discharge: Labs from last 24 hours 02/06/25 04:16 WBC 5.4 RBC 3.15 L Hgb 9.5 L Hct 28.6 L MCV 90.8 MCH 30.2 MCHC 33.2 RDW 12.8 Plt Count 216 MPV 11.1 H Sodium 134 L Potassium 3.4 Chloride 107 Carbon Dioxide 25 Anion Gap 2 L BUN 18 H Creatinine 0.76 Estim Creat Clear Calc 35 Estimated GFR > 60 Glucose 90 Calcium 8.9 Magnesium 2.2 Imaging Radiologist's impression: ITS Impressions Chest X-Ray 01/29/25 10:37 IMPRESSION: 1. No acute cardiopulmonary findings. Head CT 01/29/25 12:09 IMPRESSION: 1. No acute intracranial findings. Abdomen/Pelvis CT 01/29/25 12:23 IMPRESSION: 1. Mild intrahepatic ductal or ductal dilation normal gallbladder without evident cholelithiasis and without evident dilation of the common bile duct. Correlate with liver function tests. 2. Moderate sigmoid diverticulosis. Chest X-Ray 02/03/25 11:24 Impression: Mild CHF. Small left lower lobe pneumonia. The findings are new compared to the previous study. Discharge Plan Discharge Attending physician on discharge: Hilton Rodgers Consulting providers: Sara Reynoso Discharging Clinician: Hilton Rodgers Anticipated Discharge Date/Time: 02/06/25 10:30 Patient Disposition: Home with Home Health Service Activity: as tolerated Diet: heart healthy Discharge Instructions: Per Care Coordination: [facility] ([phone]) will call to set up initial visit. Referral has been sent to [facility] ([phone]) and they will also call to set up initial visit. Patient Instructions: Antibiotic Form Patient Language: Lao Stand Alone Forms: General Discharge Information Follow-up/Referrals: Eleni,Leela Chaudhary APRN [Primary Care Provider, Unknown] - 1 Week Discharge Medications: New lidocaine [Lidoderm] 5 % Adhesive Patch,Medicated 1 patch transdermal DAILY Qty: 30 0RF alum-mag hydroxide-simeth [Mag-Al Plus] 200-200-20 mg/5 mL Suspension 30 ml PO Q6H PRN (Reason: Indigestion) Qty: 300 0RF azithromycin 500 mg tablet 500 mg PO DAILY 2 Days Qty: 2 0RF Rx Instructions: start on day 2 of therapy furosemide [Lasix] 20 mg tablet 20 mg PO DAILY Qty: 30 0RF sucralfate 100 mg/mL Suspension 1,000 mg PO ACHS Qty: 300 0RF amoxicillin-pot clavulanate 875-125 mg tablet 1 tablet PO Q12H Qty: 2 0RF ondansetron HCl 4 mg tablet 4 mg PO Q8H PRN (Reason: nausea and vomiting) Qty: 20 0RF Continued magnesium 200 mg tablet 400 mg PO DAILY calcium carbonate-vitamin D3 [Calcium 600 + D(3)] 600 mg-5 mcg (200 unit) tablet 1 tablet PO DAILY temazepam 15 mg capsule 15 mg PO HS propranolol 20 mg tablet 10 mg PO DAILY sertraline 50 mg tablet 50 mg PO DAILY rosuvastatin 10 mg tablet 10 mg PO USEASDIRECTD Rx Instructions: Takes Sunday, Sunday, Sunday, and amlodipine 5 mg tablet 2.5 mg PO DAILY [place] 81 mg Capsule 81 mg PO USEASDIRECTD Rx Instructions: Taken Mondays, Wednesdays, and Fridays pantoprazole 40 mg Tablet,Delayed Release (Dr/Ec) 40 mg PO QAM Qty: 30 1RF Other Ambulatory Orders: Complete Blood Count with Diff (Routine) Timeframe: 1 Week Location: Determined by Patient Ordered By: Hilton Rodgers Comprehensive Metabolic Panel (Routine) Timeframe: 1 Week Location: Determined by Patient Ordered By: Hilton Rodgers Date of admission: 02/01/25 15:37 Primary Care Provider: ElaineLeela Admitting Provider: Pilo Castillo Attending physician on admission: Pilo Castillo Condition: Stable
[2025-02-06 12:00] VITALS: PULSE 72
[2025-02-06] MEDS: FUROSEMIDE 40 MG TABLET PO (12:52)
[2025-02-06] MEDS: ONDANSETRON INJ 4 MG/2 ML VIAL IV PUSH (12:54)
[2025-02-06] MEDS: AZITHROMYCIN 500 MG TABLET PO (13:38)
[2025-02-06 13:57] VITALS: BP 137/62; PULSE 71; RESP 17; TEMP 36.4; O2SAT 94
== END 2025-02-06 16:17 | disposition home health service (06) | DRG 391 ==
LOC: ANHED 15:02 → ANHIMU 17:39 → ANH2MED 02-01 11:36
PROVIDERS: Internal Medicine; Internal Medicine Gastroenterology; Nurse Practitioner Adult Health; Admitting Provider Family Medicine; Emergency Provider Physician Assistant; PCP Nurse Practitioner Family; Visit Provider Internal Medicine
PROC: 0DJ08ZZ Inspection of Upper Intestinal Tract, Via Natural or Artificial Opening Endoscopic (ICD-10-PCS; principal; 2025-01-30 14:30)
DX: K21.00 Gastro-esophageal reflux disease with esophagitis, without bleeding (principal); J18.9 Pneumonia, unspecified organism; I24.89 Other forms of acute ischemic heart disease; R07.89 Other chest pain; R13.10 Dysphagia, unspecified; I25.10 Atherosclerotic heart disease of native coronary artery without angina pectoris; E78.5 Hyperlipidemia, unspecified; K59.00 Constipation, unspecified; I10 Essential (primary) hypertension; J06.9 Acute upper respiratory infection, unspecified; K44.9 Diaphragmatic hernia without obstruction or gangrene; I48.0 Paroxysmal atrial fibrillation; Z90.710 Acquired absence of both cervix and uterus; Z85.3 Personal history of malignant neoplasm of breast
CPT/HCPCS: 36415; 70450; 71045; 71046; 74177; 80048; 80053; 80076; 81001; 82550; 83735; 84484; 85025; 85027; 85610; 85730; 87637; 88305; 93005; 93306; 96361; 96374; 96375; 97110; 97116; 97161; 97165; 97530; 99285; A9270; G0378; J0456; J0696; J1650; J1836; J1938; J2003; J2405; J2470; J2704; J3475; J3480; J7030; J7040; J7050; J7120; Q9967

== ENCOUNTER 2025-02-12 13:02 | Outpatient (NON) | payer MEDICARE, SELFPAY ==
[2025-02-12 13:13] LABS: Hematocrit 34.2 % (37.0-47.0); Hemoglobin 11.3 g/dL (12.0-15.0); Immature Granulocyte Percent A 0.5 % (0-0.5); Lymphocytes Absolute Auto 1.11 K/mm3 (0.9-3.2); Mean Corpuscular HGB Conc 33.0 g/dl (32-36); Mean Corpuscular Hemoglobin 30.5 pg (26-34); Mean Corpuscular Volume 92.2 fl (80-100); Nucleated Red Blood Cells Absolute Auto 0.000 K/mm3 (0.0-0.012); Nucleated Red Blood Cells Perc 0.0 % (0.0-0.2); Platelet Count Result 284 k/mm3 (150-375); Red Blood Count 3.71 M/mm3 (4.2-5.4); White Blood Count 6.1 K/mm3 (4.5-10.0)
[2025-02-12 13:37] LABS: Alanine Aminotransferase 47 U/L (6-35); Albumin Level 3.4 g/dL (3.5-5.1); Alkaline Phosphatase 72 U/L (38-126); Anion Gap 7 mmol/L (4-12); Aspartate Amino Transferase 70 U/L (14-36); Bilirubin,Total 0.5 mg/dL (0.2-1.3); Blood Urea Nitrogen 18 mg/dL (7-17); Calcium 9.7 mg/dL (8.4-10.2); Carbon Dioxide 27 mmol/L (22-30); Chloride 104 mmol/L (98-107); Estimated Glomerular Filt Rate > 60; Glucose 126 mg/dL (65-110); Potassium 3.8 mmol/L (3.4-5.0); Sodium 138 mmol/L (137-145); Total Protein 6.1 g/dL (6.3-8.2)
--- OUTSIDE RECORDS SUMMARY | 2025-02-12 13:55 | XMS_ITS | Encounter Summary ---
Author Organization [facility] Healthcare Address [address] [place] [address] Care Team Providers Care Assistant Project Engineer Name Role Phone Leela Knowles NP Primary Care Provider [phone] Sharon Mcmullen MD Unavailable Ean Haskins MD Unavailable [phone] Jadiel Hernandez MD Unavailable [phone] Encounter Details Date Type Department Care Team (Late st Contact Info) Description 01/09/2025 Results Follow-Up [facility] Medical Group Primary Care at [place] [address] [place] [address] Debra Dewitt NP 2 [facility] [address] [place] [address] Basic metabolic panel, eGFR Social [...] on file 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 Gender Identity Not on file Sexual Orientation Not on file documented as of this encounter Plan of Treatment Not on file documented as of this encounter Visit Diagnoses Not on filedocumented in this encounter Care Teams Assistant Project Engineer Relationship Specialty Start Date End Date Leela Knowles NP [address] [facility] [address] [place] [address] PCP - General Family Medicine 05/31/23 [place] [address] [address] [facility] [address] [place] [address] Consulting Physician Cardiology 05/31/23 Ean Haskins MD [address] [place] [address] Consulting Physician Cardiology 05/31/23 [place] [address] [address] [facility] [address] [place] [address] Consulting Physician Gastroenterology 05/31/23 Dr Barraza, [facility] 05/31/23 documented as of this encounter
--- OUTSIDE RECORDS SUMMARY | 2025-02-12 13:55 | XMS_ITS | Encounter Summary ---
Author Organization [facility] Healthcare Address [address] [place] [address] Care Team Providers Care Cogeneration Technician Name Role Phone Leela Knowles NP Primary Care Provider Sharon Mcmullen MD Unavailable Ean Haskins MD Unavailable [phone] Jadiel Hernandez MD Unavailable [phone] Reason for Visit * Reason Onset Date Comments Medical Question/Miscellaneous 02/06/2025 Encounter Details Date Type Department Care Team (Late st Contact Info) Description 02/06/2025 Telephone [facility] Medical Group Primary Care at [place] [address] [place] [address] Leela Knowles NP [address] [place] [address] [address] [place] [address] Medical Question/Miscellaneous Social History Tobacco Use Types Packs/Day Years [...] on file 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 Will call E WORKER * Telephone Encounter - Luisa Mares - 02/09/2025 10:10 AM CST Call Back Caller???s Concern: Kathya with [facility] calling to check status on the requested verbal for home health orders of physical therapy, occupational therapy, and mcfp. Kathya is hoping to get the patient set up first visit on Sunday02/11/2025. Does message need to be routed? Yes-Action Needed E WORKER * Telephone Encounter - Kerry Barber - 02/06/2025 3:04 PM CST Medical Question/Miscellaneous Caller???s Concern: Kathya with [facility] calling in after received a referral from [facility]. She would like to know if JEFFREY Knowles will sign and follow for PT,OT and nursing orders. Verbal isokay Does message need to be routed? Yes-Action Needed E WORKER documented in this encounter Plan of Treatment Not on file documented as of this encounter Visit Diagnoses Not on filedocumented in this encounter Care Teams Cogeneration Technician Relationship Specialty Start Date End Date Leela Knowles NP [address] [address] PCP - General Family Medicine 05/31/23 [place] [address] [address] [address] Consulting Physician Cardiology 05/31/23 Ean Haskins MD [address] [place] [address] Consulting Physician Cardiology 05/31/23 [place] [address] [address] Consulting Physician Gastroenterology 05/31/23 Dr Barraza, [facility] 05/31/23 documented as of this encounter
--- OUTSIDE RECORDS SUMMARY | 2025-02-12 13:55 | XMS_ITS | Clinical Summary ---
Author Organization [facility] [address] Address [address] [place] [address] Care Team Providers Care Floor Representative Name Role Phone Leela Knowles NP Primary Care Provider [phone] Sharon Mcmullen MD Unavailable Ean Haskins MD Unavailable [phone] Jadiel Hernandez MD Unavailable [phone] Allergies Active Allergy Reactions Criticality Noted Date [...] 4 times per week as directed by plaster pattern caster, Dr. Mcmullen 56 tablet 3 5 Active [...] for sleep 30 capsule 5 5 Active temazepam (RESTORIL) 15 mg capsule [...] 05/31/2023 Assessment & Plan (01/08/2025 2:42 PM ROVING SIZER): Assessment & Plan (06/02/2024 2:46 PM CDT): Pt was rx'd Tramadol prn in the past for arthralgias, eye injection, dental work etc by previous PCP. Last refill 2020 for 7 pills (pt has bottle). Will refill for 7 pills, pt aware to not take with Temazepam. Hypertension, essential 05/31/2023 Assessment & Plan (01/08/2025 2:42 PM ROVING SIZER): Assessment & Plan (06/02/2024 2:35 PM CDT): [...] 05/31/2023 Assessment & Plan (01/08/2025 2:42 PM ROVING SIZER): Assessment & Plan (06/02/2024 2:18 PM CDT): Continues Rosuvastatin, no side effects reported. Updated labs ordered Ventricular premature depolarization 05/11/2023 Arthralgia of right knee 09/20/2022 Mixed anxiety and depressive disorder 07/04/2022 Pain of left hip joint 05/10/2022 Persistent insomnia 05/10/2022 Assessment & Plan (01/08/2025 2:42 PM ROVING SIZER): Assessment & Plan (06/02/2024 2:40 PM CDT): [...] Condition stable overall, continues to work with Exercise Planner. Overdue for appt though, needs to make follow up Assessment & Plan (06/01/2023 9:45 AM CDT): Conditions stable overall, continues to work with Exercise Planner. Full thickness rotator cuff tear 11/24/2019 Arteriosclerosis of coronary artery 06/25/2018 Assessment & Plan (01/08/2025 2:42 PM ROVING SIZER): Orders: rosuvastatin (CRESTOR) 20 mg tablet; Take 1 tablet by mouth 4 times per week as directed by plaster pattern caster, Dr. Mcmullen Gastroesophageal reflux disease 02/26/1960 Assessment & Plan (01/08/2025 2:42 PM ROVING SIZER): Resolved Problems Problem Noted Date Diagnosed Date [...] Encounters Date Type Department Care Team Description 02/06/2025 Telephone [facility] Medical [facility] Primary Care at [address] [phone] Leela Knowles NP Medical Question/Miscellaneous 02/05/2025 Orders Only [facility] Primary Care at [address] [phone] Rosalia Felipe MD 02/04/2025 Orders Only [facility] Primary Care at [address] [phone] Rosalia Felipe MD 01/29/2025 Orders Only [facility] Health Information Management [address] [place] [address] Twan Reyes MD 01/09/2025 Results Follow-Up [facility] Primary Care at [address] [phone] Debra Dewitt NP Basic metabolic panel, eGFR 01/08/2025 2:55 PM ROVING SIZER Lab [address] [address] Stage 3a chronic kidney disease (HCC) 01/08/2025 2:00 PM ROVING SIZER Office Visit [facility] Medical [facility] Primary Care at [address] [phone] Dewitt, Debra A., OSCILLOGRAPH TECHNICIAN Mixed hyperlipidemia (Primary Dx); Arteriosclerosis of coronary [...] Left CATARACT EXTRACTION 04/29/2013 Right BREAST SURGERY 2006 Medical History Medical History Date Comments Abnormality of heart beat Hypertension 1999 Cancer (HCC) 2006 History of stomach ulcers Gastric reflux Hiatal [...] on file Legal Sex Female 3:27 AM ROVING SIZER Gender Identity Not on file Sexual Orientation Not on file Last Filed Vital Signs Vital Sign Reading Time Taken Comments Blood Pressure 106/66 01/08/2025 2:13 PM ROVING SIZER Pulse 68 01/08/2025 2:13 PM ROVING SIZER Temperature 36.4 C (97.6 F) 01/08/2025 2:13 PM ROVING SIZER Respiratory Rate 18 01/08/2025 2:13 PM ROVING SIZER Oxygen Saturation 97% 01/08/2025 2:13 PM ROVING SIZER Inhaled Oxygen Concentration - - Weight 46.7 kg (102 lb 14.4 oz) 01/08/2025 2:13 PM ROVING SIZER Height 152.4 cm (5') 01/08/2025 2:13 PM ROVING SIZER Body Mass Index 20.1 01/08/2025 2:13 PM ROVING SIZER Plan of Treatment Health Maintenance Due Date Last Done Comments Hepatitis B Screening 1958 Pneumococcal vaccine 65+ (1 of 1 - PCV) 1989 DTaP/Tdap/Td Vaccine (2 - Tdap) 12/19/2015 6 Fall Risk Assessment 06/02/2025 06/02/2024, 12/03/2023, 05/31/2023 Well Visit 65+ 06/02/2025 06/02/2024 Covid-19 Vaccine (2024-2 6 season) 2025 12/05/2024, 12/27/2021, 01/07/2021, Additional history exists Depression Screening 01/08/2026 01/08/2025, 06/02/2024, 12/03/2023, Additional history exists Osteoporosis Screening-Bone Density Scan 06/30/2026 06/30/2024, 05/30/2020 Zoster Vaccine Completed 05/11/2021, 12/20/2020 Influenza Vaccine Completed 12/05/2024, , 12/24/2022, Additional history exists Procedures Procedure Name Priority Date/Time Associated Diagnosis Comments XR CHEST 1 VIEW Schedule Routine, Read Routine (OP Routine) 02/03/2025 2:32 PM ROVING SIZER CARDIOLOGY DOCUMENT SCAN Routine 02/02/2025 2:39 PM ROVING SIZER EGD Routine 01/30/2025 12:36 PM ROVING SIZER CARDIOLOGY DOCUMENT SCAN 01/29/2025 EGFR Routine 01/08/2025 2:56 PM ROVING SIZER Stage 3a chronic kidney disease (HCC) BASIC METABOLIC PANEL Routine 01/08/2025 2:56 PM ROVING SIZER Stage 3a chronic kidney disease (HCC) DEXA AXIAL SKELETON BONE DENSITY 1 OR MORE SITES Schedule Routine, Read Routine (OP Routine) 06/30/2024 7:43 AM CDT Encounter for osteoporosis screening in asymptomatic postmenopausal patient from Last 3 Months or Most Recently Relevant to Health Maintenance Results * XR Chest 1 View (02/03/2025 2:32 PM ROVING SIZER) Anatomical Region Laterality Modality Body, Chest N/A Radiographic Marianne ging Historical Provider IMG XR PROCEDURES Final R esult * Cardiology Document Scan (02/02/2025 2:39 PM ROVING SIZER) Anatomical Region Laterality Modality Other Twan Reyes MD CV CARDIAC SERVICES PROCEDURES F inal Result * EGD -[facility] Medical Group (01/30/2025 12:36 PM ROVING SIZER) Anatomical Region Laterality Modality Other Result [facility] Historical Provider GI PROCEDURE ORDERABLES F inal Result * Cardiology Document Scan (01/29/2025) Anatomical Region Laterality Modality Other Twan Reyes MD CV CARDIAC SERVICES PROCEDURES F inal Result * (ABNORMAL) eGFR (01/08/2025 2:56 PM ROVING SIZER) eGFR 59(L) >=60 mL/min/1. 73 m2 Comment: [...] last reviewed 2020. Blood 01/08/2025 2:56 PM ROVING SIZER 01/08/2025 6:29 PM ROVING SIZER Debra Dewitt NP LAB BLOOD ORDERABLES Final Re sult [facility] [address] [facility] Department [place] [address] * Basic metabolic panel (01/08/2025 2:56 PM ROVING SIZER) [facility] Sodium 139 135 - 145 mmol/L Potassium, pl 4.6 3.3 - 4.9 mmol/L [facility] Chloride 102 97 - 110 mmol/L [facility] CO2 30 22 - 32 mmol/L [facility] Anion gap 7 2 - 15 mmol/L [facility] BUN 20 6 - 25 mg/dL [facility] Creatinine 0.95 0.60 - 1.10 mg/dL [facility] Glucose 95 70 - 199 mg/dL [facility] Comment: Interpretive Data Fasting glucose >/= [...] 2022. Calcium 9.5 8.5 - 10.3 mg/dL [facility] Blood 01/08/2025 2:56 PM ROVING SIZER 01/08/2025 6:29 PM ROVING SIZER Debra Dewitt NP LAB BLOOD ORDERABLES Final Re sult [facility] [address] [facility] Department [place] [address] * Dexa Axial Skeleton Bone Density 1 Or 2 Site (06/30/2024 7:43 AM CDT) Anatomical Region Laterality Modality Body N/A Radiographic Marianne ging Leela Knowles NP IMG DXA PROCEDURES Final Result from Last 3 Months or Most Recently Relevant to Health Maintenance Insurance [facility] MEDICARE [facility] [place] [phone] Care Teams Floor Representative Relationship Specialty Start Date End Date Leela Knowles NP [address] [facility] [address] [place] [address] PCP - General Family Medicine 05/31/23 [place] [address] [address] [facility] [address] [place] [address] Consulting Physician Cardiology 05/31/23 Ean Haskins MD [address] [place] [address] Consulting Physician Cardiology 05/31/23 [place] [address] [address] [facility] [address] [place] [address] Consulting Physician Gastroenterology 05/31/23 Dr Barraza, [facility] Ophthalmology 05/31/23
== END 2025-02-12 13:03 | disposition home or self-care (01) ==
LOC: ANHLAB 13:03 → HOME HLTH 13:03
PROVIDERS: PCP Nurse Practitioner Family; Visit Provider Internal Medicine
DX: I48.91 Unspecified atrial fibrillation (principal); I10 Essential (primary) hypertension
CPT/HCPCS: 80053; 85025